=== PATIENT | female | born 1935 | race Caucasian/White ===

== ENCOUNTER → 2017-07-07 | Outpatient (CLI) | payer OTHER ==
[~2017-07-07] MED LIST: CLB200 PO; LPR25 PO; THY/30 PO
--- NOTE | 2017-07-08 07:35 | MAMMOGRAPHY REPORT ---
BILATERAL DIGITAL SCREENING MAMMOGRAM WITH CAD: 07/07/2017 CLINICAL HISTORY: Routine screening examination. TECHNIQUE: Bilateral CC and MLO views were obtained. Current study was also evaluated with a Comput er Aided Detection (CAD) system. COMPARISON: Comparison is made to exams dated: 07/02/2016 mammogram, 06/29/2015 mammogram, 06/27/2014 mammogram, 06/24/2013 mammogram, 06/23/2012 mammogram, and 06/21/2011 mammogram - [facility]. BREAST COMPOSITION: There are scattered areas of fibroglandular density in both breasts. FINDINGS: A pacemaker projects over the superior left pectoralis muscle on the MLO view. There are s cattered and loosely grouped benign rounded rim calcifications bilaterally. No suspicious mass, arch itectural distortion or cluster of suspicious microcalcifications is seen. IMPRESSION: ACR BI-RADS CATEGORY 1: NEGATIVE There is no mammographic evidence of malignancy. A 1 year screening mammogram is recommended. The pa tient will receive written notification of the results. Approximately 10% of breast cancers are not detected with mammography. A negative mammographic report should not delay biopsy if a clinically suggestive mass is present. Fariba Puga M.D. ay/:07/07/2017 14:51:35 Transportation Operations Manager: Tasia SANDERS(Sandhya)(M), [facility] letter sent: Normal 1/2 BI-RADS Code: ACR BI-RADS Category 1: Negative
== END | disposition home or self-care (01) ==
LOC: C.MAMM 12:04
PROVIDERS: ATTEND Internal Medicine Pulmonary Disease
DX: Z12.31 Encounter for screening mammogram for malignant neoplasm of breast (principal)

== ENCOUNTER → 2017-07-17 | Outpatient (CLI) | payer OTHER ==
[2017-07-17 10:56] LABS: BASO % 0.9 %; BASO ABS # 0.05 K/uL (0-0.2); COMPLETE YES; EOS % 5.7 %; HEMATOCRIT 43.7 % (37-47); LYMPH ABS # 1.57 K/uL (1.2-3.4); MEAN CELL VOLUME 92.2 fL (80-100); MEAN CORPUSCULAR HGB CONC 32.5 g/dl (32-36); MEAN PLATELET VOLUME 11.3 fL (7.4-10.4); MONO % 10.2 %; NEUT % 55.2 %; PLATELET COUNT 288 K/uL (130-400); RED BLOOD COUNT 4.74 M/uL (4.2-5.4); WHITE BLOOD COUNT 5.61 K/uL (4.8-10.8)
[2017-07-17 11:20] LABS: ALT/SGPT 25 U/L (12-78); BLOOD UREA NITROGEN 24 mg/dl (7-18); BUN/CREATININE RATIO 33.4 (10-20); CALCIUM 9.2 mg/dl (8.5-10.1); CARBON DIOXIDE 31 mmol/L (21-32); CHLORIDE 104 mmol/L (98-107); CHOLESTEROL 262 mg/dl (0-200); CREATININE 0.72 mg/dl (0.60-1.20); GLUCOSE 100 mg/dl (70-99); POTASSIUM 4.4 mmol/L (3.5-5.1); SODIUM 139 mmol/L (136-145); TRIGLYCERIDES 154 mg/dl (0-150); VERY LOW DENSITY LIPOPROT CALC 31 mg/dl
[2017-07-17 11:31] LABS: ALB/GLOB RATIO 1.1 (0.9-2); ALKALINE PHOSPHATASE 84 U/L (45-117); AST/SGOT 23 U/L (15-37); CHOLESTEROL/HDL RATIO 3.9; HDL CHOLESTEROL 67 mg/dl; LDL CHOLESTEROL CALCULATED 164 mg/dl
== END | disposition home or self-care (01) ==
LOC: C.LABBC 07:52
PROVIDERS: ATTEND Internal Medicine Pulmonary Disease
DX: Z00.00 Encounter for general adult medical examination without abnormal findings (principal); E03.9 Hypothyroidism, unspecified; M48.00 Spinal stenosis, site unspecified; M15.9 Polyosteoarthritis, unspecified; G62.9 Polyneuropathy, unspecified

== ENCOUNTER 2024-07-01 07:27 | Inpatient (IN) ==
--- NOTE | 2024-07-01 07:47 | Emergency Department Note ---
Impression & Plan Fall, Elevated troponin, Acute pain of right thigh, Fracture of right hip ED Provider Note NAME: JUAN JOHNSON AGE: 88 SEX: F : 1935 ARRIVES VIA: Ambulance INFORMANT: [Patient][ems, nursing] ED PROVIDER(S): [Cecilio Brandon MD] CHIEF COMPLAINT: Fall, right leg pain HISTORY OF PRESENT ILLNESS: The patient is an 88-year-old female who states that she fell because of her neuropathy around 2 days ago. She had friends help her up into a chair and she has been sitting in the chair since. She has received some food and drink through her friends. As per the nursing staff, when the patient arrived, she was covered in stool and urine. The patient denies any loss of consciousness. She has no headache or neck pain, no chest pain or back pain. No abdominal pain. She complains of pain only in the area of the right mid femur. The patient states that she has been unable to bear any weight on the right leg or walk since the fall. The patient is not on blood thinning agents. PMHx/PSHx/Social Hx: See Below PHYSICAL EXAM: GENERAL: Patient is in no acute distress. HEENT: No acute trauma, normocephalic atraumatic, mucous membranes dry, no nasal congestion. NECK: No stridor, no adenopathy, nontender cervical spine, trachea is midline. LUNGS: Clear to auscultation bilaterally, no wheeze, no rhonchi, breath sounds equal. HEART: Regular rhythm with an occasional extra beat, no murmurs. Normal rate. ABDOMEN: Soft, nontender, no peritonitis. No distention. EXTREMITIES: No cyanosis. The patient's right lower extremity does appear somewhat shortened compared to the left. She is painful with palpation of the right mid femur. There is a contusion present to the mid right femur medially. No gross deformity. Movement of her right hip does not cause any discomfort. Right knee is nontender and the quadriceps and patellar tendons appear intact. Right lower extremity is warm to the touch indicating adequate blood flow. NEUROLOGIC: Oriented x 3, no acute motor or sensory deficits, no focal weakness. SKIN: No jaundice, no diaphoresis. Pelvis: Stable with rock. DIFFERENTIAL DIAGNOSIS: Fracture, sprain, strain, hematoma, dehydration, rhabdomyolysis, UTI, among others. EMERGENCY DEPARTMENT PROCEDURES: MEDICAL DECISION MAKING: There is no leukocytosis. A mild anemia was seen with a hemoglobin of 10.9. There was a normal platelet count. No coagulopathy. No renal failure or significant electrolyte abnormality. No worrisome liver enzyme elevation. The patient appeared to be in a euthyroid state. ECG showed a sinus rhythm, no dysrhythmia or acute ischemia. Cardiac enzyme testing x 1 was slightly elevated. This troponin elevation could be secondary to cardiac injury or mismatch from her fall and stress. Urinalysis showed some ketones consistent with dehydration. No findings of infection. Chest film did not show pneumonia or CHF. Films of the pelvis and right femur were performed, she has a right intertrochanteric hip fracture. The patient did not want anything for pain. The patient received IV saline, 500 cc. This was given for hydration. I did speak with orthopedics. The patient is in need of an orthopedic procedure and will be seen later today for potential options. I spoke with the patient about her findings, I did speak with case management, hospitalization is indicated. The on-call hospitalist was consulted. In short, the patient appears to have suffered a hip fracture from her fall. No other significant injuries noted by history or exam. Prior/Outside records/notes reviewed: Today's EMS notes describing her presentation and transport to this hospital. ECG per my interpretation: Indication was fall. The ECG shows a sinus rhythm with PACs. The rate is 81. There is no acute ST elevation, no PVCs. The QTc is 422. Continuous Cardiac Monitoring per my interpretation: An order was placed for continuous cardiac monitoring. The monitor shows a rate of 85 with normal sinus rhythm. Imaging/x-ray results per my interpretation: Chest x-ray does not show pneumonia or CHF. Pelvis, right hip and right femur films were performed. There was a right intertrochanteric hip fracture seen. Chronic Medical/Social conditions affecting care: Advanced age. Care/Management discussed with: Case management, the on-call hospitalist. Orthopedics-Dr. Valdes Level of care consideration(s): After review of the information above and other included data: --I believe the patient requires escalation of care to admission DISPOSITION: Admission Past Med/Surg History Problem List (Updated 07/01/24 @ 11:18 by Cecilio Brandon MD) Fracture of right hip (Acute) Acute pain of right thigh (Acute) Elevated troponin (Acute) Fall (Acute) Encounter for pre-operative examination Elevated troponin Right femoral fracture Squamous cell skin cancer Cardiac pacemaker Decreased exercise tolerance PAT (paroxysmal atrial tachycardia) Glaucoma Dyslipidemia Spinal stenosis Peripheral neuropathy Degenerative joint disease, multiple joints on both sides of body Allergic rhinitis (Acute) Hypothyroidism (Acute) Osteoporosis (Acute) Medical History (Updated 07/01/24 @ 11:18 by Cecilio Brandon MD) Peptic ulcer SSS (sick sinus syndrome) (04/28/14) Surgical History S/P placement of cardiac pacemaker (~2013) Dual chamber Status post hip surgery (~2013) Left RUTH History of esophagogastroduodenoscopy (~1996) H/O colonoscopy (~1998) Family History Mother Breast cancer Social History Smoking Status: Never smoker marital status: / Current Living Situation: Alone current occupational status: retired Feels Safe at Home: Yes Allergies Allergies Allergy/AdvReac Type Severity Reaction Status Date / Time No Known Drug Allergies Allergy Verified 04/19/24 12:10 Home Meds Home Medications Medication Instructions Recorded Confirmed latanoprost 0.005 % eye drops 1 drops ophthalmic (eye) DAILY 06/15/19 07/01/24 multivitamin (Daily Multi-Vitamin 1 tab PO DAILY 01/31/20 07/01/24 tablet) timolol maleate 0.5 % once daily 1 drp ophthalmic (eye) BID 08/14/20 07/01/24 eye drops vitamins A,C,N-suzo-peljtq 1 tab PO BID 04/14/23 07/01/24 [PreserVision AREDS] doxycycline hyclate 50 mg capsule 50 mg PO BID 07/01/24 07/01/24 Previous Rx's Medication Instructions Recorded thyroid (pork) 60 mg tablet 60 mg PO DAILY #90 tabs 09/01/23 (Paoli Thyroid) metoprolol succinate 50 mg 50 mg PO DAILY #90 tabs 10/23/23 tablet,extended release 24 hr celecoxib 200 mg capsule (Celebrex) 200 mg PO BID #180 caps 04/27/24 Results & Data (ED) Vital Signs Vital Signs - 24 hr 10/10/24 07:35 07/01/24 07:35 07/01/24 08:00 Temperature 36.7 C Temperature Source Oral Pulse Rate 85 85 75 Pulse Rate from SpO2 Sensor 71 Pulse Rhythm Regular Regular Pulse Strength Normal Respiratory Rate 18 18 17 Respiratory Effort / Characteristics Non-Labored Respiratory Depth Normal Respiratory Pattern Regular Blood Pressure 134/77 97/77 L Blood Pressure Mean 96 87 Blood Pressure Position Lying Pulse Oximetry 97 97 96 Oxygen Delivery Method Room Air Room Air Sepsis Recent Fever Within 48 Hours No Sepsis New/Unexplained Change in Mental Status No Sepsis Action Taken by Nursing No Action Required 07/01/24 09:05 07/01/24 09:09 Temperature Temperature Source Pulse Rate 83 73 Pulse Rate from SpO2 Sensor 83 77 Pulse Rhythm Pulse Strength Respiratory Rate 20 16 Respiratory Effort / Characteristics Respiratory Depth Respiratory Pattern Blood Pressure 122/95 Blood Pressure Mean 101 Blood Pressure Position Pulse Oximetry 97 95 Oxygen Delivery Method Room Air Sepsis Recent Fever Within 48 Hours Sepsis New/Unexplained Change in Mental Status Sepsis Action Taken by Assisted Medications Current Medication List: was personally reviewed by me Laboratory Data Attestation: I reviewed the patient's lab results. 07/01/24 07:49 07/01/24 07:49 Lab Results 07/01/24 07/01/24 07/01/24 Range/Units 07:46 07:49 09:43 WBC 7.56 (4.8-10.8) K/ul RBC 3.59 L (4.20-5.40) M/uL Hgb 10.9 L (12.0-16.0) g/dl Hct 33.9 L (37.0-47.0) % MCV 94.4 (80.0-100.0) fL MCH 30.4 (25.0-34.0) pg MCHC 32.2 (32.0-36.0) g/dL RDW Std Deviation 44.8 (36.4-46.3) fL RDW Coeff of López 13.0 (11.5-14.5) % Plt Count 224 (130-400) K/uL MPV 10.8 (9.4-12.4) fL Immature Gran % (Auto) 0.4 % Neut % (Auto) 73.9 % Lymph % (Auto) 13.4 % [place] % (Auto) 11.1 % Eos % (Auto) 0.7 % Baso % (Auto) 0.5 % Neut # (Auto) 5.59 (1.40-6.50) K/uL Lymph # (Auto) 1.01 L (1.20-3.40) K/uL [place] # (Auto) 0.84 H (0.11-0.59) K/uL Eos # (Auto) 0.05 (0.00-0.50) K/uL Baso # (Auto) 0.04 (0.00-0.20) K/uL Immature Gran # (Auto) 0.03 (0.01-0.20) K/uL PT 10.4 (9.0-12.0) Seconds INR 1.0 (0.9-1.1) APTT 29 (21-31) Seconds PTT Ratio 1.1 Sodium 138 (136-145) mmol/L Potassium 4.7 (3.5-5.1) mmol/L Chloride 102 (98-107) mmol/L Carbon Dioxide 28 (21-32) mmol/L Anion Gap 8 (3-11) BUN 50 H (6-23) mg/dl Creatinine 0.99 (0.6-1.2) mg/dl Est Cr Clr Drug Dosing 35.3 ml/min eGFR 54.84 BUN/Creatinine Ratio 50.5 H (10-20) Glucose 124 H (70-99(Fasting)) mg/dl Calcium 9.6 (8.6-10.3) mg/dl Magnesium 2.2 (1.7-2.4) mg/dl Total Bilirubin 0.8 (0.2-1.0) mg/dl AST 24 (13-39) U/L ALT 17 (7-52) U/L Alkaline Phosphatase 48 (34-104) U/L Total Creatine Kinase 179 (26-192) U/L Troponin I High Sens 19.4 H (0-14) pg/ml Total Protein 7.2 (6.0-8.3) gm/dl Albumin 4.3 (3.4-5.0) gm/dl Globulin 2.9 (2.5-4.0) gm/dl Albumin/Globulin Ratio 1.5 (0.9-2) TSH 3.193 (0.300-4.500) uIu/ml Urine Color Yellow Urine Appearance Clear (Clear) Urine pH 5.5 (4.5-7.5) Ur Specific [place] 1.025 (1.000-1.030) Urine Protein Negative (Negative) Urine Glucose (UA) Negative (Negative) Urine Ketones Trace H (Negative) Urine Blood Negative (Negative) Urine Nitrite Negative (Negative) Urine Bilirubin Negative (Negative) Urine Urobilinogen Negative (Negative) Ur Leukocyte Esterase Negative (Negative) Administered Medications Discontinued Medications Sodium Chloride (Nss) 500 mls @ 999 mls/hr IV .Q31M FAUZIA Stop: 07/01/24 08:15 Last Infusion: 07/01/24 08:28 Dose: Infused Documented By: Admin: 07/01/24 08:02 Dose: 999 mls/hr Documented By: SRL Imaging Data Radiologist's Impression: Chest X-Ray 07/01/24 07:41 SINGLE VIEW CHEST CLINICAL HISTORY: General weakness. Fall. Hip fracture. FINDINGS: An AP supine chest radiograph is compared to study dated 01/21/2016. A 2-lead cardiac pacemaker is unchanged in position. The heart is mildly enlarged. The pulmonary vasculature is noncongested. The lungs and pleural spaces are clear. No pneumothorax is seen. The skeletal structures are osteopenic. There is chronic deformity of the left clavicle. IMPRESSION: 1. Cardiomegaly and cardiac pacemaker without radiographic evidence of congestive failure. 2. The lungs are clear. ACT 112: Negative or not required by law. Electronically signed by: Cecilio Thomson M.D. 07/01/2024 9:22 AM Femur X-Ray 07/01/24 07:41 XR femur RT 2V routine CLINICAL HISTORY: fall, pain COMPARISON: Pelvis radiograph April 27, 2024. FINDINGS: There is an acute comminuted moderately displaced intertrochanteric fracture of the right femur. Several bone fragments are present. There is no distal right femoral fracture. Alignment of the right knee is anatomic. There is no significant right knee joint effusion. IMPRESSION: Acute comminuted displaced intertrochanteric fracture of the right femur. ACT 112: Negative or not required by law. Electronically signed by: Fred Krishnamurthy M.D. 07/01/2024 9:16 AM Hip/Pelvis X-Ray 07/01/24 07:41 SINGLE VIEW PELVIS; 2 VIEWS RIGHT HIP CLINICAL HISTORY: Fall with right hip injury. FINDINGS: AP views of the pelvis with AP and crosstable lateral views of the right hip are compared to study dated 04/27/2014. The skeletal structures are osteopenic. There is a comminuted intertrochanteric fracture of the right proximal femur with angulation and large displaced fragments. Overlying soft tissue edema is observed. No additional acute fracture is seen involving the left hip or the bony pelvis. A bipolar left hip arthroplasty is in near anatomic alignment. Moderate osteoarthritic change is seen in the right hip. There is degenerative sclerosis of the sacroiliac joints. Lumbar sacral spondylosis and scoliosis is partially imaged. Phleboliths project over the pelvis. IMPRESSION: Intertrochanteric fracture of the right proximal femur as above. Electronically signed by: Cecilio Thomson M.D. 07/01/2024 9:19 AM Discharge Plan Visit Data Chief Complaint: Fall Stated Complaint: FALL, R THIGH PAIN ED Provider: Cecilio Brandon Discharge Problem: Fall, Elevated troponin, Acute pain of right thigh, Fracture of right hip Patient Disposition: Admitted As Inpatient Condition: Fair Forms Stand Alone Forms: [facility] Prescriptions Prescriptions: No Action thyroid (pork) [Paoli Thyroid] 60 mg tablet 60 mg PO DAILY Qty: 90 3RF metoprolol succinate 50 mg tablet extended release 24 hr 50 mg PO DAILY Qty: 90 3RF celecoxib [Celebrex] 200 mg capsule 200 mg PO BID Qty: 180 3RF Rx Instructions: Generic please vitamins A,C,L-owsq-iyfppo [PreserVision AREDS] 1 tab PO BID Rx Instructions: OTC unable to verify latanoprost 0.005 % drops 1 drops OP DAILY timolol maleate 0.5 % drops, once daily 1 drp OP BID multivitamin [Daily Multi-Vitamin] Tablet 1 tab PO DAILY doxycycline hyclate 50 mg capsule 50 mg PO BID Rx Instructions: filled 06/22 30 day supply Referrals Referrals: Paulino Suarez MD [Primary Care Provider] - Discharge Problem: Fall Qualifiers: Encounter type: initial encounter Qualified Code(s): W19.XXXA - Unspecified fall, initial encounter Fracture of right hip Qualifiers: Encounter type: initial encounter Fracture type: closed Qualified Code(s): S 72.001A - Fracture of unspecified part of neck of right femur, initial encounter for closed fracture
[2024-07-01] MEDS: SODIUM CHLORIDE 0.9% 500 ML IV SCH (08:02)
[2024-07-01 08:04] LABS: Appearance Urine Clear (Clear); Bilirubin Urine Negative (Negative); Blood Urine Negative (Negative); Color Urine Yellow; Glucose Urine UA Negative (Negative); Ketones Urine Trace (Negative); Leukocyte Esterase Urine Negative (Negative); Nitrite Urine Negative (Negative); Protein Urine Negative (Negative); Specific Gravity Urine 1.025 (1.000-1.030); Urobilinogen Urine Negative (Negative); pH Urine 5.5 (4.5-7.5)
[2024-07-01 08:06] LABS: Basophils # (auto) 0.04 K/uL (0.00-0.20); Basophils % (auto) 0.5 %; Eosinophils # (auto) 0.05 K/uL (0.00-0.50); Eosinophils % (auto) 0.7 %; Hematocrit (blood only) 33.9 % (37.0-47.0); Hemoglobin 10.9 g/dl (12.0-16.0); Immature Granulocytes # (auto) 0.03 K/uL (0.01-0.20); Immature Granulocytes % (auto) 0.4 %; Lymphocytes # (auto) 1.01 K/uL (1.20-3.40); Lymphocytes % (auto) 13.4 %; Mean Corpuscular Hemoglobin 30.4 pg (25.0-34.0); Mean Corpuscular Hgb Conc 32.2 g/dL (32.0-36.0); Mean Corpuscular Volume 94.4 fL (80.0-100.0); Mean Platelet Volume 10.8 fL (9.4-12.4); Monocytes # (auto) 0.84 K/uL (0.11-0.59); Monocytes % (auto) 11.1 %; Neutrophils # (auto) 5.59 K/uL (1.40-6.50); Neutrophils % (auto) 73.9 %; Platelet Count 224 K/uL (130-400); RDW Standard Deviation 44.8 fL (36.4-46.3); Red Blood Count 3.59 M/uL (4.20-5.40); White Blood Count 7.56 K/ul (4.8-10.8)
[2024-07-01 08:23] LABS: Albumin Globulin Ratio 1.5 (0.9-2); Albumin Level 4.3 gm/dl (3.4-5.0); BUN Creatinine Ratio 50.5 (10-20); Bilirubin,Total 0.8 mg/dl (0.2-1.0); Calcium 9.6 mg/dl (8.6-10.3); Creatinine Clr Calc Pharmacy 35.3 ml/min; Globulin 2.9 gm/dl (2.5-4.0); Magnesium 2.2 mg/dl (1.7-2.4); Potassium 4.7 mmol/L (3.5-5.1); Total Protein 7.2 gm/dl (6.0-8.3)
[2024-07-01 08:28] LABS: Troponin I High Sensitivity 19.4 pg/ml (0-14)
[2024-07-01 08:38] LABS: Thyroid Stimulating Hormone 3.193 uIu/ml (0.300-4.500)
--- NOTE | 2024-07-01 09:17 | XRay Report ---
XR femur RT 2V routine CLINICAL HISTORY: fall, pain COMPARISON: Pelvis radiograph April 27, 2024. FINDINGS: There is an acute comminuted moderately displaced intertrochanteric fracture of the right femur. Several bone fragments are present. There is no distal right femoral fracture. Alignment of th e right knee is anatomic. There is no significant right knee joint effusion. IMPRESSION: Acute comminuted displaced intertrochanteric fracture of the right femur. ACT 112: Negative or not required by law. Electronically signed by: Fred Krishnamurthy M.D. 07/01/2024 9:16 AM
--- NOTE | 2024-07-01 09:21 | XRay Report ---
SINGLE VIEW PELVIS; 2 VIEWS RIGHT HIP CLINICAL HISTORY: Fall with right hip injury. FINDINGS: AP views of the pelvis with AP and crosstable lateral views of the right hip are compared t o study dated 04/27/2014. The skeletal structures are osteopenic. There is a comminuted intertrochanter ic fracture of the right proximal femur with angulation and large displaced fragments. Overlying soft tissue edema is observed. No additional acute fracture is seen involving the left hip or the bony pe lvis. A bipolar left hip arthroplasty is in near anatomic alignment. Moderate osteoarthritic change i s seen in the right hip. There is degenerative sclerosis of the sacroiliac joints. Lumbar sacral spon dylosis and scoliosis is partially imaged. Phleboliths project over the pelvis. IMPRESSION: Intertrochanteric fracture of the right proximal femur as above. Electronically signed by: Cecilio Thomson M.D. 07/01/2024 9:19 AM
--- NOTE | 2024-07-01 09:24 | History & Physical Report ---
Date of Service July 01, 2024 Assessment & Plan (1) Right femoral fracture: Plan: Patient presented on 07/01 for a fall 2 days prior She is mainly been confined to her chair since, and was found covered in feces and urine Imaging revealed an acute comminuted displaced intertrochanteric fracture of the right proximal femur Orthopedic surgery consult appreciated Plan for the OR today on 07/01 Keep n.p.o. for now Hgb 10.9 on arrival No signs of active bleeding on clinical exam; fall occurred 2 days ago Continue to monitor with daily CBCs Type and screen Activity: Bedrest Pressure ulcer precautions Ross placed in the ED; Daily Ross catheter care Pain control with Tylenol and morphine as needed Cefazolin 2000 mg IV perioperatively Fall precautions A.m. CBC, BMP (2) Elevated troponin: Plan: Mild; elevated troponin at 19.4 on arrival, repeat pending; will trend q6h to peak Clinically, patient denies chest pain, chest palpitations, pleuritic CP, or SOB Will consider upgrade to telemetry floor based on trend (3) Cardiac pacemaker: Plan: placed for SSS in 2013 after 15 sec pauses and syncope functioning well last check 03/2024, follows with Dr. Conteh of Cardiology (4) Glaucoma: Plan: Continue home eyedrops (5) Hypothyroidism: Plan: Continue on home [place] Thyroid TSH are normal Plan Disposition: Admit to MedSurg Full code N.p.o. for now then advance diet following Ortho consult VTE PPx: Hold chemical DVT PPx prior to surgery; SCDs for now, and will reassess History of Present Illness Chief Complaint: Fall, unable to bear weight on right leg Primary Care Provider: Paulino Suarez MD Jessica is an 88-year-old female with PMH of osteoporosis, hypothyroidism, spinal stenosis, dyslipidemia, glaucoma, paroxysmal atrial tachycardia, and cardiac pacemaker. She presented on 07/01 after sustaining a fall 2 days prior. Patient lives alone. She reports that she is normally very active and walks approximately 3 miles every day using her walker. 2 days ago, she sustained a ground-level fall after her 3 mile walk which she attributed to her neuropathy. No prior falls. She reports her legs gave out from under her. No tripping. No dizziness prior to fall or syncope. No LOC. She is not on blood thinners. No head strike. After she fell, her neighbors helped her get back up. Since this time, she has had difficulty walking and reports that today she was unable to bear weight on her right leg. She does not have any right hip/leg pain when she is resting, but does have pain when bending the knee and bearing weight on it. Today, she was found by her neighbors covered in feces and urine, and her neighbor Paulino called an ambulance. At present, she has no new complaints. She reports that she did not take her regular morning medicine today as she was unsure if she would need surgery. No recent change in medications. She does manage her own medicine at home. She denies smoking, tobacco use, recent alcohol use. 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 She denies prior injuries to the right leg, and reports she does not have any hardware in her right hip/knee/ankle. She does have a history of a left hip replacement. Patient's vitals are stable at time admission. ED course: NSS 500 mL IV ROS: Patient endorses right upper medial leg pain with movements and palpation. Patient denies prior falls, fever, chills, night sweats, dizziness, lightheadedness, syncope, headaches, chest pain, chest palpitations, pleuritic CP, SOB, cough, abdominal pain, N/B/D, changes in urinary or bowel habits, burning with urination, blood in the urine or stool, saddle anesthesia, or numbness or tingling going down the right leg. Allergies Allergy/AdvReac Type Severity Reaction Status Date / Time No Known Drug Allergies Allergy Verified 04/19/24 12:10 Home Medications Medication Instructions Recorded Confirmed Type latanoprost 0.005 % eye drops 1 drops ophthalmic (eye) DAILY 06/15/19 07/01/24 History multivitamin (Daily Multi-Vitamin 1 tab PO DAILY 01/31/20 07/01/24 History tablet) timolol maleate 0.5 % once daily 1 drp ophthalmic (eye) BID 08/14/20 07/01/24 History eye drops vitamins A,C,R-tbmm-mwdmqz 1 tab PO BID 04/14/23 07/01/24 History [PreserVision AREDS] thyroid (pork) 60 mg tablet 60 mg PO DAILY #90 tabs 09/01/23 07/01/24 Rx ([place] Thyroid) metoprolol succinate 50 mg 50 mg PO DAILY #90 tabs 10/23/23 07/01/24 Rx tablet,extended release 24 hr celecoxib 200 mg capsule (Celebrex) 200 mg PO BID #180 caps 04/27/24 07/01/24 Rx doxycycline hyclate 50 mg capsule 50 mg PO BID 07/01/24 07/01/24 History Past Med/Surg History Problem List (Updated 07/01/24 @ 14:05 by Sen Koenig LPN) Fracture of right hip (Acute 07/01/24) Acute comminuted displaced intertrochanteric fracture of the right femur from a fall 2 days prior per the ED report Acute pain of right thigh (Acute) Elevated troponin (Acute) Fall (Acute) Encounter for pre-operative examination Elevated troponin Right femoral fracture (07/01/24) Acute comminuted displaced intertrochanteric fracture of the right femur from a fall 2 days prior per the ED report Squamous cell skin cancer Cardiac pacemaker Decreased exercise tolerance PAT (paroxysmal atrial tachycardia) Glaucoma Dyslipidemia Spinal stenosis Peripheral neuropathy Degenerative joint disease, multiple joints on both sides of body Allergic rhinitis (Acute) Hypothyroidism (Acute) Osteoporosis (Acute) Medical History (Updated 07/01/24 @ 14:05 by Sen Koenig LPN) Peptic ulcer SSS (sick sinus syndrome) (04/28/14) Surgical History S/P placement of cardiac pacemaker (~2013) Dual chamber Status post hip surgery (~2013) Left RUTH History of esophagogastroduodenoscopy (~1996) H/O colonoscopy (~1998) Family History Mother Breast cancer Social History Smoking Status: Never smoker Hx Alcohol Use: No Hx Substance Use: No Preferred Language: Pashto Communication Ability: Effective Acid Strength Inspector Required: No Beliefs That Will Affect Care: None marital status: / Current Living Situation: Alone current occupational status: retired Feels Safe at Home: Yes Assistive Devices: Glasses and Walker Review of Systems Review of Systems: See HPI above Physical Exam Physical Exam: General: no acute distress; pleasant affect; non-toxic appearing; frail appearing; cooperative; SpO2 95% on RA HEENT: normocephalic, atraumatic; no scleral icterus; PERRLA; vision and hearing grossly intact Neck: supple; no lymphadenopathy; trachea midline Skin: warm, dry without signs of tenting; no cyanosis; no rashes, bruising, lesions, or erythema noted CV: chest wall NTP; RRR; S1/S2 normal; no murmurs/rubs/gallops; pulses intact and symmetric at radial, DP, and PT Lungs: no acute respiratory distress; symmetrical chest wall expansion; clear breath sounds across all lung boyer w/o adventitious sounds; no wheezing ABD: Soft, NTP; BS present; no rebound/guarding; no distention RLE: No rashes, bruising, or signs of active bleeding around the hip or femur; TTP on the medial aspect of the right upper extremity MSK: no tics or fasciculations; no edema noted in the LEs b/l, nonerythematous; patient demonstrates ability to wiggle toes/plantarflex/dorsiflex against resistance with 5/5 strength; patient is able to bend her right knee albeit with some pain Neuro: A&Ox3; normal mood and affect; fluent speech; no focal deficits; patient reports that sensation is actually more diminished in the left foot when compared to the right assessed via light touch Results & Data Results & Data Vital Signs (Past 12 Hours) Vital Signs Temp Pulse Resp BP Pulse Ox O2 Del Method 07/01/24 09:09 73 16 95 07/01/24 09:05 83 20 122/95 97 Room Air 07/01/24 08:00 75 17 97/77 L 96 07/01/24 07:35 85 18 97 Room Air 07/01/24 07:35 36.7 C 85 18 134/77 97 Room Air Laboratory Results Abnormal lab results 07/01/24 07/01/24 Range/Units 07:46 07:49 RBC 3.59 L (4.20-5.40) M/uL Hgb 10.9 L (12.0-16.0) g/dl Hct 33.9 L (37.0-47.0) % Lymph # (Auto) 1.01 L (1.20-3.40) K/uL [place] # (Auto) 0.84 H (0.11-0.59) K/uL BUN 50 H (6-23) mg/dl BUN/Creatinine Ratio 50.5 H (10-20) Glucose 124 H (70-99(Fasting)) mg/dl Troponin I High Sens 19.4 H (0-14) pg/ml Urine Ketones Trace H (Negative) Diagnostic Findings Chest X-Ray 07/01/24 07:41 SINGLE VIEW CHEST CLINICAL HISTORY: General weakness. Fall. Hip fracture. FINDINGS: An AP supine chest radiograph is compared to study dated 01/21/2016. A 2-lead cardiac pacemaker is unchanged in position. The heart is mildly enlarged. The pulmonary vasculature is noncongested. The lungs and pleural spaces are clear. No pneumothorax is seen. The skeletal structures are osteopenic. There is chronic deformity of the left clavicle. IMPRESSION: 1. Cardiomegaly and cardiac pacemaker without radiographic evidence of congestive failure. 2. The lungs are clear. ACT 112: Negative or not required by law. Electronically signed by: Cecilio Thomson M.D. 07/01/2024 9:22 AM Femur X-Ray 07/01/24 07:41 XR femur RT 2V routine CLINICAL HISTORY: fall, pain COMPARISON: Pelvis radiograph April 27, 2024. FINDINGS: There is an acute comminuted moderately displaced intertrochanteric fracture of the right femur. Several bone fragments are present. There is no distal right femoral fracture. Alignment of the right knee is anatomic. There is no significant right knee joint effusion. IMPRESSION: Acute comminuted displaced intertrochanteric fracture of the right femur. ACT 112: Negative or not required by law. Electronically signed by: Fred Krishnamurthy M.D. 07/01/2024 9:16 AM Hip/Pelvis X-Ray 07/01/24 07:41 SINGLE VIEW PELVIS; 2 VIEWS RIGHT HIP CLINICAL HISTORY: Fall with right hip injury. FINDINGS: AP views of the pelvis with AP and crosstable lateral views of the right hip are compared to study dated 04/27/2014. The skeletal structures are osteopenic. There is a comminuted intertrochanteric fracture of the right proximal femur with angulation and large displaced fragments. Overlying soft tissue edema is observed. No additional acute fracture is seen involving the left hip or the bony pelvis. A bipolar left hip arthroplasty is in near anatomic alignment. Moderate osteoarthritic change is seen in the right hip. There is degenerative sclerosis of the sacroiliac joints. Lumbar sacral spondylosis and scoliosis is partially imaged. Phleboliths project over the pelvis. IMPRESSION: Intertrochanteric fracture of the right proximal femur as above. Electronically signed by: Cecilio Thomson M.D. 07/01/2024 9:19 AM ECG Additional Comments: ECG revealed sinus rhythm with PACs 81 bpm; QTc 422 Code Status & VTE Plan Code Status Full code (discussed with patient at bedside; went over risks/benefits of performing CPR on a patient of advanced age - which could include sequelae such as broken ribs. The patient reports that, despite these risks, she would still want CPR/defibrillation/intubation/mechanical ventilation if needed). VTE Prophylaxis Plan VTE Prophylaxis will be ordered: Yes Supervising Physician Co-Signing Physician Notes MARLA Supervision Note: I personally saw and examined the patient. I verified all cornejo points and agree with MARLA Mon with the following exceptions and/or additions: S-patient presents 2 days after she had a fall and has been unable to ambulate on the right lower extremity due to pain. She does not have any pain at rest. Denies passing out. She reports falling about once a month for the last few months and thinks it is because her pacemaker is failing. Review of cardiology notes shows that her pacemaker is functioning normally but that she has decreased activity level over the last year and pain in her back and neuropathy contributing to falls History and ROS reviewed otherwise as above O- Vitals reviewed Gen: AAOx3, NAD HEENT: Anicteric sclerae, EOMI CV: RRR no mgr nl S1S2 Pulm: CTAB no wcr Abd: +BS soft NT ND no masses or hernias Ext: No edema, 2+ DP pulses, right hip dressing in place Skin: No rashes, warm/dry CBC, BMP, troponin, ECG, hip x-rays reviewed A/L-65-tzgu-old female here with mechanical fall resulting in right hip fracture. Now s/p ORIF right hip with orthopedic surgery Appreciate orthopedic surgery management Pain control with Tylenol, aspirin twice daily for DVT prophylaxis along with SCDs No need for telemetry, troponin only up to 23-will continue to trend but she is not having chest pain and ECG without ischemic changes PT/OT evals placed but patient reports she will not go to rehab PG Care Time/CCT Total # of Minutes Spent Total Time Spent with Patient: Total time spent is greater than 50% in coordination of care (as documented) at patient's floor/unit and/or counseling patient: Coding [place] [address] INT INP/OBS CARE 2/MIN Patient Type Established Medical Decision Making Moderate Complexity Diagnoses Right femoral fracture S72.91XA Elevated troponin R79.89 Cardiac pacemaker Z95.0 Glaucoma H40.9 Hypothyroidism E03.9
--- NOTE | 2024-07-01 10:39 | Orthopedic Consultation ---
Date of Service July 01, 2024 Assessment & Plan (1) Right femoral fracture: -I had a detailed succussion with the patient regarding her diagnosis, prognosis and orthopedic recommendations. At this time, would recommend surgical fixation of the right hip.I discussed the risks including but not limited to infection, nerve or vessel injury, damage to surrounding structures, implant complications, DVT, pulmonary embolus, , need for repeat or revision surgery, persistent pain, pain syndrome, ambulatory dysfunction and complications related to anesthesia. She asked appropriate questions, demonstrated good understanding, and wants to proceed with surgery. Surgery would be a closed versus open reduc tion internal fixation with intramedullary nail. Informed consent was documented today. Patient has been n.p.o. since last evening. She has no other questions or concerns today. History of Present Illness Reason for Consultation: right hip fracture Requesting Physician: . Attending Physician: Aleksandra Porter MD Jessica is an 88-year-old female who is being consulted today for a right hip fracture that was found upon arrival to the emergency department today. She states that 2 days ago, she had a fall at home. She lives alone. She ambulates that assistive devices. [place]. She states that neighbors were called to help her into a chair. Since then, she has been in her chair and has not left the chair in 2 days. She then called 911 for assistance today as she has been unable to get out of her chair or ambulate on the right lower extremity. Orthopedics has been consulted for the right hip fracture. Patient states she is not on any blood thinners. States she is not a diabetic. She did have her left hip replaced by Dr. Freeman many years ago, however she states that she would like to have her hip fracture fixed by a [facility] provider due to availability today. No other question concerns today. Allergies Allergy/AdvReac Type Severity Reaction Status Date / Time No Known Drug Allergies Allergy Verified 04/19/24 12:10 Home Medications Medication Instructions Recorded Confirmed Type latanoprost 0.005 % eye drops 1 drops ophthalmic (eye) DAILY 06/15/19 07/01/24 History multivitamin (Daily Multi-Vitamin 1 tab PO DAILY 01/31/20 07/01/24 History tablet) timolol maleate 0.5 % once daily 1 drp ophthalmic (eye) BID 08/14/20 07/01/24 History eye drops vitamins A,C,X-mrro-kelkpg 1 tab PO BID 04/14/23 07/01/24 History [PreserVision AREDS] thyroid (pork) 60 mg tablet 60 mg PO DAILY #90 tabs 09/01/23 07/01/24 Rx ([place] Thyroid) metoprolol succinate 50 mg 50 mg PO DAILY #90 tabs 10/23/23 07/01/24 Rx tablet,extended release 24 hr celecoxib 200 mg capsule (Celebrex) 200 mg PO BID #180 caps 04/27/24 07/01/24 Rx doxycycline hyclate 50 mg capsule 50 mg PO BID 07/01/24 07/01/24 History Past Med/Surg History Problem List (Updated 07/01/24 @ 11:18 by Cecilio Brandon MD) Fracture of right hip (Acute) Acute pain of right thigh (Acute) Elevated troponin (Acute) Fall (Acute) Encounter for pre-operative examination Elevated troponin Right femoral fracture Squamous cell skin cancer Cardiac pacemaker Decreased exercise tolerance PAT (paroxysmal atrial tachycardia) Glaucoma Dyslipidemia Spinal stenosis Peripheral neuropathy Degenerative joint disease, multiple joints on both sides of body Allergic rhinitis (Acute) Hypothyroidism (Acute) Osteoporosis (Acute) Medical History (Updated 07/01/24 @ 11:18 by Cecilio Brandon MD) Peptic ulcer SSS (sick sinus syndrome) (04/28/14) Surgical History S/P placement of cardiac pacemaker (~2013) Dual chamber Status post hip surgery (~2013) Left RUTH History of esophagogastroduodenoscopy (~1996) H/O colonoscopy (~1998) Family History Mother Breast cancer Social History Smoking Status: Never smoker Hx Alcohol Use: No Hx Substance Use: No Preferred Language: Bahamian Communication Ability: Effective Hospitality Ambassador Required: No Beliefs That Will Affect Care: None marital status: / Current Living Situation: Alone current occupational status: retired Other Information That Helps Us Care for You: No Feels Safe at Home: Yes Safety Concerns: Feels Safe At This Time Assistive Devices: Glasses and Walker Review of Systems All systems reviewed & are unremarkable except as noted in HPI & below. Physical Exam General: Alert and oriented. In no acute distress at today's consultation. Right lower extremity: Inspection reveals a shortened right lower extremity that is externally rotated. Did not perform range of motion due to the fracture at the hip. She is nontender to the right knee. Skin check satisfactory without open wounds. No gross deformity noted in the right hip, knee or lower e xtremity. Sensation intact. Distal pulses palpated. Cap refill less than 3 seconds. Constitutional WD/WN, vitals as above Cardiovascular Vascularity grossly intact Musculoskeletal Please see above Psychiatric A+Ox3, euthymic affect Results & Data Results & Data Laboratory Results Abnormal lab results 07/01/24 07/01/24 07/01/24 Range/Units 07:46 07:49 11:41 RBC 3.59 L (4.20-5.40) M/uL Hgb 10.9 L (12.0-16.0) g/dl Hct 33.9 L (37.0-47.0) % Lymph # (Auto) 1.01 L (1.20-3.40) K/uL [place] # (Auto) 0.84 H (0.11-0.59) K/uL BUN 50 H (6-23) mg/dl BUN/Creatinine Ratio 50.5 H (10-20) Glucose 124 H (70-99(Fasting)) mg/dl Troponin I High Sens 19.4 H 23.3 H (0-14) pg/ml Urine Ketones Trace H (Negative) Diagnostic Findings Did review x-ray images of the right hip including AP pelvis today. There is a comminuted right intertrochanteric hip fracture. No other fracture seen within the pelvis. Did also review x-ray images of the right femur that include the right knee AP and lateral. No obvious acute bony abnormalities within the right knee. PG Care Time/CCT Total # of Minutes Spent Total Time Spent with Patient: Total time spent is greater than 50% in coordination of care (as documented) at patient's floor/unit and/or counseling patient: Coding Level of Care Code 04605 IN/OBS CONSULT LVL 4,60M (57 - DECISION FOR SURGERY) Diagnoses Right femoral fracture S72.91XA
[2024-07-01 10:41] LABS: Partial Thromboplastin Ratio 1.1; Partial Thromboplastin Time 29 Seconds (21-31); Prothrombin Time 10.4 Seconds (9.0-12.0)
--- NOTE | 2024-07-01 11:01 | Anesthesiology Consultation ---
Date of Service July 01, 2024 Assessment & Plan (1) Encounter for pre-operative examination: Chart Review Chart Review: Acceptable Risk for Surgery and Patient NOT seen in Pre Admission Testing Consults Requested none History Surgery Operation Date: 07/01/24 09:10 Proposed Procedures p Right Long Troch Nail - Fortunato Villar MD Height/Weight Height: 5 ft 5 in Weight: 67.1 kg Allergies Allergy/AdvReac Type Severity Reaction Status Date / Time No Known Drug Allergies Allergy Verified 04/19/24 12:10 Medications Home Medications Medication Instructions Recorded Confirmed Last Taken latanoprost 0.005 % eye drops 1 drops ophthalmic (eye) DAILY 06/15/19 07/01/24 Unknown multivitamin (Daily Multi-Vitamin 1 tab PO DAILY 01/31/20 07/01/24 Unknown tablet) timolol maleate 0.5 % once daily 1 drp ophthalmic (eye) BID 08/14/20 07/01/24 Unknown eye drops vitamins A,C,X-ieqm-shaaap 1 tab PO BID 04/14/23 07/01/24 Unknown [PreserVision AREDS] thyroid (pork) 60 mg tablet 60 mg PO DAILY #90 tabs 09/01/23 07/01/24 Unknown ([place] Thyroid) metoprolol succinate 50 mg 50 mg PO DAILY #90 tabs 10/23/23 07/01/24 Unknown tablet,extended release 24 hr celecoxib 200 mg capsule (Celebrex) 200 mg PO BID #180 caps 04/27/24 07/01/24 Unknown doxycycline hyclate 50 mg capsule 50 mg PO BID 07/01/24 07/01/24 Unknown Past Medical History Medical History (Updated 07/01/24 @ 11:01 by Amadou Saldana DO) Peptic ulcer SSS (sick sinus syndrome) (04/28/14) Past Family History Family History Mother Breast cancer Past Surgical History Surgical History S/P placement of cardiac pacemaker (~2013) Dual chamber Status post hip surgery (~2013) Left RUTH History of esophagogastroduodenoscopy (~1996) H/O colonoscopy (~1998) Social History Smoking Status: Never smoker Physical Exam Vital Signs Last Vital Signs Temp 98.1 F 07/01/24 07:35 Pulse 73 07/01/24 09:09 Resp 16 07/01/24 09:09 BP 122/95 07/01/24 09:05 Pulse Ox 95 07/01/24 09:09 O2 Del Method Room Air 07/01/24 09:05 Testing Laboratory Results 07/01/24 07:49 07/01/24 07:49 PT 10.4 Seconds (9.0-12.0) 07/01/24 09:43 INR 1.0 (0.9-1.1) 07/01/24 09:43 APTT 29 Seconds (21-31) 07/01/24 09:43 Urine Color Yellow 07/01/24 07:46 Urine Appearance Clear (Clear) 07/01/24 07:46 Urine pH 5.5 (4.5-7.5) 07/01/24 07:46 Ur Specific [place] 1.025 (1.000-1.030) 07/01/24 07:46 Urine Protein Negative (Negative) 07/01/24 07:46 Urine Glucose (UA) Negative (Negative) 07/01/24 07:46 Urine Ketones Trace (Negative) H 07/01/24 07:46 Urine Nitrite Negative (Negative) 07/01/24 07:46 Ur Leukocyte Esterase Negative (Negative) 07/01/24 07:46 Electrocardiogram Date: 07/01/24 Findings: + NSR @ with PACs
--- NOTE | 2024-07-01 11:33 | Electrocardiogram Report ---
Test Reason : Blood Pressure : */* mmHG Vent. Rate : 81 BPM Atrial Rate : 81 BPM P-R Int : 188 ms QRS Dur : 68 ms QT Int : 364 ms P-R-T Axes : 43 -8 2 degrees QTcB Int : 422 ms Sinus rhythm with Premature atrial complexes Otherwise normal ECG When compared with ECG of 21-Jan-2016 10:50, Premature atrial complexes are now Present T wave inversion now evident in Inferior leads Confirmed by Schuyler Reis ([id number]) on 07/01/2024 11:33:37 AM Referred By: Confirmed By: Schuyler Reis
[2024-07-01] MEDS ORDERED: ONDANSETRON INJ 2 MG/ML 2 ML VIAL ONE (12:39)
[2024-07-01] MEDS ORDERED: MIDAZOLAM HCL 1 MG/ML 2ML VIAL ONE (12:39)
[2024-07-01] MEDS ORDERED: LIDOCAINE 2% 2 ML VIAL/AMP(20MG/ML) INFIL ONE (12:39)
[2024-07-01] MEDS ORDERED: fentaNYL citrate PF 100 MCG/2 ML VIAL ONE ×3 (12:39→15:03)
[2024-07-01] MEDS ORDERED: PROPOFOL IV EMULSION 10 MG/ML 20 ML VIAL IV ONE ×2 (12:39→14:13)
[2024-07-01] MEDS ORDERED: fentaNYL citrate PF 100 MCG/2 ML VIAL IV PRN (13:07)
[2024-07-01] MEDS ORDERED: ePHEDrine sulfate 50 MG/ML AMP IV PRN (13:07)
[2024-07-01] MEDS ORDERED: ONDANSETRON INJ 2 MG/ML 2 ML VIAL IV PRN ×2 (13:07→16:28)
[2024-07-01] MEDS ORDERED: ATROPINE SULFATE 0.1 MG/ML 10ML SYR IV PRN (13:07)
[2024-07-01] MEDS ORDERED: BUPIVACAINE 0.5 % 5 MG/1 ML PF 10ML VIAL ONE (13:22)
--- NOTE | 2024-07-01 13:26 | History & Physical Bridge Note ---
Date of Service July 01, 2024 History & Physical Bridge Note I have examined the patient, reviewed the History & Physical and in the interval since the performance of the History & Physical I have noted the following changes of clinical significance: no changes noted
[2024-07-01] MEDS: ceFAZolin 2,000 MG/15 ML IV PUSH IV ONE (13:29)
[2024-07-01] MEDS: ceFAZolin 2000MG 2,000 MG/15 ML SYR IV ONE (14:05)
[2024-07-01] MEDS ORDERED: PHENYLEPHRINE HCL 10 MG/ML VIAL ONE (14:13)
[2024-07-01] MEDS ORDERED: ePHEDrine sulfate 50 MG/5 ML SYR ONE (14:24)
[2024-07-01] MEDS ORDERED: ACETAMINOPHEN 1000 MG/100 ML IV IV ONE (14:28)
[2024-07-01] MEDS: BUPIVACAINE/EPINEPHRINE 0.25% 1:200,000 30 ML VIAL ONE (15:00)
--- NOTE | 2024-07-01 15:05 | Operative Report ---
PG Post Operative Report Pre & Post Diagnosis Operation Date: 07/01/24 09:10 Pre-Op Diagnosis: Displaced right subtrochanteric hip fracture Post-Op Diagnosis: Displaced right subtrochanteric hip fracture I identified the patient and participated in the time-out.: Yes Procedure Operation Date: 07/01/24 09:10 Actual Procedures p Insertion of Trochanteric Nail Right Hip(Right) - Maycol Cruz DO Surgeon Maycol Cruz DO Header Set Up Operator Maycol Boyce PA-C Estimated Blood Loss 100 Findings Consistent with Post-Op Diagnosis Specimens None Description of Procedure On July 01, 2024 Jessica came from the emergency room to the preoperative holding area. The operative extremity identified and signed. She is given a preoperative antibiotic. She was taken back the operative room and put under general anesthesia on the hospital bed. She was then transferred to the fracture table. The right hip was brought out to traction. Fluoroscopic images confirmed reduction of the fracture. The right hip was then prepped and draped sterile fashion. A timeout was done. The patient and the operative extremity was properly identified. A longitudinal incision was made just superior to the greater trochanter. Dissection was taken down through the fascia. A guidepin was then placed at the tip of the greater trochanter and advanced down the femoral canal. Fluoroscopic images were used to ensure anatomic alignment. A 17 mm opening reamer was used to open the femoral canal. A ball-tipped guidewire was placed down to the knee. A 12.5 mm reamer was then sent down the canal with very little chatter. A Synthes 11 x 360 mm TFN nail was then impacted into place. Appropriate placement was checked on fluoroscopy. A small lateral incision was made and a cannula was advanced for the helical blade. A guidepin was then placed into the center center position of the femoral head and the lateral cortex was drilled. A 95 mm helical blade was then impacted into place. The blade was then statically locked. The outrigger was then removed and final fluoroscopic images showed near anatomic alignment of the fracture. Perfect tribal technique was used distally and I placed 1 single distal static screw. Final images showed good alignment. The wounds were then irrigated. The deep fascia was closed with #1 Vicryl. Skin was closed with 2-0 Vicryl and glynn. The surgical site was injected with Marcaine. She was then placed in soft dressings. She was then extubated and transferred back to a hospital bed. She was taken to the postanesthesia care unit in stable condition. She tolerated the procedure well. Maycol Boyce PA-C, was present for the entire procedure. He was critical for patient positioning, prepping, draping, retraction exposure, wound closure and application of sterile dressing. I attest to the content of the Intraoperative Record and any orders documented therein. Any exceptions are noted below.
--- NOTE | 2024-07-01 15:57 | Anesthesiology Progress Note ---
Date of Service July 01, 2024 Anesthesia Post Procedure Vital Signs Vital Signs: Temp Pulse Pulse Pulse Resp BP BP 07/01/24 15:40 65 18 105/52 L 07/01/24 15:30 70 14 103/57 L 07/01/24 15:20 36.4 C L 67 14 96/53 L 07/01/24 15:13 36.4 C L 81 12 105/52 L 07/01/24 12:35 36.6 C 82 20 120/64 07/01/24 09:09 73 16 07/01/24 09:05 83 20 122/95 07/01/24 08:00 75 17 97/77 L 07/01/24 07:35 85 18 07/01/24 07:35 36.7 C 85 18 134/77 Pulse Ox O2 Del Method O2 Flow Rate 07/01/24 15:40 100 Room Air 07/01/24 15:30 100 Oxymask 3 07/01/24 15:20 95 Oxymask 3 07/01/24 15:13 100 Oxymask 5 07/01/24 12:35 96 Room Air 07/01/24 09:09 95 07/01/24 09:05 97 Room Air 07/01/24 08:00 96 07/01/24 07:35 97 Room Air 07/01/24 07:35 97 Room Air Pain Intensity Right Thigh: Pain Intensity: 0 Transfer of Care Handoff Completed per policy Notes Mental Status: alert / awake / arousable Patient Amnestic to Procedure: Yes Nausea / Vomiting: adequately controlled Pain: adequately controlled Airway Patency, RR, SpO2: stable & adequate BP & HR: stable & adequate Hydration State: stable & adequate Anesthetic Complications: no major complications apparent and Pt Satisfied with anesthetic care
[2024-07-01] MEDS ORDERED: MoRPHine SULFATE 2 MG/ML CARP IV PRN (16:28)
[2024-07-01] MEDS ORDERED: MAGNESIUM HYDROXIDE SUSP 30 ML UDC PO PRN (16:28)
[2024-07-01] MEDS ORDERED: bisacodyL 10 MG SUPP PR PRN (16:28)
[2024-07-01] MEDS ORDERED: NALOXONE HCL 0.4 MG/1 ML VIAL/CARP IV PRN (16:28)
[2024-07-01] MEDS ORDERED: oxyCODONE HCL IR 5 MG TAB (IMMEDIATE RELEASE) PO PRN (16:28)
[2024-07-01] MEDS ORDERED: POLYETHYLENE (MIRALAX) 17 GM PACK PO PRN (16:28)
--- NOTE | 2024-07-01 16:42 | Fluoroscopy Report ---
FL hip RT 2-3V CLINICAL HISTORY: RIGHT TROCH COMPARISON STUDY: Right femur radiographs performed earlier today. FLUOROSCOPY TIME: 1 minute and 38 seconds. Ka, r: 19.41 mGy FLUOROSCOPIC IMAGES: 6 FINDINGS: Fluoroscopy was provided during open reduction and internal fixation of the intertrochanter ic fracture of the right femur with trochanteric nail. Fracture alignment has significantly improved. The hardware is intact. There are no unexpected radiopaque foreign bodies. IMPRESSION: Fluoroscopy provided during open reduction and internal fixation of the intertrochanteri c fracture of the right femur. ACT 112: Negative or not required by law. Electronically signed by: Fred Krishnamurthy M.D. 07/01/2024 4:41 PM
[2024-07-01] MEDS: METOPROLOL SUCC 50MG EXT REL TAB PO SCH (17:39)
[2024-07-01] MEDS: TIMOLOL MALEATE 0.5% OP SOLN 5 ML BTL OP SCH (17:41)
[2024-07-01] MEDS: ACETAMINOPHEN 500 MG TAB PO STA (17:41)
[2024-07-01] MEDS: LATANOPROST 0.005% OP SOLN 2.5 ML BTL OP SCH (17:41)
[2024-07-01] MEDS: ASPIRIN 81 MG ECTAB PO SCH (20:04)
[2024-07-01] MEDS: ceFAZolin 2000MG 2,000 MG/15 ML SYR IV SCH (20:14)
[2024-07-01] MEDS: CeleBREX 200 MG CAP PO SCH (20:14)
--- NOTE | 2024-07-01 22:20 | XRay Report ---
RIGHT FEMUR 2 VIEWS CLINICAL HISTORY: Postoperative examination. FINDINGS: AP and crosstable lateral views of the right femur are compared to study performed earlier the same day 07/01/2024. The skeletal structures are osteopenic. There has been intertrochanteric and intramedullary nail fixation of an intertrochanteric right femoral fracture with buddhist of near -anatomic alignment. A single cortical lag screw transfixes the distal end of the intramedullary nail . No new fractures seen. Skin clips, soft tissue edema, and subcutaneous gas overlying the surgical s ites represent expected postoperative change. There is persistent medial displacement of the lesser t rochanter. No new fracture is seen. The visualized right hemipelvis appears intact. The right hip and knee joints are grossly maintained. A left arthroplasty is partially visualized. IMPRESSION: Expected postoperative findings status post open reduction and internal fixation of the r ight proximal femur. See above. Electronically signed by: Cecilio Thomson M.D. 07/01/2024 10:19 PM
[2024-07-02] MEDS: ARMOUR THYROID 30 MG TAB PO SCH (05:36)
[2024-07-02] MEDS ORDERED: ceFAZolin 2000MG 2,000 MG/15 ML SYR IV SCH (06:00)
[2024-07-02 06:34] LABS: BUN Creatinine Ratio 43.6 (10-20); Calcium 8.3 mg/dl (8.6-10.3); Creatinine Clr Calc Pharmacy 34.6 ml/min; Potassium 4.2 mmol/L (3.5-5.1)
[2024-07-02 07:19] LABS: Basophils # (auto) 0.03 K/uL (0.00-0.20); Basophils % (auto) 0.4 %; Eosinophils # (auto) 0.23 K/uL (0.00-0.50); Eosinophils % (auto) 3.1 %; Hematocrit (blood only) 26.7 % (37.0-47.0); Hemoglobin 8.4 g/dl (12.0-16.0); Immature Granulocytes # (auto) 0.04 K/uL (0.01-0.20); Immature Granulocytes % (auto) 0.5 %; Lymphocytes # (auto) 1.04 K/uL (1.20-3.40); Lymphocytes % (auto) 14.2 %; Mean Corpuscular Hemoglobin 30.1 pg (25.0-34.0); Mean Corpuscular Hgb Conc 31.5 g/dL (32.0-36.0); Mean Corpuscular Volume 95.7 fL (80.0-100.0); Mean Platelet Volume 10.6 fL (9.4-12.4); Monocytes # (auto) 0.79 K/uL (0.11-0.59); Monocytes % (auto) 10.8 %; Neutrophils # (auto) 5.19 K/uL (1.40-6.50); Platelet Count 176 K/uL (130-400); RDW Coefficient of Variation 13.1 % (11.5-14.5); RDW Standard Deviation 46.2 fL (36.4-46.3); Red Blood Count 2.79 M/uL (4.20-5.40); White Blood Count 7.32 K/ul (4.8-10.8)
--- NOTE | 2024-07-02 07:37 | Hospitalist Progress Note ---
Date of Service July 02, 2024 Assessment & Plan (1) Right femoral fracture: Plan: Age-related osteoporosis with current pathologic fracture, right femur Patient presented on 07/01 for a fall 2 days prior after which she was confined to her chair and being brought meals by her neighbors/friends. She was labeled bear weight. Imaging revealed an acute comminuted displaced intertrochanteric fracture of the right proximal femur Orthopedic surgery consult appreciated-had ORIF on 07/01 Hemoglobin with acute blood loss anemia postoperatively and from bleeding from fracture-hemoglobin to 8.4, soft blood pressures-Home metoprolol held Otherwise doing very well postoperatively-pain is controlled, eating and drinking, Ross catheter remains in place but will be removed by nursing PT/OT recommending rehab but patient does not have her shoes with her and reports significant neuropathy prevents her from walking without her shoes. Typically, she walks 2 to 3 miles a day with a walker every day of the year and is adamant that she will return home and not go to rehab-will see how she does once she gets her shoes Continue Celebrex 200 Mg p.o. twice daily which is a home med for chronic lower back pain, arthritis, neuropathy Follow CBC, BMP in the morning (2) Elevated troponin: Plan: Demand ischemia Minimal elevation of troponin on admission likely due to demand ischemia from stress of fracture-serial troponin was /. Denies chest pain, no ischemic changes on ECG No further need for evaluation (3) Cardiac pacemaker: Plan: placed for SSS in 2013 after 15 sec pauses and syncope functioning well last check 03/2024, follows with Dr. Conteh of Cardiology Continue metoprolol succinate with hold parameters for history of PAT (4) Glaucoma: Plan: Continue home eyedrops (5) Hypothyroidism: Plan: Continue on home [place] Thyroid TSH normal Plan Disposition: Continued stay on MedSurg, awaiting reassessment on 07/03 with PT/OT once she has shoes to see if she is able to return home with home health either 07/03 or 07/04. She reports having a tremendous amount of support from neighbors/friends despite living alone Full code VTE PPx: WILEY dean, SCDs, aspirin 81 mg p.o. twice daily Admission and Anticipated Discharge Date Admission Date: July 01, 2024 Subjective Patient feeling well today, minimal pain. She did get up and walk 3 feet to the chair and sat down. She is eating and drinking, no nausea/vomiting. Denies chest pains or shortness of breath, no lightheadedness. She is still adamant about returning home with home health on discharge. Physical Exam Constitutional: WD/WN, vitals as above Respiratory: normal respiratory effort, lungs clear to auscultation Cardiovascular: RRR, no murmur, no edema Musculoskeletal: Extremities: + extremities abnormal to inspection (Right hip with dressing in place with small amount dried blood) Psychiatric: A+Ox3, euthymic affect Genitourinary: Ross catheter in place Results & Data Results & Data Vital Signs (Past 12 Hours) Vital Signs Temp Pulse Pulse Resp BP BP Pulse Ox 07/02/24 07:26 36.3 C L 85 16 97/64 L 98 07/02/24 04:39 36.8 C 82 16 96/59 L 94 07/02/24 04:00 36.8 C 88 18 95/63 L 95 07/02/24 00:20 36.8 C 82 18 95/63 L 96 O2 Del Method 07/02/24 07:26 Room Air 07/02/24 04:39 Room Air 07/02/24 04:00 Room Air 07/02/24 00:20 Room Air Laboratory Results CBC, BMP, troponin reviewed PG Care Time/CCT Total # of Minutes Spent Total Time Spent with Patient: Total time spent is greater than 50% in coordination of care (as documented) at patient's floor/unit and/or counseling patient: Coding Level of Care Code 35218 SUB INP/OBS CARE 2/35MIN Diagnoses Right femoral fracture S72.91XA Elevated troponin R79.89 Cardiac pacemaker Z95.0 Glaucoma H40.9 Hypothyroidism E03.9
[2024-07-02] MEDS: ACETAMINOPHEN 325 MG TAB PO PRN (18:02)
[2024-07-03 07:14] LABS: Basophils # (auto) 0.05 K/uL (0.00-0.20); Basophils % (auto) 0.7 %; Eosinophils # (auto) 0.21 K/uL (0.00-0.50); Hematocrit (blood only) 26.3 % (37.0-47.0); Hemoglobin 8.3 g/dl (12.0-16.0); Immature Granulocytes # (auto) 0.04 K/uL (0.01-0.20); Immature Granulocytes % (auto) 0.6 %; Lymphocytes # (auto) 1.02 K/uL (1.20-3.40); Lymphocytes % (auto) 14.7 %; Mean Corpuscular Hemoglobin 30.3 pg (25.0-34.0); Mean Corpuscular Hgb Conc 31.6 g/dL (32.0-36.0); Mean Platelet Volume 11.3 fL (9.4-12.4); Monocytes # (auto) 0.77 K/uL (0.11-0.59); Monocytes % (auto) 11.1 %; Neutrophils # (auto) 4.84 K/uL (1.40-6.50); Neutrophils % (auto) 69.9 %; Platelet Count 205 K/uL (130-400); RDW Coefficient of Variation 13.1 % (11.5-14.5); RDW Standard Deviation 45.9 fL (36.4-46.3); Red Blood Count 2.74 M/uL (4.20-5.40); White Blood Count 6.93 K/ul (4.8-10.8)
--- NOTE | 2024-07-03 07:18 | Orthopedic Progress Note ---
Date of Service July 03, 2024 Assessment & Plan (1) Fracture of right hip: Overall she is doing okay with the right hip. She can be weightbearing as tolerated. She understands it takes a little while before she feels comfortable putting full weight on it. She will be seen by physical therapy. She really wants to go home but I told her that that is up to physical therapy and case management. She understands that. She is on aspirin for DVT prophylaxis. She is orthopedically stable for discharge when medically ready. Full orthopedic discharge instructions were placed in the discharge summary. Sari Lopez was seen and examined at bedside this morning. Overall she is doing fairly well. She still has a lot of soreness in her hip. She does have neuropathy of both lower extremities. She was able to do some minimal standing yesterday with therapy. She has no other complaints.. Review of Systems All systems reviewed & are unremarkable except as noted in HPI & below. Physical Exam On physical exam of the right hip, the dressings are clean and dry. Her leg is out full extension. She has active dorsiflexion plantarflexion of her right ankle.. Results & Data Results & Data Laboratory Results . Diagnostic Findings . PG Care Time/CCT Total # of Minutes Spent Total Time Spent with Patient: Total time spent is greater than 50% in coordination of care (as documented) at patient's floor/unit and/or counseling patient: Coding Level of Care Code 42723 Post Operative Follow-Up Diagnoses Fracture of right hip S72.001A Encounter type: initial encounter Fracture type: closed (1) Fracture of right hip Encounter type: initial encounter Fracture type: closed Qualified Code(s): S72.001A - Fracture of unspecified part of neck of right femur, initial encounter for closed fracture
[2024-07-03 07:46] LABS: Calcium 8.7 mg/dl (8.6-10.3); Creatinine Clr Calc Pharmacy 44.3 ml/min; Potassium 4.1 mmol/L (3.5-5.1)
[2024-07-03] MEDS: INFLUENZA VACC TS2024-25(65y+)/PF (IIV3) 0.5mL Syr IM ONE (09:26)
--- NOTE | 2024-07-03 16:23 | Hospitalist Progress Note ---
Date of Service July 03, 2024 Assessment & Plan (1) Right femoral fracture: Plan: Age-related osteoporosis with current pathologic fracture, right femur Patient presented on 07/01 for a fall 2 days prior after which she was confined to her chair and being brought meals by her neighbors/friends. She was labeled bear weight. Imaging revealed an acute comminuted displaced intertrochanteric fracture of the right proximal femur Orthopedic surgery consult appreciated-had ORIF on 07/01 Hemoglobin with acute blood loss anemia postoperatively and from bleeding from fracture-hemoglobin to 8.4, soft blood pressures-Home metoprolol held Otherwise doing very well postoperatively-pain is controlled, eating and drinking, Ross catheter remains in place but will be removed by nursing PT/OT recommending rehab but patient wishes to go home. Typically, she walks 2 to 3 miles a day with a walker every day of the year and is adamant that she will return home and not go to rehab-will see how she does now that she has her shoes Continue Celebrex 200 Mg p.o. twice daily which is a home med for chronic lower back pain, arthritis, neuropathy Follow CBC, BMP in the morning (2) Elevated troponin: Plan: Demand ischemia Minimal elevation of troponin on admission likely due to demand ischemia from stress of fracture-serial troponin was /. Denies chest pain, no i schemic changes on ECG No further need for evaluation (3) Cardiac pacemaker: Plan: placed for SSS in 2013 after 15 sec pauses and syncope functioning well last check 03/2024, follows with Dr. Conteh of Cardiology Continue metoprolol succinate with hold parameters for history of PAT (4) Glaucoma: Plan: Continue home eyedrops (5) Hypothyroidism: Plan: Continue on home [place] Thyroid TSH normal Plan Disposition: Continued stay on MedSurg, awaiting reassessment on 07/03 with PT/OT. She reports having a tremendous amount of support from neighbors/friends despite living alone Full code VTE PPx: WILEY dean, SCDs, aspirin 81 mg p.o. twice daily Admission and Anticipated Discharge Date Admission Date: July 01, 2024 Subjective Patient feels well. Denies chest pain or shortness of breath. She says that no w that she has her shoes, she is ready to attempt to walk today. Review of Systems Review of Systems: All systems reviewed & are unremarkable except as noted in Subjective Physical Exam Physical Exam: General: Awake, conversant Heart: S1, S2/regular rate and rhythm, no murmur rubs or gallops Lungs: Clear to auscultation bilaterally. Normal effort Abdomen: Soft/nontender/nondistended. No hepatosplenomegaly Extremities: No clubbing/cyanosis. No edema Behavior: Appropriate, cooperative Results & Data Results & Data Vital Signs (Past 12 Hours) Vital Signs Temp Pulse Resp BP Pulse Ox O2 Del Method O2 Flow Rate 07/03/24 15:05 36.5 C 81 18 125/78 98 Room Air 07/03/24 07:30 36.5 C 87 18 106/72 93 Nasal Cannula 1 Laboratory Results Abnormal lab results 07/03/24 Range/Units 06:56 RBC 2.74 L (4.20-5.40) M/uL Hgb 8.3 L (12.0-16.0) g/dl Hct 26.3 L (37.0-47.0) % MCHC 31.6 L (32.0-36.0) g/dL Lymph # (Auto) 1.02 L (1.20-3.40) K/uL [place] # (Auto) 0.77 H (0.11-0.59) K/uL BUN 49 H (6-23) mg/dl BUN/Creatinine Ratio 62.0 H (10-20) Glucose 114 H (70-99(Fasting)) mg/dl PG Care Time/CCT Total # of Minutes Spent Total Time Spent with Patient: Total time spent is greater than 50% in coordination of care (as documented) at patient's floor/unit and/or counseling patient: Coding Level of Care Code 22646 SUB INP/OBS CARE 2/35MIN Diagnoses Right femoral fracture S72.91XA Elevated troponin R79.89 Cardiac pacemaker Z95.0 Glaucoma H40.9 Hypothyroidism E03.9
--- NOTE | 2024-07-04 16:25 | Hospitalist Progress Note ---
Date of Service July 04, 2024 Assessment & Plan (1) Right femoral fracture: Plan: Age-related osteoporosis with current pathologic fracture, right femur Patient presented on 07/01 for a fall 2 days prior after which she was confined to her chair and being brought meals by her neighbors/friends. She was labeled bear weight. Imaging revealed an acute comminuted displaced intertrochanteric fracture of the right proximal femur Orthopedic surgery consult appreciated-had ORIF on 07/01 Hemoglobin with acute blood loss anemia postoperatively and from bleeding from fracture-hemoglobin to 8.4, soft blood pressures-Home metoprolol held Otherwise doing very well postoperatively-pain is controlled, eating and drinking, Ross catheter remains in place but will be removed by nursing PT/OT recommending rehab but patient wishes to go home. Typically, she walks 2 to 3 miles a day with a walker every day of the year and is adamant that she will return home and not go to rehab She is doing much better physically. Plan to discharge her tomorrow to home Continue Celebrex 200 Mg p.o. twice daily which is a home med for chronic lower back pain, arthritis, neuropathy Follow CBC, BMP in the morning (2) Elevated troponin: Plan: Demand ischemia Minimal elevation of troponin on admission likely due to demand ischemia from stress of fracture-serial troponin was /. Denies chest pain, no ischemic changes on ECG No further need for evaluation (3) Cardiac pacemaker: Plan: placed for SSS in 2013 after 15 sec pauses and syncope functioning well last check 03/2024, follows with Dr. Conteh of Cardiology Continue metoprolol succinate with hold parameters for history of PAT (4) Glaucoma: Plan: Continue home eyedrops (5) Hypothyroidism: Plan: Continue on home [place] Thyroid TSH normal Plan Disposition: Likely discharge to home tomorrow Full code VTE PPx: WILEY dean, SCDs, aspirin 81 mg p.o. twice daily Admission and Anticipated Discharge Date Admission Date: July 01, 2024 Subjective Patient was seen and examined at 11:45 AM.. Spoke to physical therapy who stated the patient is doing remarkably better than yesterday. They would however like to give her another day prior to going home to ensure safety. Review of Systems Review of Systems: All systems reviewed & are unremarkable except as noted in Subjective Physical Exam Physical Exam: General: Awake, conversant Heart: S1, S2/regular rate and rhythm, no murmur rubs or gallops Lungs: Clear to auscultation bilaterally. Normal effort Abdomen: Soft/nontender/nondistended. No hepatosplenomegaly Extremities: No clubbing/cyanosis. No edema Behavior: Appropriate, cooperative Results & Data Results & Data Vital Signs (Past 12 Hours) Vital Signs Temp Pulse Resp BP Pulse Ox O2 Del Method 07/04/24 07:52 37 C 60 18 117/75 97 Room Air PG Care Time/CCT Total # of Minutes Spent Total Time Spent with Patient: Total time spent is greater than 50% in coordination of care (as documented) at patient's floor/unit and/or counseling patient: Coding Level of Care Code 16033 SUB INP/OBS CARE 2/35MIN Diagnoses Right femoral fracture S72.91XA Elevated troponin R79.89 Cardiac pacemaker Z95.0 Glaucoma H40.9 Hypothyroidism E03.9
[2024-07-05 07:50] VITALS: BP 126/67; PULSE 94; RESP 16; TEMP 97.7; O2SAT 96
--- NOTE | 2024-07-05 10:58 | Discharge Summary ---
Date of Service July 05, 2024 Admission HPI Per Admitting Provider Jessica is an 88-year-old female with PMH of osteoporosis, hypothyroidism, spinal stenosis, dyslipidemia, glaucoma, paroxysmal atrial tachycardia, and cardiac pacemaker. She presented on 07/01 after sustaining a fall 2 days prior. Patient lives alone. She reports that she is normally very active and walks approximately 3 miles every day using her walker. 2 days ago, she sustained a ground-level fall after her 3 mile walk which she attributed to her neuropathy. No prior falls. She reports her legs gave out from under her. No tripping. No dizziness prior to fall or syncope. No LOC. She is not on blood thinners. No head strike. After she fell, her neighbors helped her get back up. Since this time, she has had difficulty walking and reports that today she was unable to bear weight on her right leg. She does not have any right hip/leg pain when she is resting, but does have pain when bending the knee and bearing weight on it. Today, she was found by her neighbors covered in feces and urine, and her neighbor Paulino called an ambulance. At present, she has no new complaints. She reports that she did not take her regular morning medicine today as she was unsure if she would need surgery. No recent change in medications. She does manage her own medicine at home. She denies smoking, tobacco use, recent alcohol use. 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 She denies prior injuries to the right leg, and reports she does not have any hardware in her right hip/knee/ankle. She does have a history of a left hip replacement. Patient's vitals are stable at time admission. ED course: NSS 500 mL IV ROS: Patient endorses right upper medial leg pain with movements and palpation. Patient denies prior falls, fever, chills, night sweats, dizziness, lightheadedness, syncope, headaches, chest pain, chest palpitations, pleuritic CP, SOB, cough, abdominal pain, N/B/D, changes in urinary or bowel habits, burning with urination, blood in the urine or stool, saddle anesthesia, or numbness or tingling going down the right leg. Admission Exam Per Admitting Provider General: no acute distress; pleasant affect; non-toxic appearing; frail appearing; cooperative; SpO2 95% on RA HEENT: normocephalic, atraumatic; no scleral icterus; PERRLA; vision and hearing grossly intact Neck: supple; no lymphadenopathy; trachea midline Skin: warm, dry without signs of tenting; no cyanosis; no rashes, bruising, lesions, or erythema noted CV: chest wall NTP; RRR; S1/S2 normal; no murmurs/rubs/gallops; pulses intact and symmetric at radial, DP, and PT Lungs: no acute respiratory distress; symmetrical chest wall expansion; clear breath sounds across all lung boyer w/o adventitious sounds; no wheezing ABD: Soft, NTP; BS present; no rebound/guarding; no distention RLE: No rashes, bruising, or signs of active bleeding around the hip or femur; TTP on the medial aspect of the right upper extremity MSK: no tics or fasciculations; no edema noted in the LEs b/l, nonerythematous; patient demonstrates ability to wiggle toes/plantarflex/dorsiflex against resistance with 5/5 strength; patient is able to bend her right knee albeit with some pain Neuro: A&Ox3; normal mood and affect; fluent speech; no focal deficits; patient reports that sensation is actually more diminished in the left foot when compared to the right assessed via light touch Principal Diagnosis Right femoral fracture Demand ischemia Discharge Exam General: Awake, conversant Heart: S1, S2/regular rate and rhythm, no murmur rubs or gallops Lungs: Clear to auscultation bilaterally. Normal effort Abdomen: Soft/nontender/nondistended. No hepatosplenomegaly Extremities: No clubbing/cyanosis. No edema Behavior: Appropriate, cooperative Discharge Data Allergies Allergy/AdvReac Type Severity Reaction Status Date / Time No Known Drug Allergies Allergy Verified 04/19/24 12:10 Consultations 07/01/24 09:04 ED Decision to Admit Stat 07/01/24 09:33 Consult Anesthesiology Routine Consult Orthopedic Surgery Stat Procedures Performed Operation Date: 07/01/24 09:10 Actual Procedures p Insertion of Trochanteric Nail Right Hip(Right) - Maycol Cruz, Ordered Studies 07/01/24 [place] hip RT 2-3V Routine Hospital Course (1) Right femoral fracture: Age-related osteoporosis with current pathologic fracture, right femur Patient presented on 07/01 for a fall 2 days prior after which she was confined to her chair and being brought meals by her neighbors/friends. She was labeled bear weight. Imaging revealed an acute comminuted displaced intertrochanteric fracture of the right proximal femur Orthopedic surgery consult appreciated-had ORIF on 07/01 Hemoglobin with acute blood loss anemia postoperatively and from bleeding from fracture-hemoglobin to 8.4, soft blood pressures-Home metoprolol held Otherwise doing very well postoperatively-pain is controlled, eating and drinking, Ross catheter remains in place but will be removed by nursing PT/OT recommending rehab but patient wishes to go home. Typically, she walks 2 to 3 miles a day with a walker every day of the year and is adamant that she will return home and not go to rehab She is doing much better physically. Orthopedics wants her to be on aspirin 81 mg p.o. twice daily for DVT prophylaxi s Continue Celebrex 200 Mg p.o. twice daily which is a home med for chronic lower back pain, arthritis, neuropathy Follow CBC, BMP in the morning (2) Elevated troponin: Demand ischemia Minimal elevation of troponin on admission likely due to demand ischemia from stress of fracture-serial troponin was /. Denies chest pain, no ischemic changes on ECG No further need for evaluation (3) Cardiac pacemaker: placed for SSS in 2013 after 15 sec pauses and syncope functioning well last check 03/2024, follows with Dr. Conteh of Cardiology Continue metoprolol succinate with hold parameters for history of PAT (4) Glaucoma: Continue home eyedrops (5) Hypothyroidism: Continue on home [place] Thyroid TSH normal Plan Discharge to home today Total Time Total Time Spent Total Time Spent (In Minutes): 35 Discharge Plan Discharge Items Patient Disposition: Home - Self-Care Reason For Visit: RIGHT HIP FRACTURE Discharge Diagnosis: Right femoral fracture Demand ischemia Condition on Discharge: Fair Activity: Resume your previous activity Non-emergency contact: Primary Care Provider Call non-emergency contact if: you have any medication questions and your symptoms worsen Follow-up/Referrals: Paulino Suarez MD [Primary Care Provider] - 07/12/24 10:30 am Diet: Heart Healthy Addtl Attending Provider Instructions: Advised to follow-up with PCP in 1 week Addtl Information Coder Provider Instructions: ORTHOPEDIC INSTRUCTIONS Hip Fracture Activity and Therapy Recommendations: 1. You were shown a series of exercises in the hospital. Do these exercises three times each day if you are able. 2. Get up and walk several times each day if you are capable. Make sure you have assistance is needed. For the first four weeks, try not to stand or walk for more than one hour at a time. If you do stand or walk for more than one hour, you will not hurt anything, but your leg will likely swell. 3. As you feel comfortable, you may change from the walker or crutches to a cane and then to independent walking if you are able. Please be safe. Medications: 1. Narcotic You will likely be sent from the hospital with the narcotic pain medication that worked best throughout your stay. 2. Aspirin -you will be on aspirin 81 mg twice a day to help prevent blood clots. 3. Other medications may be given for specific circumstances. If you have any questions, please call the office at [phone]. 4. Resume previous home medications unless otherwise instructed TEDs/Elastic Stockings: The white elastic stockings help limit swelling and prevent blood clots from forming in your legs. The more you wear them, the more they work. Wear them for six weeks. Dressing Care: Zion can be open to air as long as the incisions are not draining. If the incisions are draining or if the zion are getting caught on your clothes then please cover the zion with dry gauze. Change the dressings as necessary to keep the incision as dry as possible Showering: You may shower 5 days from the day of surgery as long as the incisions are not draining. Do not soak the incision. Let soapy water run over the zion and pat them dry. Diet: You may resume your previous diet. Things To Watch For: 1. Drainage from the incision site that occurs more than one week after your surgery. 2. Increased redness at the incision site. 3. Fever above 102 degrees Fahrenheit. 4. Unusual chest pain or shortness of breath. 5. Call [facility] at with any of the above problems Follow-Up Visit: Follow-up with Dr. Cruz's PA (Maycol Boyce) 2-3 weeks after your day of surgery. He will remove your zion and answer any questions. If you have any additional questions or concerns, Dr Cruz is usually in the office at the same time and will be available Please call the office to set up an appointment for a time that works for you. Pending Studies at Discharge: No Stand-Alone Forms: My [facility], Smoking Cessation Medications and DC Order Prescriptions: New aspirin 81 mg Tablet,Delayed Release (Dr/Ec) 81 mg PO BID 30 Days Qty: 60 0RF Continued thyroid (pork) [[place] Thyroid] 60 mg tablet 60 mg PO DAILY Qty: 90 3RF metoprolol succinate 50 mg tablet extended release 24 hr 50 mg PO DAILY Qty: 90 3RF celecoxib [Celebrex] 200 mg capsule 200 mg PO BID Qty: 180 3RF Rx Instructions: Generic please vitamins A,C,[id number]-[id number] [PreserVision AREDS] 1 tab PO BID Rx Instructions: OTC unable to verify latanoprost 0.005 % drops 1 drops OP DAILY timolol maleate 0.5 % drops, once daily 1 drp OP BID multivitamin [Daily Multi-Vitamin] Tablet 1 tab PO DAILY doxycycline hyclate 50 mg capsule 50 mg PO BID Rx Instructions: filled 06/22 30 day supply Discharge Orders: Discharge Order (Routine); Ordered 07/05/24 Ordered By: Zoe Vergara Admission Data Admit Date/Time: 07/01/24 09:33 Attending Provider: Zoe Vergara Admit Provider: Aleksandra Porter Primary Care Provider: Paulino Suarez Other Providers: Jake Valdes; Miryam Gilbert; Aleksandra Porter Other Interventions: Discharge Summary Assessment (RN) Last Done: 07/05/24 11:15
== END 2024-07-05 13:21 | disposition home health service (06) | DRG 481 ==
LOC: SUATTDRO → ED 07:27 → SUATTDRO 09:33 → 3W 09:33

== ENCOUNTER 2024-09-06 09:11 | Inpatient (IN) ==
--- NOTE | 2024-09-06 10:03 | Emergency Department Note ---
Impression & Plan Chest pain, Wound of left foot, Wound of right foot, Sacral wound, Elevated troponin, NUZHAT (acute kidney injury), Acute UTI (urinary tract infection), Dehydration ED Provider Note ED Provider Note NAME: JUAN JOHNSON AGE:89 SEX: Female : 1935 ARRIVES VIA: EMS INFORMANT: Patient ED PROVIDER(s): Carline Sharp DO CHIEF COMPLAINT: Chest pain HPI: This is an 89-year-old female who presents emerged part via EMS due to concern for chest pain. Patient states chest pain began overnight, however was resolved by time of arrival here. She states pain is in the lower chest underneath bilateral breast, does not radiate into her arms or back. She states she does feel a sense of lightheadedness and fatigue with it, no syncope, no shortness of breath, no nausea or vomiting, no overt dizziness. Patient states the pain seem better this morning when she did some of her exercises that she learned from physical therapy. Patient recently sustained a ground-level fall and fracture of the right hip which was repaired here. She was discharged home and states she does have physical therapy and aides that come into her residence 3 times a week. Patient otherwise lives alone in a senior apartment complex and states she does receive help from her neighbors. EMS report that on scene it appears patient is unable to care for herself, is not moving from her chair, and they question if she is getting proper food and nutrition. They state the dog that is in the apartment with her was obviously not being taken outside as there were dog urine and feces scattered throughout the apartment additionally. Patient was noted to be hypotensive initially for EMS however blood pressure improved with 200 mL of IV fluids. Patient states she does have a history of a pacemaker that was placed by Dr. De León. She denies any other cardiac history. She denies any recent change in medications. She denies fevers, chills, or URI symptoms PAST MEDICAL HISTORY:See Below PAST SURGICAL HISTORY:See Below FAMILY HISTORY:See Below SOCIAL HISTORY:See Below HOME MEDICATIONS:See Below ALLERGIES:See Below VITALS:See Below PHYSICAL EXAMINATION: GENERAL: alert, unwell appearing, cachectic, no distress, poor hygiene EYE EXAM: normal conjunctiva, PERRL and EOM's grossly intact OROPHARYNX: no exudate, no erythema, lips, buccal mucosa, and tongue normal and mucous membranes are dry, residual food particles scattered throughout teeth NECK: supple, no nuchal rigidity, no adenopathy, non-tender LUNGS: Clear to auscultation. Normal chest wall mechanics, no w/r/r HEART: no murmurs, S1 normal and S2 normal, no reproducible pain with palpation ABDOMEN: abdomen soft, non-tender, normo-active bowel sounds, no masses, no rebound or guarding. BACK: Back is symmetrical on inspection and there is no deformity, no midline tenderness, no CVA tenderness. SKIN: no rashes, petechiae, orbruising UPPER EXTREMITIES: upper extremities are grossly normal. FROM, nml pulses b/l. LOWER EXTREMITIES: 3+ b/l pedal pitting edema. Wounds noted to the dorsal aspect of feet bilaterally, dressings applied and dressings extended as a wrap along the foot and into the ankle. Patient states wounds began from the compression stockings she was placed in following the hip fracture. She states she changes the dressings daily, and has not otherwise seen wound care. Decreased FROM, nml pulses b/l. NEURO EXAM: Normal sensorium, cranial nerves II-XII grossly intact, normal speech, no facial droop,nogross weakness of arms, no gross weakness of legs. Gross sensation intact. No ataxia. Vital Signs: reviewed and remarkable Differential Diagnosis: acute coronary syndrome, pericarditis, pulmonary embolus, aortic dissection, pneumonia, pneumothorax, musculoskeletal pain, shingles, GERD, GI bleed, as well as others were considered MEDICAL DECISION MAKING: This is an 89-year-old female brought in by EMS after she contacted them regarding concern for chest pain. Patient had no chest pain on arrival that she stated it went away with performing PT exercises she had previously learned. Labs drawn and sent, IV established, EKG and chest ray performed at bedside interpreted by me. No acute EKG changes noted. Patient appeared clinically dehydrated and as though she had not been able to care for herself or her personal hygiene. We did appear to be bilateral foot wounds which appeared infected the appearance of an old dressing covering these. Patient started on gentle IV fluid hydration. Blood cultures obtained additionally as was lactic acid. Patient noted to have a leukocytosis of 13 and a mildly elevated lactic acid. She was given IV cefepime as a precaution. Initial IV site blew and a second 1 was established. Shortly thereafter this IV site blew as well. IV team was then contacted to come down and place another IV under ultrasound. There was a delay obtaining the second set of cultures, repeat lactic acid, repeat troponin as a result. Patient did respond to IV fluids and was able to maintain her blood pressure. Urine ultimately collected and Ross catheter placed. UA suggestive of urinary tract infection additionally. Patient noted to have an elevated troponin despite no recurrent chest pain. It is unclear how much of this is cardiac versus secondary to infection and renal dysfunction which was also noted. Case discussed with the hospitalist team for additional evaluation and management. I suspect hypotension secondary to dehydration and poor self-care. Patient responded to IV fluids appropriately. I do not suspect acute vascular emergency. Unclear etiology of elevated lipase as patient denies abd pain and has no abd pain on exam. Consultation(s): 1148: Discussed with SONIA, [facility] hospitalist team, for additional evaluation and management. ER Treatment Provided: See below Diagnostics Interpreted By Me: -ECG: Sinus tachycardia at 104, normal axis, normal intervals, nonspecific ST/T wave changes -Cardiac Monitoring: An order was placed for continuous cardiac monitoring. The monitor shows a rate of 101 with normal sinus rhythm. -Laboratory studies: As stated above and show below. -Imaging studies: X-ray Chest: A single view study of the chest was reviewed and was negative for cardiomegaly, focal infiltrate, effusion, pulmonary edema, or wide mediastinum. Triage Nursing Note Reviewed Prior/Outside Records Reviewed -prior cardiology note from March 2024 reviewed Critical Care: Critical care of 48 min performed to assess and manage high likelihood of life-threatening hypotension and elevated troponin, involving labs and imaging performed with assessment to evaluate chest pain diagnosis with frequent reassessment. This time includes bedside time, treatment discussions with patient/family/consultants, documentation time and excludes procedure time. Past Med/Surg History Problem List (Updated 09/06/24 @ 15:37 by Carline Sharp DO) Dehydration (Acute) Acute UTI (urinary tract infection) (Acute) Asymptomatic bacteriuria Chronic venous stasis Failure to thrive in adult Hypernatremia Lower extremity ulceration Ambulatory dysfunction Dehydration Leg edema NUZHAT (acute kidney injury) (Acute) Elevated troponin (Acute) Sacral wound (Acute) Wound of right foot (Acute) Wound of left foot (Acute) Chest pain (Acute) Fracture of right hip (Acute 07/01/24) Acute comminuted displaced intertrochanteric fracture of the right femur from a fall 2 days prior per the ED report Acute pain of right thigh (Acute) Elevated troponin (Acute) Fall (Acute) Elevated troponin Right femoral fracture (07/01/24) Acute comminuted displaced intertrochanteric fracture of the right femur from a fall 2 days prior per the ED report Squamous cell skin cancer Cardiac pacemaker Decreased exercise tolerance PAT (paroxysmal atrial tachycardia) Glaucoma Dyslipidemia Spinal stenosis Peripheral neuropathy Degenerative joint disease, multiple joints on both sides of body Allergic rhinitis (Acute) Hypothyroidism (Acute) Osteoporosis (Acute) Medical History (Updated 09/06/24 @ 15:37 by Carline Sharp DO) Peptic ulcer SSS (sick sinus syndrome) (04/28/14) Surgical History S/P placement of cardiac pacemaker (~2013) Dual chamber Status post hip surgery (~2013) Left RUTH History of esophagogastroduodenoscopy (~1996) H/O colonoscopy (~1998) Family History Mother Breast cancer Social History Smoking Status: Never smoker Hx Alcohol Use: No Hx Substance Use: No Preferred Language: Yoruba Communication Ability: Effective Physical Medicine Specialist Required: No Beliefs That Will Affect Care: None marital status: / Current Living Situation: Alone current occupational status: retired Feels Safe at Home: Yes Assistive Devices: Cane, Walker and Wheelchair Allergies Allergies Allergy/AdvReac Type Severity Reaction Status Date / Time No Known Drug Allergies Allergy Verified 04/19/24 12:10 Home Meds Home Medications Medication Instructions Recorded Confirmed latanoprost 0.005 % eye drops 1 drops OPB HS 06/15/19 09/06/24 multivitamin (Daily Multi-Vitamin 1 tab PO DAILY 01/31/20 09/06/24 tablet) timolol maleate 0.5 % once daily 1 drp OPB BID 08/14/20 09/06/24 eye drops aspirin 81 mg chewable tablet 40.5 mg PO BID 09/06/24 09/06/24 vitamins A,C,O-yqnr-feovlo 4,296 1 cap PO AMPM 09/06/24 09/06/24 mcg-226 mg-90 mg capsule (PreserVision AREDS) Previous Rx's Medication Instructions Recorded metoprolol succinate 50 mg 50 mg PO DAILY #90 tabs 10/23/23 tablet,extended release 24 hr celecoxib 200 mg capsule (Celebrex) 200 mg PO BID #180 caps 04/27/24 thyroid (pork) 60 mg tablet 60 mg PO DAILY #90 tabs 08/10/24 ([place]net Thyroid) Results & Data (ED) Vital Signs Vital Signs - 24 hr 09/06/24 09:18 09/06/24 09:21 09/06/24 09:30 Temperature 36.4 C L Temperature Source Axillary Pulse Rate 106 H 105 H 100 H Pulse Rate [Apical] Pulse Rate from SpO2 Sensor Pulse Rhythm [Apical] Pulse Strength [Apical] Respiratory Rate 20 22 Respiratory Effort / Characteristics Non-Labored Spontaneous Respiratory Depth Normal Respiratory Pattern Blood Pressure 91/71 L 96/71 L Blood Pressure [Left Arm] Blood Pressure Mean 77 79 Blood Pressure Mean [Left Arm] Blood Pressure Position Sitting Blood Pressure Position [Left Arm] Pulse Oximetry 96 Oxygen Delivery Method Room Air Oxygen Flow Rate Sepsis Recent Fever Within 48 Hours No Sepsis New/Unexplained Change in Mental Status No Sepsis Action Taken by Nursing Physician Notified 09/06/24 09:34 09/06/24 10:00 09/06/24 10:25 Temperature 36.4 C L Temperature Source Oral Pulse Rate 100 H Pulse Rate [Apical] 85 Pulse Rate from SpO2 Sensor 102 H Pulse Rhythm [Apical] Regular Pulse Strength [Apical] Normal Respiratory Rate 20 16 Respiratory Effort / Characteristics Non-Labored Spontaneous Respiratory Depth Normal Respiratory Pattern Regular Blood Pressure Blood Pressure [Left Arm] 94/71 L Blood Pressure Mean Blood Pressure Mean [Left Arm] 78 Blood Pressure Position Blood Pressure Position [Left Arm] Semi-fowlers Pulse Oximetry 96 92 95 Oxygen Delivery Method Room Air Room Air Room Air Oxygen Flow Rate Sepsis Recent Fever Within 48 Hours Sepsis New/Unexplained Change in Mental Status Sepsis Action Taken by Nursing 09/06/24 10:39 09/06/24 11:00 09/06/24 11:30 Temperature Temperature Source Pulse Rate 104 H 98 H Pulse Rate [Apical] Pulse Rate from SpO2 Sensor 105 H 99 H Pulse Rhythm [Apical] Pulse Strength [Apical] Respiratory Rate 20 20 Respiratory Effort / Characteristics Respiratory Depth Respiratory Pattern Blood Pressure 97/82 L 94/69 L 107/77 Blood Pressure [Left Arm] Blood Pressure Mean 87 77 89 Blood Pressure Mean [Left Arm] Blood Pressure Position Blood Pressure Position [Left Arm] Pulse Oximetry 92 91 Oxygen Delivery Method Room Air Nasal Cannula Oxygen Flow Rate 1 Sepsis Recent Fever Within 48 Hours Sepsis New/Unexplained Change in Mental Status Sepsis Action Taken by Nursing 09/06/24 11:36 09/06/24 12:00 09/06/24 12:56 Temperature Temperature Source Pulse Rate 93 H 99 H 99 H Pulse Rate [Apical] Pulse Rate from SpO2 Sensor 93 H 97 H Pulse Rhythm [Apical] Pulse Strength [Apical] Respiratory Rate 22 22 18 Respiratory Effort / Characteristics Respiratory Depth Respiratory Pattern Blood Pressure 117/73 Blood Pressure [Left Arm] Blood Pressure Mean 99 Blood Pressure Mean [Left Arm] Blood Pressure Position Blood Pressure Position [Left Arm] Pulse Oximetry 92 94 97 Oxygen Delivery Method Nasal Cannula Nasal Cannula Nasal Cannula Oxygen Flow Rate 1 1 1 Sepsis Recent Fever Within 48 Hours Sepsis New/Unexplained Change in Mental Status Sepsis Action Taken by Nursing Laboratory Data 09/06/24 10:15 09/06/24 10:15 Lab Results 09/06/24 09/06/24 Range/Units 10:15 12:20 WBC 13.21 H (4.8-10.8) K/ul RBC 5.69 H (4.20-5.40) M/uL Hgb 16.1 H (12.0-16.0) g/dl Hct 53.6 H (37.0-47.0) % MCV 94.2 (80.0-100.0) fL MCH 28.3 (25.0-34.0) pg MCHC 30.0 L (32.0-36.0) g/dL RDW Std Deviation 49.5 H (36.4-46.3) fL RDW Coeff of López 14.3 (11.5-14.5) % Plt Count 312 (130-400) K/uL MPV 12.8 H (9.4-12.4) fL Immature Gran % (Auto) 0.7 % Neut % (Auto) 81.4 % Lymph % (Auto) 11.6 % [place] % (Auto) 5.6 % Eos % (Auto) 0.5 % Baso % (Auto) 0.2 % Neut # (Auto) 10.76 H (1.40-6.50) K/uL Lymph # (Auto) 1.53 (1.20-3.40) K/uL [place] # (Auto) 0.74 H (0.11-0.59) K/uL Eos # (Auto) 0.06 (0.00-0.50) K/uL Baso # (Auto) 0.03 (0.00-0.20) K/uL Immature Gran # (Auto) 0.09 (0.01-0.20) K/uL PT 11.3 (9.0-12.0) Seconds INR 1.0 (0.9-1.1) Sodium 153 H (136-145) mmol/L Potassium 4.5 (3.5-5.1) mmol/L Chloride 113 H (98-107) mmol/L Carbon Dioxide 28 (21-32) mmol/L Anion Gap 12 H (3-11) BUN 76 H (6-23) mg/dl Creatinine 1.35 H (0.6-1.2) mg/dl Est Cr Clr Drug Dosing 24.3 ml/min eGFR 37.57 BUN/Creatinine Ratio 56.3 H (10-20) Glucose 120 H (70-99(Fasting)) mg/dl Lactate 3.2 H* (0.4-2.0) mmol/L Calcium 10.3 (8.6-10.3) mg/dl Magnesium 2.5 H (1.7-2.4) mg/dl Total Bilirubin 0.6 (0.2-1.0) mg/dl AST 37 (13-39) U/L ALT 23 (7-52) U/L Alkaline Phosphatase 102 (34-104) U/L Troponin I High Sens 285.9 H* 268.6 H* (0-14) pg/ml B-Natriuretic Peptide 317 H (0-100) pg/ml Total Protein 7.7 (6.0-8.3) gm/dl Albumin 3.9 (3.4-5.0) gm/dl Globulin 3.8 (2.5-4.0) gm/dl Albumin/Globulin Ratio 1.0 (0.9-2) Lipase 267 H (11-82) U/L TSH 3.289 (0.300-4.500) uIu/ml Administered Medications Sodium Chloride (Nss) 1,000 mls @ 125 mls/hr IV .Q8H FAUZIA Stop: 09/06/24 17:44 Last Admin: 09/06/24 10:48 Dose: 125 mls/hr Documented By: MSG Discontinued Medications Cefepime HCl (Maxipime 2000mg) 2,000 mg in 20 mls @ 5 mls/min IV NOW STA; Protocol Stop: 09/06/24 10:52 Last Admin: 09/06/24 12:47 Dose: 5 mls/min Documented By: Imaging Data Radiologist's Impression: Chest X-Ray 09/06/24 09:37 XR chest 1V portable CLINICAL HISTORY: Chest pain. COMPARISON STUDY: Chest radiograph July 01, 2024. FINDINGS: Dual lead left subclavian pacer is in place. There is no pneumothorax or pleural effusion. Skin folds project over the right chest. There is no consolidation. Pulmonary vascularity is normal. IMPRESSION: No acute cardiopulmonary findings. ACT 112: Negative or not required by law. Electronically signed by: Fred Krishnamurthy M.D. 09/06/2024 10:39 AM Discharge Plan Visit Data Chief Complaint: Chest Pain Stated Complaint: CHEST DISCOMFORT ED Provider: Carline Sharp Discharge Problem: Chest pain, Wound of left foot, Wound of right foot, Sacral wound, Elevated troponin, NUZHAT (acute kidney injury), Acute UTI (urinary tract infection), Dehydration Patient Disposition: Admitted As Inpatient Discharge Instructions Interventions: ED Discharge Assessment Last Done: 09/06/24 14:18
--- NOTE | 2024-09-06 10:41 | XRay Report ---
XR chest 1V portable CLINICAL HISTORY: Chest pain. COMPARISON STUDY: Chest radiograph July 01, 2024. FINDINGS: Dual lead left subclavian pacer is in place. There is no pneumothorax or pleural effusion. Skin folds project over the right chest. There is no consolidation. Pulmonary vascularity is normal. IMPRESSION: No acute cardiopulmonary findings. ACT 112: Negative or not required by law. Electronically signed by: Fred Krishnamurthy M.D. 09/06/2024 10:39 AM
[2024-09-06 10:46] LABS: Basophils # (auto) 0.03 K/uL (0.00-0.20); Basophils % (auto) 0.2 %; Eosinophils # (auto) 0.06 K/uL (0.00-0.50); Eosinophils % (auto) 0.5 %; Hematocrit (blood only) 53.6 % (37.0-47.0); Hemoglobin 16.1 g/dl (12.0-16.0); Immature Granulocytes # (auto) 0.09 K/uL (0.01-0.20); Immature Granulocytes % (auto) 0.7 %; Lymphocytes # (auto) 1.53 K/uL (1.20-3.40); Lymphocytes % (auto) 11.6 %; Mean Corpuscular Hemoglobin 28.3 pg (25.0-34.0); Mean Corpuscular Volume 94.2 fL (80.0-100.0); Mean Platelet Volume 12.8 fL (9.4-12.4); Monocytes # (auto) 0.74 K/uL (0.11-0.59); Monocytes % (auto) 5.6 %; Neutrophils # (auto) 10.76 K/uL (1.40-6.50); Neutrophils % (auto) 81.4 %; Platelet Count 312 K/uL (130-400); RDW Coefficient of Variation 14.3 % (11.5-14.5); RDW Standard Deviation 49.5 fL (36.4-46.3); Red Blood Count 5.69 M/uL (4.20-5.40); White Blood Count 13.21 K/ul (4.8-10.8)
[2024-09-06] MEDS: SODIUM CHLORIDE 0.9% 1,000 ML IV SCH (10:48)
[2024-09-06 11:07] LABS: Prothrombin Time 11.3 Seconds (9.0-12.0)
[2024-09-06 11:19] LABS: Albumin Level 3.9 gm/dl (3.4-5.0); BUN Creatinine Ratio 56.3 (10-20); Bilirubin,Total 0.6 mg/dl (0.2-1.0); Calcium 10.3 mg/dl (8.6-10.3); Creatinine Clr Calc Pharmacy 24.3 ml/min; Globulin 3.8 gm/dl (2.5-4.0); Magnesium 2.5 mg/dl (1.7-2.4); Potassium 4.5 mmol/L (3.5-5.1); Total Protein 7.7 gm/dl (6.0-8.3)
[2024-09-06 11:34] LABS: Thyroid Stimulating Hormone 3.289 uIu/ml (0.300-4.500)
--- NOTE | 2024-09-06 11:50 | History & Physical Report ---
Date of Service September 06, 2024 Assessment & Plan (1) Chest pain: Plan: Patient presented on 09/06 for ongoing episodes of midsternal chest pain at rest Troponin 285-->268 on arrival; continue to trend q6h until chest pain fully resolves Lipase elevated at 267 EKG without significant changes on arrival Lower suspicion for ACS on admission; suspect demand ischemia, and improper clearance of troponin in the setting of NUZHAT Continuous telemetry monitoring (2) Lower extremity ulceration: Plan: Bilateral foot ulcerations with purulent drainage on arrival Leukocytosis at 13.21 with a neutrophil predominance; afebrile No prior h/o MRSA infections Blood cultures drawn in the ED Lactate 3.2 on arrival, repeat pending However, suspect hypoperfusion due to volume contraction in the setting of dehydration Cefepime 2000 mg IV x 1 given in the ED Continue with Ancef 2000 mg IV q8h Daily wound care Wound care nurse consult appreciated (3) Leg edema: Plan: 3+ pitting edema in the lower extremities bilaterally US Doppler of the LEs bilaterally ordered, pending Elevated BNP at 317 on arrival Despite pitting edema, patient clinically appears dry Continue gentle fluid resuscitation Strict I&O monitoring Daily weights (4) Failure to thrive in adult: Plan: Patient had a right femur fracture in June 2024 requiring ORIF She has largely been non-ambulatory since this time She lives by herself, and reports that she gets food/water when people bring it to her house On PD arrival, house was reportedly covered in dog urine/feces; office of aging involved Case management consult appreciated (5) Ambulatory dysfunction: Plan: Suspect ambulatory dysfunction is contributing to many of her symptoms (dehydration, poor p.o. intake, LE edema/wounds, chronic venous stasis, etc.) PT/OT evaluations appreciated Fall precautions (6) Hypernatremia: Plan: Na 153 on arrival Suspect secondary to dehydration and volume contraction D5w 500mL IV x 1 and will reassess with BMP (7) NUZHAT (acute kidney injury): Plan: BUN 76, creatinine 1.35 (baseline around 0.8) on arrival Avoid nephrotoxic agents where possible Continue IVF resuscitation Trend BMP (8) Elevated troponin: (9) Dehydration: (10) Cardiac pacemaker: (11) Chronic venous stasis: (12) Asymptomatic bacteriuria: Plan Disposition: Admit to PCU telemetry Full code Heart healthy, low-sodium diet VTE PPx: Heparin 5000u SQ q12h History of Present Illness Chief Complaint: Chest pain, lower extremity edema Primary Care Provider: Mihai Conteh MD Jessica is an 89-year-old female with PMH of paroxysmal atrial tachycardia, cardiac pacemaker, dyslipidemia, allergic rhinitis, hypothyroidism, and osteoporosis. She presented via EMS from home on 09/06 after she developed midsternal chest pain with radiation underneath both breasts last night. Patient reports that she has had chest pain several nights in a row. It is located under her breast bilaterally and radiates to her middle back. The pain can last for hours at a time. The only thing that seems to alleviate the pain is doing her PT exercises. She characterizes it as a "stabbing" pain. She initially rated the pain 8/10 on arrival, and 5/10 on reassessment. She has been taking Tylenol at home for the pain, but reports this does not help much. No history of pancreatitis or gallbladder issues. No history of NC, but she does report history of "cardiac arrest", and reports that she has a pacemaker in place. She follows with Dr. Conteh ([facility]) outpatient. Additionally, patient reports that she has been largely sedentary ever since her right hip fracture in June. She normally ambulates with a walker at baseline, but reports she has not been able to get up out of her chair. When asked how she gets food/water, she reports that people bring her food and water at home. She reports her legs have been increasingly edematous and weeping since the surgery, and that the dorsal aspect of her feet have developed purulent drainage. No prior history of osteomyelitis, diabetes, or MRSA infections to her knowledge. No prior history of LE edema, wounds, or cellulitis. She reports she has been changing the dressing on her legs daily, and applying Neosporin to the wounds. She denies any pain in her lower extremities at this time. Patient lives alone, but reports she does have support from PT and home health who come and see her regularly. Patient's friend at bedside (Giulia) reports that she checks on her 2-3 times per week. She also has a dog (poodle, "Barbara"). She denies CPAP at night or supplemental oxygen at home. Patient did not take her regular morning medicine today; she reports she has not been on any antibiotics recently. She denies smoking, tobacco use, or alcohol use. Patient is mildly hypotensive at 97/82, and tachycardic at 104 bpm at time of admission; SpO2 92% on RA. ED course: NSS 1000 mL IV at 125 mL/hour Cefepime 2000 mg IV ROS: Patient endorses midsternal chest pain, LE edema/drainage, Patient denies fever, chills, night-sweats, dizziness, lightheadedness, chest palpitations, pleuritic CP, SOB, cough, abdominal pain, changes in urinary/bowel habits, burning with urination, blood in the urine/stool, or numbness/tingling in the legs. Note: Police Department have reportedly contacted the office of aging as patient appears unable to care for herself at home. Allergies Allergy/AdvReac Type Severity Reaction Status Date / Time No Known Drug Allergies Allergy Verified 04/19/24 12:10 Home Medications Medication Instructions Recorded Confirmed Type latanoprost 0.005 % eye drops 1 drops OPB HS 06/15/19 09/06/24 History multivitamin (Daily Multi-Vitamin 1 tab PO DAILY 01/31/20 09/06/24 History tablet) timolol maleate 0.5 % once daily 1 drp OPB BID 08/14/20 09/06/24 History eye drops metoprolol succinate 50 mg 50 mg PO DAILY #90 tabs 10/23/23 09/06/24 Rx tablet,extended release 24 hr celecoxib 200 mg capsule (Celebrex) 200 mg PO BID #180 caps 04/27/24 09/06/24 Rx thyroid (pork) 60 mg tablet 60 mg PO DAILY #90 tabs 08/10/24 09/06/24 Rx ([facility] Thyroid) aspirin 81 mg chewable tablet 40.5 mg PO BID 09/06/24 09/06/24 History vitamins A,C,P-hoyf-ufthud 4,296 1 cap PO AMPM 09/06/24 09/06/24 History mcg-226 mg-90 mg capsule (PreserVision AREDS) Past Med/Surg History Problem List (Updated 09/06/24 @ 15:37 by Carline Sharp DO) Dehydration (Acute) Acute UTI (urinary tract infection) (Acute) Asymptomatic bacteriuria Chronic venous stasis Failure to thrive in adult Hypernatremia Lower extremity ulceration Ambulatory dysfunction Dehydration Leg edema NUZHAT (acute kidney injury) (Acute) Elevated troponin (Acute) Sacral wound (Acute) Wound of right foot (Acute) Wound of left foot (Acute) Chest pain (Acute) Fracture of right hip (Acute 07/01/24) Acute comminuted displaced intertrochanteric fracture of the right femur from a fall 2 days prior per the ED report Acute pain of right thigh (Acute) Elevated troponin (Acute) Fall (Acute) Elevated troponin Right femoral fracture (07/01/24) Acute comminuted displaced intertrochanteric fracture of the right femur from a fall 2 days prior per the ED report Squamous cell skin cancer Cardiac pacemaker Decreased exercise tolerance PAT (paroxysmal atrial tachycardia) Glaucoma Dyslipidemia Spinal stenosis Peripheral neuropathy Degenerative joint disease, multiple joints on both sides of body Allergic rhinitis (Acute) Hypothyroidism (Acute) Osteoporosis (Acute) Medical History (Updated 09/06/24 @ 15:37 by Carline Sharp DO) Peptic ulcer SSS (sick sinus syndrome) (04/28/14) Surgical History S/P placement of cardiac pacemaker (~2013) Dual chamber Status post hip surgery (~2013) Left RUTH History of esophagogastroduodenoscopy (~1996) H/O colonoscopy (~1998) Family History Mother Breast cancer Social History Smoking Status: Never smoker Hx Alcohol Use: No Hx Substance Use: No Preferred Language: Lebanese Communication Ability: Effective Abstract Maker Required: No Beliefs That Will Affect Care: None marital status: / Current Living Situation: Alone current occupational status: retired Feels Safe at Home: Yes Safety Concerns: Feels Safe At This Time Assistive Devices: Cane, Glasses, Walker and Wheelchair Review of Systems Review of Systems: See HPI above Physical Exam Physical Exam: General: no acute distress; pleasant affect; patient's friend at bedside; non- toxic appearing; frail appearing; cooperative; SpO2 97% on 1L NC HEENT: normocephalic, atraumatic; no scleral icterus; PERRLA; vision and hearing grossly intact Neck: supple; no lymphadenopathy; trachea midline Skin: warm, dry without signs of tenting; no cyanosis; no rashes, bruising, lesions, or erythema noted CV: chest wall, sternum are NTP; no rashes appreciated on the chest wall; RRR; S1/S2 normal; no murmurs/rubs/gallops; pulses intact and symmetric at radial, DP, and PT Lungs: no acute respiratory distress; symmetrical chest wall expansion; clear breath sounds across all lung boyer w/o adventitious sounds; no wheezing ABD: Soft, NTP; BS present; no rebound/guarding; no distention MSK: no tics or fasciculations; patient demonstrates ability wiggle toes bilaterally LEs: +3 pitting edema in the lower extremities bilaterally extending from the do rsal aspect of the feet up to the knees; purulent drainage from the dorsal aspect of the feet bilaterally; black eschar wound noted on the right heel Neuro: A&Ox3; normal mood and affect; fluent speech; no focal deficits; patient reports that sensation is intact and symmetric in the lower EXTR bilaterally assessed via light touch Results & Data Results & Data Vital Signs (Past 12 Hours) Vital Signs Temp Pulse Pulse Resp BP BP Pulse Ox 09/06/24 10:39 104 H 20 97/82 L 92 09/06/24 10:25 36.4 C L 85 16 94/71 L 95 09/06/24 10:00 100 H 20 92 09/06/24 09:34 96 09/06/24 09:30 100 H 22 96/71 L 09/06/24 09:21 105 H 09/06/24 09:18 36.4 C L 106 H 20 91/71 L 96 O2 Del Method 09/06/24 10:39 Room Air 09/06/24 10:25 Room Air 09/06/24 10:00 Room Air 09/06/24 09:34 Room Air 09/06/24 09:30 09/06/24 09:21 09/06/24 09:18 Room Air Laboratory Results Abnormal lab results 09/06/24 Range/Units 10:15 WBC 13.21 H (4.8-10.8) K/ul RBC 5.69 H (4.20-5.40) M/uL Hgb 16.1 H (12.0-16.0) g/dl Hct 53.6 H (37.0-47.0) % MCHC 30.0 L (32.0-36.0) g/dL RDW Std Deviation 49.5 H (36.4-46.3) fL MPV 12.8 H (9.4-12.4) fL Neut # (Auto) 10.76 H (1.40-6.50) K/uL Bertie # (Auto) 0.74 H (0.11-0.59) K/uL Sodium 153 H (136-145) mmol/L Chloride 113 H (98-107) mmol/L Anion Gap 12 H (3-11) BUN 76 H (6-23) mg/dl Creatinine 1.35 H (0.6-1.2) mg/dl BUN/Creatinine Ratio 56.3 H (10-20) Glucose 120 H (70-99(Fasting)) mg/dl Magnesium 2.5 H (1.7-2.4) mg/dl Troponin I High Sens 285.9 H* (0-14) pg/ml B-Natriuretic Peptide 317 H (0-100) pg/ml Lipase 267 H (11-82) U/L Diagnostic Findings Chest X-Ray 09/06/24 09:37 XR chest 1V portable CLINICAL HISTORY: Chest pain. COMPARISON STUDY: Chest radiograph July 01, 2024. FINDINGS: Dual lead left subclavian pacer is in place. There is no pneumothorax or pleural effusion. Skin folds project over the right chest. There is no consolidation. Pulmonary vascularity is normal. IMPRESSION: No acute cardiopulmonary findings. ACT 112: Negative or not required by law. Electronically signed by: Fred Krishnamurthy M.D. 09/06/2024 10:39 AM ECG Additional Comments: ECG revealed sinus tachycardia at 104 bpm; QTc 462 Code Status & VTE Plan Code Status Full code (discussed with both patient and patient's friend Giulia at bedside) Patient would like her other friend - Giulia Marques - to be her medical proxy in an emergency situation; she reports no medical POA paperwork in place VTE Prophylaxis Plan VTE Prophylaxis will be ordered: Yes Supervising Physician Co-Signing Physician Notes I personally examined the patient and verified all cornejo points of history and exam, discussed case, and agree with decision making with Isai JOSEPH Feeling weak and has not been able to get around very well. Legs are swollen. No foot pain. Vitals noted, in general she looks extremely dehydrated with caked and dry mucous membranes (on follow-up a few hours later still this appearance but slightly less pronounced), bilateral lower extremities with diffuse edema and superficial appearing ulcerations that are exudative with a little bit of erythema, although nontender and not very warm. Left foot toes are purpleish but do have cap refill, with a degree of edema I am not able to palpate pulses, again no tenderness to palpation, however. Labs and diagnostics noted. Hyponatremic dehydration with AKIdue to poor p.o. intake. Has been given saline, has a perfusing blood pressure is not tachycardic and does not appear weak/lightheadednow appears to need rehydration/water replacement far more than ongoing fluid resuscitationswitch to D5W and follow labs closely. Signed out to overnight coverage bilateral lower extremity DVTsnot surprising given hip fracture and immobility/barely able to move at homeheparin drip for now given NUZHAT and what will likely be a dynamic kidney function situation. Hopefully can switch to a DOAC once her kidney numbers leveled out lower extremity venous stasis with ulcerationsand possibly superficial cellulitiswound care, treat DVTs, once possible to improve the venous stasis fluid, cefazolin to treat what appears to be a degree of superficial secondary bacterial overgrowth changes and possibly mild cellulitis purple toesseems to be more of passive venous congestion, and I do see cap refill, albeit somewhat delayed. Cannot feel pulses, but also she has rather significant edemathat said, obviously an arterial occlusion would be catastroph ictherefore stat arterial venous Dopplers have been ordered failure to thrivedoing quite poorly at home. PT/OT eval and treat, likely to need at least short-term placement leukocytosis/polycythemiastrongly suspect due to volume contraction. Elevated troponinprobably watershed from being so volume down. Has upper abdominal pain but no real chest pain nothing consistent with ischemia, and troponin is trending down. EKG nonacute. PG Care Time/CCT Total # of Minutes Spent Total Time Spent with Patient: Total time spent is greater than 50% in coordination of care (as documented) at patient's floor/unit and/or counseling patient: C[place] [address] INT INP/OBS CARE 3/75MIN Patient Type Established Medical Decision Making High Complexity Diagnoses Chest pain R07.9 Lower extremity ulceration L97.909 Leg edema R60.0 Failure to thrive in adult R62.7 Ambulatory dysfunction R26.2 Hypernatremia E87.0 NUZHAT (acute kidney injury) N17.9 Elevated troponin R79.89 Dehydration E86.0 Cardiac pacemaker Z95.0 Chronic venous stasis I87.8 Asymptomatic bacteriuria R82.71
[2024-09-06] MEDS: CEFEPIME 2000MG 2,000 MG/20 ML SYR IV STA (12:47)
[2024-09-06 13:08] LABS: Troponin I High Sensitivity 285.9 pg/ml (0-14)
[2024-09-06 13:30] LABS: Appearance Urine Cloudy (Clear); Bacteria Urine Automated 4+ (None Seen); Bilirubin Urine Negative (Negative); Blood Urine Negative (Negative); Color Urine Yellow; Glucose Urine UA Negative (Negative); Ketones Urine Trace (Negative); Leukocyte Esterase Urine 1+ (Negative); Nitrite Urine Negative (Negative); Protein Urine 1+ (Negative); Specific Gravity Urine 1.022 (1.000-1.030); Urobilinogen Urine Negative (Negative); pH Urine 5.5 (4.5-7.5)
[2024-09-06] MEDS ORDERED: ONDANSETRON INJ 2 MG/ML 2 ML VIAL IV PRN (14:40)
--- NOTE | 2024-09-06 16:35 | Ultrasound Report ---
INDICATION: Leg swelling. COMPARISON: None available.. TECHNIQUE: Multiple longitudinal and transverse sonographic images of the bilateral lower extremities were obtained in conjunction with duplex Doppler sonography and serial compression through the common femoral, superficial femoral, popliteal, and where possible visualized proximal calf veins. FINDINGS: Right leg: Thrombus is seen in the common femoral vein, distal femoral vein and popliteal veins. Remaining visualized right lower extremity venous structures are patent and compressible. Left leg: Thrombus noted in the mid to distal femoral vein and the popliteal vein. Remaining visualized left lower extremity venous structures are patent and compressible. IMPRESSION: Positive for bilateral lower extremity DVT. Report called to Stephany MOROCHO at 131PM [facility] 09/06/2024. Electronically signed by Delta Kirk 09-06-2024 4:34 PM
[2024-09-06] MEDS: DEXTROSE 5% 500 ML IV SCH (16:38)
[2024-09-06] MEDS ORDERED: HEPARIN SOD (PORCINE) 1000 UNIT/ML IV ONE (16:59)
[2024-09-06] MEDS: Heparin IV Adult Wt-Based Standard w/ INITIAL Bolus Protocol IV STA (17:19)
[2024-09-06 17:39] LABS: Potassium 4.6 mmol/L (3.5-5.1)
[2024-09-06 17:40] LABS: Calcium 8.9 mg/dl (8.6-10.3)
[2024-09-06 17:43] LABS: Creatinine Clr Calc Pharmacy 27.4 ml/min
[2024-09-06 17:58] LABS: Troponin I High Sensitivity 236.8 pg/ml (0-14)
[2024-09-06 19:10] LABS: Partial Thromboplastin Ratio 1.1; Partial Thromboplastin Time 29 Seconds (21-31)
[2024-09-06] MEDS: ceFAZolin 1000MG 1,000 MG/7.5 ML SYR IV SCH (19:58)
[2024-09-06] MEDS: HEPARIN SODIUM/DEXTROSE 25,000 UNITS/500 ML BAG IV SCH (20:03)
[2024-09-06] MEDS: LATANOPROST 0.005% OP SOLN 2.5 ML BTL OPB SCH (20:08)
[2024-09-06] MEDS: ASPIRIN 81 MG CHEW PO SCH (20:12)
[2024-09-06] MEDS: HEPARIN IV BOLUS 4,000 UNITS in SYRINGE 0 ML IV ONE (20:12)
[2024-09-06] MEDS ORDERED: ceFAZolin 2000MG 2,000 MG/15 ML SYR IV SCH (20:45)
[2024-09-06] MEDS ORDERED: HEPARIN SOD 5,000 UNIT/0.5 ML VIAL SQ SCH (21:00)
[2024-09-06 21:35] LABS: BUN Creatinine Ratio 64.3 (10-20); Calcium 8.9 mg/dl (8.6-10.3); Creatinine Clr Calc Pharmacy 27.2 ml/min; Potassium 4.2 mmol/L (3.5-5.1)
[2024-09-06] MEDS: DEXTROSE 5% 1,000 ML IV SCH (23:59)
--- NOTE | 2024-09-07 01:18 | Ultrasound Report ---
Exam(s): US ARTERIAL BILATERAL LOWER EXTREMITIES EXAM: US Duplex Bilateral Lower Extremities Arteries CLINICAL HISTORY: cold pale toes b/l R worse than L. TECHNIQUE: Real-time duplex ultrasound scan of the bilateral lower extremity arteries integrating B-mode two-dimensional vascular structure, Doppler spectral analysis and color flow Doppler imaging. COMPARISON: No relevant prior studies available. FINDINGS: Limited by patient positioning and edema. Right common femoral artery: Monophasic flow. No occlusion or significant stenosis on color flow and spectral Doppler imaging. Normal waveform. Right superficial femoral artery: Monophasic flow. No occlusion or significant stenosis on color flow and spectral Doppler imaging. Normal waveform. Right popliteal artery: Monophasic flow. No occlusion or significant stenosis on color flow and spectral Doppler imaging. Normal waveform. Right calf/foot arteries: Monophasic flow. Poor visualization of distal flow in the peroneal artery. No occlusion or significant stenosis on color flow and spectral Doppler imaging. Normal waveform. Left common femoral artery: Monophasic flow. No occlusion or significant stenosis on color flow and spectral Doppler imaging. Normal waveform. Left superficial femoral artery: Monophasic flow. No occlusion or significant stenosis on color flow and spectral Doppler imaging. Normal waveform. Left popliteal artery: Monophasic flow. No occlusion or significant stenosis on color flow and spectral Doppler imaging. Normal waveform. Left calf/foot arteries: Monophasic flow. Poor visualization of distal flow in the peroneal artery. No occlusion or significant stenosis on color flow and spectral Doppler imaging. Normal waveform. IMPRESSION: Poor visualization the bilateral distal peroneal arteries. Monophasic flow throughout both lower extremities consistent with inflow disease. Otherwise no evidence for occlusion or high-grade stenosis. Electronically signed by: Qasim Booker M.D. 09/07/24 01:18 AM
[2024-09-07 01:57] LABS: Basophils # (auto) 0.02 K/uL (0.00-0.20); Basophils % (auto) 0.2 %; Eosinophils % (auto) 0.8 %; Hematocrit (blood only) 39.5 % (37.0-47.0); Immature Granulocytes % (auto) 0.8 %; Lymphocytes # (auto) 0.88 K/uL (1.20-3.40); Mean Corpuscular Hemoglobin 28.5 pg (25.0-34.0); Mean Corpuscular Hgb Conc 30.4 g/dL (32.0-36.0); Mean Corpuscular Volume 93.8 fL (80.0-100.0); Mean Platelet Volume 12.5 fL (9.4-12.4); Monocytes # (auto) 0.68 K/uL (0.11-0.59); Monocytes % (auto) 5.4 %; Neutrophils # (auto) 10.73 K/uL (1.40-6.50); Neutrophils % (auto) 85.8 %; Platelet Count 230 K/uL (130-400); RDW Coefficient of Variation 14.4 % (11.5-14.5); RDW Standard Deviation 49.1 fL (36.4-46.3); Red Blood Count 4.21 M/uL (4.20-5.40); White Blood Count 12.51 K/ul (4.8-10.8)
[2024-09-07 02:08] LABS: BUN Creatinine Ratio 66.3 (10-20); Calcium 8.4 mg/dl (8.6-10.3); Creatinine Clr Calc Pharmacy 30.9 ml/min; Potassium 3.9 mmol/L (3.5-5.1)
[2024-09-07 02:40] LABS: ANTI-Xa, UFH(UnfractionatedHep 1.42 IU/ml (0.3-0.7)
[2024-09-07] MEDS: ACETAMINOPHEN 325 MG TAB PO PRN (02:45)
[2024-09-07 05:22] LABS: Calcium 8.1 mg/dl (8.6-10.3); Potassium 4.2 mmol/L (3.5-5.1)
[2024-09-07 05:28] LABS: BUN Creatinine Ratio 61.6 (10-20); Creatinine Clr Calc Pharmacy 27.9 ml/min
[2024-09-07 05:31] LABS: ANTI-Xa, UFH(UnfractionatedHep 0.63 IU/ml (0.3-0.7)
[2024-09-07] MEDS: SODIUM CHLORIDE 0.9% 500 ML IV ONE (05:58)
--- NOTE | 2024-09-07 06:03 | Electrocardiogram Report ---
Test Reason : Blood Pressure : */* mmHG Vent. Rate : 104 BPM Atrial Rate : 104 BPM P-R Int : 166 ms QRS Dur : 68 ms QT Int : 352 ms P-R-T Axes : 80 -20 44 degrees QTcB Int : 462 ms Sinus tachycardia Nonspecific ST and T wave abnormality When compared with ECG of 01-Jul-2024 07:35, Premature atrial complexes are no longer Present Nonspecific T wave abnormality has replaced inverted T waves in Inferior leads Confirmed by Raghu Smiley ([id number]) on 09/07/2024 6:02:28 AM Referred By: Confirmed By: Raghu Smiley
[2024-09-07] MEDS ORDERED: VANCOMYCIN CONSULT ACTIVE PRN (07:16)
[2024-09-07] MEDS ORDERED: CEFEPIME 2000MG 2,000 MG/20 ML SYR IV SCH (07:30)
[2024-09-07] MEDS: SODIUM CHLORIDE 0.9% 1,000 ML IV ONE ×3 (07:35→11:26)
[2024-09-07] MEDS: METOPROLOL SUCC 50MG EXT REL TAB PO SCH (07:38)
[2024-09-07 07:52] LABS: Hematocrit (blood only) 33.2 % (37.0-47.0); Hemoglobin 10.1 g/dl (12.0-16.0); Mean Corpuscular Hemoglobin 28.6 pg (25.0-34.0); Mean Corpuscular Hgb Conc 30.4 g/dL (32.0-36.0); Mean Corpuscular Volume 94.1 fL (80.0-100.0); Mean Platelet Volume 12.7 fL (9.4-12.4); Platelet Count 187 K/uL (130-400); RDW Coefficient of Variation 14.4 % (11.5-14.5); RDW Standard Deviation 49.3 fL (36.4-46.3); Red Blood Count 3.53 M/uL (4.20-5.40); White Blood Count 10.48 K/ul (4.8-10.8)
[2024-09-07] MEDS: CEFEPIME 2000MG 2,000 MG/20 ML SYR IV ONE (08:02)
[2024-09-07 08:03] LABS: C Reactive Protein 2.75 mg/dl (0-0.5); Calcium 7.7 mg/dl (8.6-10.3); Creatinine Clr Calc Pharmacy 33.8 ml/min; Potassium 3.8 mmol/L (3.5-5.1)
[2024-09-07] MEDS: VANCOMYCIN HCL 1,000 MG/270 ML BAG IV STA (09:12)
--- NOTE | 2024-09-07 09:28 | Pharmacy Report ---
Pharmacy PK ABX Note - Date of Service September 07, 2024 - Assessment and Plan Assessment 89 yo F received Vancomycin and Cefepime for possible UTI vs skin and soft tissue infection. * Day #1 of antimicrobial therapy. * Patient is afebrile, actually with some low temps. Has been tachycardic and hypotensive so concern for sepsis. Lactate elevated at 3.2 and improved to 2.4 upon fluid resuscitation. SCr has improved to 0.97 mg/dL this AM which appears near baseline. Leukocytosis has resolved this morning as well with WBC being 10.5k. MRSA swab and procalcitonin are pending. * Blood cultures are pending. Urine culture preliminarily growing Klebsiella pneumoniae, sensitivities pending. Plan Vancomycin * Loading dose: 1000 mg IV x 1 * Maintenance dose: 1000 mg IV every 24 hours * Regimen is predicted to achieve target AUC/JACOB of 400-600 mg/L.hr * Random level ordered for: 09/08/24 Cefepime * 2000 mg IV every 12 hours Pharmacy will continue to follow and will adjust dose/frequency as necessary. Thank you. Pharmacy has transitioned to AUC monitoring for vancomycin. AUC/JACOB is the preferred PK/PD target and is associated with decreased risk of nephrotoxicity compared to traditional trough targets.
--- NOTE | 2024-09-07 09:50 | Medical Student Progress Note ---
Date of Service September 07, 2024 Assessment & Plan (1) Acute UTI (urinary tract infection): (2) Chronic venous stasis: (3) Hypernatremia: (4) Lower extremity ulceration: (5) Ambulatory dysfunction: (6) NUZHAT (acute kidney injury): (7) Chest pain: (8) Cardiac pacemaker: (9) Hypotension: (10) DVT, bilateral lower limbs: Plan Hypotension - BP stabilizing in 90s/60s after 3.5 L fluid given - PO intake encouraged - Continue fluid resuscitation with NSS, considering epinephrine and ICU transfer if pressures worsen Chest Pain - Patient reported stabbing, midsternal chest pain underneath both breasts on presentation on 09/06. - Troponin 285-->268; continue telemetry. Suspect lowered clearance due to NUZHAT - EKG and CXR showed no acute process - Echocardiogram with doppler pending DVT - 3+ pitting edema in the lower extremities bilaterally - Ultrasound of lower extremities positive for b/l lower extremity DVT - Continue IV heparin Hypernatremia - Na trending downward, 155 --> 150 --> 148 --> 149 in afternoon - Most likely caused by dehydration, continue fluid resuscitation Leg Ulcerations - Bilateral dorsal foot ulcers with purulent drainage - Blood cultures pending - Continue Cefepime 2000mg IV q12h - Vancomycin d/c d/t negative MRSA Nares Normocytic Anemia - HgB trending downward, 16.1 --> 12.0 --> 10.1 --> 9.3 in afternoon - Likely due to dehydration/rehydration, continue to monitor Ambulatory Dysfunction - Patient had right femur fracture in June 2024 and has been unable to walk since this time. She lives alone with help from home health aides and friends who bring food/water. EMS reported that her apartment was covered in dog urine/feces - Case management appreciated. Likely rehab placement after discharge. - Office of Aging consulted by police NUZHAT - BUN 76 --> 66, creatinine 1.35 --> 0.97 (baseline around 0.8) - Continue serial BMP and fluid rehydration Admission and Anticipated Discharge Date Admission Date: September 06, 2024 Supervising Attestation I personally examined the patient and verified all cornejo points of history and exam, discussed case, and agree with decision making with Dr Rico and Avis Villanueva MS2 feeling better - still has leg swelling but legs only bother her some - mostly that they were hot last night. CP gone. eating reasonably well. vitals noted nad. mm far less dry than yesterday - still somewhat dry but almost normal. cardio distant but reg lungs quiet but cta no r/r/w. skin dry. b/l LE ongoing edema, small amount of tracking erythema essentially gone, wounds dressed - still appear c/w shallow ulcers thin exudate. toes no longer purple, good color good cap refill hypotension - hx far and away most c/w hypovolemia from poor PO intake/hypernatremic dehydration - at the same time, BP got worse despite fluids in ER and rehydration overnight (albeit since BP had normalized fluids overnight were D5W) - given worsening of BP after initially looking to be improving - concern on: (a) refractory hypovolemia (would fit her hx and appearance yesterday - and possibly since we switched to correct water deficits possibly as fluid left vasculature she became hypotensive again --> more isotonic fluids before resuming water loss replacement) (b) septic physiology - doubt sepsis, but since legs did have mild cellulitis//venous stasis with some degree of bacterial overgrowth - could possibly be showing septic physiology as well (more fluids, broadened abx coverage for now, follow cultures)(no urinary sx either so doubt this as source, but until situation declares itself more clearly broadened abx to cover for this as well) (c) multifactorial with confounders (checked random cortisol - <20 so stress dosing for now) (echo to look for underlying cardiomyopathy that would exacerbate hypotension in the face of any/all of the above (but to be clear - situation does not appear c/w cardiogenic shock) (d) anemia - but no s/s blood loss or reasons for hemolysis and Hgb during last stay was ~8.5 range at discharge - suspect Hgb 16 was quite concentrated, Hgb now reflects dilutional drop not hemorrhage - obviously continue to follow and w/u further if bleeding appears evident, but none at this time --->BP improving w additional fluids --->Na obviously worsening but right now w IV fluid shortage NSS is isotonic fluid available - 154 meq Na/L = anticipated rise in Na - will change to 1/2NSS to balance need for intravascular volume repletion and water deficit replacement once BP more consistently acceptable --> interestingly she looks and feels better overall; suspect refractory hypovolemia ddx with a mild degree of relative adrenal insufficiency is the actual cause - but situation currently too delicate to not cover all realistic possibilities - but given that she herself looks so much better than last night, and main interventions have been directed at hypovolemia, this fits best CP resolved, appeared MSK, and troponin almost certainly demand/watershed ischemia from hypotension/dehydration otherwise as above Subjective Jessica reports that she is not in any pain, and feeling okay this morning. BPs remain in 70s-80s/50s, patient denies dizziness, lightheadedness. Patient is eating well. Denies chest pain, palpitations, SOB, cough, N/V. Review of Systems Review of Systems: ROS unremarkable except for discussed above and in assessment & plan. Physical Exam Constitutional: well developed, thin, cooperative woman in no acute distress ENMT: oral mucosa appears moist Respiratory: clear to auscultation bilaterally Cardiovascular: RRR, S1 and S2 present, no murmurs, rubs or gallops. Pacemaker. Musculoskeletal: 3+ pitting edema in b/l lower extremitie s. Purulent drainage from wounds on dorsal feet b/l. Results & Data Vital Signs (Past 12 Hours) Vital Signs Temp Pulse Pulse Resp BP BP Pulse Ox 09/07/24 07:51 92 H 09/07/24 07:44 36.1 C L 83 18 82/50 L 96 09/07/24 06:30 87 78/50 L 09/07/24 05:39 36.3 C L 97 H 16 78/50 L 98 09/07/24 03:50 36.3 C L 96 H 16 80/53 L 96 09/06/24 23:18 36.4 C L 94 H 16 89/59 L 99 09/06/24 23:00 94 H 09/06/24 22:00 96 09/06/24 20:16 36.3 C L 90 16 89/61 L 87/59 L 99 O2 Del Method O2 Flow Rate 09/07/24 07:51 09/07/24 07:44 Room Air 09/07/24 06:30 09/07/24 05:39 Room Air 09/07/24 03:50 Room Air 09/06/24 23:18 Nasal Cannula 2 09/06/24 23:00 09/06/24 22:00 Room Air 2 09/06/24 20:16 Nasal Cannula 2 Laboratory Results Na trending down, 155 --> 149 in A.M K trending down, 4.2 --> 3.5 BUN trending down 74 --> 59 Creatinine trending down 1.15 --> 0.93 Resident Activity Tracking Resident Involvement: Resident Care Provided Care Provided: Adult [facility] Medicine Resident Supervision Co-Signing Physician Notes Resident Attestation I was personally present during medical student and patient encounter and independently interviewed and examined the patient and verified the cornejo history and physical, reviewed labs and image studies, discussed the case with Christian CABALLERO), and agree with the above mentioned findings and care plan.
[2024-09-07 11:58] LABS: Hematocrit (blood only) 31.2 % (37.0-47.0); Hemoglobin 9.3 g/dl (12.0-16.0); Mean Corpuscular Hemoglobin 28.4 pg (25.0-34.0); Mean Corpuscular Hgb Conc 29.8 g/dL (32.0-36.0); Mean Corpuscular Volume 95.1 fL (80.0-100.0); Mean Platelet Volume 12.8 fL (9.4-12.4); Platelet Count 180 K/uL (130-400); RDW Coefficient of Variation 14.4 % (11.5-14.5); RDW Standard Deviation 49.8 fL (36.4-46.3); Red Blood Count 3.28 M/uL (4.20-5.40); White Blood Count 10.79 K/ul (4.8-10.8)
[2024-09-07 12:17] LABS: BUN Creatinine Ratio 63.4 (10-20); Calcium 7.3 mg/dl (8.6-10.3); Creatinine Clr Calc Pharmacy 35.2 ml/min; Potassium 3.5 mmol/L (3.5-5.1)
[2024-09-07 12:24] LABS: ANTI-Xa, UFH(UnfractionatedHep 0.47 IU/ml (0.3-0.7)
[2024-09-07] MEDS: SODIUM CHLORIDE 0.9% 1,000 ML IV SCH (12:55)
--- NOTE | 2024-09-07 15:01 | Billing Data ---
Date of Service September 07, 2024 Coding Level of Care Code 99884 SUB INP/OBS CARE MIN
[2024-09-07] MEDS: HYDROCORTISONE SOD 50 MG in SYRINGE 0 ML IV ONE (15:29)
[2024-09-07 16:01] LABS: Hematocrit (blood only) 32.1 % (37.0-47.0); Hemoglobin 9.5 g/dl (12.0-16.0); Mean Corpuscular Hemoglobin 28.5 pg (25.0-34.0); Mean Corpuscular Hgb Conc 29.6 g/dL (32.0-36.0); Mean Corpuscular Volume 96.4 fL (80.0-100.0); Mean Platelet Volume 12.2 fL (9.4-12.4); Platelet Count 177 K/uL (130-400); RDW Coefficient of Variation 14.5 % (11.5-14.5); Red Blood Count 3.33 M/uL (4.20-5.40); White Blood Count 10.18 K/ul (4.8-10.8)
[2024-09-07 16:20] LABS: BUN Creatinine Ratio 58.6 (10-20); Calcium 7.3 mg/dl (8.6-10.3); Creatinine Clr Calc Pharmacy 37.6 ml/min; Potassium 3.9 mmol/L (3.5-5.1)
--- NOTE | 2024-09-07 16:33 | Communication Note ---
Date of Service: September 07, 2024 Patient remaining hypotensive (80s/40s) - S/p 4+ L IVF w/ brief improvements and now ongoing NSS @ 150 ml/hr. - CXR negative. Procal negative. Mild CRP elevation. - She remains on broad spectrum Abx Cefepime (Vanco d/c due to negative MRSA nares), blood cultures pending, urine growing Klebsiella. - SIRS + w/ undifferentiated source on admission, though leukocytosis now resolved, tachycardia remains. - Random Cortisol < 20, Hydrocortisone 50 mg provided w/ mild improvement of BP followed by return to hypotension Exam: - Patient remains pleasant and conversational on exam. Tachycardic with regular rhythm. CTAB. Ongoing LE wounds with mild increase in edema. Cap refill < 2s. Plan: - MAPs persistently < 65 despite multiple interventions - Given instability of blood pressures will discuss w/ ICU attending (Dr. Hernandez) - Transfer to ICU for pressor support I personally examined the patient and verified all cornejo points of history and exam, discussed case, and agree with decision making with Dr Mcclelland Patient continues to look surprisingly better in person than her numbers would suggest, but at the same time it has been difficult to maintain reasonable blood pressures, and she has had multiple liters of fluid resuscitation. My biggest clinical suspicion is still severe volume depletion, but it is difficult to rule out other concomitant causes for her hypotension. That said, she has been managed with fluids, supplemental steroids, broadened antibiotics, and overall aggressive supportive caremoved to ICU given that pressors may be needed, and also in the ICU either by bedside ultrasound or central venous pressure monitoring we could more accurately determine if further fluid resuscitation may be of benefit. Hypernatremia has been getting mildly worse due to the need to utilize isotonic fluidsand currently with the IV fluid shortage, we are using saline because that is what is available. See my prior note, once blood pressures are more stable and manageable would like to change to a more hypotonic fluid for her free water deficit, but perfusion is more important at this point.
[2024-09-07 18:36] LABS: Hematocrit (blood only) 31.8 % (37.0-47.0); Hemoglobin 9.4 g/dl (12.0-16.0)
--- NOTE | 2024-09-07 19:01 | XCELERA ---
[id number] [id number]
[2024-09-07] MEDS ORDERED: CEFEPIME 1000MG 1,000 MG/10 ML SYR IV SCH (19:30)
--- NOTE | 2024-09-07 19:47 | Critical Care Consultation ---
Date of Consultation September 07, 2024 Assessment & Plan (1) Septic shock: Reason Critically Ill: 89-year-old female presents to the ICU with hypotension with suspected underlying sepsis with multiple wounds on lower extremities, bilateral lower extremity DVTs, and UTI. Currently requiring vasopressor s upport with phenylephrine drip. Neuro - [facility] ICU: Negative Cardiac - Shocksuspect underlying sepsis giving multiple open wounds with purulent drainage, positive UTI. See ID for management - Random cortisol 13, proceed with IV hydrocortisone - TTE with EF greater than 70%, mild systolic anterior motion of mitral leaflet without significant LVOT obstruction, small pericardial effusion unchanged - Continue with IV fluid resuscitation - Phenylephrine drip to maintain maps greater than 65. Wean as tolerated -Hold metoprolol Initial complaint of chest pain. No previous history of CAD. Troponin maleate elevated trending down. No ST changes on EKGs. Continue to monitor for now but appears to be improved. Continuous monitor on telemetry PAFon heparin drip. Holding metoprolol due to hypotension. Currently sinus rhythm with heart rate in the 90s. Continuous monitor on telemetry Respiratory - Currently maintaining oxygen saturations on room air. No previous history of pulmonary disease. Continuous monitoring pulse ox GI - NPO. Advance diet as tolerated PPI RENAL/LYTES - Creatinine within normal limits. Monitor routine BMPs and replete electrolytes as indicated Hyponatremiaimproving. Most recent sodium 148. Continue with fluid resuscitation as this is likely due to dehydration. Monitor - Strict I's and O's ENDO - No history of diabetes. ICU hyperglycemic protocol HEME - H&H stable, monitor routine CBC ID - Sepsispatient with elevated lactate but currently has normal WBC, afebrile, and nonelevated procalcitonin. However, given underlying hypotension and multiple sources for infection, suspicion for sepsis likely - Urinalysis concerning for UTI. Urine culture growing Klebsiella pneumonia - Will obtain CT imaging of of bilateral feet as she has purulent drainage to rule out osteomyelitis -Blood cultures pending - Continue cefepime , Adding daptomycin for now LINES/IV ACCESS - Peripheral IVs, consider central line if vasopressor support were to Increase if patient were to decompensate DVT PROPHYLAXIS - Bilateral lower extremity DVTs. Continue heparin drip I have personally spent [] minutes of critical care time in the direct management of this patient. This is a life/limb threatening event. This includes time spent evaluating patient, direct bedside care, chart review, placing orders, interpretation of diagnostic studies, discussion with consultants, patient, and family members, as well as other required patient management activities. This time is exclusive of all separately billable procedures, and teaching time and separate from and in addition to any other critical care service time. Thank you for allowing us to participate in the care of this patient. Please refer to my attending physician's documentation for any further recommendations. (2) DVT, bilateral lower limbs: (3) Leg edema: (4) Wound of right foot: (5) Wound of left foot: (6) PAT (paroxysmal atrial tachycardia): (7) Dyslipidemia: (8) Hypothyroidism: Supervising Physician Co-Signing Physician Notes Patient seen and examined. JODY reviewed. Discussed with primary hospitalist service as well as with critical care TIMOTHY. Agree with assessment plan as noted. Please refer to the critical care progress note from 09/08/2024 for additional details History of Present Illness Attending Physician: Johan Gonzalez DO History of Present Illness 89-year-old female with past medical history of PAF, pacemaker, HLD, hypothyroidism, who presents to the emergency department on 09/06 with complaints of chest pain at night. Patient also reports that she has had difficulty with ambulation since right telephone sterilizer fracture in June. She reported being unable to move from her chair over the past few days and increased edema and weeping in her legs since surgery with newly developed wounds and purulent drainage.Patient reported applying Neosporin to the wounds on her legs and changing the dressings daily. She was found to have bilateral DVT's on lower extremity Doppler and was placed on heparin drip. She was mildly hypotensive initially but responded to fluid resuscitation and was started on hydrocortisone. She is now transferred to the ICU for progressive hypotension, with suspected need for vasopressor support. On arrival to the ICU the patient is alert and oriented without acute distress. She was sitting upright in bed, on room air, with no current complaints. She denies headache, dizziness, syncopal episodes, shortness of breath, cough or congestion, fevers, chest pain or palpitations, abdominal pain, nausea vomiting or diarrhea. She does again report swelling in her lower extremities with wounds to both feet. She reports difficulty ambulating because of this. Allergies Allergy/AdvReac Type Severity Reaction Status Date / Time No Known Drug Allergies Allergy Verified 04/19/24 12:10 Home Medications Medication Instructions Recorded Confirmed Type latanoprost 0.005 % eye drops 1 drops OPB HS 06/15/19 09/06/24 History multivitamin (Daily Multi-Vitamin 1 tab PO DAILY 01/31/20 09/06/24 History tablet) timolol maleate 0.5 % once daily 1 drp OPB BID 08/14/20 09/06/24 History eye drops metoprolol succinate 50 mg 50 mg PO DAILY #90 tabs 10/23/23 09/06/24 Rx tablet,extended release 24 hr celecoxib 200 mg capsule (Celebrex) 200 mg PO BID #180 caps 04/27/24 09/06/24 Rx thyroid (pork) 60 mg tablet 60 mg PO DAILY #90 tabs 08/10/24 09/06/24 Rx (Wilcox Thyroid) aspirin 81 mg chewable tablet 40.5 mg PO BID 09/06/24 09/06/24 History vitamins A,C,H-xrtz-ypgrxk 4,296 1 cap PO AMPM 09/06/24 09/06/24 History mcg-226 mg-90 mg capsule (PreserVision AREDS) Patient History Medical History (Updated 09/08/24 @ 09:41 by Shell Rico MD) Peptic ulcer SSS (sick sinus syndrome) (04/28/14) Surgical History S/P placement of cardiac pacemaker (~2013) Dual chamber Status post hip surgery (~2013) Left RUTH History of esophagogastroduodenoscopy (~1996) H/O colonoscopy (~1998) Family History Mother Breast cancer Social History Smoking Status: Never smoker Hx Alcohol Use: No Hx Substance Use: No Preferred Language: Andorran Communication Ability: Effective Environmental Officer Required: No Beliefs That Will Affect Care: None marital status: / Current Living Situation: Alone current occupational status: retired Feels Safe at Home: Yes Safety Concerns: Feels Safe At This Time Assistive Devices: Walker Review of Systems Review of Systems: All systems reviewed & are unremarkable except as noted in HPI & below Physical Exam Constitutional: cooperative and comfortable Eyes: PERRL, conjunctivae normal, anicteric sclerae ENMT: external ear and nose normal, oropharynx normal Neck: trachea midline, no thyromegaly Respiratory: normal respiratory effort, lungs clear to auscultation Cardiovascular: RRR, no murmur, no edema Heart Sounds: normal S1 and normal S2; no murmur Bilateral lower extremity edema Gastrointestinal (Abdomen): normal bowel sounds, soft, nontender, no hepatosplenomegaly Musculoskeletal: no cyanosis or clubbing, extremities motor strength 5/5 Skin: Foot ulcerations dorsal area with purulent drainage on both right and left feet. No crepitus areas noted on exam. No rashes Neurologic: PERRL, EOMI, accommodation nl, no face palsy, no dysarthria Psychiatric: A+Ox3, euthymic affect Results & Data Results & Data Vital Signs (Past 12 Hours) Vital Signs Temp Pulse Pulse Resp BP BP Pulse Ox 09/07/24 18:31 93 H 18 72/45 L 97 09/07/24 18:00 93 H 22 78/46 L 98 09/07/24 17:26 94 H 18 91/57 L 97 09/07/24 16:52 74/47 L 09/07/24 16:51 36.3 C L 95 H 18 85/52 L 98 09/07/24 14:57 36.3 C L 93 H 18 85/48 L 96 09/07/24 14:41 89 09/07/24 12:36 36.2 C L 113 H 18 94/60 L 96 09/07/24 12:00 95 H 94/59 L 09/07/24 10:30 36.3 C L 90 18 83/52 L 98 09/07/24 09:42 72/47 L 09/07/24 08:48 82/53 L 09/07/24 07:51 92 H O2 Del Method 09/07/24 18:31 Room Air 09/07/24 18:00 Room Air 09/07/24 17:26 Room Air 09/07/24 16:52 09/07/24 16:51 Room Air 09/07/24 14:57 Room Air 09/07/24 14:41 09/07/24 12:36 Room Air 09/07/24 12:00 09/07/24 10:30 Room Air 09/07/24 09:42 09/07/24 08:48 09/07/24 07:51 Coding Level of Care Code 56574 CRITICAL CARE 1ST 30-74M Diagnoses Septic shock A41.9; R65.21 DVT, bilateral lower limbs I82.403 Leg edema R60.0 Wound of right foot S91.301A Wound of left foot S91.302A PAT (paroxysmal atrial tachycardia) I47.1 Dyslipidemia E78.5 Hypothyroidism E03.9 Time Spent (min) 45
[2024-09-07 20:13] LABS: BUN Creatinine Ratio 61.7 (10-20); Calcium 7.3 mg/dl (8.6-10.3); Creatinine Clr Calc Pharmacy 40.4 ml/min; Potassium 3.7 mmol/L (3.5-5.1)
[2024-09-07] MEDS: PLASMA-LYTE A 1,000 ML IV SCH (20:20)
[2024-09-07] MEDS: HYDROCORTISONE SOD 50 MG in SYRINGE 0 ML IV SCH (20:21)
[2024-09-07 20:39] LABS: Basophils # (auto) 0.01 K/uL (0.00-0.20); Basophils % (auto) 0.1 %; Eosinophils # (auto) 0.04 K/uL (0.00-0.50); Eosinophils % (auto) 0.4 %; Hematocrit (blood only) 32.2 % (37.0-47.0); Hemoglobin 9.5 g/dl (12.0-16.0); Immature Granulocytes # (auto) 0.08 K/uL (0.01-0.20); Immature Granulocytes % (auto) 0.8 %; Lymphocytes # (auto) 0.61 K/uL (1.20-3.40); Lymphocytes % (auto) 5.8 %; Mean Corpuscular Hemoglobin 28.4 pg (25.0-34.0); Mean Corpuscular Hgb Conc 29.5 g/dL (32.0-36.0); Mean Corpuscular Volume 96.1 fL (80.0-100.0); Mean Platelet Volume 13.2 fL (9.4-12.4); Monocytes # (auto) 0.41 K/uL (0.11-0.59); Monocytes % (auto) 3.9 %; Neutrophils # (auto) 9.28 K/uL (1.40-6.50); Platelet Count 175 K/uL (130-400); RDW Coefficient of Variation 14.5 % (11.5-14.5); RDW Standard Deviation 50.8 fL (36.4-46.3); Red Blood Count 3.35 M/uL (4.20-5.40); White Blood Count 10.43 K/ul (4.8-10.8)
[2024-09-07] MEDS: CEFEPIME 2000MG 2,000 MG/20 ML SYR IV SCH (20:47)
[2024-09-07] MEDS: ALBUMIN 5% 250 ML IV ONE (20:48)
[2024-09-07] MEDS: ICU Protocol for HYPERglycemia SCH (20:50)
[2024-09-07] MEDS: DAPTOmycin 325 MG in SYRINGE 0 ML IV SCH (21:34)
[2024-09-07] MEDS ORDERED: STAT IV Infusion **Titration per Protocol STA (22:50)
[2024-09-07] MEDS: PHENYLEPHRINE/NSS 25 MG/250 ML BAG IV SCH (23:09)
[2024-09-08 00:36] LABS: A calco-baum cmplx NotReported Not Detected (NotDetected); Bact fragilis Not Reported Not Detected (NotDetected); Blood Culture Id Panel See PCR Comment (NotDetected); C auris Not Reported Not Detected (NotDetected); Calbicans Not Reported Not Detected (NotDetected); Candida glabrata Not Reported Not Detected (NotDetected); Candida krusei Not Reported Not Detected (NotDetected); Cneoformans/gatti Not Reported Not Detected (NotDetected); Cparapsilosis Not Reported Not Detected (NotDetected); E cloacae compx Not Reported Not Detected (NotDetected); Efaecalis Not Reported Not Detected (NotDetected); Efaecium Not Reported Not Detected (NotDetected); Enterobacterales Not Reported Not Detected (NotDetected); Escherichia coli Not Reported Not Detected (NotDetected); H influenzae Not Reported Not Detected (NotDetected); K aerogenes Not Reported Not Detected (NotDetected); Koxytoca Not Reported Not Detected (NotDetected); Kpneumoniae grp Not Reported Not Detected (NotDetected); Lmonocyt Not Reported Not Detected (NotDetected); N meningitidis Not Reported Not Detected (NotDetected); P aeruginosa Not Reported Not Detected (NotDetected); Proteus spp Not Reported Not Detected (NotDetected); Salmonella spp Not Reported Not Detected (NotDetected); Staph lugdunensis Not Reported Not Detected (NotDetected); Staph spp. Not Reported Not Detected (NotDetected); Staphaureus Not Reported Not Detected (NotDetected); Staphepi Not Reported Not Detected (NotDetected); Stenmaltophilia Not Reported Not Detected (NotDetected); Strep agal(GrpB) Not Reported Not Detected (NotDetected); Strep pneum Not Reported Not Detected (NotDetected); Strep pyog (GrpA) Not Reported Not Detected (NotDetected); Strep spp Not Reported DETECTED (NotDetected)
[2024-09-08 00:46] LABS: Streptococcus spp DETECTED (NotDetected)
--- NOTE | 2024-09-08 01:30 | CT Scan Report ---
EXAM: CT foot LT wo con CLINICAL HISTORY: R/o osteomyelitis/gangrene. TECHNIQUE: Contiguous axial CT images of the left foot were obtained without intravenous contrast. Sagittal and coronal multiplanar reformats were acquired. One of the following dose reduction techniques were utilized for this exam: Automated exposure control, adjustment of the mA and/or kV according to patient size, use of iterative reconstruction. COMPARISON: None. FINDINGS: Bones: Normal alignment of the tarsal, metatarsal, and phalangeal bones. No fractures or dislocations. A plantar calcaneal spur is noted. No suspicious lytic or sclerotic lesions. No evidence of bone marrow edema. Joints: Osteoarthritic changes are evident with mild subchondral sclerosis and reduced joints spaces. Mild joint effusions. Soft Tissues: Swollen edematous soft tissues with intermuscular and subcutaneous collections. Muscles: Edematous appearance of the surrounding musculature. Ligaments and Tendons: Intact and normal appearance of the major foot ligaments and tendons, including the Achilles tendon, plantar fascia, and other tendons around the foot. IMPRESSION: 1. No evidence of gross erosive or destructive bony changes. 2. Osteoarthritic changes are evident with mild subchondral sclerosis and reduced joint spaces. 3. Mild joint effusions. 4. Swollen edematous soft tissues with intermuscular and subcutaneous collections. 5. A plantar calcaneal spur is noted. 6. CEMRI is advised to better evaluate bone marrow changes if clinically warranted. Electronically signed by Ronen Capone 09-08-2024 01:30 AM
--- NOTE | 2024-09-08 01:33 | CT Scan Report ---
EXAM: CT foot RT wo con CLINICAL HISTORY: R/o osteomyelitis, gangrene. TECHNIQUE: Contiguous axial CT images of the right foot were obtained without intravenous contrast. Sagittal and coronal multiplanar reformats were acquired. One of the following dose reduction techniques was utilized for this exam: Automated exposure control, adjustment of the mA and/or kV according to patient size, and use of iterative reconstruction. COMPARISON: None. FINDINGS: Bones: Normal alignment of the tarsal, metatarsal, and phalangeal bones. No fractures or dislocations. A hypodense lesion is noted in the base of the 4th metatarsal bone and lateral cuneiform bone, likely benign etiology. No suspicious lytic or sclerotic lesions. No evidence of bone marrow edema. Joints: Mild osteoarthritic changes are evident with mild subchondral sclerosis. Mild joint effusions. Soft Tissues: Swollen edematous soft tissues with intermuscular and subcutaneous collections. Muscles: The edematous appearance of the surrounding musculature. No muscle atrophy or abnormal density changes. Ligaments and Tendons: Intact and normal appearance of the major foot ligaments and tendons, including the Achilles tendon, plantar fascia, and other tendons around the foot. IMPRESSION: 1. No evidence of gross erosive or destructive bony changes. 2. A hypodense lesion is noted in the base of the 4th metatarsal bone and lateral cuneiform bone, likely benign etiology. (could represent areas of focal osteopenia) 3. Mild osteoarthritic changes are evident with mild subchondral sclerosis. 4. Mild joint effusions. 5. Swollen edematous soft tissues with intermuscular and subcutaneous collections. 6. CEMRI is advised to better evaluate bone marrow changes if clinically warranted. Electronically signed by Ronen Capone 09-08-2024 01:32 AM
[2024-09-08 04:03] LABS: Basophils # (auto) 0.01 K/uL (0.00-0.20); Basophils % (auto) 0.1 %; Hematocrit (blood only) 30.5 % (37.0-47.0); Hemoglobin 9.2 g/dl (12.0-16.0); Immature Granulocytes # (auto) 0.19 K/uL (0.01-0.20); Immature Granulocytes % (auto) 1.6 %; Lymphocytes # (auto) 0.66 K/uL (1.20-3.40); Lymphocytes % (auto) 5.5 %; Mean Corpuscular Hemoglobin 28.4 pg (25.0-34.0); Mean Corpuscular Hgb Conc 30.2 g/dL (32.0-36.0); Mean Corpuscular Volume 94.1 fL (80.0-100.0); Mean Platelet Volume 12.3 fL (9.4-12.4); Monocytes # (auto) 0.38 K/uL (0.11-0.59); Monocytes % (auto) 3.2 %; Neutrophils % (auto) 89.6 %; Platelet Count 218 K/uL (130-400); RDW Coefficient of Variation 14.6 % (11.5-14.5); Red Blood Count 3.24 M/uL (4.20-5.40); White Blood Count 11.94 K/ul (4.8-10.8)
[2024-09-08 04:17] LABS: Albumin Globulin Ratio 1.4 (0.9-2); Albumin Level 2.8 gm/dl (3.4-5.0); BUN Creatinine Ratio 56.2 (10-20); Bilirubin,Total 0.3 mg/dl (0.2-1.0); Calcium 7.6 mg/dl (8.6-10.3); Creatinine Clr Calc Pharmacy 44.9 ml/min; Potassium 3.5 mmol/L (3.5-5.1); Total Protein 4.8 gm/dl (6.0-8.3)
[2024-09-08 04:23] LABS: ANTI-Xa, UFH(UnfractionatedHep 0.58 IU/ml (0.3-0.7)
[2024-09-08] MEDS: OPTIRAY 320 125ml IV ONE (07:52)
--- NOTE | 2024-09-08 07:53 | Hospitalist Progress Note ---
Date of Service September 08, 2024 Assessment & Plan (1) Acute UTI (urinary tract infection): (2) Chronic venous stasis: (3) Hypernatremia: (4) Lower extremity ulceration: (5) Ambulatory dysfunction: (6) NUZHAT (acute kidney injury): (7) Chest pain: (8) Cardiac pacemaker: (9) Hypotension: (10) DVT, bilateral lower limbs: (11) Pulmonary embolism: (12) Anemia: Plan Hypotension Septic versus Hypovolemic Shock? - Etiology of hypotension not completely certain, but could be related to hypovolemia (low PO intake and significant dehydration at time of admission) versus septic shock given UTI and wounds of b/l feet, or a mix of both; Blood culture showing possible Strep spp. in 1 bottle, which could be a contaminant versus actual bacteremia Blood cultures repeated and ID consult placed by ICU team No obvious valvular vegetations noted on TTE - Lactate 3.2 --> 2.4 --> 3.2 --> 1.9 this am - Not much improvement in blood pressure yesterday despite ~4L IVF, Hydrocortisone IV (random cortisol ~15), or broad coverage abx - Transferred to ICU yesterday evening and currently on phenylephrine drip w/ good improvement in BP and MAP currently in 80s. - Cefepime dc and switched to Ceftriaxone and Daptomycin started - Currently on Plasma-lyte IVF at maintenance rate Chest Pain - Reported chest pain at time of admission that went across chest and radiated to under bilateral breasts - EKG and CXR unremarkable at time of admission - Troponin peaked at 285.9 which could have been related to demand ischemia given significant dehydration or NUZHAT - PE noted on chest CTA today could have also been a cause - EKG and CXR showed no acute process - TTE (09/07/24) showing normal LV size with hyperdynamic systolic function and EF of >70%; no regional wall motion abnormalities or significant valvular dysfunction; normal estimated RV systolic pressure; small pericardial effusion that is unchanged compared to previous TTE from 2014. - Continue to monitor Telemetry Pulmonary Embolism - Chest CTA done today and showed pulmonary emboli involve the right upper lobar artery as well as multiple segmental and subsegmental arteries, but no right heart strain is seen. TTE findings as above. - Could give an explanation for initial chest pain as well as intermittent tachycardia, although lack of right heart strain or changes in RV systolic pressure decrease the suspicion that it caused her hypotension - In terms of management, this is also covered w/ current Heparin drip and DOAC if eventually switched to this B/l LE DVT - 1+ pitting edema in the lower extremities bilaterally - Currently on Heparin drip, which was started at time of admission due to NUZHAT at the time, however, now that renal function is back to her baseline (Cr this am was 0.73), could consider switching to DOAC w/ plan to start at 10 mg bid for 7 days followed by 5 mg bid for a total of 3 months Hypernatremia - Likely in the setting of volume contraction - Improved with IVF; am lab with mild elevation of Na at 148, possibly due to fluids - Continue to monitor am labs Leg Ulcerations - Bilateral dorsal foot ulcers; possible source of infection - Leukocytosis 11.94 w/ neutrophilic predominance - Blood cultures w/ mariposa positive cocci in chains in 1 bottle; repeats ordered and ID consulted - Bilateral feet CT w/o sign of OM, but did note intramuscular and subcutaneous fluid collection; ortho consulted - Continue Ceftriaxone and Daptomycin - Wound care following Anemia, chronic - Hgb 16 at time of admission, which could have also been related to volume contraction given decrease to ~9 w/ aggressive fluid resuscitation - Hgb now stabilized at ~9, which is close to her baseline as noted in previous hospital admission that Hgb was ~8 - Monitor am labs Ambulatory Dysfunction - Patient had right femur fracture in June 2024 with subsequent ORIF, and has been largely sedentary since then. - She lives alone with help from home health aides and friends who bring food/water. EMS reported that her apartment was covered in dog urine/feces - Case management following; patient may need discharge to rehab/SNF NUZHAT - Likely pre-renal in the setting of poor PO intake and dehydration - Resolved after IVF administration; am Cr at 0.73 Asymptomatic UTI - Urine cultures positive for Klebsiella; sensitivities pending - Continue Ceftriaxone DTV ppx: Heparin drip Diet: Regular Admission and Anticipated Discharge Date Admission Date: September 06, 2024 Supervising Physician Co-Signing Physician Notes I personally examined the patient and verified all cornejo points of history and exam, discussed case, and agree with decision making with Dr Rico feeling better - Eating better. Overall feeling better. No new complaints. Leg swelling still persists. vitals noted nad. Ate probably 80% of her tray by the time I came in the room and was still looking like she was going to eat more. Mucous membranes much more moist. Breathing unlabored no accessory muscle use good effort. Exam otherwise as above hypotension - hx far and away most c/w hypovolemia from poor PO intake/hypernatremic dehydration - at the same time, BP got worse despite fluids in ER and rehydration overnight (albeit since BP had normalized fluids overnight were D5W) - given worsening of BP after initially looking to be improving - concern on: (a) refractory hypovolemia (would fit her hx and appearance yesterday - and possibly since we switched to correct water deficits possibly as fluid left vasculature she became hypotensive again --> more isotonic fluids before resuming water loss replacement) (b) septic physiology - hard to rule out sepsis/septic shock, and depending on whether the strep in her blood turns out to be true infection versus contaminant, this makes it more possible, at the same time I do suspect a lot of her hypotension was from hypovolemiabut must manage infection as though it is legitimate until either better or proven otherwise (c) multifactorial with confounders (checked random cortisol - <20 so stress dosing for now) (d) anemia - but no s/s blood loss or reasons for hemolysis and Hgb during last stay was ~8.5 range at discharge - suspect Hgb 16 was quite concentrated, Hgb now reflects dilutional drop not hemorrhage - obviously continue to follow and w/u further if bleeding appears evident, but none at this time --->BP improving w additional fluids ---> hyponatremic dehydrationoverall improving. Continue IV fluids, encourage p.o. intake CP resolved, appeared MSK, and troponin almost certainly demand/watershed ischemia from hypotension/dehydration DVT/PEfrom immobility. On anticoagulationif no foot procedures are required, will switch to DOAC given that her creatinine is now better and this would be tolerable otherwise as above Subjective Patient evaluated in the ICU today and found to be awake and oriented, afebrile, and in NAD. States that she is still feeling weak. Denies having fevers, chills, recurrence of her chest pain, SOB, or any other symptoms. Not feeling pain in LE either. Still on Phenylephrine drip and recently came back from chest CTA. No other concerns. Review of Systems Review of Systems: As per HPI. Physical Exam Physical Exam: GENERAL: awake and alert, afebrile, NAD CARDIO: RRR, no r/m/g RESPIRATORY: CTA, normal respiratory effort, no respiratory distress GI: soft, non distended, non tender EXTREMITIES: swelling with +1 pitting edema in bilateral LE, no tenderness with palpation, no erythema in LE Results & Data Results & Data Vital Signs (Past 12 Hours) Vital Signs Temp Pulse Resp BP Pulse Ox 09/08/24 06:42 79 17 95 09/08/24 06:36 67 15 94 09/08/24 06:30 110/56 L 09/08/24 06:30 110/56 L 09/08/24 06:06 65 16 94 09/08/24 06:03 65 17 95 09/08/24 06:00 121/65 09/08/24 05:54 67 17 95 09/08/24 05:51 67 15 95 09/08/24 05:48 74 16 95 09/08/24 05:33 67 16 96 09/08/24 05:30 109/59 L 09/08/24 05:18 78 18 96 09/08/24 05:15 65 15 95 09/08/24 05:00 102/55 L 09/08/24 04:30 97/52 L 09/08/24 04:21 69 22 98 09/08/24 04:00 98/51 L 09/08/24 04:00 98/51 L 09/08/24 04:00 98 H 16 100 09/08/24 03:42 65 18 96 09/08/24 03:39 76 16 96 09/08/24 03:21 74 15 94 09/08/24 03:06 67 15 94 09/08/24 03:00 91/51 L 09/08/24 03:00 91/51 L 09/08/24 02:51 88 16 95 09/08/24 02:48 68 15 95 09/08/24 02:30 98/54 L 09/08/24 02:30 98/54 L 09/08/24 02:27 69 16 95 09/08/24 02:24 74 16 95 09/08/24 02:13 36.4 C L 09/08/24 01:51 76 16 94 09/08/24 01:45 80 15 95 09/08/24 01:30 102/55 L 09/08/24 01:15 100/57 L 09/08/24 01:15 69 15 95 09/08/24 01:06 71 15 94 09/08/24 01:00 104/51 L 09/08/24 01:00 104/51 L 09/08/24 01:00 104/51 L 09/08/24 00:57 77 15 94 09/08/24 00:45 104/50 L 09/08/24 00:45 104/50 L 09/08/24 00:45 104/50 L 09/08/24 00:45 104/50 L 09/08/24 00:39 78 15 96 09/08/24 00:30 89 17 96 09/08/24 00:30 109/61 09/08/24 00:27 82 18 97 09/08/24 00:15 107/71 09/08/24 00:15 107/71 09/08/24 00:15 107/71 09/08/24 00:15 107/71 09/08/24 00:09 112/71 09/08/24 00:05 36.3 C L 09/07/24 23:47 92/46 L 09/07/24 23:30 113/48 L 09/07/24 23:30 113/48 L 09/07/24 23:30 95 H 21 96 09/07/24 23:21 77 14 95 09/07/24 23:09 99 H 24 96 09/07/24 23:00 88/44 L 09/07/24 22:33 88 16 95 09/07/24 22:31 79/42 L 09/07/24 22:31 79/42 L 09/07/24 22:31 79/42 L 09/07/24 22:31 79/42 L 09/07/24 22:31 79/42 L 09/07/24 22:30 86 15 95 09/07/24 22:21 88 16 95 09/07/24 22:12 94 H 17 95 09/07/24 22:03 89 17 95 09/07/24 22:00 88/46 L 09/07/24 22:00 88/46 L 09/07/24 22:00 88/46 L 09/07/24 22:00 88/46 L 09/07/24 21:54 90 17 95 09/07/24 21:51 92 H 17 95 09/07/24 21:48 93 H 19 96 09/07/24 21:30 85 17 96 09/07/24 21:24 92 H 21 96 09/07/24 21:12 89 18 96 09/07/24 21:09 88 18 96 09/07/24 21:00 92/46 L 09/07/24 20:51 92 H 20 95 09/07/24 20:42 93 H 18 96 09/07/24 20:31 92/45 L 09/07/24 20:12 92 H 16 96 09/07/24 20:03 91 H 18 96 09/07/24 20:00 36.3 C L 09/07/24 20:00 83/44 L 09/07/24 20:00 83/44 L 09/07/24 20:00 83/44 L Resident Activity Tracking Resident Involvement: Resident Care Provided Care Provided: Adult Hospital Medicine
--- NOTE | 2024-09-08 07:59 | Critical Care Progress Note ---
Date of Service September 08, 2024 Assessment & Plan (1) Septic shock: Plan: Reason Critically Ill: 89-year-old female presents to the ICU with hypotension with suspected underlying sepsis with multiple wounds on lower extremities, bilateral lower extremity DVTs, and UTI. Currently requiring vasopressor support with phenylephrine drip. Neuro - * CAM ICU: Negative Cardiac - * Shock * Initially felt to be related to sepsis given multiple wounds in the lower extremities as well as urinalysis positive for Klebsiella pneumoniae. Additionally, blood cultures positive x 1 for gram-positive cocci in chains. * Responded appropriately to initiation of phenylephrine drip. * Random cortisol significantly reduced. Had received initial dose of IV Solu-Cortef. Will increase frequency to every 6 hours and add p.o. Florinef. * Of concern, the patient presented with symptoms of chest discomfort, had an elevated troponin on admission, had moderately elevated lactate poorly responsive to IV fluid resuscitation, and has persistent hypotension refractory to aggressive fluid resuscitation and initiation of stress dose steroids. Given her associated findings of bilateral lower extremity DVTs, it would be prudent to assess for possible circulatory shock in the form of pulmonary emboli. While the patient is not requiring supplemental oxygen at this time, her remaining symptoms continue to be concerning and are worth evaluating at this juncture. * TTE with EF greater than 70%, mild systolic anterior motion of mitral leaflet without significant LVOT obstruction, small pericardial effusion unchanged. * DVTs - * Bilateral DVTs noted on duplex. * Currently anticoagulated on Heparin gtt. Respiratory - * Currently maintaining oxygen saturations on room air. * No previous history of pulmonary disease. * Continuous monitoring pulse ox. GI - * Advance diet as tolerated * Prophylaxis: Famotidine RENAL/LYTES - * Hypernatremia: * has trended down appropriately. * IVF: Plasma-Lyte @ 125 mL/hr - * Strict I's and O's ENDO - * No history of diabetes. * ICU hyperglycemic protocol HEME - * H&H stable, monitor routine CBC in the setting of Heparing gtt ID - * Sepsis * Multiple possible sources including bilateral lower extremity wounds, urinary source, and potential for bacteremia giving gram-positive cocci in chains noted on blood culture x 1 dated 09/06/2024. * This has the potential to create a complex situation in a patient with recent surgical hardware of the hip as well as pacemaker device in place. * Currently receiving cefepime and daptomycin. * Lactate is cleared. * Procalcitonin not elevated. * Standard TTE without vegetative findings. * Will repeat blood cultures today. * Consult infectious disease for their input. * Appreciate wound nurse management. * CT of the bilateral lower extremities was obtained last evening without erosive findings consistent with osteomyelitis, however findings concerning for edematous soft tissue changes with "intramuscular and subcutaneous collections" noted. Gas component not commented on and not seen on my read. Will consult orthopedic surgery in conjunction with wound management. LINES/IV ACCESS - * Peripheral IVs DVT PROPHYLAXIS - * Continue heparin drip I have personally spent 45 minutes of critical care time in the direct management of this patient. This is a life/limb threatening event. This includes time spent evaluating patient, direct bedside care, chart review, placing order s, interpretation of diagnostic studies, discussion with consultants, patient, and family members, as well as other required patient management activities. This time is exclusive of all separately billable procedures, and teaching time and separate from and in addition to any other critical care service time. Thank you for allowing us to participate in the care of this patient. Please refer to my attending physician's documentation for any further recommendations. (2) DVT, bilateral lower limbs: (3) Leg edema: (4) Wound of right foot: (5) Wound of left foot: (6) PAT (paroxysmal atrial tachycardia): (7) Dyslipidemia: (8) Hypothyroidism: Admission and Anticipated Discharge Date Admission Date: September 06, 2024 Supervising Physician Co-Signing Physician Notes Patient seen and examined. EMR reviewed. Discussed with critical care TIMOTHY as well as with bedside critical care nurse and on multidisciplinary rounds. Agree with assessment plan as noted. This 89-year-old patient has multiple etiologies for her hypotension including infection/septic shock due to UTI as well as potential bacteremia, obstructive shock due to pulmonary emboli, relative adrenal insufficiency, and hypovolemic. Her echocardiogram showed normal collapsibility of the IVC indicating right atrial pressure of around 3. Will supplement with additional albumin as well as potential additional IV fluids. Continue stress dose steroids. Continue current antibiotics with changes per infectious disease. Wound care. Continue diet. Duration of antimicrobial therapy given intravascular devices and recent hardware will be dictated by infectious disease. ID consult reviewed. Recommending bilateral MRIs of the feet and podiatry consult which will be pursued. Patient is significantly deconditioned and likely unable to care for herself at home. Will initiate physical therapy and Occupational Therapy evaluations for potential placement. Subjective Patient was seen and evaluated bedside this morning. She denies complaints of discomfort at this time. She reports that her precipitating symptoms that prompted ER visit was pain across to her chest. She reports this is independent of activity. No palpitations or syncope at that time. She remains on Tavo- Synephrine drip at this point. Patient also remains on heparin drip. Review of Systems Review of Systems: As per HPI Physical Exam Physical Exam: VITAL SIGNS - Vital signs and nursing notes were reviewed. GENERAL - 89-year-old female appearing her stated age who is in no acute distress. Communicates well with provider and answers questions appropriately. SKIN - Bilateral lower extremity wound dressings in place. HEAD - NC/AT. EYES - PERRL with EOMI bilaterally. Sclera anicteric. NOSE - Midline and without cyanosis. MOUTH/OROPHARYNX - Without perioral cyanosis. NECK - Neck with FROM. LUNGS - Chest wall symmetric without accessory muscle use, intercostals retractions, or central cyanosis. Normal vesicular breath sounds CTA B/L. No wheezes, rales, or rhonchi appreciated. CARDIAC - RRR with S1/S2. No murmur, rubs, or gallops appreciated. ABDOMEN - Abdominal contour flat without pulsations or visible masses. BS normoactive all four quadrants. No tenderness, palpable masses, hepatosplenomegaly, or ascites noted. EXTREMITIES - Multiple wound to the bilateral lower extremities. No clubbing or peripheral cyanosis. Moderate pretibial edema present. +3/5 radial and dorsalis pedis pulses palpated throughout. NEUROLOGIC - Cranial nerves II through XII grossly intact. PSYCH - A&Ox3 and cooperates fully with examiner. Pt is very pleasant and interacts well with examiner. Results & Data Results & Data Vital Signs (Past 12 Hours) Vital Signs Temp Pulse Resp BP Pulse Ox 09/08/24 06:42 79 17 95 09/08/24 06:36 67 15 94 09/08/24 06:30 110/56 L 09/08/24 06:30 110/56 L 09/08/24 06:06 65 16 94 09/08/24 06:03 65 17 95 09/08/24 06:00 121/65 09/08/24 05:54 67 17 95 09/08/24 05:51 67 15 95 09/08/24 05:48 74 16 95 09/08/24 05:33 67 16 96 09/08/24 05:30 109/59 L 09/08/24 05:18 78 18 96 09/08/24 05:15 65 15 95 09/08/24 05:00 102/55 L 09/08/24 04:30 97/52 L 09/08/24 04:21 69 22 98 09/08/24 04:00 98/51 L 09/08/24 04:00 98/51 L 09/08/24 04:00 98 H 16 100 09/08/24 03:42 65 18 96 09/08/24 03:39 76 16 96 09/08/24 03:21 74 15 94 09/08/24 03:06 67 15 94 09/08/24 03:00 91/51 L 09/08/24 03:00 91/51 L 09/08/24 02:51 88 16 95 09/08/24 02:48 68 15 95 09/08/24 02:30 98/54 L 09/08/24 02:30 98/54 L 09/08/24 02:27 69 16 95 09/08/24 02:24 74 16 95 09/08/24 02:13 36.4 C L 09/08/24 01:51 76 16 94 09/08/24 01:45 80 15 95 09/08/24 01:30 102/55 L 09/08/24 01:15 100/57 L 09/08/24 01:15 69 15 95 09/08/24 01:06 71 15 94 09/08/24 01:00 104/51 L 09/08/24 01:00 104/51 L 09/08/24 01:00 104/51 L 09/08/24 00:57 77 15 94 09/08/24 00:45 104/50 L 09/08/24 00:45 104/50 L 09/08/24 00:45 104/50 L 09/08/24 00:45 104/50 L 09/08/24 00:39 78 15 96 09/08/24 00:30 89 17 96 09/08/24 00:30 109/61 09/08/24 00:27 82 18 97 12/18/24 00:15 107/71 09/08/24 00:15 107/71 09/08/24 00:15 107/71 09/08/24 00:15 107/71 09/08/24 00:09 112/71 09/08/24 00:05 36.3 C L 09/07/24 23:47 92/46 L 09/07/24 23:30 113/48 L 09/07/24 23:30 113/48 L 09/07/24 23:30 95 H 21 96 09/07/24 23:21 77 14 95 09/07/24 23:09 99 H 24 96 09/07/24 23:00 88/44 L 09/07/24 22:33 88 16 95 09/07/24 22:31 79/42 L 09/07/24 22:31 79/42 L 09/07/24 22:31 79/42 L 09/07/24 22:31 79/42 L 09/07/24 22:31 79/42 L 09/07/24 22:30 86 15 95 09/07/24 22:21 88 16 95 09/07/24 22:12 94 H 17 95 09/07/24 22:03 89 17 95 09/07/24 22:00 88/46 L 09/07/24 22:00 88/46 L 09/07/24 22:00 88/46 L 09/07/24 22:00 88/46 L 09/07/24 21:54 90 17 95 09/07/24 21:51 92 H 17 95 09/07/24 21:48 93 H 19 96 09/07/24 21:30 85 17 96 09/07/24 21:24 92 H 21 96 09/07/24 21:12 89 18 96 09/07/24 21:09 88 18 96 09/07/24 21:00 92/46 L 09/07/24 20:51 92 H 20 95 09/07/24 20:42 93 H 18 96 09/07/24 20:31 92/45 L 09/07/24 20:12 92 H 16 96 09/07/24 20:03 91 H 18 96 09/07/24 20:00 36.3 C L 09/07/24 20:00 83/44 L 09/07/24 20:00 83/44 L 09/07/24 20:00 83/44 L Coding Level of Care Code 22959 CRITICAL CARE 1ST 30-74M Diagnoses Septic shock A41.9; R65.21 DVT, bilateral lower limbs I82.403 Leg edema R60.0 Wound of right foot S91.301A Wound of left foot S91.302A PAT (paroxysmal atrial tachycardia) I47.1 Dyslipidemia E78.5 Hypothyroidism E03.9
--- NOTE | 2024-09-08 08:08 | CT Scan Report ---
CT angio chest PE protocol CLINICAL HISTORY: PE TECHNIQUE: Multidetector row helical CT of the chest was performed with angiographic protocol. Gómez l and sagittal reformations were obtained. Coronal and sagittal MIPS were obtained from the axial valentin a set and were submitted for review. Automated dose lowering techniques and/or adjustment according to patient size were utilized for this exam. CT DOSE: 308.35 mGy.cm Comparison: Comparison is made to chest radiograph 09/06/2024 FINDINGS: Lungs and pleura: Small bilateral pleural effusions are seen with atelectasis. Heart and pericardium: Heart size is normal. No pericardial effusion. Vessels: Numerous pulmonary emboli are seen involving the right upper lobar artery as well as multipl e segmental and subsegmental branches. Subsegmental left lower lobe emboli are also seen. Moderate at herosclerotic disease is seen in the coronary arteries. Mediastinum and dennise: Subcentimeter lymph nodes are seen. Chest wall and lower neck: Unremarkable. Abdomen: Trace ascites is seen. Bones: Degenerative changes in the thoracic spine. IMPRESSION: 1. Pulmonary emboli involve the right upper lobar artery as well as multiple segmental and subsegmen nitesh arteries. No right heart strain is seen. 2. Small bilateral pleural effusions with associated atelectasis. ACT 112: Negative or not required by law. Electronically signed by: Serge Swain M.D. 09/08/2024 8:06 AM
[2024-09-08] MEDS: HYDROCORTISONE SOD 50 MG in SYRINGE 0 ML IV SCH (08:48)
[2024-09-08] MEDS: FLUDROCORTISONE ACETATE 0.1 MG TAB PO SCH (08:48)
[2024-09-08] MEDS: FAMOTIDINE 20MG IV PUSH 20 MG/5 ML SYR IV SCH (09:00)
[2024-09-08] MEDS ORDERED: VANCOMYCIN HCL 1,000 MG/270 ML BAG IV SCH (09:00)
[2024-09-08] MEDS: cefTRIAXone SODIUM 2,000 MG/50 ML BAG IV SCH (10:16)
--- NOTE | 2024-09-08 12:06 | Infectious Disease Consult ---
Date of Consultation September 08, 2024 Assessment & Plan (1) Septic shock: (2) Wound of right foot: (3) Wound of left foot: (4) Pulmonary embolism: (5) Right femoral fracture: Plan 89yo F with h/o SSS s/p PPM, left hip RUTH in 2013, hypothyroidism, dyslipidemia, recent right hip fracture s/p insertion of trochanteric nail on 07/03 who presented on 09/06 with midsternal chest pain with radiation to both breasts that has been present for a few nights in a row. Also with bl lower extremity wounds with drainage and leg swelling since her hip fracture. On admission, she was afebrile, initially BPs in 90s, on room air. Initial labs with WBC 13.21, Cr 1.35, AST/ALT wnl, elevated lactate and troponin. UA with 11-20 WBC. CXR negative. LE arterial duplex negative for high grade stenosis. CT left foot negative for destructive bony changes, noted mild joint effusions, swollen edema tous soft tissues with intramuscular and subcutaneous collections. CT right foot also with no destructive bony changes, mild joint effusions, swollen edematous soft tissues with intermuscular and subcutaneous collections. Chest CTA with PE in RUL. Course c/b hypotension despite IVFs and transferred to ICU, requiring pressors. She has been on broad empiric abx, now narrowed to daptomycin and CTX. BCx returned with GPC in chains. TTE with sclerotic AV without significant stenosis. ID consulted 09/08. Bacteremia, which is positive for Strep PCR, likely related to her lower extremity wounds. Although CT is negative, I do think an MRI of her necrotic right heel and left toe would be helpful to rule out bone involvement. Favor consultation of podiatry and wound care. She doesnt c/o urinary symptoms and I suspect the urine findings may not be true UTI. However, would continue on current regimen until we have more results from blood cx. If growth of Strep, then we can stop daptomycin and continue on the CTX. # Septic shock # Bacteremia 2/2 GPC (Strep on BCID) # Bl lower extremity wounds with c/f infection, intramuscular and subcu collections on CT # Pyuria with K pneumoniae bacteriuria no urinary sx # PE # NUZHAT improved # H/o left RUTH, right hip fracture s/p surgery # h/o SSS s/p PPM - favor obtaining an MRI of bl feet given necrotic heel and toe - would consult podiatry for input - wound care consult - f/u blood cx - continue daptomycin can be stopped if BCx growth is just Strep - continue CTX 2g IV daily ID will continue to follow. If questions or concerns, contact via [employer] or Infectious Disease Call Center . Abby Freeman MD [facility], Division of Infectious Diseases Consultation Information Consultation was provided via telemedicine using two-way real-time interactive telecommunication between the patient and the telemedicine provider. For the duration of the visit, the provider was performing the assessment from a different facility than the patient. This includesuse of bluetooth stethoscope forauscultationperformed by the telepresenter that the telemedicine provider can hear if described in the physical exam. Take Off Man contact information: Please call ID Connect Call Center . (Phone Number For Physician Use Only) After establishing a telemedicine visit, patient was: Patient was verified with two unique identifiers, Patient/authorized rep acknowledged consent and understanding and Gave permission to continue telehealth session Time Spent with Patient: Initial => 75 min History of Present Illness Reason for Consultation: sepsis, bacteremia, pacer, recent ORIF Attending Physician: Johan Gonzalez DO History of Present Illness 89yo F with h/o SSS s/p PPM, left hip RUTH in 2013, hypothyroidism, dyslipidemia, recent right hip fracture s/p insertion of trochanteric nail on 07/03 who presented on 09/06 with midsternal chest pain with radiation to both breasts that has been present for a few nights in a row. Noted radiation to the mid- back. Since her hip surgery, she has had increase lower extremity swelling with drainage. On admission, she was afebrile, initially BPs in 90s, on room air. Initial labs with WBC 13.21, Cr 1.35, AST/ALT wnl, elevated lactate and troponin. UA with 11-20 WBC. CXR negative. LE arterial duplex negative for high grade stenosis. CT left foot negative for destructive bony changes, noted mild joint effusions, swollen edematous soft tissues with intramuscular and subcutaneous collections. CT right foot also with no destructive bony changes, mild joint effusions, swollen edematous soft tissues with intermuscular and subcutaneous collections. Chest CTA with PE in RUL. Course c/b hypotension despite IVFs and transferred to ICU, requiring pressors. She has been on broad empiric abx, now narrowed to daptomycin and CTX. BCx returned with GPC in chains. ID consulted 09/08. On evaluation, patient reports that she has had wounds on her legs related to injuries during PT after her hip surgery. She has had drainage from there as well. Denies pain in her pacer site but does note some pain across her chest. She denies back pain. No pain in her bilateral hips. No other joint swelling, pain, rashes. No abdominal discomfort, n/v/d. No recent dysuria or urinary frequency. Allergies Allergy/AdvReac Type Severity Reaction Status Date / Time No Known Drug Allergies Allergy Verified 04/19/24 12:10 Home Medications Medication Instructions Recorded Confirmed Type latanoprost 0.005 % eye drops 1 drops OPB HS 06/15/19 09/06/24 History multivitamin (Daily Multi-Vitamin 1 tab PO DAILY 01/31/20 09/06/24 History tablet) timolol maleate 0.5 % once daily 1 drp OPB BID 08/14/20 09/06/24 History eye drops metoprolol succinate 50 mg 50 mg PO DAILY #90 tabs 10/23/23 09/06/24 Rx tablet,extended release 24 hr celecoxib 200 mg capsule (Celebrex) 200 mg PO BID #180 caps 04/27/24 09/06/24 Rx thyroid (pork) 60 mg tablet 60 mg PO DAILY #90 tabs 08/10/24 09/06/24 Rx (Eyota Thyroid) aspirin 81 mg chewable tablet 40.5 mg PO BID 09/06/24 09/06/24 History vitamins A,C,P-fbzi-ljvfsw 4,296 1 cap PO AMPM 09/06/24 09/06/24 History mcg-226 mg-90 mg capsule (PreserVision AREDS) Patient History Medical History (Updated 09/08/24 @ 09:41 by Shell Rico MD) Peptic ulcer SSS (sick sinus syndrome) (04/28/14) Surgical History S/P placement of cardiac pacemaker (~2013) Dual chamber Status post hip surgery (~2013) Left RUTH History of esophagogastroduodenoscopy (~1996) H/O colonoscopy (~1998) Family History Mother Breast cancer Social History Smoking Status: Never smoker Hx Alcohol Use: No Hx Substance Use: No Preferred Language: Liberian Communication Ability: Effective 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 Physical Exam Physical Exam: General: Awake, alert, no acute distress HEENT: NC/AT, EOMI, mmm Neck: supple, no LAD Lungs: CTA bl, no w/c/r Heart: nl S1/S2, no appreciable murmurs Chest: ppm site without tenderness or erythema Abdomen: soft, NT/ND, no suprapubic ttp Back: no spinal tenderness Ext: + bl LE edema Skin: multiple open draining wound on bl legs with surrounding erythema on some, black discoloration of the right heel Results & Data Vital Signs (Past 12 Hours) Vital Signs Temp Pulse Resp BP Pulse Ox O2 Del Method 09/08/24 11:32 36.6 C 09/08/24 11:09 86 22 95 Room Air 09/08/24 10:39 105/63 09/08/24 10:39 104 H 27 H 97 09/08/24 10:36 113/61 09/08/24 10:36 91 H 19 99 09/08/24 10:33 109/50 L 09/08/24 10:30 121/75 09/08/24 10:30 74 18 98 09/08/24 10:27 118/66 09/08/24 10:27 87 19 97 09/08/24 10:06 79 23 97 09/08/24 10:00 111/58 L 09/08/24 09:57 85 23 98 09/08/24 09:12 72 21 97 Room Air 09/08/24 09:00 106/61 09/08/24 08:51 71 22 97 09/08/24 08:45 88 18 96 09/08/24 08:36 90 19 98 09/08/24 08:30 102/49 L 09/08/24 08:27 71 21 97 09/08/24 08:06 99 H 21 98 09/08/24 08:03 108/56 L 09/08/24 08:00 36.4 C L 09/08/24 07:36 103 H 19 95 09/08/24 07:33 98 H 19 96 09/08/24 07:30 120/79 09/08/24 07:27 94 H 20 97 09/08/24 07:15 63 15 94 09/08/24 07:00 70 15 94 09/08/24 07:00 113/58 L 09/08/24 06:49 76 09/08/24 06:45 68 15 95 09/08/24 06:42 79 17 95 09/08/24 06:36 67 15 94 09/08/24 06:30 110/56 L 09/08/24 06:30 110/56 L 09/08/24 06:06 65 16 94 09/08/24 06:03 65 17 95 09/08/24 06:00 121/65 09/08/24 05:54 67 17 95 09/08/24 05:51 67 15 95 09/08/24 05:48 74 16 95 09/08/24 05:33 67 16 96 09/08/24 05:30 109/59 L 09/08/24 05:18 78 18 96 09/08/24 05:15 65 15 95 09/08/24 05:00 102/55 L 09/08/24 04:30 97/52 L 09/08/24 04:21 69 22 98 09/08/24 04:00 98/51 L 09/08/24 04:00 98/51 L 09/08/24 04:00 98 H 16 100 09/08/24 03:42 65 18 96 09/08/24 03:39 76 16 96 09/08/24 03:21 74 15 94 09/08/24 03:06 67 15 94 09/08/24 03:00 91/51 L 24 03:00 91/51 L 24 02:51 88 16 95 09/08/24 02:48 68 15 95 09/08/24 02:30 98/54 L 09/08/24 02:30 98/54 L 09/08/24 02:27 69 16 95 09/08/24 02:24 74 16 95 09/08/24 02:13 36.4 C L 09/08/24 01:51 76 16 94 09/08/24 01:45 80 15 95 09/08/24 01:30 102/55 L 09/08/24 01:15 100/57 L 09/08/24 01:15 69 15 95 09/08/24 01:06 71 15 94 09/08/24 01:00 104/51 L 09/08/24 01:00 104/51 L 09/08/24 01:00 104/51 L 09/08/24 00:57 77 15 94 09/08/24 00:45 104/50 L 09/08/24 00:45 104/50 L 09/08/24 00:45 104/50 L 09/08/24 00:45 104/50 L 09/08/24 00:39 78 15 96 09/08/24 00:30 89 17 96 09/08/24 00:30 109/61 09/08/24 00:27 82 18 97 09/08/24 00:15 107/71 09/08/24 00:15 107/71 09/08/24 00:15 107/71 09/08/24 00:15 107/71 09/08/24 00:09 112/71 09/08/24 00:05 36.3 C L Laboratory Results Labs reviewed. Diagnostic Findings Imaging reviewed.
[2024-09-08] MEDS: ALBUMIN 25% 25 GM/100 ML VIAL IV SCH (13:35)
[2024-09-08] MEDS: CALCIUM GLUCONATE 1,000 MG/60 ML BAG IV SCH (13:35)
--- NOTE | 2024-09-08 13:45 | Billing Data ---
Date of Service September 08, 2024 Coding Level of Care Code 72663 SUB INP/OBS CARE
[2024-09-09 03:59] LABS: Hematocrit (blood only) 24.4 % (37.0-47.0); Hemoglobin 7.6 g/dl (12.0-16.0); Immature Granulocytes % (auto) 3.1 %; Lymphocytes # (auto) 0.51 K/uL (1.20-3.40); Lymphocytes % (auto) 7.9 %; Mean Corpuscular Hemoglobin 28.8 pg (25.0-34.0); Mean Corpuscular Hgb Conc 31.1 g/dL (32.0-36.0); Mean Corpuscular Volume 92.4 fL (80.0-100.0); Mean Platelet Volume 12.7 fL (9.4-12.4); Monocytes # (auto) 0.26 K/uL (0.11-0.59); Neutrophils # (auto) 5.48 K/uL (1.40-6.50); Platelet Count 150 K/uL (130-400); RDW Coefficient of Variation 14.6 % (11.5-14.5); RDW Standard Deviation 49.1 fL (36.4-46.3); Red Blood Count 2.64 M/uL (4.20-5.40); White Blood Count 6.45 K/ul (4.8-10.8)
[2024-09-09 04:16] LABS: BUN Creatinine Ratio 31.1 (10-20); Calcium 7.9 mg/dl (8.6-10.3); Creatinine Clr Calc Pharmacy 38.1 ml/min; Potassium 3.2 mmol/L (3.5-5.1)
[2024-09-09 04:19] LABS: Polychromasia 1+
[2024-09-09 04:22] LABS: ANTI-Xa, UFH(UnfractionatedHep 0.44 IU/ml (0.3-0.7); Albumin Level 3.2 gm/dl (3.4-5.0); Bilirubin,Total 0.3 mg/dl (0.2-1.0); Globulin 1.6 gm/dl (2.5-4.0); Magnesium 1.8 mg/dl (1.7-2.4); Phosphorus 1.4 mg/dl (2.5-4.9); Total Protein 4.8 gm/dl (6.0-8.3)
[2024-09-09] MEDS ORDERED: POTASSIUM PHOS 3 MMOL/1 ML INFUSION IV STA (05:45)
[2024-09-09] MEDS: POTASSIUM PHOSPHATE 30 MMOL in SODIUM CHLORIDE 0.9% 500 ML IV ONE (06:35)
[2024-09-09 08:47] LABS: Ferritin 142.9 ng/ml (8-388)
--- NOTE | 2024-09-09 09:08 | Critical Care Progress Note ---
Date of Service September 09, 2024 Assessment & Plan (1) Septic shock: Plan: Reason Critically Ill: 89-year-old female presents to the ICU with hypotension with suspected underlying sepsis with multiple wounds on lower extremities, bilateral lower extremity DVTs, and UTI. Currently requiring vasopressor support with phenylephrine drip. 24-hour events: Uneventful night. Titrated down to off vasopressor support. Findings yesterday consistent with multiple pulmonary emboli. Tolerating diet well. Neuro - * CAM ICU: Negative Cardiac - * Shock * Initially felt to be related to sepsis given multiple wounds in the lower extremities as well as urinalysis positive for Klebsiella pneumoniae. Additionally, blood cultures positive x 1 for gram-positive cocci in chains. * Responded appropriately to initiation of phenylephrine drip --> titrated down to off. * Random cortisol significantly reduced. Had received initial dose of IV Solu-Cortef. Will increase frequency to every 6 hours and add p.o. Florinef. * Of concern, the patient presented with symptoms of chest discomfort, had an elevated troponin on admission, had moderately elevated lactate poorly responsive to IV fluid resuscitation, and has persistent hypotension refractory to aggressive fluid resuscitation and initiation of stress dose steroids. Given her associated findings of bilateral lower extremity DVTs, it would be prudent to assess for possible circulatory shock in the form of pulmonary emboli. While the patient is not requiring supplemental oxygen at this time, her remaining symptoms continue to be concerning and are worth evaluating at this juncture. * TTE with EF greater than 70%, mild systolic anterior motion of mitral leaflet without significant LVOT obstruction, small pericardial effusion unchanged. * DVTs/PEs - * Bilateral DVTs noted on duplex * PEs noted on CTA. * Currently anticoagulated on Heparin gtt. * Transition to DOAC therapy when appropriate. Respiratory - * Currently maintaining oxygen saturations on room air. * No previous history of pulmonary disease. * Continuous monitoring pulse ox. GI - * Advance diet as tolerated * Prophylaxis: Famotidine RENAL/LYTES - * Hypernatremia: * has trended down appropriately. - * Strict I's and O's ENDO - * No history of diabetes. * ICU hyperglycemic protocol HEME - * H&H stable, monitor routine CBC in the setting of Heparing gtt ID - * Sepsis * Multiple possible sources including bilateral lower extremity wounds, urinary source, and potential for bacteremia giving gram-positive cocci in chains noted on blood culture x 1 dated 09/06/2024. * This has the potential to create a complex situation in a patient with recent surgical hardware of the hip as well as pacemaker device in place. * Currently receiving cefepime and daptomycin. * Lactate is cleared. * Procalcitonin not elevated. * Standard TTE without vegetative findings. * Repeat blood cultures pending. * Appreciate ID input. * Appreciate wound nurse management. LINES/IV ACCESS - * Peripheral IVs DVT PROPHYLAXIS - * Continue heparin drip Thank you for allowing us to participate in the care of this patient. Please refer to my attending physician's documentation for any further recommendations. Patient is stable for downgrade from the ICU at this time. (2) DVT, bilateral lower limbs: (3) Leg edema: (4) Wound of right foot: (5) Wound of left foot: (6) PAT (paroxysmal atrial tachycardia): (7) Dyslipidemia: (8) Hypothyroidism: Admission and Anticipated Discharge Date Admission Date: September 06, 2024 Supervising Physician Co-Signing Physician Notes Patient seen and examined. EMR reviewed. Discussed with TIMOTHY and agree with assessment plan as noted. Discussed on multidisciplinary rounds. The patient's been hemodynamically stable and off vasopressor agents for more than 24 hours. Her hypotension is likely multifactorial due to combinations of PE, infection, hypovolemia, and relative adrenal insufficiency. Will taper steroids to off over the next 4 to 5 days. Continue anticoagulation but can likely transition to oral medications per service. Given the patient's age and immobility, would recommend lifelong anticoagulation unless there is a significant contraindication. Do not see a role for workup of hypercoagulable state at this point in time. Antibiotics per infectious disease. Critical care services will sign off. The patient is stable to transfer to the floor. Additional care per hospitalist. Feel free to contact us with questions or concerns Subjective Patient seen and evaluated at bedside. She was titrated down to off of the vasopressor support yesterday and overnight. Remains on room air. Offers no complaints at this time. Review of Systems Review of Systems: As per HPI Physical Exam Physical Exam: VITAL SIGNS - Vital signs and nursing notes were reviewed. GENERAL - 89-year-old female appearing her stated age who is in no acute distress. Communicates well with provider and answers questions appropriately. SKIN - Bilateral lower extremity wound dressings in place. HEAD - NC/AT. EYES - PERRL with EOMI bilaterally. Sclera anicteric. NOSE - Midline and without cyanosis. MOUTH/OROPHARYNX - Without perioral cyanosis. NECK - Neck with FROM. LUNGS - Chest wall symmetric without accessory muscle use, intercostals retractions, or central cyanosis. Normal vesicular breath sounds CTA B/L. No wheezes, rales, or rhonchi appreciated. CARDIAC - RRR with S1/S2. No murmur, rubs, or gallops appreciated. ABDOMEN - Abdominal contour flat without pulsations or visible masses. BS normoactive all four quadrants. No tenderness, palpable masses, hepatosplenomegaly, or ascites noted. EXTREMITIES - Multiple wound to the bilateral lower extremities. No clubbing or peripheral cyanosis. Moderate pretibial edema present. +3/5 radial and dorsalis pedis pulses palpated throughout. NEUROLOGIC - Cranial nerves II through XII grossly intact. PSYCH - A&Ox3 and cooperates fully with examiner. Pt is very pleasant and interacts well with examiner. Results & Data Results & Data Vital Signs (Past 12 Hours) Vital Signs Temp Pulse Resp BP Pulse Ox O2 Del Method 09/09/24 08:00 128/66 09/09/24 08:00 100 H 23 97 Room Air 09/09/24 07:30 127/77 09/09/24 07:30 127/77 09/09/24 07:27 95 H 23 95 09/09/24 07:00 70 17 93 09/09/24 07:00 103/54 L 09/09/24 07:00 103/54 L 09/09/24 07:00 36.6 C 09/09/24 06:24 84 16 94 09/09/24 06:12 76 21 95 09/09/24 06:03 81 21 95 09/09/24 06:00 116/57 L 09/09/24 06:00 116/57 L 09/09/24 05:54 79 22 95 09/09/24 05:24 76 21 95 09/09/24 05:00 116/56 L 09/09/24 05:00 116/56 L 09/09/24 04:54 80 21 94 09/09/24 04:30 81 24 94 09/09/24 04:30 114/58 L 09/09/24 04:30 114/58 L 09/09/24 04:30 114/58 L 09/09/24 04:30 114/58 L 09/09/24 04:00 103/58 L 09/09/24 04:00 103/58 L 09/09/24 03:57 84 23 95 09/09/24 03:51 81 23 95 09/09/24 03:45 78 21 94 09/09/24 03:31 116/79 09/09/24 03:31 116/79 09/09/24 03:24 80 17 93 09/09/24 03:20 36.5 C 09/09/24 03:03 83 16 95 09/09/24 03:00 109/54 L 09/09/24 03:00 109/54 L 09/09/24 03:00 109/54 L 09/09/24 02:51 80 20 95 09/09/24 02:45 80 21 95 09/09/24 02:30 89 23 94 09/09/24 02:30 123/64 09/09/24 02:30 123/64 09/09/24 02:30 123/64 09/09/24 02:30 123/64 09/09/24 02:21 88 23 95 09/09/24 02:18 101 H 22 95 09/09/24 02:06 87 20 96 09/09/24 02:00 118/61 09/09/24 01:45 72 21 95 09/09/24 01:30 114/61 09/09/24 01:30 114/61 09/09/24 01:30 81 22 95 09/09/24 01:21 91 H 21 94 09/09/24 01:18 76 20 94 09/09/24 01:00 92 H 21 94 09/09/24 01:00 124/64 09/09/24 01:00 124/64 09/09/24 01:00 124/64 09/09/24 01:00 124/64 09/09/24 00:42 90 22 95 09/09/24 00:30 97/76 L 09/09/24 00:21 88 18 94 09/09/24 00:18 78 23 94 09/09/24 00:03 104 H 27 H 94 09/09/24 00:00 124/63 09/09/24 00:00 124/63 09/08/24 23:39 85 21 94 09/08/24 23:33 88 22 94 09/08/24 23:30 123/61 09/08/24 23:30 123/61 09/08/24 23:27 89 20 94 09/08/24 23:12 98 H 19 94 09/08/24 23:06 77 22 95 09/08/24 22:57 92 H 18 95 09/08/24 22:48 75 20 94 09/08/24 22:33 85 20 94 09/08/24 22:30 106/65 09/08/24 22:30 106/65 09/08/24 22:24 102 H 25 H 95 09/08/24 22:21 92 H 18 95 09/08/24 22:18 107 H 22 95 09/08/24 22:00 84 22 95 09/08/24 22:00 128/64 09/08/24 22:00 128/64 09/08/24 21:51 93 H 20 96 09/08/24 21:30 128/68 09/08/24 21:30 128/68 09/08/24 21:27 88 22 95 09/08/24 21:24 90 22 94 09/08/24 21:03 82 20 95 Coding Level of Care Code 53286 SUB INP/OBS CARE 2/35MIN Diagnoses Septic shock A41.9; R65.21 DVT, bilateral lower limbs I82.403 Leg edema R60.0 Wound of right foot S91.301A Wound of left foot S91.302A PAT (paroxysmal atrial tachycardia) I47.1 Dyslipidemia E78.5 Hypothyroidism E03.9
[2024-09-09 09:17] LABS: Folate (Folic Acid),Ser orPlas 9.93 ng/ml (>5.38)
--- NOTE | 2024-09-09 09:20 | Infectious Disease Progress Nt ---
Date of Service September 09, 2024 Assessment & Plan (1) Septic shock: (2) Wound of right foot: (3) Wound of left foot: (4) Pulmonary embolism: (5) Right femoral fracture: Plan 89yo F with h/o SSS s/p PPM, left hip RUTH in 2013, hypothyroidism, dyslipidemia, recent right hip fracture s/p insertion of trochanteric nail on 07/03 who presented on 09/06 with midsternal chest pain with radiation to both breasts that has been present for a few nights in a row. Also with bl lower extremity wounds with drainage and leg swelling since her hip fracture. On admission, she was afebrile, initially BPs in 90s, on room air. Initial labs with WBC 13.21, Cr 1.35, AST/ALT wnl, elevated lactate and troponin. UA with 11-20 WBC. CXR negative. LE arterial duplex negative for high grade stenosis. CT left foot negative for destructive bony changes, noted mild joint effusions, swollen catracho atous soft tissues with intramuscular and subcutaneous collections. CT right foot also with no destructive bony changes, mild joint effusions, swollen edematous soft tissues with intermuscular and subcutaneous collections. Chest CTA with PE in RUL. Course c/b hypotension despite IVFs and transferred to ICU, requiring pressors. She has been on broad empiric abx, narrowed to daptomycin and CTX. BCx returned with Strep thermophilus. TTE with sclerotic AV without significant stenosis. ID consulted 09/08. Ulcerations/wounds noted on bl LE legs, R>L with drainage and areas of necrotic changes. Strep thermophilus is more often seen in the GI tract, though she has not c/o any GI symptoms. I do have concerns regarding her ulcers/wounds on her feet, particularly the right foot. Although CT is negative, I do think an MRI of her necrotic right heel and left toe would be helpful to rule out bone involvement. Favor consultation of podiatry. # Septic shock off pressors # Bacteremia 2/2 Strep thermophilus # Bl lower extremity wounds with c/f infection, intramuscular and subcu collections on CT # Pyuria with K pneumoniae bacteriuria no urinary sx # PE # NUZHAT improved # H/o left RUTH, right hip fracture s/p surgery # h/o SSS s/p PPM - favor obtaining an MRI of bl feet given necrotic heel and toe - consult podiatry - wound care - f/u blood cx - Ruth stopped daptomycin - continue CTX 2g IV daily ID will continue to follow. If questions or concerns, contact via [employer] or Infectious Disease Call Center . Abby Freeman MD [facility], Division of Infectious Diseases Admission and Anticipated Discharge Date Admission Date: September 06, 2024 Subjective Subsequent visit was provided via telemedicine using two-way real-time interactive telecommunication between the patient and the telemedicine provider. For the duration of the visit, the provider was performing the assessment from a different facility than the patient. This includesuse of bluetooth stethoscope forauscultationperformed by the telepresenter that the telemedicine provider can hear if described in the physical exam. Radiology Therapist contact information: Please call [facility] [phone]. (Phone Number For Physician Use Only) After establishing a telemedicine visit, patient was: Patient was verified with two unique identifiers, Patient/authorized rep acknowledged consent and understanding and Gave permission to continue telehealth session Time Spent with Patient: Subsequent => 55 min Patient seen and examined. No complaints. No pain, n/v/d. Physical Exam Physical Exam: General: Awake, alert, no acute distress HEENT: NC/AT, EOMI, mmm Neck: supple, no LAD Lungs: CTA bl, no w/c/r Abdomen: soft, NT/ND, no suprapubic ttp Ext: + bl LE edema Skin: right foot wounds with drainage, necrotic heel, left foot wounds with less drainage, no redness Results & Data Vital Signs (Past 12 Hours) Vital Signs Temp Pulse Resp BP Pulse Ox O2 Del Method 09/09/24 08:00 128/66 09/09/24 08:00 100 H 23 97 Room Air 09/09/24 07:30 127/77 09/09/24 07:30 127/77 09/09/24 07:27 95 H 23 95 09/09/24 07:00 70 17 93 09/09/24 07:00 103/54 L 09/09/24 07:00 103/54 L 09/09/24 07:00 36.6 C 09/09/24 06:24 84 16 94 09/09/24 06:12 76 21 95 09/09/24 06:03 81 21 95 09/09/24 06:00 116/57 L 09/09/24 06:00 116/57 L 09/09/24 05:54 79 22 95 09/09/24 05:24 76 21 95 09/09/24 05:00 116/56 L 09/09/24 05:00 116/56 L 09/09/24 04:54 80 21 94 09/09/24 04:30 81 24 94 09/09/24 04:30 114/58 L 09/09/24 04:30 114/58 L 09/09/24 04:30 114/58 L 09/09/24 04:30 114/58 L 09/09/24 04:00 103/58 L 09/09/24 04:00 103/58 L 09/09/24 03:57 84 23 95 09/09/24 03:51 81 23 95 09/09/24 03:45 78 21 94 09/09/24 03:31 116/79 09/09/24 03:31 116/79 09/09/24 03:24 80 17 93 09/09/24 03:20 36.5 C 09/09/24 03:03 83 16 95 09/09/24 03:00 109/54 L 09/09/24 03:00 109/54 L 09/09/24 03:00 109/54 L 09/09/24 02:51 80 20 95 09/09/24 02:45 80 21 95 09/09/24 02:30 89 23 94 09/09/24 02:30 123/64 09/09/24 02:30 123/64 09/09/24 02:30 123/64 09/09/24 02:30 123/64 09/09/24 02:21 88 23 95 09/09/24 02:18 101 H 22 95 09/09/24 02:06 87 20 96 09/09/24 02:00 118/61 09/09/24 01:45 72 21 95 09/09/24 01:30 114/61 09/09/24 01:30 114/61 09/09/24 01:30 81 22 95 09/09/24 01:21 91 H 21 94 09/09/24 01:18 76 20 94 09/09/24 01:00 92 H 21 94 09/09/24 01:00 124/64 09/09/24 01:00 124/64 09/09/24 01:00 124/64 09/09/24 01:00 124/64 09/09/24 00:42 90 22 95 09/09/24 00:30 97/76 L 09/09/24 00:21 88 18 94 09/09/24 00:18 78 23 94 09/09/24 00:03 104 H 27 H 94 09/09/24 00:00 124/63 09/09/24 00:00 124/63 09/08/24 23:39 85 21 94 09/08/24 23:33 88 22 94 09/08/24 23:30 123/61 09/08/24 23:30 123/61 09/08/24 23:27 89 20 94 09/08/24 23:12 98 H 19 94 09/08/24 23:06 77 22 95 09/08/24 22:57 92 H 18 95 09/08/24 22:48 75 20 94 09/08/24 22:33 85 20 94 09/08/24 22:30 106/65 09/08/24 22:30 106/65 09/08/24 22:24 102 H 25 H 95 09/08/24 22:21 92 H 18 95 09/08/24 22:18 107 H 22 95 09/08/24 22:00 84 22 95 09/08/24 22:00 128/64 09/08/24 22:00 128/64 09/08/24 21:51 93 H 20 96 09/08/24 21:30 128/68 09/08/24 21:30 128/68 09/08/24 21:27 88 22 95 09/08/24 21:24 90 22 94 Laboratory Results Labs reviewed. Diagnostic Findings Imaging reviewed.
--- NOTE | 2024-09-09 10:02 | Hospitalist Progress Note ---
Date of Service September 09, 2024 Assessment & Plan (1) Acute UTI (urinary tract infection): (2) Chronic venous stasis: (3) Hypernatremia: (4) Lower extremity ulceration: (5) Ambulatory dysfunction: (6) NUZHAT (acute kidney injury): (7) Chest pain: (8) Cardiac pacemaker: (9) Hypotension: (10) DVT, bilateral lower limbs: (11) Pulmonary embolism: (12) Anemia: Plan Hypotension Hypovolemic versus Septic Shock? - Suspect possible etiologies to be hypovolemic versus septic from UTI or wounds on LE (latter more likely) versus mix of both Initial blood cultures with Strep thermophilus in 1 bottle; Repeat Blood cultures negative for 24 hrs No obvious valvular vegetations noted on TTE - Lactate normalized to 1.9 - BP now in appropriate range w/o need for vasopressors; downgraded from ICU today - Continue Ceftriaxone; hold off IVF and encourage PO intake Labs suggestive of mild refeeding syndrome; monitor labs and replete electrolytes as necessary - Foot CT w/o obvious changes to suggest OM, but will order MRI to fully r/o since this will ultimately determine length of treatment Chest Pain - Reported chest pain at time of admission that went across chest and radiated to under bilateral breasts - EKG and CXR unremarkable at time of admission - Troponin peaked at 285.9 which could have been related to demand ischemia given significant dehydration or NUZHAT - PE noted on chest CTA could have also been a cause - EKG and CXR showed no acute process - TTE (09/07/24) showing normal LV size with hyperdynamic systolic function and EF of >70%; no regional wall motion abnormalities or significant valvular dysfunction; normal estimated RV systolic pressure; small pericardial effusion that is unchanged compared to previous TTE from 2013. - Continue to monitor Telemetry Pulmonary Embolism - Chest CTA done today and showed pulmonary emboli involve the right upper lobar artery as well as multiple segmental and subsegmental arteries, but no right heart strain is seen. TTE findings as above. - Could give an explanation for initial chest pain as well as intermittent tachycardia, although already had hx of the latter - Will switch heparin to Eliquis 10 mg bid for 7 days then 5 mg bid for 3 months of therapy B/l LE DVT - 1+ pitting edema in the lower extremities bilaterally - Management as above. Hypernatremia - Likely in the setting of volume contraction - Improved with IVF; am lab with mild elevation of Na at 148, possibly due to fluids - Continue to monitor am labs Leg Ulcerations - Bilateral dorsal foot ulcers; possible source of infection - Leukocytosis resolved, possibly dilutional given that all cell lines decreased; has remained afebrile - Blood cultures as above - Bilateral feet CT w/o sign of OM, but did note intramuscular and subcutaneous fluid collection; MRI as above - Continue Ceftriaxone - Wound care following Anemia, chronic - Hgb 16 at time of admission, which could have also been related to volume contraction given decrease w/ aggressive fluid resuscitation - Hgb now decreased at 7.6, likely dilutional given aggressive fluid resuscitation and decrease in all cell lines - Consider IV Iron - Monitor am labs Ambulatory Dysfunction - Patient had right femur fracture in June 2024 with subsequent ORIF, and has been largely sedentary since then. - She lives alone with help from home health aides and friends who bring food/water. EMS reported that her apartment was covered in dog urine/feces - Case management following; patient may need discharge to rehab/SNF NUZHAT - Likely pre-renal in the setting of poor PO intake and dehydration - Resolved after IVF administration; am Cr at 0.73 Asymptomatic UTI - Urine cultures positive for pansensitive Klebsiella - Continue Ceftriaxone DTV ppx: Eliquis Diet: Regular Admission and Anticipated Discharge Date Admission Date: September 06, 2024 Supervising Physician Co-Signing Physician Notes I personally examined the patient and verified all cornejo points of history and exam, discussed case, and agree with decision making with Dr Rico Discussed extensively with resident physician, chart reviewed. Whenever I entered the room patient was sleeping comfortablyallowed to rest given her overall progress, and no new issues. Vitals noted, in general she is sleeping appears to be comfortable and in no distress. Breathing unlabored no accessory muscle use good effort. Skin without pallor or icterus. Labs and diagnostics noted. hypotension - hx far and away most c/w hypovolemia from poor PO intake/hypernatremic dehydration - at the same time, BP got worse despite fluids in ER and rehydration overnight (albeit since BP had normalized fluids overnight were D5W) - given worsening of BP after initially looking to be improving - concern on: (a) refractory hypovolemia (would fit her hx and appearance yesterday - and possibly since we switched to correct water deficits possibly as fluid left vasculature she became hypotensive again --> more isotonic fluids before resuming water loss replacement) (b) septic physiology - hard to rule out sepsis/septic shock/possible sepsis POA, and depending on whether the strep in her blood turns out to be true infection versus contaminant, this makes it more possible, at the same time I do suspect a lot of her hypotension was from hypovolemiabut must manage infection as though it is legitimate until either better or proven otherwise (c) multifactorial with confounders (checked random cortisol - <20 so stress dosing for now) (d) anemia - but no s/s blood loss or reasons for hemolysis and Hgb during last stay was ~8.5 range at discharge - suspect Hgb 16 was quite concentrated, Hgb now reflects dilutional drop not hemorrhage - obviously continue to follow and w/u further if bleeding appears evident, but none at this timeas it relates to the anemia, still no signs of blood loss, do suspect dilution, but probably also a degree hypoproliferativegiven that her iron/B12/folate are reasonable probably more generically from her overall malnourished state --->BP Now stable off of pressorscontinue to follow ---> hyponatremic dehydrationoverall improving. given that her p.o. intake is improving and she seems to be fairly asymptomatic with her labs rather atwill hold off on further IV fluids and allow p.o. intake CP resolved, appeared MSK, and troponin almost certainly demand/watershed ischemia from hypotension/dehydration multiple skin wounds, including pressure ulcer of right heel and sacrum/buttocks both unstageable, both present on admissionongoing wound care, antibiotics as above. Nutritional support. PT/OT. DVT/PEfrom immobility. continue anticoagulation stable to leave the ICUcontinue to follow, PT/OT eval and treat, anticipate need for SNF/rehab at time of discharge otherwise as above Subjective Patient evaluated at bedside in ICU and found to be AAOx4, afebrile, and in NAD. Denies chest pain, SOB, fevers, chills, or any other sxs. No new concerns. Review of Systems Review of Systems: As per HPI. Physical Exam Physical Exam: GENERAL: awake and alert, afebrile, NAD CARDIO: RRR, no r/m/g RESPIRATORY: CTA, normal respiratory effort, no respiratory distress GI: soft, non distended, non tender EXTREMITIES: swelling with +1 pitting edema in bilateral LE, no tenderness with palpation, no erythema in LE Results & Data Results & Data Vital Signs (Past 12 Hours) Vital Signs Temp Pulse Resp BP Pulse Ox O2 Del Method 09/09/24 08:00 128/66 09/09/24 08:00 100 H 23 97 Room Air 09/09/24 07:30 127/77 09/09/24 07:30 127/77 09/09/24 07:27 95 H 23 95 09/09/24 07:00 70 17 93 09/09/24 07:00 103/54 L 09/09/24 07:00 103/54 L 09/09/24 07:00 36.6 C 09/09/24 06:24 84 16 94 09/09/24 06:12 76 21 95 09/09/24 06:03 81 21 95 09/09/24 06:00 116/57 L 09/09/24 06:00 116/57 L 09/09/24 05:54 79 22 95 09/09/24 05:24 76 21 95 09/09/24 05:00 116/56 L 09/09/24 05:00 116/56 L 09/09/24 04:54 80 21 94 09/09/24 04:30 81 24 94 09/09/24 04:30 114/58 L 09/09/24 04:30 114/58 L 09/09/24 04:30 114/58 L 09/09/24 04:30 114/58 L 09/09/24 04:00 103/58 L 09/09/24 04:00 103/58 L 09/09/24 03:57 84 23 95 09/09/24 03:51 81 23 95 09/09/24 03:45 78 21 94 09/09/24 03:31 116/79 09/09/24 03:31 116/79 09/09/24 03:24 80 17 93 09/09/24 03:20 36.5 C 09/09/24 03:03 83 16 95 09/09/24 03:00 109/54 L 09/09/24 03:00 109/54 L 09/09/24 03:00 109/54 L 09/09/24 02:51 80 20 95 09/09/24 02:45 80 21 95 09/09/24 02:30 89 23 94 09/09/24 02:30 123/64 09/09/24 02:30 123/64 09/09/24 02:30 123/64 09/09/24 02:30 123/64 09/09/24 02:21 88 23 95 09/09/24 02:18 101 H 22 95 09/09/24 02:06 87 20 96 09/09/24 02:00 118/61 09/09/24 01:45 72 21 95 09/09/24 01:30 114/61 09/09/24 01:30 114/61 09/09/24 01:30 81 22 95 09/09/24 01:21 91 H 21 94 09/09/24 01:18 76 20 94 09/09/24 01:00 92 H 21 94 09/09/24 01:00 124/64 09/09/24 01:00 124/64 09/09/24 01:00 124/64 09/09/24 01:00 124/64 09/09/24 00:42 90 22 95 09/09/24 00:30 97/76 L 09/09/24 00:21 88 18 94 09/09/24 00:18 78 23 94 09/09/24 00:03 104 H 27 H 94 09/09/24 00:00 124/63 09/09/24 00:00 124/63 09/08/24 23:39 85 21 94 09/08/24 23:33 88 22 94 09/08/24 23:30 123/61 09/08/24 23:30 123/61 09/08/24 23:27 89 20 94 09/08/24 23:12 98 H 19 94 09/08/24 23:06 77 22 95 09/08/24 22:57 92 H 18 95 09/08/24 22:48 75 20 94 09/08/24 22:33 85 20 94 09/08/24 22:30 106/65 09/08/24 22:30 106/65 09/08/24 22:24 102 H 25 H 95 09/08/24 22:21 92 H 18 95 09/08/24 22:18 107 H 22 95 Resident Activity Tracking Resident Involvement: Resident Care Provided Care Provided: Adult Hospital Medicine
[2024-09-09] MEDS: APIXABAN 5 MG TABLET PO SCH (11:21)
--- NOTE | 2024-09-09 11:58 | Billing Data ---
Date of Service September 09, 2024 Coding Level of Care Code 90331 SUB INP/OBS CARE
[2024-09-09] MEDS: HYDROCORTISONE SOD 50 MG in SYRINGE 0 ML IV SCH (19:34)
[2024-09-10 05:04] LABS: Hematocrit (blood only) 25.9 % (37.0-47.0); Immature Granulocytes % (auto) 3.1 %; Lymphocytes # (auto) 0.67 K/uL (1.20-3.40); Lymphocytes % (auto) 10.3 %; Mean Corpuscular Hemoglobin 28.7 pg (25.0-34.0); Mean Corpuscular Hgb Conc 30.9 g/dL (32.0-36.0); Mean Corpuscular Volume 92.8 fL (80.0-100.0); Mean Platelet Volume 12.7 fL (9.4-12.4); Monocytes % (auto) 6.2 %; Neutrophils # (auto) 5.23 K/uL (1.40-6.50); Neutrophils % (auto) 80.4 %; Platelet Count 162 K/uL (130-400); RDW Coefficient of Variation 14.8 % (11.5-14.5); RDW Standard Deviation 50.2 fL (36.4-46.3); Red Blood Count 2.79 M/uL (4.20-5.40)
[2024-09-10 05:20] LABS: BUN Creatinine Ratio 31.4 (10-20); Calcium 7.6 mg/dl (8.6-10.3); Creatinine Clr Calc Pharmacy 39.9 ml/min; Magnesium 1.8 mg/dl (1.7-2.4); Potassium 3.5 mmol/L (3.5-5.1)
[2024-09-10 05:39] LABS: ANTI-Xa, UFH(UnfractionatedHep > 1.50 IU/ml (0.3-0.7)
[2024-09-10] MEDS ORDERED: POTASSIUM PHOS 3 MMOL/1 ML INFUSION IV ONE (07:43)
[2024-09-10] MEDS: FERROUS SULFATE 325 MG TAB PO SCH (07:58)
--- NOTE | 2024-09-10 10:03 | Hospitalist Progress Note ---
Date of Service September 10, 2024 Assessment & Plan (1) Acute UTI (urinary tract infection): (2) Chronic venous stasis: (3) Hypernatremia: (4) Lower extremity ulceration: (5) Ambulatory dysfunction: (6) NUZHAT (acute kidney injury): (7) Chest pain: (8) Cardiac pacemaker: (9) Hypotension: (10) DVT, bilateral lower limbs: (11) Pulmonary embolism: (12) Anemia: Plan Chest Pain - Reported chest pain at time of admission that went across chest and radiated to under bilateral breasts - EKG and CXR unremarkable at time of admission; trop peaked at 285.9 - PE noted on chest CTA could have also been a cause - TTE (09/07/24) unchanged from prior TTE with EF > 70% - States she had chest discomfort/tightness overnight but not at the time of evaluation, and is getting more SOB with conversation compared to yesterday. Will order CXR and troponin to evaluate. - Continue to monitor Telemetry Hypotension Hypovolemic versus Septic Shock? - Suspect possible etiologies to be hypovolemic versus septic from UTI or wounds on LE (latter more likely) versus mix of both Initial blood cultures with Strep thermophilus in 1 bottle; Repeat Blood cultures negative for 48 hrs No obvious valvular vegetations noted on TTE - BP now in appropriate range w/o need for vasopressors - Continue Ceftriaxone - Hold off IVF and encourage PO intake Labs suggestive of mild refeeding syndrome; monitor labs and replete electrolytes as necessary - Foot CT w/o obvious changes to suggest OM; MRI today also without evidence of OM but showing changes suggestive of cellulitis vs. venous stasis vs. lymphedema - ID following Pulmonary Embolism - Chest CTA showed pulmonary emboli involve the right upper lobar artery as well as multiple segmental and subsegmental arteries, but no right heart strain is seen. - Could give an explanation for initial chest pain as well as intermittent tachycardia, although already had hx of the latter - Continue Eliquis B/l LE DVT - Management w/ Eliquis as above. Hypernatremia - Likely in the setting of volume contraction - am lab w/ Na was 147 - Continue to monitor am labs Leg Ulcerations - Bilateral dorsal foot ulcers; possible source of infection - Blood cultures as above - Bilateral feet CT w/o sign of OM, but did note intramuscular and subcutaneous fluid collection; MRI as above - Continue Ceftriaxone - Wound care following Anemia, chronic - Hgb 16 at time of admission, which could have also been related to volume contraction given decrease w/ aggressive fluid resuscitation - Hgb stable with am labs showing Hgb of 8 - Continue iron tabs - Monitor am labs Ambulatory Dysfunction - Patient had right femur fracture in June 2024 with subsequent ORIF, and has been largely sedentary since then. - She lives alone with help from home health aides and friends who bring food/water. EMS reported that her apartment was covered in dog urine/feces - Case management following; patient may need discharge to rehab/SNF Asymptomatic UTI - Urine cultures positive for pansensitive Klebsiella - Continue Ceftriaxone NUZHAT -- resolved DTV ppx: Eliquis Diet: Regular Admission and Anticipated Discharge Date Admission Date: September 06, 2024 Supervising Physician Co-Signing Physician Notes I personally examined the patient and verified all cornejo points of history and exam, discussed case, and agree with decision making with Dr Rico Discussed extensively with resident physician, chart reviewed. Discussed with nursing - no new issues. Whenever I entered the room patient was again sleeping comfortablyallowed to rest given her overall progress, and no new issues. Vitals noted, in general she is sleeping appears to be comfortable and in no distress. Breathing unlabored no accessory muscle use good effort. Skin without pallor or icterus. Labs and diagnostics noted. MRIs reassuring hypernatremic dehydrationoverall improving. given that her p.o. intake is improving and she seems to be fairly asymptomatic with her labs rather atwill hold off on further IV fluids and allow p.o. intake CP resolved, appeared MSK, and troponin almost certainly demand/watershed ischemia from hypotension/dehydration multiple skin wounds, including pressure ulcer of right heel and sacrum/buttocks both unstageable, both present on admissionongoing wound care, antibiotics as above. doubt strep thermophilus represents true bacteremia but agree with ID hard to definitively rule out and fortuntaely not onerouss or risky for pt for us to treat. MRIs reassurring as far as no compelling evidence of osteomyelitis or abscess. Nutritional support. PT/OT. DVT/PEfrom immobility. continue anticoagulation now resolved: hypotension - hx far and away most c/w hypovolemia from poor PO intake/hypernatremic dehydration - at the same time, BP got worse despite fluids in ER and rehydration overnight (albeit since BP had normalized fluids overnight were D5W) - given worsening of BP after initially looking to be improving - concern on: (a) refractory hypovolemia (would fit her hx and appearance yesterday - and possibly since we switched to correct water deficits possibly as fluid left vasculature she became hypotensive again --> more isotonic fluids before resuming water loss replacement) (b) septic physiology - hard to rule out sepsis/septic shock/possible sepsis POA, and depending on whether the strep in her blood turns out to be true infection versus contaminant, this makes it more possible, at the same time I do suspect a lot of her hypotension was from hypovolemiabut must manage infection as though it is legitimate until either better or proven otherwise (c) multifactorial with confounders (checked random cortisol - <20 so stress dosing for now) (d) anemia - but no s/s blood loss or reasons for hemolysis and Hgb during last stay was ~8.5 range at discharge - suspect Hgb 16 was quite concentrated, Hgb now reflects dilutional drop not hemorrhage - obviously continue to follow and w/u further if bleeding appears evident, but none at this timeas it relates to the anemia, still no signs of blood loss, do suspect dilution, but probably also a degree hypoproliferativegiven that her iron/B12/folate are reasonable probably more generically from her overall malnourished state otherwise as above Subjective Feels well overall. No overnight events. Review of Systems Review of Systems: As per HPI. Physical Exam Physical Exam: GENERAL: awake and alert, afebrile, NAD CARDIO: RRR, no r/m/g RESPIRATORY: CTA, normal respiratory effort, no respiratory distress GI: soft, non distended, non tender EXTREMITIES: swelling in bilateral LE, no tenderness with palpation, no erythema in LE Results & Data Results & Data Vital Signs (Past 12 Hours) Vital Signs Temp Pulse Resp BP Pulse Ox 09/10/24 05:36 85 20 93 09/10/24 05:21 80 18 93 09/10/24 05:15 78 19 94 09/10/24 05:00 71 15 93 09/10/24 04:51 86 16 92 09/10/24 04:42 75 17 93 09/10/24 04:39 80 17 94 09/10/24 04:35 119/68 09/10/24 04:35 119/68 09/10/24 04:27 73 16 90 09/10/24 04:03 75 16 92 09/10/24 03:57 82 18 91 09/10/24 03:48 67 17 92 09/10/24 03:30 85 17 92 09/10/24 03:21 70 18 91 09/10/24 03:12 70 16 92 09/10/24 03:00 80 15 91 09/10/24 02:48 69 17 92 09/10/24 02:33 78 17 92 09/10/24 02:24 76 17 92 09/10/24 02:06 72 16 92 09/10/24 01:33 88 16 91 09/10/24 01:21 36.6 C 09/10/24 01:12 71 15 92 09/10/24 00:45 69 15 95 09/10/24 00:21 107 H 23 83 L 09/10/24 00:03 94 09/09/24 23:51 87 16 93 09/09/24 23:30 73 18 93 09/09/24 23:21 96 H 16 94 09/09/24 23:18 84 17 94 09/09/24 23:09 83 19 94 09/09/24 22:51 107 H 23 96 09/09/24 22:45 85 17 93 09/09/24 22:36 72 18 95 09/09/24 22:24 79 16 93 09/09/24 22:15 77 16 93 Resident Activity Tracking Resident Involvement: Resident Care Provided Care Provided: Adult Hospital Medicine
--- NOTE | 2024-09-10 11:03 | XRay Report ---
XR chest 1V portable CLINICAL HISTORY: shortness of breath COMPARISON STUDY: Chest radiograph September 06, 2024. Chest CT September 08, 2024. FINDINGS: Left subclavian pacer is in place. There is no pneumothorax. Small bilateral pleural effusi ons persist with associated bibasilar opacities. Left basilar opacity has slightly increased. There i s pulmonary vascular congestion. Cardiomediastinal silhouette is stable. Old left clavicular fracture . IMPRESSION: 1. Small bilateral pleural effusions with associated bibasilar opacities, greater on the left. Left b asilar opacity has slightly increased since prior CT. 2. Pulmonary vascular congestion. ACT 112: Negative or not required by law. Electronically signed by: Fred Krishnamurthy M.D. 09/10/2024 11:02 AM
[2024-09-10] MEDS: GADOBUTROL 65ML VIAL IV ONE (12:38)
[2024-09-10] MEDS: POT PHOSPHATE MONOBASIC W/ SOD TAB PO SCH (13:07)
--- NOTE | 2024-09-10 13:46 | Magnetic Resonance Report ---
MR foot RT wo/w con HISTORY: 89 years-old Female chronic wounds; r/o osteomyelitis chronic soft tissue wound with cellul itis of the right foot. COMPARISON: CT right foot 09/07/2014 TECHNIQUE: Multiplanar multisequence MRI of the right foot was obtained with and without IV contrast. FINDINGS: There is moderately extensive diffuse subcutaneous and deep tissue edema. There is atrophy of the mus culature with edema compatible with chronic denervation change. No drainable fluid collections are se en. The imaged flexor and extensor tendons appear intact. Intact Lisfranc ligament. Mild multifocal osteoarthritis. No acute fracture, dislocation, osseous erosion or significant bone m arrow edema. IMPRESSION: 1. No MR evidence of acute osteomyelitis. 2. Diffuse subcutaneous edema may represent cellulitis, venous stasis or lymphedema. 3. No fluid collection to suggest abscess. 4. Chronic denervation changes. ACT 112: Negative or not required by law. The above report was generated using voice recognition software. It may contain grammatical, syntax o r spelling errors. Electronically signed by: Tommy Mari M.D. 09/10/2024 1:45 PM
--- NOTE | 2024-09-10 13:55 | Magnetic Resonance Report ---
MRI OF THE LEFT FOOT WITH AND WITHOUT CONTRAST CLINICAL HISTORY: chronic wounds; r/o osteomyelitis COMPARISON STUDY: Left foot CT September 07, 2024. TECHNIQUE: Utilizing a 1.5 Emily magnet, multiplanar, multi echo imaging of the left midfoot and fore foot was performed pre and postcontrast administration. Intravenous injection of 6.5 cc of Gadavist w as uneventful. FINDINGS: There is extensive subcutaneous edema of the left lower leg, ankle and foot. No rim-enhanci ng fluid collections are identified to suggest an abscess. Tarsometatarsal joints are intact. Lisfran c ligament is intact. There is multifocal marrow signal centered on the left first metatarsophalangea l joint which is likely degenerative. There is moderate joint space narrowing and osteophytosis of th e left first metatarsophalangeal joint. No areas of bony erosion within the left midfoot or forefoot are present. There is moderate marrow edema and enhancement with linear hypointense signal within the distal phalanx of the left fifth toe. The middle and distal phalanges of the left fifth toe are fuse d. This is consistent with a healing fracture. No additional fractures are present. IMPRESSION: 1. No evidence for acute osteomyelitis within the left foot. 2. Extensive subcutaneous fluid of the left lower leg, ankle and foot. This may reflect edema or cell ulitis. No rim-enhancing fluid collection to suggest abscess. 3. Healing fracture of the left fifth distal phalanx. This fracture is likely subacute. 4. 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 ACT 112: Negative or not required by law. Electronically signed by: Fred Krishnamurthy M.D. 09/10/2024 1:53 PM
--- NOTE | 2024-09-10 15:44 | Infectious Disease Progress Nt ---
Date of Service September 10, 2024 Assessment & Plan (1) Wound of right foot: (2) Wound of left foot: (3) Septic shock: (4) Pulmonary embolism: (5) Right femoral fracture: Plan 89yo F with h/o SSS s/p PPM, left hip RUTH in 2013, hypothyroidism, dyslipidemia, recent right hip fracture s/p insertion of trochanteric nail on 07/03 who presented on 09/06 with midsternal chest pain with radiation to both breasts that has been present for a few nights in a row. Also with bl lower extremity wounds with drainage and leg swelling since her hip fracture. On admission, she was afebrile, initially BPs in 90s, on room air. Initial labs with WBC 13.21, Cr 1.35, AST/ALT wnl, elevated lactate and troponin. UA with 11-20 WBC. CXR negative. LE arterial duplex negative for high grade stenosis. CT left foot negative for destructive bony changes, noted mild joint effusions, swollen catracho atous soft tissues with intramuscular and subcutaneous collections. CT right foot also with no destructive bony changes, mild joint effusions, swollen edematous soft tissues with intermuscular and subcutaneous collections. Chest CTA with PE in RUL. Course c/b hypotension despite IVFs and transferred to ICU, requiring pressors. She has been on broad empiric abx, narrowed to daptomycin and CTX. BCx returned with Strep thermophilus. TTE with sclerotic AV without significant stenosis. ID consulted 09/08. Ulcerations/wounds noted on bl LE legs, R>L with drainage and areas of necrotic changes. MRI of bl feet negative for OM and acute collections. Strep thermophilus is more often seen in the GI tract, though she has not c/o any GI symptoms. Given initial presentation with shock, I do think this should be covered for treatment. She also has wounds on both feet that should be treated for SSTI. Can complete 2 week course of abx, which can be PO. # Bacteremia 2/2 Strep thermophilus ngtd 09/08 # Bl lower extremity wounds with c/f infection, intramuscular and subcu collections on CT # Septic shock off pressors # Pyuria with K pneumoniae bacteriuria no urinary sx # PE # NUZHAT improved # H/o left RUTH, right hip fracture s/p surgery # h/o SSS s/p PPM - continue CTX 2g IV daily - when shes ready for discharge, abx can be changed to amoxicillin 1g PO three times daily x 14 days starting 09/08 (end 09/21) ID will discontinue active follow up at this time. Please do not hesitate to reconsult the Infectious Diseases service as needed. Abby Freeman MD [facility], Division of Infectious Diseases IDConnect: [phone] Admission and Anticipated Discharge Date Admission Date: September 06, 2024 Subjective This patient recommendation is based on a telemedicine consult request which was completed asynchronously through chart review and information provided by the primary physician. The patient was not seen or examined today. The evaluation is consultative in nature and all patient care and treatment decisions can either be accepted or rejected by the patient's primary hospital-based treating physician using their own independent medical judgment for their patient. Time Spent Reviewing Chart: 31+ minutes Results & Data Vital Signs (Past 12 Hours) Vital Signs Temp Pulse Pulse Resp BP BP Pulse Ox 09/10/24 11:00 36.6 C 90 20 152/80 H 95 09/10/24 08:00 85 09/10/24 07:00 36.8 C 85 20 146/91 H 94 09/10/24 05:36 85 20 93 09/10/24 05:21 80 18 93 09/10/24 05:15 78 19 94 09/10/24 05:00 71 15 93 09/10/24 04:51 86 16 92 09/10/24 04:42 75 17 93 09/10/24 04:39 80 17 94 09/10/24 04:35 119/68 09/10/24 04:35 119/68 09/10/24 04:27 73 16 90 09/10/24 04:03 75 16 92 09/10/24 03:57 82 18 91 09/10/24 03:48 67 17 92 O2 Del Method 09/10/24 11:00 Room Air 09/10/24 08:00 09/10/24 07:00 Room Air 09/10/24 05:36 09/10/24 05:21 09/10/24 05:15 09/10/24 05:00 09/10/24 04:51 09/10/24 04:42 09/10/24 04:39 09/10/24 04:35 09/10/24 04:35 09/10/24 04:27 09/10/24 04:03 09/10/24 03:57 09/10/24 03:48 Laboratory Results Labs reviewed. Diagnostic Findings Imaging reviewed.
--- NOTE | 2024-09-10 17:50 | Billing Data ---
Date of Service September 10, 2024 Coding Level of Care Code 78337 SUB INP/OBS CARE
[2024-09-11 04:41] LABS: Basophils # (auto) 0.02 K/uL (0.00-0.20); Basophils % (auto) 0.2 %; Eosinophils # (auto) 0.01 K/uL (0.00-0.50); Eosinophils % (auto) 0.1 %; Hematocrit (blood only) 28.4 % (37.0-47.0); Hemoglobin 8.7 g/dl (12.0-16.0); Immature Granulocytes # (auto) 0.39 K/uL (0.01-0.20); Immature Granulocytes % (auto) 4.7 %; Lymphocytes # (auto) 0.77 K/uL (1.20-3.40); Lymphocytes % (auto) 9.3 %; Mean Corpuscular Hemoglobin 28.2 pg (25.0-34.0); Mean Corpuscular Hgb Conc 30.6 g/dL (32.0-36.0); Mean Corpuscular Volume 92.2 fL (80.0-100.0); Mean Platelet Volume 12.2 fL (9.4-12.4); Monocytes # (auto) 0.37 K/uL (0.11-0.59); Monocytes % (auto) 4.4 %; Neutrophils # (auto) 6.76 K/uL (1.40-6.50); Neutrophils % (auto) 81.3 %; Platelet Count 202 K/uL (130-400); RDW Coefficient of Variation 14.9 % (11.5-14.5); RDW Standard Deviation 50.1 fL (36.4-46.3); Red Blood Count 3.08 M/uL (4.20-5.40); White Blood Count 8.32 K/ul (4.8-10.8)
[2024-09-11 04:58] LABS: BUN Creatinine Ratio 30.8 (10-20); Calcium 7.6 mg/dl (8.6-10.3); Magnesium 1.7 mg/dl (1.7-2.4); Phosphorus 2.1 mg/dl (2.5-4.9); Potassium 3.7 mmol/L (3.5-5.1)
[2024-09-11] MEDS: HYDROCORTISONE SOD 50 MG in SYRINGE 0 ML IV SCH (08:12)
--- NOTE | 2024-09-11 08:31 | Hospitalist Progress Note ---
Date of Service September 11, 2024 Assessment & Plan (1) Acute UTI (urinary tract infection): (2) Chronic venous stasis: (3) Hypernatremia: (4) Lower extremity ulceration: (5) Ambulatory dysfunction: (6) NUZHAT (acute kidney injury): (7) Chest pain: (8) Cardiac pacemaker: (9) Hypotension: (10) DVT, bilateral lower limbs: (11) Pulmonary embolism: (12) Anemia: Plan Ambulatory Dysfunction - Patient had right femur fracture in June 2024 with subsequent ORIF, and has been largely sedentary since then. - She lives alone with help from home health aides and friends who bring food/water. EMS reported that her apartment was covered in dog urine/feces - OOA involved - Case management following; patient may need discharge to rehab/SNF Leg Ulcerations // Skin infection - Bilateral dorsal foot ulcers; possible source of infection Initial blood cultures with Strep thermophilus in 1 bottle; Repeat Blood cultures negative for 48 hrs No obvious valvular vegetations noted on TTE - Bilateral feet CT w/o sign of OM, but did note intramuscular and subcutaneous fluid collection; MRI w/o OM in b/l feet - Wound care following - ID following Continue Ceftriaxone At time of dh, can switch to Amoxicillin 500mg PO TID with end date of 09/21/24 for a total of 14 days of therapy. Chest Pain - Reported chest pain at time of admission that went across chest and radiated to under bilateral breasts - EKG and CXR unremarkable at time of admission; trop peaked at 285.9 - PE noted on chest CTA could have also been a cause - TTE (09/07/24) unchanged from prior TTE with EF > 70% - CXR and troponins ordered due to reported chest tightness and SOB CXR w/ previously noted pleural effusions with associated bibasilar opacities (L>R). Left basilar opacity has slightly increased since prior CT. Also saw pulm vascular congestion. No pulm edema. Suspect atelectasis versus changes from known PE as a cause for increased opacity. Troponins not significantly changed from previous levels. - Added IS and currently on anticoagulation - Continue to monitor Telemetry Pulmonary Embolism - Chest CTA showed pulmonary emboli involve the right upper lobar artery as well as multiple segmental and subsegmental arteries, but no right heart strain is seen. Subsegmental LLL emboli also seen. - Continue Eliquis LE (b/l) DVT - Management w/ Eliquis as above. Anemia, chronic - Hgb 16 at time of admission, which could have also been related to volume contraction given decrease w/ aggressive fluid resuscitation - Hgb stable with am labs showing Hgb of 8.7 - Continue iron tabs - Monitor am labs Asymptomatic UTI - Urine cultures positive for pansensitive Klebsiella - Continue Ceftriaxone Hypotension -- Resolved - Suspect possible etiologies to be hypovolemic from poor hydration plus malnutrition versus septic from UTI or wounds on LE (latter more likely source) versus mix of both - BP now in appropriate range; continue weaning of steroids - Encourage PO intake Hypernatremia -- Resolved - Likely in the setting of volume contraction - am lab w/ Na was 145 - Continue to monitor am labs DTV ppx: Eliquis Diet: Regular Admission and Anticipated Discharge Date Admission Date: September 06, 2024 Supervising Physician Co-Signing Physician Notes I personally examined the patient and verified all cornejo points of history and exam, discussed case, and agree with decision making with Dr Rico yet again sleeping comfortablyallowed to rest given her overall progress, and no new issues. discussed with resident physician and chart reviewed. Vitals noted, in general she is sleeping appears to be comfortable and in no distress. Breathing unlabored no accessory muscle use good effort. Skin without pallor or icterus. Labs and diagnostics noted. MRIs reassuring hypernatremic dehydrationoverall improving. allowing to correct with PO intake - continue to follow CP resolved, appeared MSK, and troponin almost certainly demand/watershed ischemia from hypotension/dehydration multiple skin wounds, including pressure ulcer of right heel and sacrum/buttocks both unstageable, both present on admissionongoing wound care, antibiotics as above. doubt strep thermophilus represents true bacteremia but agree with ID hard to definitively rule out and fortunately not onerous or risky for pt for us to treat. MRIs reassuring as far as no compelling evidence of osteomyelitis or abscess. Nutritional support. PT/OT. DVT/PEfrom immobility. continue anticoagulation now resolved: hypotension - hx far and away most c/w hypovolemia from poor PO intake/hypernatremic dehydration - at the same time, BP got worse despite fluids in ER and rehydration overnight (albeit since BP had normalized fluids overnight were D5W) - given worsening of BP after initially looking to be improving - concern on: (a) refractory hypovolemia (would fit her hx and appearance yesterday - and possibly since we switched to correct water deficits possibly as fluid left vasculature she became hypotensive again --> more isotonic fluids before resuming water loss replacement) (b) septic physiology - hard to rule out sepsis/septic shock/possible sepsis POA, and depending on whether the strep in her blood turns out to be true infection versus contaminant, this makes it more possible, at the same time I do suspect a lot of her hypotension was from hypovolemiabut must manage infection as though it is legitimate until either better or proven otherwise (c) multifactorial with confounders (checked random cortisol - <20 so stress dosing for now) (d) anemia - but no s/s blood loss or reasons for hemolysis and Hgb during last stay was ~8.5 range at discharge - suspect Hgb 16 was quite concentrated, Hgb now reflects dilutional drop not hemorrhage - obviously continue to follow and w/u further if bleeding appears evident, but none at this timeas it relates to the anemia, still no signs of blood loss, do suspect dilution, but probably also a degree hypoproliferativegiven that her iron/B12/folate are reasonable probably more generically from her overall malnourished state otherwise as above Subjective Feels well overall. Persistent chest tightness and occasional SOB but not changed/worse than yesterday. No overnight events. Review of Systems Review of Systems: As per HPI. Physical Exam Physical Exam: GENERAL: awake and alert, afebrile, NAD CARDIO: RRR, no r/m/g RESPIRATORY: CTA, normal respiratory effort, no respiratory distress, no conversational dyspnea GI: soft, non distended, non tender EXTREMITIES: swelling in bilateral LE that is improved compared to previous evaluations, no tenderness with palpation, no erythema in LE Results & Data Results & Data Vital Signs (Past 12 Hours) Vital Signs Temp Pulse Pulse Resp BP BP Pulse Ox 09/11/24 07:48 37.1 C 91 H 16 131/86 95 09/11/24 04:15 36.5 C 89 18 158/99 H 95 09/11/24 00:30 108 H 09/10/24 23:58 36.6 C 96 H 23 133/80 95 O2 Del Method 09/11/24 07:48 Room Air 09/11/24 04:15 Room Air 09/11/24 00:30 09/10/24 23:58 Room Air Resident Activity Tracking Resident Involvement: Resident Care Provided Care Provided: Adult Hospital Medicine
--- NOTE | 2024-09-11 14:20 | Billing Data ---
Date of Service September 11, 2024 Coding Level of Care Code 03568 SUB INP/OBS CARE
[2024-09-12 05:01] LABS: Basophils # (auto) 0.02 K/uL (0.00-0.20); Basophils % (auto) 0.2 %; Eosinophils # (auto) 0.21 K/uL (0.00-0.50); Eosinophils % (auto) 2.4 %; Hematocrit (blood only) 30.2 % (37.0-47.0); Hemoglobin 9.2 g/dl (12.0-16.0); Immature Granulocytes # (auto) 0.42 K/uL (0.01-0.20); Immature Granulocytes % (auto) 4.7 %; Lymphocytes % (auto) 13.5 %; Mean Corpuscular Hemoglobin 28.2 pg (25.0-34.0); Mean Corpuscular Hgb Conc 30.5 g/dL (32.0-36.0); Mean Corpuscular Volume 92.6 fL (80.0-100.0); Monocytes # (auto) 0.66 K/uL (0.11-0.59); Monocytes % (auto) 7.4 %; Neutrophils # (auto) 6.37 K/uL (1.40-6.50); Neutrophils % (auto) 71.8 %; Nucleated RBC # (auto) 0.03 K/uL (0.00-0.12); Nucleated RBC % (auto) 0.3 %; Platelet Count 231 K/uL (130-400); RDW Coefficient of Variation 14.9 % (11.5-14.5); RDW Standard Deviation 49.9 fL (36.4-46.3); Red Blood Count 3.26 M/uL (4.20-5.40); White Blood Count 8.88 K/ul (4.8-10.8)
[2024-09-12 05:12] LABS: BUN Creatinine Ratio 30.3 (10-20); Calcium 7.6 mg/dl (8.6-10.3); Potassium 3.3 mmol/L (3.5-5.1)
[2024-09-12 08:06] LABS: Phosphorus 1.4 mg/dl (2.5-4.9)
[2024-09-12] MEDS ORDERED: POTASSIUM PHOS 3 MMOL/1 ML INFUSION IV STA (08:45)
[2024-09-12] MEDS: POTASSIUM CHLORIDE CRTAB 20 MEQ TABCR PO SCH (09:05)
--- NOTE | 2024-09-12 09:22 | Hospitalist Progress Note ---
Date of Service September 12, 2024 Assessment & Plan (1) Acute UTI (urinary tract infection): (2) Chronic venous stasis: (3) Hypernatremia: (4) Lower extremity ulceration: (5) Ambulatory dysfunction: (6) NUZHAT (acute kidney injury): (7) Chest pain: (8) Cardiac pacemaker: (9) Hypotension: (10) DVT, bilateral lower limbs: (11) Pulmonary embolism: (12) Anemia: Plan Ambulatory Dysfunction - Patient had right femur fracture in June 2024 with subsequent ORIF, and has been largely sedentary since then. - She lives alone with help from home health aides and friends who bring food/water. EMS reported that her apartment was covered in dog urine/feces - OOA involved - Case management following; patient may need discharge to rehab/SNF Leg Ulcerations // Skin infection - Bilateral dorsal foot ulcers; possible source of infection Initial blood cultures with Strep thermophilus in 1 bottle; Repeat Blood cultures negative for 48 hrs No obvious valvular vegetations noted on TTE - Bilateral feet CT w/o sign of OM, but did note intramuscular and subcutaneous fluid collection; MRI w/o OM in b/l feet - Wound care following - ID following Continue Ceftriaxone At time of dh, can switch to Amoxicillin 500mg PO TID with end date of 09/21/24 for a total of 14 days of therapy. Chest Pain - Reported chest pain at time of admission that went across chest and radiated to under bilateral breasts - EKG and CXR unremarkable at time of admission; trop peaked at 285.9 - Possibly MSK related as it palpation of central chest leads to similar sxs, however, PE noted on chest CTA could have also been a cause - TTE (09/07/24) unchanged from prior TTE with EF > 70% - CXR w/ previously noted pleural effusions with associated bibasilar opacities (L>R). Left basilar opacity has slightly increased since prior CT. Also saw pulm vascular congestion. No pulm edema. Suspect atelectasis versus changes from known PE as a cause for increased opacity. - Suspect today's chest tightness and intermittent SOB is related to PE and/or noted atelectasis/lack of mobility Had not been using IS, but willing to start today; continue anticoagulation w/ Eliquis - Continue to monitor Telemetry Pulmonary Embolism // Bilateral LE DVT - Chest CTA showed pulmonary emboli involve the right upper lobar artery as well as multiple segmental and subsegmental arteries, but no right heart strain is seen. Subsegmental LLL emboli also seen. - Likely related to immobilization when she was at home - Continue Eliquis Malnutrition // Hypophosphatemia // Hypokalemia - am labs showing hypokelamia (3.3; decreased from 3.7) and hypophosphatemia (1.4; decreased from 2.1) - Suspect could be related to reintroduction of food; mild refeeding syndr? - Will replete electrolytes as necessary - Continue encouraging PO intake and monitoring labs Anemia, chronic - Hgb 16 at time of admission, which could have also been related to volume contraction given decrease w/ aggressive fluid resuscitation - Hgb stable with am labs showing Hgb of 9.2 - Continue iron tabs - Monitor am labs Asymptomatic UTI - Urine cultures positive for pansensitive Klebsiella - Continue Ceftriaxone Hypotension -- Resolved - Suspect possible etiologies to be hypovolemic from poor hydration plus malnutrition versus septic from UTI or wounds on LE (latter more likely source) versus mix of both - BP now in appropriate range; continue weaning of steroids - Encourage PO intake Hypernatremia -- Resolved - Likely in the setting of volume contraction - Continue to monitor am labs DTV ppx: Eliquis Diet: Regular Admission and Anticipated Discharge Date Admission Date: September 06, 2024 Supervising Physician Co-Signing Physician Notes I personally examined the patient and verified all cornejo points of history and exam, discussed case, and agree with decision making with Dr Rico feeling good sitting up in chair no complaints. amenable to rehab/SNF, asks good questions. vitals noted nad heent nc at mmm breathing unlabored no accessory muscles good effort skin without rashes pallor or icterus wounds dressed no tracking erythema hypernatremic dehydrationoverall improving. allowing to correct with PO intake - continue to follow intake and labs multiple skin wounds, including pressure ulcer of right heel and sacrum/buttocks both unstageable, both present on admissionongoing wound care, antibiotics as above. doubt strep thermophilus represents true bacteremia but agree with ID hard to definitively rule out and fortunately not onerous or risky for pt for us to treat. MRIs reassuring as far as no compelling evidence of osteomyelitis or abscess. Nutritional support. PT/OT. severe deconditioning - hip fx ~2 months ago went home - did not do well - by hx and condition on presentation appears to have been serious (almost life threatening) failure to thrive. has lived independently and prior to fx would walk 2 miles a day - with walker, no matter the weather (which probably led to a degree of denial on her part on how poorly she was doing post hip fx) - but now amenable to SNF or rehab when insurance approval and bed available. DVT/PEfrom immobility. continue anticoagulation CP resolved, appeared MSK, and troponin almost certainly demand/watershed ischemia from hypotension/dehydration now resolved: hypotension - hx far and away most c/w hypovolemia from poor PO intake/hypernatremic dehydration - at the same time, BP got worse despite fluids in ER and rehydration overnight (albeit since BP had normalized fluids overnight were D5W) - given worsening of BP after initially looking to be improving - concern on: (a) refractory hypovolemia (would fit her hx and appearance yesterday - and possibly since we switched to correct water deficits possibly as fluid left vasculature she became hypotensive again --> more isotonic fluids before resuming water loss replacement) (b) septic physiology - hard to rule out sepsis/septic shock/possible sepsis POA, and depending on whether the strep in her blood turns out to be true infection versus contaminant, this makes it more possible, at the same time I do suspect a lot of her hypotension was from hypovolemiabut must manage infection as though it is legitimate until either better or proven otherwise (c) multifactorial with confounders (checked random cortisol - <20 so stress dosing for now) (d) anemia - but no s/s blood loss or reasons for hemolysis and Hgb during last stay was ~8.5 range at discharge - suspect Hgb 16 was quite concentrated, Hgb now reflects dilutional drop not hemorrhage - obviously continue to follow and w/u further if bleeding appears evident, but none at this timeas it relates to the anemia, still no signs of blood loss, do suspect dilution, but probably also a degree hypoproliferativegiven that her iron/B12/folate are reasonable probably more generically from her overall malnourished state otherwise as above Subjective Evaluated at bedside and found AAOx3, afebrile, NAD. States she is still having the intermittent substernal chest tightness/pressure w/o radiation as well as occasional SOB. No other new or worsening sxs. No overnight events reported, however, nursing notes patient sometimes refuses to be repositioned or does not wish to stand/move. No changes in oxygen levels overnight or in the morning. Review of Systems Review of Systems: As per HPI. Physical Exam Physical Exam: GENERAL: awake and alert, afebrile, NAD CARDIO: RRR, no r/m/g RESPIRATORY: CTA, normal respiratory effort, no respiratory distress, minimal conversational dyspnea GI: soft, non distended, non tender Results & Data Results & Data Vital Signs (Past 12 Hours) Vital Signs Temp Pulse Pulse Resp BP BP Pulse Ox 09/12/24 07:24 36.6 C 112 H 20 127/76 92 09/12/24 04:30 36.9 C 95 H 23 117/82 95 09/12/24 02:20 96 H 09/11/24 23:10 36.9 C 103 H 19 144/82 H 94 O2 Del Method 09/12/24 07:24 Room Air 09/12/24 04:30 Room Air 09/12/24 02:20 09/11/24 23:10 Room Air Resident Activity Tracking Resident Involvement: Resident Care Provided Care Provided: Adult Hospital Medicine
[2024-09-12] MEDS: POTASSIUM PHOSPHATE 21 MMOL in SODIUM CHLORIDE 0.9% 500 ML IV ONE (09:30)
--- NOTE | 2024-09-12 12:35 | Billing Data ---
Date of Service September 12, 2024 Coding Level of Care Code 60015 SUB INP/OBS CARE
[2024-09-13 05:03] LABS: Phosphorus 2.1 mg/dl (2.5-4.9)
[2024-09-13 07:13] LABS: BUN Creatinine Ratio 30.1 (10-20); Calcium 7.7 mg/dl (8.6-10.3); Creatinine Clr Calc Pharmacy 51.1 ml/min; Potassium 4.3 mmol/L (3.5-5.1)
[2024-09-13 09:52] LABS: Hematocrit (blood only) 34.2 % (37.0-47.0); Hemoglobin 10.5 g/dl (12.0-16.0); Mean Corpuscular Hemoglobin 28.5 pg (25.0-34.0); Mean Corpuscular Hgb Conc 30.7 g/dL (32.0-36.0); Mean Corpuscular Volume 92.7 fL (80.0-100.0); Mean Platelet Volume 11.9 fL (9.4-12.4); Platelet Count 280 K/uL (130-400); RDW Coefficient of Variation 15.4 % (11.5-14.5); Red Blood Count 3.69 M/uL (4.20-5.40); White Blood Count 11.81 K/ul (4.8-10.8)
[2024-09-13] MEDS: POT PHOSPHATE MONOBASIC W/ SOD TAB PO SCH (10:08)
--- NOTE | 2024-09-13 11:07 | Hospitalist Progress Note ---
Date of Service September 13, 2024 Assessment & Plan (1) Acute UTI (urinary tract infection): (2) Chronic venous stasis: (3) Hypernatremia: (4) Lower extremity ulceration: (5) Ambulatory dysfunction: (6) NUZHAT (acute kidney injury): (7) Chest pain: (8) Cardiac pacemaker: (9) Hypotension: (10) DVT, bilateral lower limbs: (11) Pulmonary embolism: (12) Anemia: Plan Ambulatory Dysfunction - Patient had right femur fracture in June 2024 with subsequent ORIF, and has been largely sedentary since then. - She lives alone with help from home health aides and friends who bring food/water. EMS reported that her apartment was covered in dog urine/feces - OOA involved - Case management following; patient may need discharge to rehab/SNF Not able to stand without help due to significant weakness Patient willing to go to [facility] for physical therapy and seems motivated to work towards building strength Leg Ulcerations // Skin infection - Bilateral dorsal foot ulcers; possible source of infection Initial blood cultures with Strep thermophilus in 1 bottle; Final result for repeat blood cultures negative No obvious valvular vegetations noted on TTE - Bilateral feet CT w/o sign of OM, but did note intramuscular and subcutaneous fluid collection; MRI w/o OM in b/l feet - Wound care following - ID following Given clinical presentation at time of admission (hypotension requiring pressors), will continue Ceftriaxone At time of dh, can switch to Amoxicillin 500mg PO TID with end date of 09/21/24 for a total of 14 days of therapy. PE/Bilateral LE DVT Chest Pain - Reported chest pain at time of admission that went across chest and radiated to under bilateral breasts - EKG and CXR unremarkable at time of admission; trop peaked at 285.9 - Possibly MSK related as it palpation of central chest leads to similar sxs, however, PE noted on chest CTA could have also been a cause Chest CTA showing pulmonary emboli involve the right upper lobar artery as well as multiple segmental and subsegmental arteries, but no right heart strain is seen. Subsegmental LLL emboli also seen; likely due to immobility at home - TTE (09/07/24) unchanged from prior TTE with EF > 70% - Suspect today's chest tightness and intermittent SOB is related to PE and/or noted atelectasis/lack of mobility On IS and anticoagulation w/ Eliquis Given worsening SOB and increase in WBC in am labs (~8 --> ~11) >> CXR today showing mild pulmonary edema but no PNA; given Lasix IV and SOB improved - Continue to monitor Telemetry Malnutrition // Hypophosphatemia // Hypokalemia - Hypokalemia resolved after replacement yesterday - Hypophosphatemia improved but not resolved (am labs with 2.1); will order replacement - Suspect could be related to reintroduction of food; mild refeeding syndr? - Continue encouraging PO intake and monitoring labs Anemia, chronic - Hgb 16 at time of admission, which could have also been related to volume contraction given decrease w/ aggressive fluid resuscitation - Hgb stable with am labs showing Hgb of 10.5 - Continue iron tabs - Monitor am labs Asymptomatic UTI - Urine cultures positive for pansensitive Klebsiella - Continue Ceftriaxone Hypotension -- Resolved - Suspect possible etiologies to be hypovolemic from poor hydration plus malnutrition versus septic from UTI or wounds on LE (latter more likely source) versus mix of both - BP now in appropriate range w/o need for medications - Encourage PO intake Hypernatremia -- Resolved - Likely in the setting of volume contraction - Continue to monitor am labs DTV ppx: Eliquis Diet: Regular Admission and Anticipated Discharge Date Admission Date: September 06, 2024 Supervising Physician Co-Signing Physician Notes Attending attestation Pt seen and examined in concert with Dr. Jacky Ernst. In agreement with the documented findings as noted in the resident documentation with any exceptions or additions as noted here. Resting in bed without complaint of pain at present. Working with PT with concerns re: being unsteady on her feet. On examination, S1/S2 nl RRR no MCG. CTAB. Abd NT/ND BS+ve. Foot wound bandaged C/D/I Ambulatory dysfunction - PT/OT consult - pending placement with [facility] - revi ewed goals of therapy and patient is engaged to pursue rehab services and work with recommended PT exercises Leg ulcerations w/ cellulitis - ID consult - continue IV ceftriaxone and transition to PO amoxicillin on discharge PE with bilateral DVT - continue anticoagulation with apixaban. Repeat CXR w/ mild pulmonary edema improved w/ furosemide Else see resident documentation as noted. Subjective Patient evaluated at bedside and found to be alone, aaox3, and in NAD. States she has been feeling more SOB this am. Still has chest pain she's had since admission but no worsening. Not able to ambulate by herself and when she tries to stand, her feet "can't hold her up" which she believes is due to her wounds. Trying to keep up with PO intake. No fevers, chills, or any other new sxs. Review of Systems Review of Systems: As per HPI. Physical Exam Physical Exam: GENERAL: awake and alert, afebrile, NAD CARDIO: RRR, no r/m/g RESPIRATORY: no wheezing or crackles, mild dyspnea with prolonged conversation, no respiratory distress, minimal conversational dyspnea GI: soft, non distended, non tender Results & Data Results & Data Vital Signs (Past 12 Hours) Vital Signs Temp Pulse Pulse Resp BP Pulse Ox O2 Del Method 09/13/24 08:51 Room Air 09/13/24 08:24 36.4 C L 106 H 16 104/69 96 Room Air 09/13/24 03:41 37 C 112 H 17 100/62 93 Room Air 09/13/24 00:00 109 H Resident Activity Tracking Resident Involvement: Resident Care Provided Care Provided: Adult Hospital Medicine
--- NOTE | 2024-09-13 11:34 | XRay Report ---
XR chest 1V portable CLINICAL HISTORY: shortness of breath COMPARISON STUDY: Chest CT September 08, 2024. Chest radiograph September 10, 2024. FINDINGS: Lung volumes are mildly diminished. No pneumothorax. Left subclavian pacer is unchanged in position. Cardiomediastinal silhouette is stable. Mild pulmonary edema has developed. There are small bilateral pleural effusions with bibasilar opacities. Right basilar opacity is increased. Left basil ar opacity is unchanged. IMPRESSION: 1. Interval development of mild pulmonary edema. 2. Persistent small bilateral pleural effusions with associated bibasilar opacities. ACT 112: Negative or not required by law. Electronically signed by: Fred Krishnamurthy M.D. 09/13/2024 11:32 AM
[2024-09-13] MEDS: FUROSEMIDE INJ 20 MG/2 ML VIAL IV ONE (12:39)
[2024-09-13 19:38] VITALS: RESP 18
[2024-09-13] MEDS: FAMOTIDINE 20 MG TAB PO SCH (20:48)
[2024-09-14 06:55] LABS: Basophils # (auto) 0.02 K/uL (0.00-0.20); Basophils % (auto) 0.2 %; Eosinophils # (auto) 0.31 K/uL (0.00-0.50); Eosinophils % (auto) 3.6 %; Hematocrit (blood only) 30.9 % (37.0-47.0); Hemoglobin 9.7 g/dl (12.0-16.0); Immature Granulocytes % (auto) 2.3 %; Lymphocytes # (auto) 1.08 K/uL (1.20-3.40); Lymphocytes % (auto) 12.5 %; Mean Corpuscular Hemoglobin 28.6 pg (25.0-34.0); Mean Corpuscular Hgb Conc 31.4 g/dL (32.0-36.0); Mean Corpuscular Volume 91.2 fL (80.0-100.0); Mean Platelet Volume 11.5 fL (9.4-12.4); Monocytes # (auto) 0.55 K/uL (0.11-0.59); Monocytes % (auto) 6.4 %; Neutrophils # (auto) 6.47 K/uL (1.40-6.50); Platelet Count 234 K/uL (130-400); RDW Coefficient of Variation 15.8 % (11.5-14.5); RDW Standard Deviation 50.4 fL (36.4-46.3); Red Blood Count 3.39 M/uL (4.20-5.40); White Blood Count 8.63 K/ul (4.8-10.8)
[2024-09-14 07:04] LABS: Calcium 7.7 mg/dl (8.6-10.3); Potassium 3.9 mmol/L (3.5-5.1)
[2024-09-14 07:10] LABS: BUN Creatinine Ratio 30.3 (10-20); Creatinine Clr Calc Pharmacy 56.3 ml/min; Phosphorus 2.8 mg/dl (2.5-4.9)
[2024-09-14 07:39] VITALS: PULSE 99; TEMP 98.1; O2SAT 95
--- NOTE | 2024-09-14 09:52 | Discharge Summary ---
Date of Service September 14, 2024 Admission HPI Per Admitting Provider Jessica is an 89-year-old female with PMH of paroxysmal atrial tachycardia, cardiac pacemaker, dyslipidemia, allergic rhinitis, hypothyroidism, and osteoporosis. She presented via EMS from home on 09/06 after she developed midsternal chest pain with radiation underneath both breasts last night. Patient reports that she has had chest pain several nights in a row. It is located under her breast bilaterally and radiates to her middle back. The pain can last for hours at a time. The only thing that seems to alleviate the pain is doing her PT exercises. She characterizes it as a "stabbing" pain. She initially rated the pain 8/10 on arrival, and 5/10 on reassessment. She has been taking Tylenol at home for the pain, but reports this does not help much. No history of pancreatitis or gallbladder issues. No history of ND, but she does report history of "cardiac arrest", and reports that she has a pacemaker in place. She follows with Dr. Conteh ([facility]) outpatient. Additionally, patient reports that she has been largely sedentary ever since her right hip fracture in June. She normally ambulates with a walker at baseline, but reports she has not been able to get up out of her chair. When asked how she gets food/water, she reports that people bring her food and water at home. She reports her legs have been increasingly edematous and weeping since the surgery, and that the dorsal aspect of her feet have developed purulent drainage. No prior history of osteomyelitis, diabetes, or MRSA infections to her knowledge. No prior history of LE edema, wounds, or cellulitis. She reports she has been changing the dressing on her legs daily, and applying Neosporin to the wounds. She denies any pain in her lower extremities at this time. Patient lives alone, but reports she does have support from PT and home health who come and see her regularly. Patient's friend at bedside (Giulia) reports that she checks on her 2-3 times per week. She also has a dog (poloule, "Barbara"). She denies CPAP at night or supplemental oxygen at home. Patient did not take her regular morning medicine today; she reports she has not been on any antibiotics recently. She denies smoking, tobacco use, or alcohol use. Patient is mildly hypotensive at 97/82, and tachycardic at 104 bpm at time of admission; SpO2 92% on RA. ED course: NSS 1000 mL IV at 125 mL/hour Cefepime 2000 mg IV ROS: Patient endorses midsternal chest pain, LE edema/drainage, Patient denies fever, chills, night-sweats, dizziness, lightheadedness, chest palpitations, pleuritic CP, SOB, cough, abdominal pain, changes in urinary/bowel habits, burning with urination, blood in the urine/stool, or numbness/tingling in the legs. Note: Police Department have reportedly contacted the office of aging as patient appears unable to care for herself at home. Admission Exam Per Admitting Provider General: no acute distress; pleasant affect; patient's friend at bedside; non- toxic appearing; frail appearing; cooperative; SpO2 97% on 1L NC HEENT: normocephalic, atraumatic; no scleral icterus; PERRLA; vision and hearing grossly intact Neck: supple; no lymphadenopathy; trachea midline Skin: warm, dry without signs of tenting; no cyanosis; no rashes, bruising, lesions, or erythema noted CV: chest wall, sternum are NTP; no rashes appreciated on the chest wall; RRR; S1/S2 normal; no murmurs/rubs/gallops; pulses intact and symmetric at radial, DP, and PT Lungs: no acute respiratory distress; symmetrical chest wall expansion; clear breath sounds across all lung boyer w/o adventitious sounds; no wheezing ABD: Soft, NTP; BS present; no rebound/guarding; no distention MSK: no tics or fasciculations; patient demonstrates ability wiggle toes bilaterally LEs: +3 pitting edema in the lower extremities bilaterally extending from the dorsal aspect of the feet up to the knees; purulent drainage from the dorsal aspect of the feet bilaterally; black eschar wound noted on the right heel Neuro: A&Ox3; normal mood and affect; fluent speech; no focal deficits; patient reports that sensation is intact and symmetric in the lower EXTR bilaterally assessed via light touch Principal Diagnosis Bilateral LE DVT and PE consequent of sedenterism Discharge Exam GENERAL: awake and alert, afebrile, NAD CARDIO: RRR, no r/m/g RESPIRATORY: no wheezing or crackles, mild dyspnea with prolonged conversation, no respiratory distress, minimal conversational dyspnea GI: soft, non distended, non tender Discharge Data Allergies Allergy/AdvReac Type Severity Reaction Status Date / Time No Known Drug Allergies Allergy Verified 04/19/24 12:10 Consultations 09/06/24 12:39 ED Decision to Admit Stat 09/07/24 18:52 Consult Tire Manager Routine 09/08/24 08:14 Consult Infectious Diseases Routine Ordered Studies 09/06/24 09:36 US venous doppler LE BI Stat 09/06/24 17:27 US arterial duplex LE BI Stat 09/07/24 22:52 CT foot LT wo con Routine CT foot RT wo con Routine 09/08/24 07:18 CT angio chest PE protocol Stat 09/10/24 00:00 MR foot LT wo/w con Routine MR foot RT wo/w con Routine Hospital Course (1) Acute UTI (urinary tract infection): (2) Chronic venous stasis: (3) Hypernatremia: (4) Lower extremity ulceration: (5) Ambulatory dysfunction: (6) NUZHAT (acute kidney injury): (7) Chest pain: (8) Cardiac pacemaker: (9) Hypotension: (10) DVT, bilateral lower limbs: (11) Pulmonary embolism: (12) Anemia: Plan Ambulatory Dysfunction - Patient had right femur fracture in June 2024 with subsequent ORIF, and has been largely sedentary since then. - She lives alone with help from home health aides and friends who bring food/water. EMS reported that her apartment was covered in dog urine/feces; OOA was involved - To be discharged to [facility] today due to significant weakness Leg Ulcerations // Skin infection - Bilateral dorsal foot ulcers; possible source of infection Initial blood cultures with Strep thermophilus in 1 bottle; Final result for repeat blood cultures negative No obvious valvular vegetations noted on TTE - Bilateral feet CT w/o sign of OM, but did note intramuscular and subcutaneous fluid collection; MRI w/o OM in b/l feet - Given clinical presentation at time of admission (hypotension requiring pressors), managed with Ceftriaxone (7 days), and will be discharging today with Amoxicillin 500 mg PO TID for 7 more days to complete 14 days of therapy. PE/Bilateral LE DVT Chest Pain - Reported chest pain at time of admission that went across chest and radiated to under bilateral breasts - EKG and CXR unremarkable at time of admission; trop peaked at 285.9 - Chest CTA showing pulmonary emboli involve the right upper lobar artery as well as multiple segmental and subsegmental arteries, but no right heart strain is seen. Subsegmental LLL emboli also seen; likely due to immobility at home - TTE (09/07/24) unchanged from prior TTE with EF > 70% - Suspect chest tightness and intermittent SOB is related to PE and/or noted atelectasis/lack of mobility Continue IS and anticoagulation w/ Eliquis (10 mg bid starting this even ing and tomorrow, then 5 mg bid starting on 09/16/24) Malnutrition // Hypophosphatemia // Hypokalemia - Electrolyte imbalances corrected - Continue PO intake after discharge Anemia, chronic - Hgb 16 at time of admission, which could have also been related to volume contraction given decrease w/ aggressive fluid resuscitation - Hgb stable with am labs showing Hgb of 9.7 - Continue iron tabs after discharge; advised to take on Friday, Wednesdays, and Fridays; can also take with vitamin C Asymptomatic UTI - Urine cultures positive for pansensitive Klebsiella Hypotension -- Resolved - Suspect possible etiologies to be hypovolemic from poor hydration plus m alnutrition versus septic from UTI or wounds on LE (latter more likely source) versus mix of both - BP now in appropriate range w/o need for medications Hypernatremia -- Resolved - Likely in the setting of volume contraction Discharge to [facility] today. Total Time Total Time Spent Total Time Spent (In Minutes): . Discharge Plan Discharge Items Patient Disposition: Transfer Inpatient Rehab Fac Reason For Visit: CHEST PAIN, LE WOUNDS/EDEMA Discharge Diagnosis: Bilateral lower extremity DVT and Pulmonary Embolism consequent of sedenterism Activity: Per Instructions section Non-emergency contact: Primary Care Provider Call non-emergency contact if: your symptoms worsen and your temperature is above 101 Follow-up/Referrals: Mihai Conteh MD [Primary Care Provider] - Diet: Regular Addtl Attending Provider Instructions: You were admitted due to chest pain which was found to likely be related to some blood clots in your lungs, as well as leg swelling which was likely due to the wounds you have there as well as blood clots that are in the veins of both of your legs. To manage this, we started you on a new medication called Eliquis which is a blood thinner. Please take Eliquis 10 mg this evening and twice daily for tomorrow only, then change dosing to Eliquis 5 mg two times a day starting on 09/16/24. We also treated you with an antibiotic due to the infection in your feet. Please take Amoxicillin 500 mg by mouth three times a day (every 8 hours) for 7 more days starting tomorrow (last day should be September [id number]). Given your significant weakness, we will be discharging you to a center to help you with physical therapy called [facility]. We also sent a prescription for Iron tabs to your pharmacy due to noted low blood count (anemia) while you were in the hospital. Please take Iron tabs on Mondays, Wednesdays, and Fridays, and you could also take this with Vitamin C. Pending Studies at Discharge: No Stand-Alone Forms: My [facility] Skilled Items Patient informed of condition?: Yes DNR: No Discharge Level of Care: Acute rehab Communicable Disease: No Discharge Prognosis: Stable Lines: None Urinary Catheter: No Medications and DC Order Prescriptions: New Eliquis 5 mg Tablet 10 mg PO BID Qty: 3 0RF Rx Instructions: Take 10 mg this evening (09/14/24), and then 10 mg in the morning and at night tomorrow (09/15/24). Starting on 09/16/24, please take 5 mg two times a day. Eliquis 5 mg Tablet 5 mg PO BID Qty: 60 0RF amoxicillin 500 mg capsule 500 mg PO TID 7 Days Qty: 21 0RF ferrous gluconate 324 mg (38 mg iron) tablet 324 mg PO DAILY Qty: 30 0RF Rx Instructions: Please take on Friday, Friday, and Friday Continued metoprolol succinate 50 mg tablet extended release 24 hr 50 mg PO DAILY Qty: 90 3RF celecoxib [Celebrex] 200 mg capsule 200 mg PO BID Qty: 180 3RF Rx Instructions: Generic please thyroid (pork) [[place] Thyroid] 60 mg tablet 60 mg PO DAILY Qty: 90 0RF latanoprost 0.005 % drops 1 drops OPB HS timolol maleate 0.5 % drops, once daily 1 drp OPB BID multivitamin [Daily Multi-Vitamin] Tablet 1 tab PO DAILY aspirin 81 mg Tablet,Chewable 40.5 mg PO BID PreserVision AREDS 4,296 mcg-226 mg-90 mg Capsule 1 cap PO AMPM Rx Instructions: OTC unable to verify Discharge Orders: Discharge Order (Routine); Ordered 09/14/24 Ordered By: Shell Rico Admission Data Admit Date/Time: 09/06/24 13:01 Attending Provider: Rafael Monsivais Admit Provider: Johan Gonzalez Primary Care Provider: Mihai Conteh Other Providers: Johan Gonzalez; Rod[facility]guez Hernandez; [facility] Other Interventions: Discharge Summary Assessment (RN) Last Done: 09/14/24 10:50 Supervising Physician Co-Signing Physician Notes Attending attestation Pt seen and examined in concert with Dr. Jacky Ernst. In agreement with the documented findings as noted in the resident documentation with any exceptions or additions as noted here. Reprots improved engagement with PT/OT though still hesitant re: WB on the LE and balance. On examination, S1/S2 nl RRR no MCG. CTAB. Abd NT/ND BS+ve. Foot wound bandaged C/D/I Ambulatory dysfunction - PT/OT consult - engaged with rehab services Leg ulcerations w/ cellulitis - ID consult - continue PO amoxicillin on discharge PE with bilateral DVT - continue anticoagulation with apixaban. Repeat CXR w/ mild pulmonary edema improved w/ furosemide. Caution with fluids/hydration. Else see resident documentation as noted. Total attending physician time spent with this patient's care on the day of discharge: 35 minutes Resident Activity Tracking Resident Involvement: Resident Care Provided Care Provided: Adult Hospital Medicine
[2024-09-14 10:51] VITALS: BP 104/69
[2024-09-16] MEDS ORDERED: APIXABAN 5 MG TABLET PO SCH (09:00)
== END 2024-09-14 11:34 | DRG 871 ==
LOC: ED 09:11 → 4W 13:01 → SUATTDRO 13:01 → 4W 14:18 → 1E 09-07 19:26 → 2S 09-13 07:04
DX: R07.89 Other chest pain; N17.9 Acute kidney failure, unspecified; I87.2 Venous insufficiency (chronic) (peripheral); Z79.82 Long term (current) use of aspirin; Z58.89 Other problems related to physical environment; L89.610 Pressure ulcer of right heel, unstageable; L97.529 Non-pressure chronic ulcer of other part of left foot with unspecified severity; I87.8 Other specified disorders of veins; Z79.899 Other long term (current) drug therapy; R62.7 Adult failure to thrive; R57.1 Hypovolemic shock; L97.519 Non-pressure chronic ulcer of other part of right foot with unspecified severity; I49.5 Sick sinus syndrome; E86.0 Dehydration; Z60.2 Problems related to living alone; E27.40 Unspecified adrenocortical insufficiency; E46 Unspecified protein-calorie malnutrition; Z95.0 Presence of cardiac pacemaker; E87.0 Hyperosmolality and hypernatremia; D64.89 Other specified anemias; R57.8 Other shock; I26.94 Multiple subsegmental thrombotic pulmonary emboli without acute cor pulmonale; L03.115 Cellulitis of right lower limb; E03.9 Hypothyroidism, unspecified; R26.2 Difficulty in walking, not elsewhere classified; I82.403 Acute embolism and thrombosis of unspecified deep veins of lower extremity, bilateral; I96 Gangrene, not elsewhere classified; L89.150 Pressure ulcer of sacral region, unstageable; I48.0 Paroxysmal atrial fibrillation; R65.21 Severe sepsis with septic shock; I24.89 Other forms of acute ischemic heart disease; A40.8 Other streptococcal sepsis; L03.116 Cellulitis of left lower limb; N39.0 Urinary tract infection, site not specified; A41.89 Other specified sepsis

== ENCOUNTER 2024-10-03 02:46 | Inpatient (IN) ==
--- NOTE | 2024-10-03 02:59 | Emergency Department Note ---
Impression & Plan Chest pain, Shortness of breath, Elevated troponin ED Provider Note NAME: JUAN JOHNSON AGE: 89 SEX: F : 1935 ARRIVES VIA: Ambulance INFORMANT: Patient ED PROVIDER(S): Johan Chahal DO CHIEF COMPLAINT: Swelling over the leg HPI: Patient is a 89-year-old female who presents ER with a past medical history of cardiac arrest, paroxysmal atrial tachycardia, DVT, PE for midsternal chest tightness which started earlier today. She admits to shortness of breath with this and increased swelling in her legs. She notes she cannot lift her legs as they are too heavy. She denies any headache or change in vision. No belly pain, nausea, vomiting or diarrhea. No dysuria, urgency or frequency. No other exacerbating or remitting factors. ADDITIONAL HISTORY OBTAINED: Per HPI Chronic Medical/Social Conditions Affecting Care: Per HPI PAST MEDICAL HISTORY:See Below PAST SURGICAL HISTORY:See Below FAMILY HISTORY:See Below SOCIAL HISTORY:See Below HOME MEDICATIONS:See Below ALLERGIES:See Below VITALS:See Below PHYSICAL EXAMINATION: GENERAL: Sitting up in bed, alert, covered in urine, foul-smelling EYE EXAM: normal conjunctiva. OROPHARYNX: mucous membranes are moist NECK: supple, no nuchal rigidity, no adenopathy, non-tender LUNGS: Clear to auscultation. Normal chest wall mechanics HEART: no murmurs, S1 normal and S2 normal ABDOMEN: abdomen soft, non-tender, normo-active bowel sounds, no masses, no rebound or guarding. BACK: Back is symmetrical on inspection and there is no deformity, no midline tenderness, no CVA tenderness. SKIN: Multiple open sores and wounds on bilateral lower extremities UPPER EXTREMITIES: upper extremities are grossly normal. LOWER EXTREMITIES: Pitting edema in the bilateral lower extremities NEURO EXAM: Normal sensorium, cranial nerves II-XII grossly intact, normal speech, no gross weakness of arms, no gross weakness of legs. MEDICAL DECISION MAKING: Patient is an 89-year-old female with a past medical history of sick sinus syndrome, cardiac arrest, paroxysmal atrial tachycardia, dyslipidemia, paroxysmal A-fib, PE who presents ER for the below stated complaint. External records were reviewed from 09/06 where she was admitted to [facility] with bilateral PEs. IV was established and blood work was obtained. Labs show no significant leukocytosis. Mild anemia 10.4. BMP with a creatinine of 0.91. LFTs and bilirubin were unremarkable. Troponin was elevated at 49 which is twice what appears to be her baseline in the 20s. Lipase is slightly elevated at 177. She was given aspirin and nitro. Her pain resolved with the nitro as well as her shortness of breath. Chest x-ray was clean. She was updated bedside discussed case with the hospitalist for further evaluation management and treatment. Consults/Care Managements Discussions: Per [facility] Triage Nursing notes reviewed. Limited review of prior medical records performed Vital Signs: reviewed and remarkable for no significant abnormalities Differential diagnosis: Differential diagnoses includes but is not limited to pneumonia, bronchitis, COPD/Asthma exacerbation, pneumothorax, pulmonary embolism, congestive heart failure, acute coronary syndrome ER treatment provided: See below Diagnostics interpreted by me include EKG and cardiac monitoring as listed below: -Cardiac Monitoring: An order was placed for continuous cardiac monitoring. The monitor shows a rate of 88 with sinus rhythm. -ECG: Sinus rhythm rate 87 Normal axis No PVCs QTc 452 T wave inversions in inferior leads -Laboratory studies:Interpreted by me as stated above in MDM and shown below. Imaging studies: Xrays: As interpreted by me: Portable AP upright 1 view of the chest shows no focal infiltrate CTs show: none Procedures:none Critical Care: None Past Med/Surg History Problem List (Updated 10/03/24 @ 05:19 by Johan Chahal DO) Elevated troponin (Acute) Pleural effusion, left Shortness of breath (Acute) Chest pain (Acute) Paroxysmal A-fib History of venous thromboembolism Elevated troponin Anemia Pulmonary embolism DVT, bilateral lower limbs Hypotension Chronic venous stasis Failure to thrive in adult Hypernatremia Lower extremity ulceration Ambulatory dysfunction Leg edema Sacral wound (Acute) Wound of right foot (Acute) Wound of left foot (Acute) Chest pain (Acute) Fracture of right hip (Acute 07/01/24) Acute comminuted displaced intertrochanteric fracture of the right femur from a fall 2 days prior per the ED report Acute pain of right thigh (Acute) Fall (Acute) Right femoral fracture (07/01/24) Acute comminuted displaced intertrochanteric fracture of the right femur from a fall 2 days prior per the ED report Squamous cell skin cancer Cardiac pacemaker Decreased exercise tolerance PAT (paroxysmal atrial tachycardia) Glaucoma Dyslipidemia Spinal stenosis Peripheral neuropathy Degenerative joint disease, multiple joints on both sides of body Allergic rhinitis (Acute) Hypothyroidism (Acute) Osteoporosis (Acute) Medical History (Updated 10/03/24 @ 05:19 by Johan Chahal DO) Peptic ulcer SSS (sick sinus syndrome) (04/28/14) Surgical History S/P placement of cardiac pacemaker (~2013) Dual chamber Status post hip surgery (~2013) Left RUTH History of esophagogastroduodenoscopy (~1996) H/O colonoscopy (~1998) Family History Mother Breast cancer Social History Smoking Status: Never smoker Hx Alcohol Use: No Hx Substance Use: No Preferred Language: Japanese Communication Ability: Effective Chancellor Required: No Beliefs That Will Affect Care: None marital status: / Current Living Situation: Alone current occupational status: retired Feels Safe at Home: Yes Assistive Devices: Walker Allergies Allergies Allergy/AdvReac Type Severity Reaction Status Date / Time No Known Drug Allergies Allergy Verified 04/19/24 12:10 Home Meds Home Medications Medication Instructions Recorded Confirmed latanoprost 0.005 % eye drops 1 drops OPB HS 06/15/19 09/06/24 multivitamin (Daily Multi-Vitamin 1 tab PO DAILY 01/31/20 09/06/24 tablet) timolol maleate 0.5 % once daily 1 drp OPB BID 08/14/20 09/06/24 eye drops aspirin 81 mg chewable tablet 40.5 mg PO BID 09/06/24 09/06/24 vitamins A,C,K-myub-znicrv 4,296 1 cap PO AMPM 09/06/24 09/06/24 mcg-226 mg-90 mg capsule (PreserVision AREDS) Previous Rx's Medication Instructions Recorded metoprolol succinate 50 mg 50 mg PO DAILY #90 tabs 10/23/23 tablet,extended release 24 hr celecoxib 200 mg capsule (Celebrex) 200 mg PO BID #180 caps 04/27/24 thyroid (pork) 60 mg tablet 60 mg PO DAILY #90 tabs 08/10/24 (Bruce Thyroid) apixaban 5 mg tablet (Eliquis) 5 mg PO BID #60 tabs 09/14/24 apixaban 5 mg tablet (Eliquis) 10 mg (2 x 5 mg) PO BID #3 tabs 09/14/24 ferrous gluconate 324 mg (38 mg 324 mg PO DAILY #30 tabs 09/14/24 iron) tablet Results & Data (ED) Vital Signs Vital Signs - 24 hr 10/03/24 02:54 10/03/24 02:57 10/03/24 03:18 Temperature 36.8 C Temperature Source Oral Pulse Rate 91 H 91 H 88 Respiratory Rate 20 20 17 Respiratory Effort / Characteristics Non-Labored Respiratory Depth Normal Respiratory Pattern Regular Blood Pressure 125/71 117/72 Blood Pressure Mean 89 77 Pulse Oximetry 94 94 95 Oxygen Delivery Method Room Air Room Air Room Air Sepsis Recent Fever Within 48 Hours No Sepsis New/Unexplained Change in Mental Status N/A Sepsis Action Taken by Nursing No Action Required 10/03/24 03:24 10/03/24 04:00 10/03/24 04:30 Temperature Temperature Source Pulse Rate 95 H 88 82 Respiratory Rate 20 22 16 Respiratory Effort / Characteristics Respiratory Depth Respiratory Pattern Blood Pressure 107/63 105/65 110/71 Blood Pressure Mean 77 78 81 Pulse Oximetry 94 Oxygen Delivery Method Room Air Sepsis Recent Fever Within 48 Hours Sepsis New/Unexplained Change in Mental Status Sepsis Action Taken by Nursing Laboratory Data 10/03/24 03:03 10/03/24 03:03 Lab Results 10/03/24 Range/Units 03:03 WBC 9.65 (4.8-10.8) K/ul RBC 3.75 L (4.20-5.40) M/uL Hgb 10.4 L (12.0-16.0) g/dl Hct 35.1 L (37.0-47.0) % MCV 93.6 (80.0-100.0) fL MCH 27.7 (25.0-34.0) pg MCHC 29.6 L (32.0-36.0) g/dL RDW Std Deviation 56.4 H (36.4-46.3) fL RDW Coeff of López 16.5 H (11.5-14.5) % Plt Count 550 H (130-400) K/uL MPV 9.7 (9.4-12.4) fL Immature Gran % (Auto) 2.3 % Neut % (Auto) 74.1 % Lymph % (Auto) 13.4 % [place] % (Auto) 8.4 % Eos % (Auto) 0.9 % Baso % (Auto) 0.9 % Neut # (Auto) 7.15 H (1.40-6.50) K/uL Lymph # (Auto) 1.29 (1.20-3.40) K/uL [place] # (Auto) 0.81 H (0.11-0.59) K/uL Eos # (Auto) 0.09 (0.00-0.50) K/uL Baso # (Auto) 0.09 (0.00-0.20) K/uL Immature Gran # (Auto) 0.22 H (0.01-0.20) K/uL Sodium 141 (136-145) mmol/L Potassium 4.1 (3.5-5.1) mmol/L Chloride 100 (98-107) mmol/L Carbon Dioxide 33 H (21-32) mmol/L Anion Gap 8 (3-11) BUN 49 H (6-23) mg/dl Creatinine 0.91 (0.6-1.2) mg/dl Est Cr Clr Drug Dosing 39.2 ml/min eGFR 60.30 BUN/Creatinine Ratio 53.8 H (10-20) Glucose 143 H (70-99(Fasting)) mg/dl Calcium 9.8 (8.6-10.3) mg/dl Total Bilirubin 0.3 (0.2-1.0) mg/dl AST 20 (13-39) U/L ALT 19 (7-52) U/L Alkaline Phosphatase 87 (34-104) U/L Troponin I High Sens 49.4 H (0-14) pg/ml B-Natriuretic Peptide 177 H (0-100) pg/ml Total Protein 7.5 (6.0-8.3) gm/dl Albumin 4.0 (3.4-5.0) gm/dl Globulin 3.5 (2.5-4.0) gm/dl Albumin/Globulin Ratio 1.1 (0.9-2) Lipase 177 H (11-82) U/L Administered Medications Discontinued Medications Aspirin (Aspirin Chew 324 Mg) 324 mg PO NOW STA Stop: 10/03/24 02:58 Last Admin: 10/03/24 03:16 Dose: 324 mg Documented By: ERA Nitroglycerin (Nitroglycerin Sl 0.4 Mg/Tab Tab) 0.4 mg SL NOW STA Stop: 10/03/24 02:58 Last Admin: 10/03/24 03:16 Dose: 0.4 mg Documented By: ERA Imaging Data Radiologist's Impression: Chest X-Ray 10/03/24 02:57 EXAM: XR chest 1V portable CLINICAL HISTORY: CP. TECHNIQUE: An X-ray image of the chest is obtained in AP projection. COMPARISON: CT dated 09/08/2024 was reviewed. FINDINGS: Pulmonary Parenchyma: Lungs are clear bilaterally. No evidence of consolidation, collapse, or focal opacities. No pulmonary nodules are identified. Subtle haziness is seen in the left lower zone. The blunting of the left costophrenic angle seen could be due to pleural effusion/thickening. Elevated dome of left hemidiaphragm. Heart and Mediastinum: Heart size and shape are normal. No mediastinal widening or masses. No hilar or mediastinal lymphadenopathy. A cardiac pacemaker device is seen in place. Bony Thorax: The bony thorax appears intact without fractures or deformities. Soft Tissues: Soft tissues overlying the chest wall are unremarkable. IMPRESSION: 1. Subtle haziness is seen in the left lower zone. Clinical and lab correlation is advised to rule out the possibility of mild pulmonary infection. 2. The blunting of the left costophrenic angle seen could be due to pleural effusion/thickening. 3. Elevated dome of left hemidiaphragm. Electronically signed by Ronen Capone 10-03-2024 04:21 AM Discharge Plan Visit Data Chief Complaint: Edema To Extremity Stated Complaint: Edema in Legs, SOB, Chest Pressure ED Provider: Johan Chahal Discharge Problem: Chest pain, Shortness of breath, Elevated troponin Forms Stand Alone Forms: [facility] Prescriptions Prescriptions: No Action metoprolol succinate 50 mg tablet extended release 24 hr 50 mg PO DAILY Qty: 90 3RF celecoxib [Celebrex] 200 mg capsule 200 mg PO BID Qty: 180 3RF Rx Instructions: Generic please thyroid (pork) [Bruce Thyroid] 60 mg tablet 60 mg PO DAILY Qty: 90 0RF latanoprost 0.005 % drops 1 drops OPB HS timolol maleate 0.5 % drops, once daily 1 drp OPB BID multivitamin [Daily Multi-Vitamin] Tablet 1 tab PO DAILY aspirin 81 mg Tablet,Chewable 40.5 mg PO BID PreserVision AREDS 4,296 mcg-226 mg-90 mg Capsule 1 cap PO AMPM Rx Instructions: OTC unable to verify Eliquis 5 mg Tablet 10 mg PO BID Qty: 3 0RF Rx Instructions: Take 10 mg this evening (09/14/24), and then 10 mg in the morning and at night tomorrow (09/15/24). Starting on 09/16/24, please take 5 mg two times a day. Eliquis 5 mg Tablet 5 mg PO BID Qty: 60 0RF ferrous gluconate 324 mg (38 mg iron) tablet 324 mg PO DAILY Qty: 30 0RF Rx Instructions: Please take on Friday, Friday, and Friday Referrals Referrals: Schuyler Gonzalez MD [Primary Care Provider] - Discharge Problem: Chest pain Qualifiers: Chest pain type: unspecified Qualified Code(s): R07.9 - Chest pain, unspecified
[2024-10-03] MEDS: NITROGLYCERIN SL 0.4 MG/TAB TAB SL STA (03:16)
[2024-10-03] MEDS: ASPIRIN CHEW 324 MG PO STA (03:16)
[2024-10-03 03:20] LABS: Basophils # (auto) 0.09 K/uL (0.00-0.20); Basophils % (auto) 0.9 %; Eosinophils # (auto) 0.09 K/uL (0.00-0.50); Eosinophils % (auto) 0.9 %; Hematocrit (blood only) 35.1 % (37.0-47.0); Hemoglobin 10.4 g/dl (12.0-16.0); Immature Granulocytes # (auto) 0.22 K/uL (0.01-0.20); Immature Granulocytes % (auto) 2.3 %; Lymphocytes # (auto) 1.29 K/uL (1.20-3.40); Lymphocytes % (auto) 13.4 %; Mean Corpuscular Hemoglobin 27.7 pg (25.0-34.0); Mean Corpuscular Hgb Conc 29.6 g/dL (32.0-36.0); Mean Corpuscular Volume 93.6 fL (80.0-100.0); Mean Platelet Volume 9.7 fL (9.4-12.4); Monocytes # (auto) 0.81 K/uL (0.11-0.59); Monocytes % (auto) 8.4 %; Neutrophils # (auto) 7.15 K/uL (1.40-6.50); Neutrophils % (auto) 74.1 %; Platelet Count 550 K/uL (130-400); RDW Coefficient of Variation 16.5 % (11.5-14.5); RDW Standard Deviation 56.4 fL (36.4-46.3); Red Blood Count 3.75 M/uL (4.20-5.40); White Blood Count 9.65 K/ul (4.8-10.8)
[2024-10-03 03:41] LABS: Albumin Globulin Ratio 1.1 (0.9-2); BUN Creatinine Ratio 53.8 (10-20); Bilirubin,Total 0.3 mg/dl (0.2-1.0); Calcium 9.8 mg/dl (8.6-10.3); Creatinine Clr Calc Pharmacy 39.2 ml/min; Globulin 3.5 gm/dl (2.5-4.0); Potassium 4.1 mmol/L (3.5-5.1); Total Protein 7.5 gm/dl (6.0-8.3)
[2024-10-03 03:46] LABS: Troponin I High Sensitivity 49.4 pg/ml (0-14)
--- NOTE | 2024-10-03 04:10 | History & Physical Report ---
Date of Service October 03, 2024 Assessment & Plan (1) Elevated troponin: Plan: 49.4 also had elevated troponin with recent admission in which patient was diagnosed with PE (200s) EKG showing NSR, no ischemic changes Chest pain and dyspnea improved with aspirin and nitroglycerin; currently chest pain-free trend trop monitor on tele ordered lipid panel and A1c Follows with Dr. Conteh, cardiology, outpatient - will need close follow up and possible stress test (2) History of venous thromboembolism: Plan: History of BL DVT and PE during recent admission 08/2024 Suspected to be due to immobility at home echo showed EF >70% Continue Eliquis 5 mg twice daily edema - patient on Lasix 20 mg daily although appears dry, BUN 53.8, H&H elevated - for edema secondary to DVT will be unrelieved by lasix - TEDs ordered - hold lasix - promote oral hydration (3) Paroxysmal A-fib: Plan: continue Eliquis and metoprolol Rate controlled on admission (4) Anemia: Plan: Chronic Was started on iron supplement during recent admission in August Hgb 10.4, HCT 35.1 Continue home iron supplement (5) Wound of left foot: Plan: recent hospitalized 08/2024 for sepsis due to wounds CBC shows elevated neutrophils and left shift Completed course of amoxicillin wound care/dressing changes weekly on Tuesdays (6) Pleural effusion, left: Plan: improving from recent admission Seen on admitting CXR, blunting of left costophrenic angle due to pleural effusion/thickening hold Lasix with clinical dryness as above Plan Patient is an 89-year-old female with a past medical history of bilateral DVT and PE during recent present hospitalization August 2024, paroxysmal A-fib s/p pacemaker, anemia, hyperlipidemia, hypothyroidism. She is anticoagulated with Eliquis. She presents today due to midsternal chest tightness, dyspnea, bilateral lower extremity swelling and "heaviness". She is being admitted for cardiac workup with an elevated troponin of 49.4, given ASA and nitro in ED. Chronic stable diagnoses: hypothyroidism - continue thyroid supplement elevated BNP and lipase - chronic, stable VTE ppx: continue Eliquis Diet: Heart healthy Dispo: med/tele Admission and Anticipated Discharge Date Admission Date: 10/03/24 History of Present Illness Chief Complaint: Edema to extremity Primary Care Provider: Schuyler Gonzalez MD Patient is an 89-year-old female with a past medical history of bilateral DVT and PE during recent present hospitalization August 2024, paroxysmal A-fib s/p pacemaker, anemia, hyperlipidemia, hypothyroidism. She is anticoagulated with Eliquis. She presents today due to midsternal chest tightness, dyspnea, bilateral lower extremity swelling and "heaviness". She is being admitted for cardiac workup with an elevated troponin of 49.4, given ASA and nitro in ED. patient seen at bedside, she stated she eats heart healthy meals. She was eating dinner last night and felt like she could not get a full breath and then had midsternal chest pressure. The symptoms were not relieved until arrival to the ED when she was given aspirin and nitroglycerin. She stated this chest pressure feels different than when it did before with her PE. Patient stated she was recently discharged from [facility] on Friday, they were treating her for leg swelling with Lasix and her weight is back to baseline. She stated her lower extremity wounds are healing well and she has home health PT, OT, and wound care. She has dressing changes every Friday. She has been compliant with her Eliquis and Lasix. She wishes to be full code at this time. She does not use oxygen at baseline. Patient denies fever, chills, headache, dizziness, lightheadedness, current dyspnea, current chest pain. She has chronic neuropathy of bilateral lower extremities. Allergies Allergy/AdvReac Type Severity Reaction Status Date / Time No Known Drug Allergies Allergy Verified 04/19/24 12:10 Home Medications Medication Instructions Recorded Confirmed Type latanoprost 0.005 % eye drops 1 drops OPB HS 06/15/19 10/03/24 History multivitamin (Daily Multi-Vitamin 1 tab PO DAILY 01/31/20 09/06/24 History tablet) timolol maleate 0.5 % once daily 1 drp OPB BID 08/14/20 10/03/24 History eye drops celecoxib 200 mg capsule (Celebrex) 200 mg PO BID #180 caps 04/27/24 10/03/24 Rx thyroid (pork) 60 mg tablet 60 mg PO DAILY #90 tabs 08/10/24 10/03/24 Rx (Nicasio Thyroid) aspirin 81 mg chewable tablet 40.5 mg PO BID 09/06/24 10/03/24 History vitamins A,C,J-vvmt-aiozzw 4,296 1 cap PO AMPM 09/06/24 10/03/24 History mcg-226 mg-90 mg capsule (PreserVision AREDS) apixaban 5 mg tablet (Eliquis) 5 mg PO BID #60 tabs 09/14/24 10/03/24 Rx apixaban 5 mg tablet (Eliquis) 10 mg (2 x 5 mg) PO BID #3 tabs 09/14/24 Rx ferrous gluconate 324 mg (38 mg 324 mg PO DAILY #30 tabs 09/14/24 10/03/24 Rx iron) tablet metoprolol succinate 50 mg 25 mg PO DAILY 10/03/24 10/03/24 History tablet,extended release 24 hr Past Med/Surg History Problem List (Updated 10/03/24 @ 05:19 by Johan Chahal DO) Elevated troponin (Acute) Pleural effusion, left Shortness of breath (Acute) Chest pain (Acute) Paroxysmal A-fib History of venous thromboembolism Elevated troponin Anemia Pulmonary embolism DVT, bilateral lower limbs Hypotension Chronic venous stasis Failure to thrive in adult Hypernatremia Lower extremity ulceration Ambulatory dysfunction Leg edema Sacral wound (Acute) Wound of right foot (Acute) Wound of left foot (Acute) Chest pain (Acute) Fracture of right hip (Acute 07/01/24) Acute comminuted displaced intertrochanteric fracture of the right femur from a fall 2 days prior per the ED report Acute pain of right thigh (Acute) Fall (Acute) Right femoral fracture (07/01/24) Acute comminuted displaced intertrochanteric fracture of the right femur from a fall 2 days prior per the ED report Squamous cell skin cancer Cardiac pacemaker Decreased exercise tolerance PAT (paroxysmal atrial tachycardia) Glaucoma Dyslipidemia Spinal stenosis Peripheral neuropathy Degenerative joint disease, multiple joints on both sides of body Allergic rhinitis (Acute) Hypothyroidism (Acute) Osteoporosis (Acute) Medical History (Updated 10/03/24 @ 05:19 by Johan Chahal DO) Peptic ulcer SSS (sick sinus syndrome) (04/28/14) Surgical History S/P placement of cardiac pacemaker (~2013) Dual chamber Status post hip surgery (~2013) Left RUTH History of esophagogastroduodenoscopy (~1996) H/O colonoscopy (~1998) Family History Mother Breast cancer Social History Smoking Status: Never smoker Hx Alcohol Use: No Hx Substance Use: No Preferred Language: Chinese Communication Ability: Effective 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 Non-toxic appearing. HEENT- EOMI, mucous membranes dry. Hearing grossly intact. Heart-normal S1 and S2. No murmurs, rubs or gallops. Lungs-clear bilaterally, no respiratory distress, no accessory muscle use. Abdomen-normal bowel sounds and soft. No ascites noted. Non-tender. Extremities- no clubbing, cyanosis. BL nonpitting edema LE. Wounds with bandages. Rheumatologic-normal range of motion. Psychiatric-normal affect. Results & Data Results & Data Vital Signs (Past 12 Hours) Vital Signs Temp Pulse Resp BP Pulse Ox O2 Del Method 10/03/24 03:18 88 17 117/72 95 Room Air 10/03/24 02:57 36.8 C 91 H 20 125/71 94 Room Air 10/03/24 02:54 91 H 20 94 Room Air Laboratory Results Reviewed CBC, CMP, trop, lipase, BNP Diagnostic Findings Reviewed CXR Medications Administered ED: ASA 324, SL nitro ECG Additional Comments: NSR, no ST changes Code Status & VTE Plan Code Status full VTE Prophylaxis Plan VTE Prophylaxis will be ordered: Yes Supervising Physician Co-Signing Physician Notes Patient seen and examined, chart reviewed, case discussed with GRIS Nesbitt and I agree with the assessment and plan as above Patient presenting with mid-sternal chest tightness and SOB. Has been on Lasix for diuresis of her bilateral LE edema. Pain improved with Nitro and ASA On exam patient is dry in appearance +S1/S2, regular Lungs CTA Abd soft, NT/ND Ext with bilateral non-pitting edema, bandages in place Labs and images reviewed Assessment/Plan Trend troponin, telemetry monitoring Check UA - patient does smell of urine, has leukocytosis Hold Lasix for now - patient appears clinically dry on exam and labs - elevate legs where able, continue compression stockings if tolerated with current leg wounds Remainder as above PG Care Time/CCT Total # of Minutes Spent Total Time Spent with Patient: Total time spent is greater than 50% in coordination of care (as documented) at patient's floor/unit and/or counseling patient: Coding Level of Care Code 31155 INT INP/OBS CARE 375MIN Diagnoses Elevated troponin R79.89 History of venous thromboembolism Z86.718 Paroxysmal A-fib I48.0 Anemia D64.9 Wound of left foot S91.302A Pleural effusion, left J90
--- NOTE | 2024-10-03 04:22 | XRay Report ---
EXAM: XR chest 1V portable CLINICAL HISTORY: CP. TECHNIQUE: An X-ray image of the chest is obtained in AP projection. COMPARISON: CT dated 09/08/2024 was reviewed. FINDINGS: Pulmonary Parenchyma: Lungs are clear bilaterally. No evidence of consolidation, collapse, or focal opacities. No pulmonary nodules are identified. Subtle haziness is seen in the left lower zone. The blunting of the left costophrenic angle seen could be due to pleural effusion/thickening. Elevated dome of left hemidiaphragm. Heart and Mediastinum: Heart size and shape are normal. No mediastinal widening or masses. No hilar or mediastinal lymphadenopathy. A cardiac pacemaker device is seen in place. Bony Thorax: The bony thorax appears intact without fractures or deformities. Soft Tissues: Soft tissues overlying the chest wall are unremarkable. IMPRESSION: 1. Subtle haziness is seen in the left lower zone. Clinical and lab correlation is advised to rule out the possibility of mild pulmonary infection. 2. The blunting of the left costophrenic angle seen could be due to pleural effusion/thickening. 3. Elevated dome of left hemidiaphragm. Electronically signed by Ronen Capone 10-03-2024 04:21 AM
[2024-10-03] MEDS ORDERED: DOCUSATE SODIUM 100 MG CAP PO PRN (05:44)
[2024-10-03] MEDS ORDERED: ACETAMINOPHEN 325 MG TAB PO PRN (05:44)
[2024-10-03 06:13] LABS: Troponin I High Sensitivity 41.3 pg/ml (0-14)
[2024-10-03 07:06] LABS: Estimated Average Glucose 117 mg/dl; Hemoglobin A1C 5.7 % (4.5-5.6)
[2024-10-03] MEDS: TIMOLOL MALEATE 0.5% OP SOLN 5 ML BTL OPB SCH (09:45)
[2024-10-03] MEDS: CeleBREX 200 MG CAP PO SCH (09:46)
[2024-10-03] MEDS: ARMOUR THYROID 30 MG TAB PO SCH (09:47)
[2024-10-03] MEDS: METOPROLOL SUCC 25MG EXT REL TAB PO SCH (09:47)
[2024-10-03] MEDS: ASPIRIN 81 MG CHEW PO SCH (09:47)
[2024-10-03] MEDS: FERROUS GLUCONATE 324 MG TAB PO SCH (09:47)
[2024-10-03] MEDS: APIXABAN 5 MG TABLET PO SCH (09:48)
[2024-10-03] MEDS: LATANOPROST 0.005% OP SOLN 2.5 ML BTL OPB SCH (20:37)
--- NOTE | 2024-10-03 21:52 | Electrocardiogram Report ---
Test Reason : Blood Pressure : */* mmHG Vent. Rate : 87 BPM Atrial Rate : 87 BPM P-R Int : 188 ms QRS Dur : 70 ms QT Int : 376 ms P-R-T Axes : 68 -14 -4 degrees QTcB Int : 452 ms Normal sinus rhythm Low voltage QRS Cannot rule out Anterior infarct , age undetermined Nonspecific T wave abnormality Abnormal ECG When compared with ECG of 06-Sep-2024 09:22, Inverted T waves have replaced nonspecific T wave abnormality in Inferior leads Confirmed by Raghu Smiley ([id number]) on 10/03/2024 9:51:54 PM Referred By: REFERRED SELF Confirmed By: Raghu Smiley
[2024-10-03 22:13] LABS: Appearance Urine Turbid (Clear); Bacteria Urine Automated 4+ (None Seen); Bilirubin Urine Negative (Negative); Blood Urine 3+ (Negative); Calcium Oxalate Crystals Urine Present (None Prsent); Color Urine Yellow; Glucose Urine UA Negative (Negative); Ketones Urine Trace (Negative); Leukocyte Esterase Urine 3+ (Negative); Nitrite Urine Negative (Negative); Protein Urine 3+ (Negative); RBC Urine Automated >20 /hpf (0-2); Specific Gravity Urine 1.023 (1.000-1.030); Urobilinogen Urine Negative (Negative); WBC Urine Automated >50 /hpf (0-5); pH Urine 6.5 (4.5-7.5)
[2024-10-03 22:15] LABS: Cast Urine Automated 0-2 /lpf (0-2)
--- NOTE | 2024-10-04 00:04 | Communication Note ---
Date of Service: October 04, 2024 RN contacted me with UA results. Urinalysis remarkable for 3+ blood, 4+ bacteria, and 3+ leukocyte esterase. Patient overall incontinent of urine but o therwise asymptomatic. Possible that blood noted on UA is from cystitis instead of secondary to Eliquis (started for PE and DVT) given lack of gross hematuria. Due to blood noted on UA, as well as hypotension requiring vasopressors in previous admission that was suspected to be due to septic shock, will start ceftriaxone as management which can be changed to the appropriate oral antibiotic regimen (if able) once urine culture results available. Would advise repeat UA once infection resolves to ensure hematuria also resolves. DOAC should be discontinued if gross hematuria is noted. Resident Activity Tracking Resident Involvement: Resident Care Provided Care Provided: Adult Hospital Medicine
[2024-10-04] MEDS: cefTRIAXone SODIUM 1,000 MG/50 ML BAG IV SCH (00:15)
[2024-10-04 07:35] LABS: Hematocrit (blood only) 27.9 % (37.0-47.0); Hemoglobin 8.4 g/dl (12.0-16.0); Mean Corpuscular Hemoglobin 27.9 pg (25.0-34.0); Mean Corpuscular Hgb Conc 30.1 g/dL (32.0-36.0); Mean Corpuscular Volume 92.7 fL (80.0-100.0); Mean Platelet Volume 9.9 fL (9.4-12.4); Platelet Count 471 K/uL (130-400); RDW Coefficient of Variation 16.7 % (11.5-14.5); RDW Standard Deviation 55.8 fL (36.4-46.3); Red Blood Count 3.01 M/uL (4.20-5.40); White Blood Count 9.02 K/ul (4.8-10.8)
[2024-10-04 07:57] LABS: Albumin Globulin Ratio 1.1 (0.9-2); Albumin Level 3.1 gm/dl (3.4-5.0); BUN Creatinine Ratio 43.3 (10-20); Bilirubin,Total 0.3 mg/dl (0.2-1.0); C Reactive Protein 5.93 mg/dl (0-0.5); Calcium 8.5 mg/dl (8.6-10.3); Creatinine Clr Calc Pharmacy 36.8 ml/min; Globulin 2.7 gm/dl (2.5-4.0); Potassium 4.5 mmol/L (3.5-5.1); Total Protein 5.8 gm/dl (6.0-8.3)
--- NOTE | 2024-10-04 10:26 | Hospitalist Progress Note ---
Date of Service October 04, 2024 Assessment & Plan (1) Elevated troponin: Plan: monitor on tele awaiting stress test today cardiology consulted (2) History of venous thromboembolism: Plan: History of BL DVT and PE during recent admission 08/2024 Suspected to be due to immobility at home echo showed EF >70% Continue Eliquis 5 mg twice daily (3) Paroxysmal A-fib: Plan: Eliquis and metoprolol (4) Anemia: Plan: Chronic Iron supplement (5) Wound of left foot: Plan: recent hospitalized 08/2024 for sepsis due to wounds wound care/dressing changes weekly on Tuesdays (6) Pleural effusion, left: Plan: improving from recent admission hold Lasix Plan Patient is an 89-year-old female with a past medical history of bilateral DVT and PE during recent present hospitalization August 2024, paroxysmal A-fib s/p pacemaker, anemia, hyperlipidemia, hypothyroidism. She is anticoagulated with Eliquis. She presents with midsternal chest tightness, dyspnea, bilateral lower extremity swelling and "heaviness". She is being admitted for cardiac workup with an elevated troponin of 49.4, given ASA and nitro in ED. Chronic stable diagnoses: hypothyroidism - continue thyroid supplement elevated BNP and lipase - chronic, stable VTE ppx: continue Eliquis Diet: Heart healthy Dispo: med/tele If stress test negative, ok to discharge home. Admission and Anticipated Discharge Date Admission Date: October 03, 2024 Subjective No events overnight. Pt resting comfortably in bed. Review of Systems Review of Systems: CONST: Negative for fever, body aches and chills. HENT: Negative for neck pain/stiffness, headache, congestion, sore throat, swelling. EYES: Negative for discharge/pain or vision changes. RESP: Negative for cough/hemoptysis and shortness of breath. CV: Negative chest pain, difficulty breathing, palpitations. ABD: Negative pain, nausea, vomiting. : Negative increase frequency, dysuria, blood in urine or stool. MUSC: Negative for muscle aches, edema. SKIN: Negative rash, lesions/sores. NEURO: Negative headache, dizziness, weakness. Physical Exam Physical Exam: GENERAL APPEARANCE NAD, activity normal for age, well developed/ well nourished, no cyanosis, pallor, or diaphoresis. EYES lids/conjunctiva normal. EARS/NOSE/THROAT Mucous membranes moist, nares normal, lips/teeth normal uvula midline without oral pharyngeal erythema, exudate or swelling TMs normal bilaterally. No lymphangitis/lymphedema. HEAD/NECK normocephalic atraumatic, no facial trauma, neck is supple. RESPIRATORY respiratory effort normal, speaks in full sentences, no tripod position, no accessory muscle use. Lungs clear to auscultation without rhonchi, wheezes, rales CARDIAC Regular rate and rhythm, no edema. ABDOMINAL Soft, ND/NT. No evidence of fluid wave. No pulsatile masses on exam, rebound tenderness, Whitmore sign or pain over Mcburney's point. MUSCLES/EXTREMITIES No abnormal range of motion, no swelling. SKIN Warm, pink and dry. No rashes, dermatoses, petechiae or lesions. NEUROLOGICAL Speech is clear and appropriate. Normal level of consciousness. Gait and coordination are normal. 5/5 strength in all extremities. PSYCH Normal mood and affect. Judgement/competence is appropriate Results & Data Results & Data Vital Signs (Past 12 Hours) Vital Signs Temp Pulse Pulse Resp BP Pulse Ox O2 Del Method 10/04/24 09:00 Room Air 10/04/24 07:05 37.1 C 87 18 103/64 94 Room Air 10/04/24 07:00 80 10/04/24 03:57 36.5 C 98 H 16 96/60 L 98 Room Air 10/03/24 23:19 36.9 C 96 H 18 103/65 94 Room Air PG Care Time/CCT Total # of Minutes Spent Total Time Spent with Patient: Total time spent is greater than 50% in coordination of care (as documented) at patient's floor/unit and/or counseling patient: Coding Level of Care Code 09402 SUB INP/OBS CARE 2/35MIN Diagnoses Elevated troponin R79.89 History of venous thromboembolism Z86.718 Paroxysmal A-fib I48.0 Anemia D64.9 Wound of left foot S91.302A Pleural effusion, left J90
--- NOTE | 2024-10-04 11:47 | Discharge Summary ---
Discharge Summary Date of Service October 04, 2024 Principal Dx & Hospital Course #1 = Principal Diagnosis (1) Elevated troponin: monitor on tele Pt unable to have stress test due to elevated troponin cardiology consulted (2) History of venous thromboembolism: History of BL DVT and PE during recent admission 08/2024 Suspected to be due to immobility at home echo showed EF >70% Continue Eliquis 5 mg twice daily (3) Paroxysmal A-fib: Eliquis and metoprolol (4) Anemia: Chronic Iron supplement (5) Wound of left foot: recent hospitalized 08/2024 for sepsis due to wounds wound care/dressing changes weekly on Tuesdays (6) Pleural effusion, left: improving from recent admission hold Lasix Plan Patient is an 89-year-old female with a past medical history of bilateral DVT and PE during recent present hospitalization August 2024, paroxysmal A-fib s/p pacemaker, anemia, hyperlipidemia, hypothyroidism. She is anticoagulated with Eliquis. She presents with midsternal chest tightness, dyspnea, bilateral lower extremity swelling and "heaviness". She is being admitted for cardiac workup with an elevated troponin of 49.4, given ASA and nitro in ED. Chronic stable diagnoses: hypothyroidism - continue thyroid supplement elevated BNP and lipase - chronic, stable VTE ppx: continue Eliquis Diet: Heart healthy Dispo: med/tele If stress test negative, ok to discharge home. Admission HPI Per Admitting Provider Patient is an 89-year-old female with a past medical history of bilateral DVT and PE during recent present hospitalization August 2024, paroxysmal A-fib s/p pacemaker, anemia, hyperlipidemia, hypothyroidism. She is anticoagulated with Eliquis. She presents today due to midsternal chest tightness, dyspnea, bilateral lower extremity swelling and "heaviness". She is being admitted for cardiac workup with an elevated troponin of 49.4, given ASA and nitro in ED. patient seen at bedside, she stated she eats heart healthy meals. She was eating dinner last night and felt like she could not get a full breath and then had midsternal chest pressure. The symptoms were not relieved until arrival to the ED when she was given aspirin and nitroglycerin. She stated this chest pressure feels different than when it did before with her PE. [facility] were treating her for leg swelling with Lasix and her weight is back to baseline. She stated her lower extremity wounds are healing well and she has home health PT, OT, and wound care. She has dressing changes every Friday. She has been compliant with her Eliquis and Lasix. She wishes to be full code at this time. She does not use oxygen at baseline. Patient denies fever, chills, headache, dizziness, lightheadedness, current dyspnea, current chest pain. She has chronic neuropathy of bilateral lower extremities. Discharge Exam GENERAL APPEARANCE NAD, activity normal for age, well developed/ well nourished, no cyanosis, pallor, or diaphoresis. EYES lids/conjunctiva normal. EARS/NOSE/THROAT Mucous membranes moist, nares normal, lips/teeth normal uvula midline without oral pharyngeal erythema, exudate or swelling TMs normal bilaterally. No lymphangitis/lymphedema. HEAD/NECK normocephalic atraumatic, no facial trauma, neck is supple. RESPIRATORY respiratory effort normal, speaks in full sentences, no tripod position, no accessory muscle use. Lungs clear to auscultation without rhonchi, wheezes, rales CARDIAC Regular rate and rhythm, no edema. ABDOMINAL Soft, ND/NT. No evidence of fluid wave. No pulsatile masses on exam, rebound tenderness, Whitmore sign or pain over Mcburney's point. MUSCLES/EXTREMITIES No abnormal range of motion, no swelling. SKIN Warm, pink and dry. No rashes, dermatoses, petechiae or lesions. NEUROLOGICAL Speech is clear and appropriate. Normal level of consciousness. Gait and coordination are normal. 5/5 strength in all extremities. PSYCH Normal mood and affect. Judgement/competence is appropriate Discharge Plan Discharge Items Reason For Visit: CARDIAC WORKUP Discharge Diagnosis: chest pain Activity: Resume your previous activity Non-emergency contact: Primary Care Provider Call non-emergency contact if: you have any medication questions Follow-up/Referrals: Schuyler Gonzalez MD [Primary Care Provider] - Diet: Heart Healthy Addtl Attending Provider Instructions: Follow up with cardiology as out patient in 1 week Pending Studies at Discharge: No Stand-Alone Forms: My [employer], Smoking Cessation Medications and DC Order Prescriptions: Continued celecoxib [Celebrex] 200 mg capsule 200 mg PO BID Qty: 180 3RF Rx Instructions: Generic please thyroid (pork) [[place] Thyroid] 60 mg tablet 60 mg PO DAILY Qty: 90 0RF metoprolol succinate 25 mg tablet extended release 24 hr 25 mg PO DAILY Qty: 90 3RF latanoprost 0.005 % drops 1 drops OPB HS timolol maleate 0.5 % drops, once daily 1 drp OPB BID multivitamin [Daily Multi-Vitamin] Tablet 1 tab PO DAILY aspirin 81 mg Tablet,Chewable 40.5 mg PO BID PreserVision AREDS 4,296 mcg-226 mg-90 mg Capsule 1 cap PO AMPM Rx Instructions: OTC unable to verify Eliquis 5 mg Tablet 10 mg PO BID Qty: 3 0RF Rx Instructions: Take 10 mg this evening (09/14/24), and then 10 mg in the morning and at night tomorrow (09/15/24). Starting on 09/16/24, please take 5 mg two times a day. Eliquis 5 mg Tablet 5 mg PO BID Qty: 60 0RF ferrous gluconate 324 mg (38 mg iron) tablet 324 mg PO DAILY Qty: 30 0RF Rx Instructions: Please take on Friday, Friday, and Friday Admission Data Admit Date/Time: 10/03/24 05:04 Attending Provider: Pipo Cotto Admit Provider: Joanna Valdes Primary Care Provider: Schuyler Gonzalez Other Providers: Joanna Valdes; Raghu Smiley Hospital Stay Data Consultations 10/03/24 03:55 ED Decision to Admit Stat 10/04/24 07:23 Consult Cardiology Routine Pending Results Patient Have Any Pending Studies at Discharge: No Discharge Instructions Given to Patient (Per Discharging Provider) Follow up with cardiology as out patient in 1 week Total Time Total Time Spent Total Time Spent (In Minutes): 50 Coding Level of Care Code 44100 INP/OBS DISCH >30 MIN Diagnoses Elevated troponin R79.89 History of venous thromboembolism Z86.718 Paroxysmal A-fib I48.0 Anemia D64.9 Wound of left foot S91.302A Pleural effusion, left J90
--- NOTE | 2024-10-04 11:57 | XCELERA ---
[id number]\[id number]
--- NOTE | 2024-10-04 12:06 | Cardiology Consultation ---
Date of Consultation October 04, 2024 History of Present Illness Attending Physician: Pipo Cotto MD History of Present Illness Allergies Allergy/AdvReac Type Severity Reaction Status Date / Time No Known Drug Allergies Allergy Verified 04/19/24 12:10 Home Medications Medication Instructions Recorded Confirmed Type latanoprost 0.005 % eye drops 1 drops OPB HS 06/15/19 10/03/24 History multivitamin (Daily Multi-Vitamin 1 tab PO DAILY 01/31/20 09/06/24 History tablet) timolol maleate 0.5 % once daily 1 drp OPB BID 08/14/20 10/03/24 History eye drops celecoxib 200 mg capsule (Celebrex) 200 mg PO BID #180 caps 04/27/24 10/03/24 Rx thyroid (pork) 60 mg tablet 60 mg PO DAILY #90 tabs 08/10/24 10/03/24 Rx ([place] Thyroid) aspirin 81 mg chewable tablet 40.5 mg PO BID 09/06/24 10/03/24 History vitamins A,C,V-ekad-zprzfq 4,296 1 cap PO AMPM 09/06/24 10/03/24 History mcg-226 mg-90 mg capsule (PreserVision AREDS) apixaban 5 mg tablet (Eliquis) 5 mg PO BID #60 tabs 09/14/24 10/03/24 Rx apixaban 5 mg tablet (Eliquis) 10 mg (2 x 5 mg) PO BID #3 tabs 09/14/24 Rx ferrous gluconate 324 mg (38 mg 324 mg PO DAILY #30 tabs 09/14/24 10/03/24 Rx iron) tablet metoprolol succinate 25 mg 25 mg PO DAILY #90 tabs 10/04/24 Rx tablet,extended release 24 hr Patient History Medical History (Updated 10/03/24 @ 05:19 by Johan Chahal DO) Peptic ulcer SSS (sick sinus syndrome) (04/28/14) Surgical History S/P placement of cardiac pacemaker (~2013) Dual chamber Status post hip surgery (~2013) Left RUTH History of esophagogastroduodenoscopy (~1996) H/O colonoscopy (~1998) Family History Mother Breast cancer Social History Smoking Status: Never smoker Hx Alcohol Use: No Hx Substance Use: No Preferred Language: Croatian Communication Ability: Effective Compliance Attorney Required: No Beliefs That Will Affect Care: None marital status: / Current Living Situation: Alone current occupational status: retired Feels Safe at Home: Yes Assistive Devices: Cane, Walker and Wheelchair Results & Data Vital Signs (Past 12 Hours) Vital Signs Temp Pulse Pulse Pulse Pulse Resp BP 10/04/24 11:51 36.9 C 92 H 81 87 18 92/59 L 10/04/24 11:33 36.9 C 81 18 92/59 L 10/04/24 09:00 10/04/24 07:05 37.1 C 87 18 103/64 10/04/24 07:00 80 10/04/24 03:57 36.5 C 98 H 16 96/60 L Pulse Ox O2 Del Method 10/04/24 11:51 94 10/04/24 11:33 94 Room Air 10/04/24 09:00 Room Air 10/04/24 07:05 94 Room Air 10/04/24 07:00 10/04/24 03:57 98 Room Air Diagnostic Findings LIMITED ECHO 10/04/2024: 1. Normal left ventricular size with hyperdynamic systolic function. EF > 70%. No regional wall motion abnormalities. Mild concentric left ventricular hypertrophy. 2. Small pericardial effusion. 3. Limited 2D study as per request. 4. Compared to prior study on 09/07/2024, wall motion and pericardial effusion remains stable. Echo 09/07/2024: Normal LV size. EF > 70%. Normal wall motion. Mild LVH. Sclerotic aortic valve without significant stenosis. Mild ALMAZ without significant LVOT obstruction. Small pericardial effusion without tamponade physiology. Normal RVSP. ECG personally reviewed 10/03/2024: Sinus rhythm 87 bpm. Nonspecific T wave abnormality. Poor R wave progression. PG Care Time/CCT Total # of Minutes Spent Total Time Spent with Patient: Total time spent is greater than 50% in coordination of care (as documented) at patient's floor/unit and/or counseling patient: Coding
--- NOTE | 2024-10-04 15:53 | Myocardial Perfusion Study ---
Date of Service October 04, 2024 Myocardial Perfusion Study [facility] Myocardial Perfusion Study Report Procedure: 1. Myocardial perfusion study performed in multiple views/images 2. Lexiscan pharmacologic stress ECG Indications: 1. Chest pain Ordering provider: Dr. Azevedo Procedural details: For the stress portion of the study, Lexiscan 0.4 mg was intravenously administered followed by a saline flush. This was followed by 27.7 mCi of technetium 99m Cardiolite, injected at 2:05 PM on 10/04/2024. 30 minutes following the injection, imaging of the heart was performed in multiple projections. For the rest portion of the study, 10.6 mCi technetium 99m Cardiolite was injected intravenously at 12:03 PM on 10/04/2024. 1 hour following the injection, imaging of the heart was performed in the same projections. Lexiscan stress ECG: Resting ECG demonstrated: Sinus rhythm first-degree AV block 99 bpm. Maximum heart rate: 130 bpm Maximal, age-predicted heart rate: 99% Resting blood pressure: 107/52 mmHg Maximum blood pressure: 107/[address] changes: None Arrhythmia: Paroxysmal atrial tachycardia Symptoms: None Findings: Rotating raw imaging demonstrated no significant lung uptake. There is no significant motion artifact. Heart size appeared small. Myocardial perfusion demonstrated a small area of mildly reduced uptake involving the inferior and inferolateral wall segments, from base to apex. This defect was reversible on rest images. There was significant intestinal uptake on the stress images near the inferior/inferolateral wall, which may interfere with interpretation. Ejection fraction: 62% Wall motion: Normal No significant transient ischemic dilation. Impression: 1. Abnormal myocardial perfusion study suggesting possible inferior/inferolateral ischemia, but significant intestinal uptake in the area may affect interpretation. 2. Normal wall motion and LV systolic function. EF 62% 3. No symptoms reported. 4. Paroxysmal atrial tachycardia. 5. Nondiagnostic Lexiscan ECG. [facility] [place] Myocardial perfusion code Procedure Code Procedure 1: Myocardial Perfusion Codes: 79001 Cardiovascular Stress Test, multiple Procedure 2: Myocardial Perfusion Codes: 05761 Cardiovascular Stress Test, interpretation and report Procedure 3: Myocardial Perfusion Codes: 96766 Cardiovascular Stress Test, supervision only
[2024-10-04] MEDS: REGADENOSON 0.4 MG/5 ML SYR IV ONE (17:01)
--- NOTE | 2024-10-04 18:53 | Cardiology Consultation ---
Date of Consultation October 04, 2024 Assessment & Plan (1) Abnormal nuclear stress test: (2) Elevated troponin: (3) Chest pain: (4) PAT (paroxysmal atrial tachycardia): (5) Cardiac pacemaker: (6) Dyslipidemia: (7) SSS (sick sinus syndrome): (8) Pericardial effusion: Plan ASSESSMENT/PLAN: 1. Chest pain: Atypical. Based on her description, occurs with swallowing/choking and coughing. Concerning for aspiration. Presentation is not consistent with ischemic heart disease. Further evaluation as per primary hospitalist service. 2. Abnormal stress: Myocardial perfusion study is abnormal. There is significant intestinal uptake on the stress images, which could be attributing to the abnormality. Cannot exclude underlying CAD however. No compelling symptoms for active angina. Her high-sensitivity troponin seems to be chronically elevated and smoldering, not a pattern suggesting ACS. When discussing her abnormalities, she was quick to say that she would not want a cardiac catheterization. Without definite angina, would not recommend such. Risk factor modification. Consider statin therapy. On anticoagulation therapy for recent DVT/PE. 3. Atrial tachycardia: Documented issue on previous electrophysiology outpatient note. Can resume home dose of metoprolol if no contraindication. 4. Sick sinus syndrome s/p dual-chamber pacemaker: Continue to follow with her press feeder, Dr. Conteh. 5. Pericardial effusion: Chronic of at least 10+ years. Seems stable. No further evaluation necessary at this time. 6. Difficulty swallowing: Based on her description, would consider swallow evaluation. Will defer to primary hospitalist service. 7. Anemia: Defer to primary hospitalist service. Monitor for bleeding, especially now that she is on anticoagulation therapy. 8. Elevated troponin: Presentation is not consistent with acute coronary syndrome as noted. Seems to have chronically elevated high-sensitivity troponin. 9. Bilateral DVT/pulmonary emboli: As per primary hospitalist service. 10. Dyslipidemia: Can initiate statin therapy if no contraindication. 11. Disposition: Cardiology will sign off at this time. Please call with any further questions or concerns. Patient care communicated with Dr. oCtto of the primary hospitalist service. Follow-up with her primary press feeder in the outpatient setting (Dr. Conteh). Thank you for allowing me to participate in the care of your patient. Please call for any other questions or concerns. Sincerely, Delta Smiley M.D. History of Present Illness Reason for Consultation: Abnormal stress test Requesting Physician: Dr. Cotto Attending Physician: Joanna Valdes DO History of Present Illness Ms. Sanchez is a pleasant 89-year-old female with a history significant for bilateral lower extremity DVT, bilateral pulmonary emboli, paroxysmal atrial tachycardia, sick sinus syndrome s/p dual-chamber pacemaker, hypertension, and dyslipidemia. Her primary press feeder/sheet cutting operator is Dr. Conteh. She was recently hospitalized and discharged on 09/14/2024 with bilateral lower extremity DVT and pulmonary emboli. She was readmitted on 10/03/2024 with chest discomfort. Her high-sensitivity troponin was 49 on presentation and would last evaluated on 09/10/2024 256. Her high-sensitivity troponins have been elevated in June and August 2024 as well as presentation here. She has not had normal high-sensitivity troponins. On presentation, she had described mid sternal chest tightness, dyspnea, lower extremity swelling and leg heaviness. Admitting provider ordered a myocardial perfusion study. This morning, Dr. Cotto ordered a cardiology consultation. Before stress or consultation were performed, discharge order was placed before noon. She had already received radioisotope for the myocardial perfusion study rest images. Dr. Cotto was notified and he canceled the consultation and kept her in-house to undergo stress testing. She is a bit of a poor historian. She initially informed me that she had been walking up until the day she was hospitalized but after further conversation, has not been walking for months. She described a substernal chest discomfort that occurs only at rest. She confirms that she is nonambulatory. She then stated that her chest discomfort occurs when swallowing or coughing. When she swallows her food, she chokes and notes chest discomfort. When she coughs, she notes thick mucus at times and sometimes brings up the food that she had just swallowed. She denies chest pain other than during these circumstances. She denies shortness of breath at rest, orthopnea, syncope, near syncope, palpitations. She states that ever since her hip surgery, she has had lower extremity edema. She reports receiving diuretics with other providers and that the edema has resolved. She reports that she is nonambulatory due to significant neuropathy. Review of systems: As above. Family history: Noncontributory. Social history: She denies tobacco, alcohol abuse. . She had a child who a few days old. Lives at a senior complex. 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 Unaccompanied. Allergies Allergy/AdvReac Type Severity Reaction Status Date / Time No Known Drug Allergies Allergy Verified 04/19/24 12:10 Home Medications Medication Instructions Recorded Confirmed Type latanoprost 0.005 % eye drops 1 drops OPB HS 06/15/19 10/03/24 History multivitamin (Daily Multi-Vitamin 1 tab PO DAILY 01/31/20 09/06/24 History tablet) timolol maleate 0.5 % once daily 1 drp OPB BID 08/14/20 10/03/24 History eye drops celecoxib 200 mg capsule (Celebrex) 200 mg PO BID #180 caps 04/27/24 10/03/24 Rx thyroid (pork) 60 mg tablet 60 mg PO DAILY #90 tabs 08/10/24 10/03/24 Rx ([place] Thyroid) aspirin 81 mg chewable tablet 40.5 mg PO BID 09/06/24 10/03/24 History vitamins A,C,I-xxny-ydcyre 4,296 1 cap PO AMPM 09/06/24 10/03/24 History mcg-226 mg-90 mg capsule (PreserVision AREDS) apixaban 5 mg tablet (Eliquis) 5 mg PO BID #60 tabs 09/14/24 10/03/24 Rx apixaban 5 mg tablet (Eliquis) 10 mg (2 x 5 mg) PO BID #3 tabs 09/14/24 Rx ferrous gluconate 324 mg (38 mg 324 mg PO DAILY #30 tabs 09/14/24 10/03/24 Rx iron) tablet metoprolol succinate 25 mg 25 mg PO DAILY #90 tabs 10/04/24 Rx tablet,extended release 24 hr Problem List (Updated 10/04/24 @ 18:53 by Raghu Smiley MD) Pericardial effusion Abnormal nuclear stress test Elevated troponin (Acute) Pleural effusion, left Shortness of breath (Acute) Chest pain (Acute) History of venous thromboembolism Elevated troponin Anemia Pulmonary embolism DVT, bilateral lower limbs Hypotension Chronic venous stasis Failure to thrive in adult Hypernatremia Lower extremity ulceration Ambulatory dysfunction Leg edema Sacral wound (Acute) Wound of right foot (Acute) Wound of left foot (Acute) Chest pain (Acute) Fracture of right hip (Acute 07/01/24) Acute comminuted displaced intertrochanteric fracture of the right femur from a fall 2 days prior per the ED report Acute pain of right thigh (Acute) Fall (Acute) Right femoral fracture (07/01/24) Acute comminuted displaced intertrochanteric fracture of the right femur from a fall 2 days prior per the ED report Squamous cell skin cancer Cardiac pacemaker Decreased exercise tolerance PAT (paroxysmal atrial tachycardia) Glaucoma Dyslipidemia Spinal stenosis Peripheral neuropathy Degenerative joint disease, multiple joints on both sides of body Allergic rhinitis (Acute) Hypothyroidism (Acute) Osteoporosis (Acute) Patient History Medical History Peptic ulcer SSS (sick sinus syndrome) (04/28/14) Surgical History S/P placement of cardiac pacemaker (~2013) Dual chamber Status post hip surgery (~2013) Left RUTH History of esophagogastroduodenoscopy (~1996) H/O colonoscopy (~1998) Family History Mother Breast cancer Social History Smoking Status: Never smoker Hx Alcohol Use: No Hx Substance Use: No Preferred Language: Thai Communication Ability: Effective Multimedia Production Assistant Required: No Beliefs That Will Affect Care: None marital status: / Current Living Situation: Alone current occupational status: retired Other Information That Helps Us Care for You: No Feels Safe at Home: Yes Safety Concerns: Feels Safe At This Time Assistive Devices: Glasses, Walker and Wheelchair Assistive Devices Comment: pt states she has all listed assistive devices, but she does not need them Physical Exam Physical Exam: Gen.: No acute distress. Alert. HEENT: Anicteric sclera. Neck: No JVD. No bruits. Normal carotid upstrokes bilaterally. Cardiac: Regular. Normal S1-S2. No murmurs, rubs, or gallops. Pulmonary: Clear to auscultation bilaterally without wheezes, rales, or rhonchi. Abdomen: Soft, nontender, nondistended, with normoactive bowel sounds. No bruits noted. Extremities: 2+ radial pulses bilaterally. No edema or cyanosis. Results & Data Vital Signs (Past 12 Hours) Vital Signs Temp Pulse Pulse Pulse Pulse Resp BP 10/04/24 15:21 36.6 C 87 18 107/73 10/04/24 13:00 102 H 10/04/24 11:51 36.9 C 92 H 81 87 18 92/59 L 10/04/24 11:33 36.9 C 81 18 92/59 L 10/04/24 09:00 10/04/24 07:05 37.1 C 87 18 103/64 10/04/24 07:00 80 Pulse Ox O2 Del Method 10/04/24 15:21 94 Room Air 10/04/24 13:00 10/04/24 11:51 94 10/04/24 11:33 94 Room Air 10/04/24 09:00 Room Air 10/04/24 07:05 94 Room Air 10/04/24 07:00 Laboratory Results Laboratory Results - last 24 hr 10/03/24 10/04/24 Unknown 06:47 WBC 9.02 RBC 3.01 L Hgb 8.4 L Hct 27.9 L MCV 92.7 MCH 27.9 MCHC 30.1 L RDW Std Deviation 55.8 H RDW Coeff of López 16.7 H Plt Count 471 H MPV 9.9 Sodium 140 Potassium 4.5 Chloride 102 Carbon Dioxide 31 Anion Gap 7 BUN 42 H Creatinine 0.97 Est Cr Clr Drug Dosing 36.8 eGFR 55.86 BUN/Creatinine Ratio 43.3 H Glucose 107 H Calcium 8.5 L Total Bilirubin 0.3 AST 18 ALT 14 Alkaline Phosphatase 65 C-Reactive Protein 5.93 H B-Natriuretic Peptide 194 H Total Protein 5.8 L D Albumin 3.1 L Globulin 2.7 Albumin/Globulin Ratio 1.1 Urine Color Yellow Urine Appearance Turbid A Urine pH 6.5 Ur Specific [place] 1.023 Urine Protein 3+ H Urine Glucose (UA) Negative Urine Ketones Trace H Urine Blood 3+ H Urine Nitrite Negative Urine Bilirubin Negative Urine Urobilinogen Negative Ur Leukocyte Esterase 3+ H Urine WBC (Auto) >50 H Urine RBC (Auto) >20 H U Hyaline Cast (Auto) 0-2 U Epithel Cells (Auto) 11-20 H Urine Bacteria (Auto) 4+ H Calcium Oxalate Crystal Present A Diagnostic Findings Labs reviewed and notable for smoldering high-sensitivity troponin mostly in the 40s. High-sensitivity troponins have been elevated on every evaluation on file, most significantly elevated in August 2024 with bilateral pulmonary emboli. Stable renal function, chronic anemia, normal transaminase levels. Telemetry personally reviewed: Predominantly sinus rhythm. ECG personally reviewed from 10/03/2024: Sinus rhythm 87 bpm. Nonspecific T wave abnormality. Cannot rule out anterior infarct. Echo 10/04/2024: Limited study. Normal LV size. EF > 70%. No regional wall motion abnormalities. Mild LVH. Small pericardial effusion, stable from 09/07/2024 study. Myocardial perfusion study 10/04/2024: 1. Abnormal myocardial perfusion study suggesting possible inferior/inferolateral ischemia, but significant intestinal uptake in the area may affect interpretation. 2. Normal wall motion and LV systolic function. EF 62% 3. No symptoms reported. 4. Paroxysmal atrial tachycardia. 5. Nondiagnostic Lexiscan ECG. Chest x-ray 10/03/2024: Subtle haziness in the left lower zone per radiology. Elevated dome of left hemidiaphragm per radiology. CTA chest 09/08/2024: Pulmonary emboli involve the right upper lobar artery as well as multiple segmental and subsegmental arteries. Small bilateral pleural effusions. Venous Doppler 09/06/2024: Bilateral lower extremity DVT. Medications Administered Current Inpatient Medications Acetaminophen (Acetaminophen 325 Mg Tab) 650 mg PO Q4H PRN PRN Reason: Pain or Fever Stop: 11/02/24 05:43 Apixaban (Apixaban 5 Mg Tablet) 5 mg PO BID FAUZIA Stop: 11/02/24 08:59 Last Admin: 10/04/24 09:29 Dose: 5 mg Aspirin (Aspirin 81 Mg Chew) 40.5 mg PO BID FAUZIA Stop: 11/02/24 08:59 Last Admin: 10/04/24 09:29 Dose: 40.5 mg Celecoxib (Celebrex 200 Mg Cap) 200 mg PO BID FAUZIA Stop: 11/02/24 08:59 Last Admin: 10/04/24 09:29 Dose: 200 mg Docusate Sodium (Docusate Sodium 100 Mg Cap) 100 mg PO BID PRN PRN Reason: Constipation Stop: 11/02/24 05:43 Ferrous Gluconate (Ferrous Gluconate 324 Mg Tab) 324 mg PO DAILY FAUZIA Stop: 11/02/24 08:59 Last Admin: 10/04/24 09:29 Dose: 324 mg Ceftriaxone Sodium (Rocephin) 1,000 mg in 50 mls @ 100 mls/hr IV Q24H FAUZIA Stop: 10/09/24 00:14 Last Infusion: 10/04/24 00:46 Dose: Infused Latanoprost (Latanoprost 0.005% Op Soln 2.5 Ml Btl) 1 drops OPB HS FAUZIA Stop: 11/02/24 20:59 Last Admin: 10/03/24 20:37 Dose: 1 drops Metoprolol Succinate (Metoprolol Succ 25mg Ext Rel Tab) 25 mg PO DAILY FAUZIA Stop: 11/02/24 08:59 Last Admin: 10/03/24 09:47 Dose: 25 mg Thyroid ([place] Thyroid 30 Mg Tab) 60 mg PO DAILY FAUZIA Stop: 11/02/24 08:59 Last Admin: 10/04/24 09:30 Dose: 60 mg Timolol Maleate (Timolol Maleate 0.5% Op Soln 5 Ml Btl) 1 drops OPB BID FAUZIA Stop: 11/02/24 08:59 Last Admin: 10/04/24 09:30 Dose: 1 drops PG Care Time/CCT Total # of Minutes Spent Total Time Spent with Patient: Total time spent is greater than 50% in coordination of care (as documented) at patient's floor/unit and/or counseling patient: Coding Level of Care Code 80832 INT INP/OBS CARE 3/75MIN Diagnoses Abnormal nuclear stress test R94.39 Elevated troponin R79.89 Chest pain R07.9 Chest pain type: unspecified PAT (paroxysmal atrial tachycardia) I47.1 Cardiac pacemaker Z95.0 Dyslipidemia E78.5 SSS (sick sinus syndrome) I49.5 Pericardial effusion I31.39 (3) Chest pain Chest pain type: unspecified Qualified Code(s): R07.9 - Chest pain, unspecified
[2024-10-04] MEDS: ATORVASTATIN 20 MG TAB PO SCH (21:10)
[2024-10-05 07:12] LABS: Hematocrit (blood only) 26.1 % (37.0-47.0); Mean Corpuscular Hemoglobin 27.9 pg (25.0-34.0); Mean Corpuscular Hgb Conc 30.7 g/dL (32.0-36.0); Mean Corpuscular Volume 90.9 fL (80.0-100.0); Mean Platelet Volume 9.7 fL (9.4-12.4); Platelet Count 482 K/uL (130-400); RDW Coefficient of Variation 16.6 % (11.5-14.5); RDW Standard Deviation 55.6 fL (36.4-46.3); Red Blood Count 2.87 M/uL (4.20-5.40); White Blood Count 8.23 K/ul (4.8-10.8)
[2024-10-05 07:24] LABS: BUN Creatinine Ratio 34.5 (10-20); Calcium 8.5 mg/dl (8.6-10.3); Creatinine Clr Calc Pharmacy 31.6 ml/min; Potassium 4.4 mmol/L (3.5-5.1)
--- NOTE | 2024-10-05 11:56 | Hospitalist Progress Note ---
Date of Service October 04, 2024 Assessment & Plan Admission and Anticipated Discharge Date Admission Date: October 03, 2024 Results & Data Results & Data Vital Signs (Past 12 Hours) Vital Signs Temp Pulse Pulse Resp BP Pulse Ox O2 Del Method 10/04/24 09:00 Room Air 10/04/24 07:05 37.1 C 87 18 103/64 94 Room Air 10/04/24 07:00 80 10/04/24 03:57 36.5 C 98 H 16 96/60 L 98 Room Air 10/03/24 23:19 36.9 C 96 H 18 103/65 94 Room Air PG Care Time/CCT Total # of Minutes Spent Total Time Spent with Patient: Total time spent is greater than 50% in coordination of care (as documented) at patient's floor/unit and/or counseling patient: Coding Level of Care Code 61305 SUB INP/OBS CARE 2/35MIN
--- NOTE | 2024-10-05 12:55 | Hospitalist Progress Note ---
Date of Service October 05, 2024 Assessment & Plan (1) Elevated troponin: Plan: monitor on tele Pt unable to have stress test due to elevated troponin cardiology consulted (2) History of venous thromboembolism: Plan: History of BL DVT and PE during recent admission 08/2024 Suspected to be due to immobility at home echo showed EF >70% Continue Eliquis 5 mg twice daily (3) Paroxysmal A-fib: Plan: Eliquis and metoprolol (4) Anemia: Plan: Chronic Iron supplement (5) Wound of left foot: Plan: recent hospitalized 08/2024 for sepsis due to wounds wound care/dressing changes weekly on Tuesdays (6) Pleural effusion, left: Plan: improving from recent admission hold Lasix (7) Occult blood positive stool: Plan: heme 8.0 GI consulted Plan Patient is an 89-year-old female with a past medical history of bilateral DVT and PE during recent present hospitalization August 2024, paroxysmal A-fib s/p pacemaker, anemia, hyperlipidemia, hypothyroidism. She is anticoagulated with Eliquis. She presents with midsternal chest tightness, dyspnea, bilateral lower extremity swelling and "heaviness". She is being admitted for cardiac workup with an elevated troponin of 49.4, given ASA and nitro in ED. Chronic stable diagnoses: hypothyroidism - continue thyroid supplement elevated BNP and lipase - chronic, stable VTE ppx: continue Eliquis Diet: Heart healthy Dispo: med/tele If stress test negative, ok to discharge home. Admission and Anticipated Discharge Date Admission Date: October 04, 2024 Subjective No events overnight. Pt noted to have blood BM this am. Review of Systems Review of Systems: CONST: Negative for fever, body aches and chills. HENT: Negative for neck pain/stiffness, headache, congestion, sore throat, swelling. EYES: Negative for discharge/pain or vision changes. RESP: Negative for cough/hemoptysis and shortness of breath. CV: Negative chest pain, difficulty breathing, palpitations. ABD: Negative pain, nausea, vomiting. : Negative increase frequency, dysuria, blood in urine or stool. MUSC: Negative for muscle aches, edema. SKIN: Negative rash, lesions/sores. NEURO: Negative headache, dizziness, weakness. Physical Exam Physical Exam: GENERAL APPEARANCE NAD, activity normal for age, well developed/ well nourished, no cyanosis, pallor, or diaphoresis. EYES lids/conjunctiva normal. EARS/NOSE/THROAT Mucous membranes moist, nares normal, lips/teeth normal uvula midline without oral pharyngeal erythema, exudate or swelling TMs normal bilaterally. No lymphangitis/lymphedema. HEAD/NECK normocephalic atraumatic, no facial trauma, neck is supple. RESPIRATORY respiratory effort normal, speaks in full sentences, no tripod position, no accessory muscle use. Lungs clear to auscultation without rhonchi, wheezes, rales CARDIAC Regular rate and rhythm, no edema. ABDOMINAL Soft, ND/NT. No evidence of fluid wave. No pulsatile masses on exam, rebound tenderness, Whitmore sign or pain over Mcburney's point. MUSCLES/EXTREMITIES No abnormal range of motion, no swelling. SKIN Warm, pink and dry. No rashes, dermatoses, petechiae or lesions. NEUROLOGICAL Speech is clear and appropriate. Normal level of consciousness. Gait and coordination are normal. 5/5 strength in all extremities. PSYCH Normal mood and affect. Judgement/competence is appropriate Results & Data Results & Data Vital Signs (Past 12 Hours) Vital Signs Temp Pulse Pulse Pulse Pulse Resp BP 10/05/24 09:54 36.8 C 92 H 102 H 87 16 99/64 L 10/05/24 08:00 10/05/24 07:42 36.8 C 102 H 16 99/64 L 10/05/24 07:01 93 H 10/05/24 03:34 36.6 C 94 H 18 87/51 L 10/05/24 03:19 94/55 L BP Pulse Ox O2 Del Method 10/05/24 09:54 107/73 94 10/05/24 08:00 Room Air 10/05/24 07:42 94 Room Air 10/05/24 07:01 10/05/24 03:34 95 Room Air 10/05/24 03:19 PG Care Time/CCT Total # of Minutes Spent Total Time Spent with Patient: Total time spent is greater than 50% in coordination of care (as documented) at patient's floor/unit and/or counseling patient: Coding Level of Care Code 05382 SUB INP/OBS CARE 2/35MIN Diagnoses Elevated troponin R79.89 History of venous thromboembolism Z86.718 Paroxysmal A-fib I48.0 Anemia D64.9 Wound of left foot S91.302A Pleural effusion, left J90 Occult blood positive stool R19.5
--- NOTE | 2024-10-05 14:27 | Gastrointestinal Consultation ---
Date of Consultation October 05, 2024 Assessment & Plan (1) Occult blood positive stool: Plan - monitor hgb/hct and transfuse as needed. - she is hesitant to have any invasive testing for work up of this and prefers to monitor symptoms for now. If recurrent symptoms and agreeable to testing, would consider EGD/flex sig. - start protonix 40mg bid. - we discussed avoiding nsaids if possible. Supervising Physician Co-Signing Physician Notes Patient was for discharge today. And then had a movement. Scribes as spontaneous without pain. Blood in stool. Denies orthostasis. This is a new problem. Patient does take long-term Celebrex and is on Eliquis. She had elevated BUN and creatinine on admission. This could be compatible with prerenal azotemia or could be a sign of blood in the GI tract. The BUN has been decreasing. Patient had a very remote colonoscopy maybe 15 to 20 years ago. She understands that to be normal. We did discuss the possibility of hemorrhoidal versus diverticular bleeding. Also with a high BUN to creatinine ratio with a history of Celebrex peptic ulcer disease also would be on the differential. Patient is agreeable to stopping her Celebrex. Patient on twice daily PPI therapy. She would prefer no endoscopic intervention which is certainly reasonable at 89. She states she would think about those interventions if there is persistent or recurrent bleeding. They were not prepared to make any decisions at this time. Observe for evidence of rebleeding. Start PPI in speculation. Hold Celebrex. She can take acetaminophen up to 4 tablets/day. History of Present Illness Reason for Consultation: Pipo Cotto MD Requesting Physician: + occult Attending Physician: Pipo Cotto MD History of Present Illness Patient is an 89 year old female with past medical history of a fib s/p pacer, DVT and PE on eliquis, who was going to be discharged today but had one episode of rectal bleeding. she tells me that it came on suddenly. She only had the one episode and none further. no nausea, vomiting, abdominal pain. She does use celebrex and has for 20 years. hgb today was 8 (previously was 8.4). She is hesitant to have any further work up for this. rest of GI ROS are unremarkable. Allergies Allergy/AdvReac Type Severity Reaction Status Date / Time No Known Drug Allergies Allergy Verified 04/19/24 12:10 Home Medications Medication Instructions Recorded Confirmed Type latanoprost 0.005 % eye drops 1 drops OPB HS 06/15/19 10/03/24 History multivitamin (Daily Multi-Vitamin 1 tab PO DAILY 01/31/20 09/06/24 History tablet) timolol maleate 0.5 % once daily 1 drp OPB BID 08/14/20 10/03/24 History eye drops celecoxib 200 mg capsule (Celebrex) 200 mg PO BID #180 caps 04/27/24 10/03/24 Rx thyroid (pork) 60 mg tablet 60 mg PO DAILY #90 tabs 08/10/24 10/03/24 Rx ([place] Thyroid) aspirin 81 mg chewable tablet 40.5 mg PO BID 09/06/24 10/03/24 History vitamins A,C,M-zymb-vhssjd 4,296 1 cap PO AMPM 09/06/24 10/03/24 History mcg-226 mg-90 mg capsule (PreserVision AREDS) apixaban 5 mg tablet (Eliquis) 5 mg PO BID #60 tabs 09/14/24 10/03/24 Rx apixaban 5 mg tablet (Eliquis) 10 mg (2 x 5 mg) PO BID #3 tabs 09/14/24 Rx ferrous gluconate 324 mg (38 mg 324 mg PO DAILY #30 tabs 09/14/24 10/03/24 Rx iron) tablet metoprolol succinate 25 mg 25 mg PO DAILY #90 tabs 10/04/24 Rx tablet,extended release 24 hr Patient History Medical History Peptic ulcer SSS (sick sinus syndrome) (04/28/14) Surgical History S/P placement of cardiac pacemaker (~2013) Dual chamber Status post hip surgery (~2013) Left RUTH History of esophagogastroduodenoscopy (~1996) H/O colonoscopy (~1998) Family History Mother Breast cancer Social History Smoking Status: Never smoker Hx Alcohol Use: No Hx Substance Use: No Preferred Language: Kiswahili Communication Ability: Effective Knowledge Management Consultant Required: No Beliefs That Will Affect Care: None marital status: / Current Living Situation: Alone current occupational status: retired Other Information That Helps Us Care for You: No Feels Safe at Home: Yes Safety Concerns: Feels Safe At This Time Assistive Devices: Glasses, Walker and Wheelchair Assistive Devices Comment: pt states she has all listed assistive devices, but she does not need them Review of Systems Review of Systems: All systems reviewed & are unremarkable except as noted in HPI & below Physical Exam Constitutional: WD/WN, vitals as above Respiratory: normal respiratory effort, lungs clear to auscultation Cardiovascular: Rate/Rhythm: regular rate and regular rhythm Gastrointestinal (Abdomen): normal bowel sounds, soft, nontender, no hepatosplenomegaly Psychiatric: Orientation: alert and oriented x 3 Affect: euthymic affect Results & Data Vital Signs (Past 12 Hours) Vital Signs Temp Pulse Pulse Pulse Pulse Resp BP 10/05/24 09:54 98.2 F 92 H 102 H 87 16 99/64 L 10/05/24 08:00 10/05/24 07:42 98.2 F 102 H 16 99/64 L 10/05/24 07:01 93 H 10/05/24 03:34 97.9 F 94 H 18 87/51 L 10/05/24 03:19 94/55 L BP Pulse Ox O2 Del Method 10/05/24 09:54 107/73 94 10/05/24 08:00 Room Air 10/05/24 07:42 94 Room Air 10/05/24 07:01 10/05/24 03:34 95 Room Air 10/05/24 03:19 Coding Level of Care Code 09848 INT INP/OBS CARE 2/55MIN Diagnoses Occult blood positive stool R19.5
[2024-10-05] MEDS: PANTOprazole 40 MG TAB PO SCH (20:08)
[2024-10-06 07:10] LABS: Hematocrit (blood only) 25.5 % (37.0-47.0); Hemoglobin 7.8 g/dl (12.0-16.0); Mean Corpuscular Hemoglobin 28.1 pg (25.0-34.0); Mean Corpuscular Hgb Conc 30.6 g/dL (32.0-36.0); Mean Corpuscular Volume 91.7 fL (80.0-100.0); Mean Platelet Volume 9.6 fL (9.4-12.4); Platelet Count 467 K/uL (130-400); RDW Coefficient of Variation 16.6 % (11.5-14.5); RDW Standard Deviation 55.8 fL (36.4-46.3); Red Blood Count 2.78 M/uL (4.20-5.40); White Blood Count 7.73 K/ul (4.8-10.8)
[2024-10-06 07:33] LABS: BUN Creatinine Ratio 40.3 (10-20); Calcium 8.4 mg/dl (8.6-10.3); Creatinine Clr Calc Pharmacy 57.6 ml/min; Potassium 4.4 mmol/L (3.5-5.1)
--- NOTE | 2024-10-06 09:47 | Gastroenterology Progress Note ---
Date of Service October 06, 2024 Assessment & Plan (1) Occult blood positive stool: Plan - would continue to follow hgb/hct and transfuse as needed. - she wishes to hold off on any invasive procedures if possible. - okay to advance diet as tolerated. - avoid nsaids. Admission and Anticipated Discharge Date Admission Date: October 04, 2024 Supervising Physician Co-Signing Physician Notes Hemoglobin 7.8 was 8 yesterday. Some pink discharge with bowel movements though no heather blood or clots. We are treating her on suspicion of upper GI bleeding and ulcer. PPI therapy which I will continue as long as she is on anticoagulation. She should avoid Celebrex. A lower GI bleed is not excluded. Patient is not interested in endoscopic evaluation and I support her on that decision. Can transfuse if hemoglobin less than 7.5. Observe for further bleeding. Subjective she has not had further rectal bleeding like she had yesterday. she moved her bowels this morning and only slight pink on toilet tissue. hgb today was 7.8 (previously 8). no nausea, vomiting, abdominal pain. no other GI concerns currently. Review of Systems Review of Systems: All systems reviewed & are unremarkable except as noted in HPI & below Physical Exam Constitutional: WD/WN, vitals as above Respiratory: normal respiratory effort, lungs clear to auscultation Cardiovascular: Rate/Rhythm: regular rate and regular rhythm Gastrointestinal (Abdomen): normal bowel sounds, soft, nontender, no hepatosplenomegaly Psychiatric: Orientation: alert and oriented x 3 Affect: euthymic affect Results & Data Results & Data Vital Signs (Past 12 Hours) Vital Signs Temp Pulse Pulse Resp BP Pulse Ox O2 Del Method 10/06/24 09:05 Room Air 10/06/24 07:45 109 H 10/06/24 07:35 98.4 F 97 H 18 91/58 L 94 Room Air 10/06/24 04:37 97.9 F 101 H 20 121/71 93 Room Air 10/06/24 00:08 98.2 F 102 H 20 102/61 94 Room Air Coding Level of Care Code 67794 SUB INP/OBS CARE 10/16MIN Diagnoses Occult blood positive stool R19.5
--- NOTE | 2024-10-06 10:17 | Hospitalist Progress Note ---
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 Suspected to be due to immobility at home echo showed EF >70% Continue Eliquis 5 mg twice daily (3) Paroxysmal A-fib: Plan: Eliquis and metoprolol (4) Anemia: Plan: Chronic Iron supplement (5) Wound of left foot: Plan: recent hospitalized 08/2024 for sepsis due to wounds wound care/dressing changes weekly on Tuesdays (6) Pleural effusion, left: Plan: improving from recent admission hold Lasix (7) Occult blood positive stool: Plan: heme 7.8 GI consult appreciated protonix 40mg BID con't to monitor H/H advance diet avoid NSAIDS Plan Monitor for another day to assure h/h stable for discharge home. Admission and Anticipated Discharge Date Admission Date: October 04, 2024 Subjective No events overnight. No further rectal bleeding. Review of Systems Review of Systems: CONST: Negative for fever, body aches and chills. HENT: Negative for neck pain/stiffness, headache, congestion, sore throat, swelling. EYES: Negative for discharge/pain or vision changes. RESP: Negative for cough/hemoptysis and shortness of breath. CV: Negative chest pain, difficulty breathing, palpitations. ABD: Negative pain, nausea, vomiting. : Negative increase frequency, dysuria, blood in urine or stool. MUSC: Negative for muscle aches, edema. SKIN: Negative rash, lesions/sores. NEURO: Negative headache, dizziness, weakness. Physical Exam Physical Exam: GENERAL APPEARANCE NAD, activity normal for age, well developed/ well nourished, no cyanosis, pallor, or diaphoresis. EYES lids/conjunctiva normal. EARS/NOSE/THROAT Mucous membranes moist, nares normal, lips/teeth normal uvula midline without oral pharyngeal erythema, exudate or swelling TMs normal bilaterally. No lymphangitis/lymphedema. HEAD/NECK normocephalic atraumatic, no facial trauma, neck is supple. RESPIRATORY respiratory effort normal, speaks in full sentences, no tripod position, no accessory muscle use. Lungs clear to auscultation without rhonchi, wheezes, rales CARDIAC Regular rate and rhythm, no edema. ABDOMINAL Soft, ND/NT. No evidence of fluid wave. No pulsatile masses on exam, rebound tenderness, Whitmore sign or pain over Mcburney's point. MUSCLES/EXTREMITIES No abnormal range of motion, no swelling. SKIN Warm, pink and dry. No rashes, dermatoses, petechiae or lesions. NEUROLOGICAL Speech is clear and appropriate. Normal level of consciousness. Gait and coordination are normal. 5/5 strength in all extremities. PSYCH Normal mood and affect. Judgement/competence is appropriate Results & Data Results & Data Vital Signs (Past 12 Hours) Vital Signs Temp Pulse Pulse Resp BP Pulse Ox O2 Del Method 10/06/24 09:05 Room Air 10/06/24 07:45 109 H 10/06/24 07:35 36.9 C 97 H 18 91/58 L 94 Room Air 10/06/24 04:37 36.6 C 101 H 20 121/71 93 Room Air 10/06/24 00:08 36.8 C 102 H 20 102/61 94 Room Air PG Care Time/CCT Total # of Minutes Spent Total Time Spent with Patient: Total time spent is greater than 50% in coordination of care (as documented) at patient's floor/unit and/or counseling patient: Coding Level of Care Code 13310 SUB INP/OBS CARE 2/35MIN Diagnoses Elevated troponin R79.89 History of venous thromboembolism Z86.718 Paroxysmal A-fib I48.0 Anemia D64.9 Wound of left foot S91.302A Pleural effusion, left J90 Occult blood positive stool R19.5
[2024-10-07 07:14] VITALS: RESP 16
[2024-10-07 07:47] LABS: Hematocrit (blood only) 25.9 % (37.0-47.0); Hemoglobin 7.9 g/dl (12.0-16.0); Mean Corpuscular Hgb Conc 30.5 g/dL (32.0-36.0); Mean Corpuscular Volume 91.8 fL (80.0-100.0); Mean Platelet Volume 9.9 fL (9.4-12.4); Platelet Count 510 K/uL (130-400); RDW Coefficient of Variation 16.4 % (11.5-14.5); RDW Standard Deviation 55.4 fL (36.4-46.3); Red Blood Count 2.82 M/uL (4.20-5.40); White Blood Count 8.18 K/ul (4.8-10.8)
[2024-10-07 07:58] LABS: BUN Creatinine Ratio 29.7 (10-20); Calcium 8.4 mg/dl (8.6-10.3); Creatinine Clr Calc Pharmacy 48.2 ml/min; Potassium 4.1 mmol/L (3.5-5.1)
--- NOTE | 2024-10-07 09:43 | Gastroenterology Progress Note ---
Date of Service October 07, 2024 Assessment & Plan (1) Occult blood positive stool: Plan: - would continue to follow hgb/hct and transfuse as needed. - she wishes to hold off on any invasive procedures if possible. no further bleeding noted and we agree with her on holding off. - continue with protonix 40mg bid. she should continue with this as an outpatient. - avoid nsaids. Admission and Anticipated Discharge Date Admission Date: October 04, 2024 Supervising Physician Co-Signing Physician Notes No signs of significant or active bleeding hemoglobin reasonably stable. Patient wishes to avoid any invasive procedures. Respect her wishes in that regard. Continue twice daily PPI therapy for a month. Then once a day. Avoid NSAIDs including Celebrex. Subjective hgb has remained stable. today she is 7.8 (previously 7.9). no further rectal bleeding noted. rest of GI ros are unremarkable. Review of Systems Review of Systems: All systems reviewed & are unremarkable except as noted in HPI & below Physical Exam Constitutional: WD/WN, vitals as above Respiratory: normal respiratory effort, lungs clear to auscultation Cardiovascular: Rate/Rhythm: regular rate and regular rhythm Gastrointestinal (Abdomen): normal bowel sounds, soft, nontender, no hepatosplenomegaly Psychiatric: Orientation: alert and oriented x 3 Affect: euthymic affect Results & Data Results & Data Vital Signs (Past 12 Hours) Vital Signs Temp Pulse Pulse Resp BP Pulse Ox O2 Del Method 10/07/24 07:13 98.1 F 99 H 16 105/61 95 Room Air 10/07/24 06:38 108 H 10/07/24 03:33 98.6 F 102 H 20 102/62 93 Room Air 10/06/24 23:45 99.0 F 93 H 20 104/58 L 96 Room Air 10/06/24 22:45 111 H Coding Level of Care Code 99778 SUB INP/OBS CARE 10/16MIN Diagnoses Occult blood positive stool R19.5
[2024-10-07 11:42] VITALS: BP 103/58; PULSE 97; TEMP 98.4; O2SAT 94
--- NOTE | 2024-10-07 14:23 | Discharge Summary ---
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 Admission HPI Per Admitting Provider Patient is an 89-year-old female with a past medical history of bilateral DVT and PE during recent present hospitalization August 2024, paroxysmal A-fib s/p pacemaker, anemia, hyperlipidemia, hypothyroidism. She is anticoagulated with Eliquis. She presents today due to midsternal chest tightness, dyspnea, bilateral lower extremity swelling and "heaviness". She is being admitted for cardiac workup with an elevated troponin of 49.4, given ASA and nitro in ED. patient seen at bedside, she stated she eats heart healthy meals. She was eating dinner last night and felt like she could not get a full breath and then had midsternal chest pressure. The symptoms were not relieved until arrival to the ED when she was given aspirin and nitroglycerin. She stated this chest pressure feels different than when it did before with her PE. Patient stated [facility], they were treating her for leg swelling with Lasix and her weight is back to baseline. She stated her lower extremity wounds are healing well and she has home health PT, OT, and wound care. She has dressing changes every Friday. She has been compliant with her Eliquis and Lasix. She wishes to be full code at this time. She does not use oxygen at baseline. Patient denies fever, chills, headache, dizziness, lightheadedness, current dyspnea, current chest pain. She has chronic neuropathy of bilateral lower extremities. Discharge Exam GENERAL APPEARANCE NAD, activity normal for age, well developed/ well nourished, no cyanosis, pallor, or diaphoresis. EYES lids/conjunctiva normal. EARS/NOSE/THROAT Mucous membranes moist, nares normal, lips/teeth normal uvula midline without oral pharyngeal erythema, exudate or swelling TMs normal bilaterally. No lymphangitis/lymphedema. HEAD/NECK normocephalic atraumatic, no facial trauma, neck is supple. RESPIRATORY respiratory effort normal, speaks in full sentences, no tripod posit ion, no accessory muscle use. Lungs clear to auscultation without rhonchi, wheezes, rales CARDIAC Regular rate and rhythm, no edema. ABDOMINAL Soft, ND/NT. No evidence of fluid wave. No pulsatile masses on exam, rebound tenderness, Whitmore sign or pain over Mcburney's point. MUSCLES/EXTREMITIES No abnormal range of motion, no swelling. SKIN Warm, pink and dry. No rashes, dermatoses, petechiae or lesions. NEUROLOGICAL Speech is clear and appropriate. Normal level of consciousness. Gait and coordination are normal. 5/5 strength in all extremities. PSYCH Normal mood and affect. Judgement/competence is appropriate Discharge Plan Discharge Items Patient Disposition: Home - Home Health Services Reason For Visit: CARDIAC WORKUP Discharge Diagnosis: chest pain Activity: Resume your previous activity Non-emergency contact: Primary Care Provider Call non-emergency contact if: you have any medication questions Follow-up/Referrals: Schuyler Gonzalez MD [Primary Care Provider] - 10/11/24 3:00 pm Diet: Heart Healthy Addtl Attending Provider Instructions: Follow up with cardiology as out patient in 1 week Pending Studies at Discharge: No Stand-Alone Forms: My [facility] [employer], Smoking Cessation Medications and DC Order Prescriptions: New pantoprazole 40 mg Tablet,Delayed Release (Dr/Ec) 40 mg PO BID Qty: 60 0RF Continued celecoxib [Celebrex] 200 mg capsule 200 mg PO BID Qty: 180 3RF Rx Instructions: Generic please thyroid (pork) [[place] Thyroid] 60 mg tablet 60 mg PO DAILY Qty: 90 0RF metoprolol succinate 25 mg tablet extended release 24 hr 25 mg PO DAILY Qty: 90 3RF latanoprost 0.005 % drops 1 drops OPB HS timolol maleate 0.5 % drops, once daily 1 drp OPB BID multivitamin [Daily Multi-Vitamin] Tablet 1 tab PO DAILY aspirin 81 mg Tablet,Chewable 40.5 mg PO BID PreserVision AREDS 4,296 mcg-226 mg-90 mg Capsule 1 cap PO AMPM Rx Instructions: OTC unable to verify Eliquis 5 mg Tablet 10 mg PO BID Qty: 3 0RF Rx Instructions: Take 10 mg this evening (09/14/24), and then 10 mg in the morning and at night tomorrow (09/15/24). Starting on 09/16/24, please take 5 mg two times a day. Eliquis 5 mg Tablet 5 mg PO BID Qty: 60 0RF ferrous gluconate 324 mg (38 mg iron) tablet 324 mg PO DAILY Qty: 30 0RF Rx Instructions: Please take on Friday, Friday, and Friday Discharge Orders: Discharge Order (Routine); Ordered 10/07/24 Ordered By: Pipo Roman/Other Patient Handouts: Wound Care, Fall Prevention Assessing Risk, Preventing Falls: Staying Active, ED Chest Pain, Noncardiac Admission Data Admit Date/Time: 10/04/24 16:14 Attending Provider: Pipo Cotto Admit Provider: Joanna Valdes Primary Care Provider: Schuyler Gonzalez Other Providers: Joanna Valdes; [place]; Raghu Smiley; Ant Hernandez Other Interventions: Discharge Summary Assessment (RN) Last Done: 10/05/24 09:54 Hospital Stay Data Consultations 10/03/24 03:55 ED Decision to Admit Stat 10/04/24 16:14 Consult Cardiology Routine 10/05/24 12:53 Consult Gastroenterology Routine Pending Results Patient Have Any Pending Studies at Discharge: No Discharge Instructions Given to Patient (Per Discharging Provider) Follow up with cardiology as out patient in 1 week Total Time Total Time Spent Total Time Spent (In Minutes): 50 Coding Level of Care Code 76253 INP/OBS DISCH >30 MIN Diagnoses Elevated troponin R79.89 History of venous thromboembolism Z86.718 Paroxysmal A-fib I48.0 Anemia D64.9 Wound of left foot S91.302A Pleural effusion, left J90 Occult blood positive stool R19.5
== END 2024-10-07 15:15 | disposition home health service (06) | DRG 313 ==
LOC: EDINP 02:46 → ED 02:46 → SUATTDRO 05:04 → 2N 05:44 → SUATTDRO 10-04 16:14

== ENCOUNTER 2024-10-15 13:02 | Inpatient (IN) ==
[2024-10-15 13:29] LABS: iSTAT Creatinine 1.1 mg/dl (0.6-1.3); iSTAT Hemoglobin 10.9 g/dl (12.0-16.0); iSTAT Ionized Calcium 1.18 mmol/l (1.12-1.32); iSTAT Potassium 4.2 mmol/L (3.3-5.0)
[2024-10-15 13:37] LABS: Basophils # (auto) 0.07 K/uL (0.00-0.20); Basophils % (auto) 0.6 %; Eosinophils # (auto) 0.17 K/uL (0.00-0.50); Eosinophils % (auto) 1.4 %; Hematocrit (blood only) 32.7 % (37.0-47.0); Hemoglobin 9.9 g/dl (12.0-16.0); Immature Granulocytes # (auto) 0.12 K/uL (0.01-0.20); Lymphocytes # (auto) 1.36 K/uL (1.20-3.40); Lymphocytes % (auto) 11.2 %; Mean Corpuscular Hemoglobin 27.8 pg (25.0-34.0); Mean Corpuscular Hgb Conc 30.3 g/dL (32.0-36.0); Mean Corpuscular Volume 91.9 fL (80.0-100.0); Monocytes # (auto) 1.13 K/uL (0.11-0.59); Monocytes % (auto) 9.3 %; Neutrophils % (auto) 76.5 %; Platelet Count 681 K/uL (130-400); RDW Coefficient of Variation 16.2 % (11.5-14.5); RDW Standard Deviation 54.6 fL (36.4-46.3); Red Blood Count 3.56 M/uL (4.20-5.40); White Blood Count 12.15 K/ul (4.8-10.8)
[2024-10-15] MEDS: SODIUM CHLORIDE 0.9% 1,000 ML IV STA (13:39)
--- NOTE | 2024-10-15 13:41 | Emergency Department Note ---
Impression & Plan Ambulatory dysfunction ADMIT ED Provider Note HPI: History obtained from patient. The patient is a 89-year-old female with history of DVT, currently on Eliquis, presents the emergency department with a chief complaint of rectal bleeding. Per report, patient was seen today by home care provider and noted to have some blood per rectum when they were assisting her. Patient was sent to the ER for evaluation. Patient tells me that she did not notice any blood per rectum. On arrival here to the ED the patient is mildly hypertensive but otherwise hemodynamically stable, she is in no acute distress on my initial evaluation. Patient denies any chest pain or shortness of breath, denies any abdominal pain. ROS: - Per HPI Differential Diagnosis: Lower GI bleed, hemorrhoids, vaginal bleeding, sepsis/infection, amongst other potential pathologies. *Outpatient medications and allergy history reviewed. PE: General: Alert HEENT: Normocephalic, trachea midline, poor dentition Eyes: Extraocular eye movement is intact, no scleral erythema Pulmonary: Clear to auscultation bilaterally, no wheezing Cardio: Regular rate and rhythm GI: Abdomen is soft to palpation, rectal examination performed with female ED underwriting technician at the bedside shows no external hemorrhoids, excoriated skin over the sacral area, bilateral buttocks, and rectum with hard and caked stool surrounding the area, multiple areas of cracked/excoriated skin with minimal active bleeding, there is no crepitus to palpation of the surrounding soft tissues : No suprapubic tenderness MSK: No evidence of trauma or malformation of the extremities, 2+ edema bilateral lower extremities Skin: No evidence of rash Neuro: Alert, no focal deficits Psychiatric: Cooperative INDEPENDENT INTERPRETATIONS: environmental monitoring technician: (As interpreted by myself): - An order was placed for continuous cardiac monitoring - Patient was noted to be in sinus rhythm with rate 90 EKG: (As interpreted by myself): Rate: 95 Rhythm: Normal sinus rhythm Intervals: Within normal limits ST changes: No ST elevation Time: 1321 Interventions provided in ED: -IV fluid bolus Medical Decision Making: IV was established and lab work obtained, patient was placed on cardiac tech. Lab work shows a mild leukocytosis of 12.15, hemoglobin is stable at 9.9 (previous level 7.9), platelet count is elevated at 681, CMP does not show any evidence of any critical findings, no evidence of acute kidney injury, troponin is mildly elevated at 35.5, EKG per my interpretation shows normal sinus rhythm without any evidence of any acute ischemic changes. Patient's abdomen is soft and nontender on my exam. Patient has excoriated skin across her sacrum and buttocks, this appears to have some superficial infection to it, patient tells me that she is not able to get up out of bed at home without significant assistance. She does have people checking on her daily however it seems that she is having issues cleaning herself and having bowel movements. She does live alone. I feel that she should be admitted for further management and likely PT/OT and inpatient placement for PT. blood cultures were drawn and patient was ordered IV cefepime which was canceled by the admitting service and preference for vancomycin. I will defer to the admitting service for further management of the patient's antibiotics. In regards to the patient's reported blood per rectum, I feel this is likely coming from her sacral wounds. She does have some excoriated skin in that area with some minimal active bleeding. I did do a stool occult positive test however it is unclear if this is actually coming from the stool itself or the surrounding area. Her hemoglobin is stable in comparison to previous. I discussed the above findings with the on-call hospitalist, Dr. Sterling, the patient was placed for admission in stable condition. Consultants/Discussions held with other healthcare providers: -Hospitalist, Dr. Sterling Disposition discussion held by myself with: -Patient Diagnosis: 1. Ambulatory dysfunction, acute 2. Sacral area cellulitis/skin excoriation, acute 3. Inability to accomplish activities of daily living 4. Leukocytosis, acute 5. Occult positive stool Disposition: Admission Alfredito Armas DO Emergency Medicine Past Med/Surg History Problem List (Updated 10/15/24 @ 16:19 by Alfredito Armas DO) Ambulatory dysfunction (Acute) Occult blood positive stool Pericardial effusion Abnormal nuclear stress test Elevated troponin (Acute) Pleural effusion, left Shortness of breath (Acute) Chest pain (Acute) History of venous thromboembolism Elevated troponin Fracture of right hip (Acute 07/01/24) Acute comminuted displaced intertrochanteric fracture of the right femur from a fall 2 days prior per the ED report Acute pain of right thigh (Acute) Fall (Acute) Squamous cell skin cancer Decreased exercise tolerance Glaucoma Spinal stenosis Peripheral neuropathy Degenerative joint disease, multiple joints on both sides of body Allergic rhinitis (Acute) Osteoporosis (Acute) Medical History Peptic ulcer SSS (sick sinus syndrome) (04/28/14) Surgical History S/P placement of cardiac pacemaker (~2013) Dual chamber Status post hip surgery (~2013) Left RUTH History of esophagogastroduodenoscopy (~1996) H/O colonoscopy (~1998) Family History Mother Breast cancer Social History Smoking Status: Never smoker Hx Alcohol Use: No Hx Substance Use: No Preferred Language: Belgian Communication Ability: Effective Program Engagement Director Required: No Beliefs That Will Affect Care: None marital status: / Current Living Situation: Alone current occupational status: retired Feels Safe at Home: Yes Assistive Devices: Glasses, Walker and Wheelchair Allergies Allergies Allergy/AdvReac Type Severity Reaction Status Date / Time No Known Drug Allergies Allergy Verified 10/15/24 15:01 Home Meds Home Medications Medication Instructions Recorded Confirmed latanoprost 0.005 % eye drops 1 drops OPB HS 06/15/19 10/15/24 multivitamin (Daily Multi-Vitamin 1 tab PO DAILY 01/31/20 10/15/24 tablet) timolol maleate 0.5 % once daily 1 drp OPB BID 08/14/20 10/15/24 eye drops aspirin 81 mg chewable tablet 40.5 mg PO DAILY 09/06/24 10/15/24 vitamins A,C,R-znds-tbvwgh 4,296 1 cap PO AMPM 09/06/24 10/15/24 mcg-226 mg-90 mg capsule (PreserVision AREDS) apixaban 5 mg tablet (Eliquis) 10 mg PO BID 10/08/24 10/15/24 Previous Rx's Medication Instructions Recorded thyroid (pork) 60 mg tablet 60 mg PO DAILY #90 tabs 08/10/24 ([place] Thyroid) metoprolol succinate 25 mg 25 mg PO DAILY #90 tabs 10/04/24 tablet,extended release 24 hr pantoprazole 40 mg tablet,delayed 40 mg PO BID #60 tabs 10/07/24 release Results & Data (ED) Vital Signs Vital Signs - 24 hr 10/15/24 13:10 10/15/24 13:13 Temperature 36.6 C Temperature Source Oral Pulse Rate 103 H 104 H Respiratory Rate 20 Respiratory Effort / Characteristics Non-Labored Spontaneous Respiratory Depth Normal Respiratory Pattern Regular Blood Pressure 97/67 L Blood Pressure Mean 77 Pulse Oximetry 97 Oxygen Delivery Method Room Air Sepsis Recent Fever Within 48 Hours No Sepsis New/Unexplained Change in Mental Status No Sepsis Action Taken by Nursing No Action Required Laboratory Data 10/15/24 13:09 10/15/24 13:09 Lab Results 10/15/24 10/15/24 10/15/24 Range/Units 13:09 13:15 15:20 WBC 12.15 H (4.8-10.8) K/ul RBC 3.56 L (4.20-5.40) M/uL Hgb 9.9 L (12.0-16.0) g/dl POC Hgb 10.9 L (12.0-16.0) g/dl Hct 32.7 L (37.0-47.0) % POC Hct 32 L (37-47) % MCV 91.9 (80.0-100.0) fL MCH 27.8 (25.0-34.0) pg MCHC 30.3 L (32.0-36.0) g/dL RDW Std Deviation 54.6 H (36.4-46.3) fL RDW Coeff of López 16.2 H (11.5-14.5) % Plt Count 681 H (130-400) K/uL MPV 10.0 (9.4-12.4) fL Immature Gran % (Auto) 1.0 % Neut % (Auto) 76.5 % Lymph % (Auto) 11.2 % Winkler % (Auto) 9.3 % Eos % (Auto) 1.4 % Baso % (Auto) 0.6 % Neut # (Auto) 9.30 H (1.40-6.50) K/uL Lymph # (Auto) 1.36 (1.20-3.40) K/uL Winkler # (Auto) 1.13 H (0.11-0.59) K/uL Eos # (Auto) 0.17 (0.00-0.50) K/uL Baso # (Auto) 0.07 (0.00-0.20) K/uL Immature Gran # (Auto) 0.12 (0.01-0.20) K/uL PT 11.0 (9.0-12.0) Seconds INR 1.0 (0.9-1.1) POC Sodium 139 (135-144) mmol/L Sodium 139 (136-145) mmol/L POC Potassium 4.2 (3.3-5.0) mmol/L Potassium 4.2 (3.5-5.1) mmol/L POC Chloride 100 L (101-112) mmol/L Chloride 99 (98-107) mmol/L Carbon Dioxide 32 (21-32) mmol/L POC Total CO2 31 (24-31) mmol/L Anion Gap 8 (3-11) POC Anion Gap 13.0 L (16-25) mmol/L POC BUN 39 H (7-18) mg/dl BUN 39 H (6-23) mg/dl Creatinine 0.93 (0.6-1.2) mg/dl POC Creatinine 1.1 (0.6-1.3) mg/dl Est Cr Clr Drug Dosing 36.9 ml/min eGFR 58.75 BUN/Creatinine Ratio 41.9 H (10-20) Glucose 100 H (70-99(Fasting)) mg/dl POC Glucose (other) 103 H (70-99) mg/dl Calcium 9.9 (8.6-10.3) mg/dl POC Ioniz Calcium Gina 1.18 (1.12-1.32) mmol/l Total Bilirubin 0.4 (0.2-1.0) mg/dl AST 23 (13-39) U/L ALT 23 (7-52) U/L Alkaline Phosphatase 74 (34-104) U/L Troponin I High Sens 35.5 H 41.5 H (0-14) pg/ml Total Protein 7.3 (6.0-8.3) gm/dl Albumin 3.8 (3.4-5.0) gm/dl Globulin 3.5 (2.5-4.0) gm/dl Albumin/Globulin Ratio 1.1 (0.9-2) Lipase 129 H (11-82) U/L Administered Medications Discontinued Medications Sodium Chloride (Nss) 1,000 mls @ 999 mls/hr IV .Q1H1M STA Stop: 10/15/24 14:25 Last Infusion: 10/15/24 15:15 Dose: Infused Documented By: Admin: 10/15/24 13:39 Dose: 999 mls/hr Documented By: CORKY Discharge Plan Visit Data Chief Complaint: Rectal Bleed Stated Complaint: RECTAL BLEED ED Provider: Alfredito Armas Discharge Problem: Ambulatory dysfunction Forms Stand Alone Forms: [facility] Prescriptions Prescriptions: No Action thyroid (pork) [[place] Thyroid] 60 mg tablet 60 mg PO DAILY Qty: 90 0RF Rx Instructions: Per pharmacy, this was last filled 05/2024 x90 metoprolol succinate 25 mg tablet extended release 24 hr 25 mg PO DAILY Qty: 90 3RF latanoprost 0.005 % drops 1 drops OPB HS timolol maleate 0.5 % drops, once daily 1 drp OPB BID multivitamin [Daily Multi-Vitamin] Tablet 1 tab PO DAILY Eliquis 5 mg tablet 10 mg PO BID aspirin 81 mg Tablet,Chewable 40.5 mg PO DAILY Rx Instructions: Pt unsure if this was taken this morning or not 10/15/24 PreserVision AREDS 4,296 mcg-226 mg-90 mg Capsule 1 cap PO AMPM pantoprazole 40 mg Tablet,Delayed Release (Dr/Ec) 40 mg PO BID Qty: 60 0RF Referrals Referrals: Schuyler Gonzalez MD [Primary Care Provider] -
[2024-10-15 14:00] LABS: Albumin Globulin Ratio 1.1 (0.9-2); Albumin Level 3.8 gm/dl (3.4-5.0); BUN Creatinine Ratio 41.9 (10-20); Bilirubin,Total 0.4 mg/dl (0.2-1.0); Calcium 9.9 mg/dl (8.6-10.3); Creatinine Clr Calc Pharmacy 36.9 ml/min; Globulin 3.5 gm/dl (2.5-4.0); Potassium 4.2 mmol/L (3.5-5.1); Total Protein 7.3 gm/dl (6.0-8.3)
[2024-10-15 14:03] LABS: Troponin I High Sensitivity 35.5 pg/ml (0-14)
[2024-10-15] MEDS ORDERED: VANCOMYCIN HCL 1,250 MG in SODIUM CHLORIDE 0.9% 500 ML IV ONE (15:55)
[2024-10-15] MEDS ORDERED: VANCOMYCIN CONSULT ACTIVE PRN ×2 (15:55→17:33)
--- NOTE | 2024-10-15 16:00 | History & Physical Report ---
Date of Service October 15, 2024 Assessment & Plan (1) Sepsis: (2) Sacral wound: (3) Cellulitis of buttock: (4) Thrombocytosis: (5) Anemia: (6) Elevated troponin: (7) Dysphagia: Plan Patient is an 89-year-old female with past medical history of 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 She is anticoagulated with Eliquis. She presents today due to rectal bleeding from a sacral wound. She is being admitted due to sepsis secondary to sacral wound, IV fluids sepsis bolus ordered, lactate ordered, IV antibiotics started with cefepime and vancomycin, wound care consulted. # sepsis/sacral wound/cellulitis of buttock WBC 12.15, hypotensive (97/67), tachycardic (104), afebrile on admission lactate 3.0 Fluids: Sepsis fluid bolus for ideal body weight = 1704.30 - Sepsis fluid bolus of 1L NSS given in ED - will give additional 1L NSS on admission repeat lactate in 2 hrs (ordered) Continue cefepime; Addition of vancomycin with recent hospitalization Blood cultures pending wound cultures ordered Wound care consulted - eval by wound care during recent hospitalization, recommended Ensure or boost shake; ordered - clean and dry wounds on bilateral feet, legs, and heels. Apply Aquacel Ag, ABD pads, and Kerlix. Change daily and as needed. - To buttocks and ischium apply Aquacel Ag and Optifoam. Change daily and as needed. #Thrombocytosis suspect 2/2 Acute infection versus chronic anemia Platelet count uptrending throughout September platelets 681 on admission trend CBC + peripheral smear ordered #anemia chronic, improved from recent admission Was previously on iron supplement however appears to be discontinue Positive occult stool during recent admission, DC 10/07 GI eval however patient denied invasive testing Was started on Protonix 40 Mg twice daily trend H&H #Elevated troponin 35.5 ->41.5 in ED Chronically elevated, at baseline Defer trending at this time EKG shows NSR Denies chest pain had stress test during recent admission, abnormal, cardiology recommended that patient could be considered for statin therapy in outpatient setting #dysphagia mention of dysphagia during recent hospitalization Will consult speech, may benefit from swallow study Chronic stable diagnoses: 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 She is anticoagulated with Eliquis. She presents today due to rectal bleeding from a sacral wound. She is being admitted due to sepsis secondary to sacral wound, IV fluids sepsis bolus ordered, lactate ordered, IV antibiotics started with cefepime and vancomycin, wound care consulted. Patient seen at bedside. She stated that she was recently hospitalized last week due to an elevated troponin but was found to have a positive occult blood stool and workup for GI bleed. She wanted to hold off on any invasive procedures at this time, received Protonix twice daily, H&H stabilized. On admission today H&H is improved with hemoglobin of 9.9. She stated during this hospitalization she started to develop a sacral wound, when she returned home and just started to worsen. She stated that it believes from her rectum and the wound. She is incontinent of both bowel and bladder; she uses wipes and towels to clean up when she has a bowel movement. She lives at a retiree complex and her friends also help her clean up. She stated it is not painful but does have a raw feeling. She denies any fevers or chills. She does have [facility] for her lower extremity wounds. During her recent hospitalization she was told she can no longer take both Celebrex and Eliquis daily, she has discontinued Celebrex and continue to take Eliquis daily. Patient denies fever, chills, dyspnea, chest pain, abdominal pain, nausea, vomiting. .She has chronic bilateral lower extremity edema, unchanged. She wishes to be full code at this time. Reached out to wound care, off duty for the weekend; will evaluate patient early next week. Allergies Allergy/AdvReac Type Severity Reaction Status Date / Time No Known Drug Allergies Allergy Verified 10/15/24 15:01 Home Medications Medication Instructions Recorded Confirmed Type latanoprost 0.005 % eye drops 1 drops OPB HS 06/15/19 10/15/24 History multivitamin (Daily Multi-Vitamin 1 tab PO DAILY 01/31/20 10/15/24 History tablet) timolol maleate 0.5 % once daily 1 drp OPB BID 08/14/20 10/15/24 History eye drops thyroid (pork) 60 mg tablet 60 mg PO DAILY #90 tabs 08/10/24 10/15/24 Rx ([place] Thyroid) aspirin 81 mg chewable tablet 40.5 mg PO DAILY 09/06/24 10/15/24 History vitamins A,C,G-eqeq-mixgkp 4,296 1 cap PO AMPM 09/06/24 10/15/24 History mcg-226 mg-90 mg capsule (PreserVision AREDS) metoprolol succinate 25 mg 25 mg PO DAILY #90 tabs 10/04/24 10/15/24 Rx tablet,extended release 24 hr pantoprazole 40 mg tablet,delayed 40 mg PO BID #60 tabs 10/07/24 10/15/24 Rx release apixaban 5 mg tablet (Eliquis) 10 mg PO BID 10/08/24 10/15/24 History Past Med/Surg History Problem List (Updated 10/15/24 @ 16:35 by Kylee Nesbitt PA-C) Dysphagia Anemia Thrombocytosis Cellulitis of buttock Sacral wound Sepsis Ambulatory dysfunction (Acute) Occult blood positive stool Pericardial effusion Abnormal nuclear stress test Elevated troponin (Acute) Pleural effusion, left Shortness of breath (Acute) Chest pain (Acute) History of venous thromboembolism Elevated troponin Fracture of right hip (Acute 07/01/24) Acute comminuted displaced intertrochanteric fracture of the right femur from a fall 2 days prior per the ED report Acute pain of right thigh (Acute) Fall (Acute) Squamous cell skin cancer Decreased exercise tolerance Glaucoma Spinal stenosis Peripheral neuropathy Degenerative joint disease, multiple joints on both sides of body Allergic rhinitis (Acute) Osteoporosis (Acute) Medical History Peptic ulcer SSS (sick sinus syndrome) (04/28/14) Surgical History S/P placement of cardiac pacemaker (~2013) Dual chamber Status post hip surgery (~2013) Left RUTH History of esophagogastroduodenoscopy (~1996) H/O colonoscopy (~1998) Family History Mother Breast cancer Social History Smoking Status: Never smoker Do You Dip or Chew Tobacco: No; Hx Alcohol Use: No Hx Substance Use: No Preferred Language: Setswana Communication Ability: Effective Crime Investigator Special Agent Required: No Beliefs That Will Affect Care: None marital status: / Current Living Situation: Alone current occupational status: retired Other Information That Helps Us Care for You: No Feels Safe at Home: Yes Safety Concerns: Feels Safe At This Time Assistive Devices: None Review of Systems 2 Review of Systems: see HPI Physical Exam 2 Physical Exam: The patient is awake, alert and oriented 3, well developed and well nourished, normocephalic and atraumatic, in no acute distress. Non-toxic appearing. HEENT- EOMI, mucous membranes dry. Hearing grossly intact. Heart-normal S1 and S2. No murmurs, rubs or gallops. Lungs-clear bilaterally, no respiratory distress, no accessory muscle use. Abdomen-normal bowel sounds and soft. No ascites noted. Non-tender. Extremities- no clubbing, cyanosis. +3 pitting edema bilaterally. Rheumatologic-normal range of motion. Psychiatric-normal affect. Skin: Erythemic sacral wound, dried blood on blanket however not actively bleeding from wound. Difficult to take photo with patient's fragility. Results & Data Results & Data Vital Signs (Past 12 Hours) Vital Signs Temp Pulse Resp BP Pulse Ox O2 Del Method 10/15/24 13:13 104 H 10/15/24 13:10 36.6 C 103 H 20 97/67 L 97 Room Air Code Status & VTE Plan Code Status full code VTE Prophylaxis Plan VTE Prophylaxis will be ordered: Yes Supervising Physician Co-Signing Physician Notes I personally saw and examined the patient. I independently reviewed the labs, EKG, imaging, problem list, medication list, past medical history and family history. I verified all cornejo points and agree with Kylee Nesbitt PA-C with the following exceptions and/or additions: 89 year old female presents to the ER due to rectal bleeding. While in the ER she was noted to have significant erythema of her back while being hypotensive and tachycardic. O/E A&Ox3, HS RRR, no murmurs, Chest CTAB, Abdo SNT, erythema around entire sacral area A/P Sepsis/cellulitis - vancomycin/cefepime, Sepsis fluid bolus given, follow up blood cultures Peripheral/lumbar neuropathy - much worse symptoms since stopping Celebrex due to bleeding with addition of Eliquis. Never tried gabapentin therefore will start 100mg PO TID and monitor for improvement PG Care Time/CCT Total # of Minutes Spent Total Time Spent with Patient: Total time spent is greater than 50% in coordination of care (as documented) at patient's floor/unit and/or counseling patient: Coding Level of Care Code 53976 INT INP/OBS CARE 3/75MIN Diagnoses Sepsis A41.9 Sacral wound S31.000A Cellulitis of buttock L03.317 Thrombocytosis D75.839 Anemia D64.9 Elevated troponin R79.89 Dysphagia R13.10
[2024-10-15] MEDS: CEFEPIME 1000MG 1,000 MG/10 ML SYR IV STA (16:14)
[2024-10-15] MEDS: SODIUM CHLORIDE 0.9% 1,000 ML IV SCH (16:15)
--- NOTE | 2024-10-15 17:24 | Electrocardiogram Report ---
Test Reason : Blood Pressure : */* mmHG Vent. Rate : 95 BPM Atrial Rate : 95 BPM P-R Int : 162 ms QRS Dur : 68 ms QT Int : 366 ms P-R-T Axes : 37 -12 24 degrees QTcB Int : 459 ms Normal sinus rhythm Low voltage QRS Nonspecific ST and T wave abnormality Abnormal ECG When compared with ECG of 03-Oct-2024 02:54, No significant change was found Confirmed by Rafael Dill ([id number]) on 10/15/2024 5:23:33 PM Referred By: REFERRED SELF Confirmed By: Rafael Dill
[2024-10-15] MEDS: VANCOMYCIN HCL 1,250 MG in SODIUM CHLORIDE 0.9% 250 ML IV ONE (17:38)
--- OUTSIDE RECORDS SUMMARY | 2024-10-15 19:49 | External Medical Summary ---
Author Name UNSPECIFIED Address Unknown Organization [facility] History of Encounters Reason for Assessment: Transferred to an inpatient facility - patient not discharged from agency Inpatient Facility where the patient been admitted: Hospital
[2024-10-15] MEDS: APIXABAN 5 MG TABLET PO SCH (19:57)
[2024-10-15] MEDS: PANTOprazole 40 MG TAB PO SCH (19:57)
[2024-10-15] MEDS: LATANOPROST 0.005% OP SOLN 2.5 ML BTL OPB SCH (21:09)
[2024-10-15] MEDS: TIMOLOL MALEATE 0.5% OP SOLN 5 ML BTL OPB SCH (21:11)
[2024-10-16] MEDS: GABAPENTIN 100 MG CAP PO SCH (00:18)
[2024-10-16 00:40] LABS: Appearance Urine Turbid (Clear); Bacteria Urine Automated 2+ (None Seen); Bilirubin Urine Negative (Negative); Blood Urine 1+ (Negative); Color Urine Yellow; Epithelial Cell Urine Auto 0-2 /hpf (0-2); Glucose Urine UA Negative (Negative); Ketones Urine Trace (Negative); Leukocyte Esterase Urine 3+ (Negative); Nitrite Urine Positive (Negative); Protein Urine 1+ (Negative); RBC Urine Automated >20 /hpf (0-2); Specific Gravity Urine 1.021 (1.000-1.030); Urobilinogen Urine Negative (Negative); WBC Urine Automated >50 /hpf (0-5); pH Urine 7.5 (4.5-7.5)
[2024-10-16] MEDS ORDERED: VANCOMYCIN HCL 1,000 MG in SODIUM CHLORIDE 0.9% 250 ML IV SCH (03:55)
[2024-10-16] MEDS: VANCOMYCIN HCL 1,000 MG/270 ML BAG IV SCH (04:50)
[2024-10-16] MEDS: CEFEPIME 1000MG 1,000 MG/10 ML SYR IV SCH (04:50)
[2024-10-16] MEDS: ARMOUR THYROID 30 MG TAB PO SCH (06:40)
[2024-10-16 07:20] LABS: Basophils # (auto) 0.06 K/uL (0.00-0.20); Basophils % (auto) 0.6 %; Hematocrit (blood only) 24.4 % (37.0-47.0); Hemoglobin 7.4 g/dl (12.0-16.0); Immature Granulocytes # (auto) 0.14 K/uL (0.01-0.20); Immature Granulocytes % (auto) 1.4 %; Lymphocytes # (auto) 1.52 K/uL (1.20-3.40); Lymphocytes % (auto) 15.1 %; Mean Corpuscular Hemoglobin 27.6 pg (25.0-34.0); Mean Corpuscular Hgb Conc 30.3 g/dL (32.0-36.0); Mean Platelet Volume 10.2 fL (9.4-12.4); Monocytes # (auto) 0.98 K/uL (0.11-0.59); Monocytes % (auto) 9.8 %; Neutrophils # (auto) 7.05 K/uL (1.40-6.50); Neutrophils % (auto) 70.1 %; Platelet Count 511 K/uL (130-400); RDW Coefficient of Variation 16.5 % (11.5-14.5); RDW Standard Deviation 55.4 fL (36.4-46.3); Red Blood Count 2.68 M/uL (4.20-5.40); White Blood Count 10.05 K/ul (4.8-10.8)
[2024-10-16 07:31] LABS: BUN Creatinine Ratio 34.3 (10-20); Calcium 8.4 mg/dl (8.6-10.3); Creatinine Clr Calc Pharmacy 31.7 ml/min; Potassium 4.4 mmol/L (3.5-5.1)
[2024-10-16 07:49] LABS: Polychromasia 1+
[2024-10-16] MEDS: METOPROLOL SUCC 25MG EXT REL TAB PO SCH (08:49)
[2024-10-16] MEDS: CEROVITE ADV FORMULA TAB PO SCH (08:50)
[2024-10-16] MEDS: ASPIRIN 81 MG CHEW PO SCH (08:50)
--- NOTE | 2024-10-16 11:14 | Pharmacy Report ---
Pharmacy PK ABX Note - Date of Service October 16, 2024 - Assessment and Plan Assessment * 89 year old F receiving cefepime and vancomycin for treatment of sacral wound/cellulitis. * Pertinent microbiologic data includes: blood, sacrum, and urine cultures pending Plan Vancomycin * Loading dose: 1250 mg IV x 1 * Maintenance dose: 1000 mg IV every 24 hours * Target AUC/JACOB of 400-600 mg/L.hr * Regimen is predicted to acheive an AUC of 571 mg/L.hr in 24-48 hours. May need to reduce dose tomorrow pending level assessment to ensure level doesn't become supratherapeutic * Random level ordered for 10/17 @ 0730 Pharmacy will continue to follow and will adjust dose/frequency as necessary. Thank you. Pharmacy has transitioned to AUC monitoring for vancomycin. AUC/JACOB is the preferred PK/PD target and is associated with decreased risk of nephrotoxicity compared to traditional trough targets.
[2024-10-16] MEDS ORDERED: SODIUM CHLORIDE 0.9% 50 ML IV PRN (12:33)
[2024-10-16] MEDS ORDERED: SODIUM CHLORIDE 0.9% 100 ML IV PRN (12:33)
[2024-10-16 13:48] LABS: Hematocrit (blood only) 27.6 % (37.0-47.0); Hemoglobin 8.4 g/dl (12.0-16.0)
[2024-10-16 14:05] LABS: Iron 22 mcg/dl (35-150); Total Iron Binding Cap Calc 272 mcg/dl (250-450); Transferrin 194 mg/dl (200-360); Transferrin (FE) Percent Satur 8 % (15-50)
[2024-10-16] MEDS: ACETAMINOPHEN 325 MG TAB PO PRN (22:30)
--- NOTE | 2024-10-16 23:10 | Hospitalist Progress Note ---
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 She is anticoagulated with Eliquis. She presents today due to rectal bleeding from a sacral wound. She is being admitted due to sepsis secondary to sacral wound, IV fluids sepsis bolus ordered, lactate ordered, IV antibiotics started with cefepime and vancomycin, wound care consulted. # sepsis/sacral wound/cellulitis of buttock WBC 12.15, hypotensive (97/67), tachycardic (104), afebrile on admission lactate 3.0 improved to 2.1 Fluids: Sepsis fluid bolus for ideal body weight = 1704.30 - Sepsis fluid bolus of 1L NSS given in ED - will give additional 1L NSS on admission Continue cefepime; Addition of vancomycin with recent hospitalization Blood cultures pending wound cultures ordered Wound care consulted - eval by wound care during recent hospitalization, recommended Ensure or boost shake; ordered - clean and dry wounds on bilateral feet, legs, and heels. Apply Aquacel Ag, ABD pads, and Kerlix. Change daily and as needed. - To buttocks and ischium apply Aquacel Ag and Optifoam. Change daily and as needed. will continue current antibiotics #Thrombocytosis suspect 2/2 Acute infection versus chronic anemia Platelet count uptrending throughout September platelets 681 on admission trend CBC + peripheral smear ordered #anemia chronic, improved from recent admission Was previously on iron supplement however appears to be discontinue Positive occult stool during recent admission, DC 10/07 GI eval however patient denied invasive testing Was started on Protonix 40 Mg twice daily concern about GI bleed, ordered hold PRBC units in case her anemia worsens #Elevated troponin 35.5 ->41.5 in ED Chronically elevated, at baseline Defer trending at this time EKG shows NSR Denies chest pain had stress test during recent admission, abnormal, cardiology recommended that patient could be considered for statin therapy in outpatient setting #dysphagia mention of dysphagia during recent hospitalization Will consult speech, may benefit from swallow study Chronic stable diagnoses: 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 Physical Exam Physical Exam: The patient is awake, alert and oriented 3 HEENT- EOMI, mucous membranes dry. Hearing grossly intact. Heart-normal S1 and S2. Lungs-clear bilaterally, no respiratory distress, no accessory muscle use. Abdomen-normal bowel sounds and soft. No ascites noted. Non-tender. Extremities- no clubbing, cyanosis. +3 pitting edema bilaterally. Results & Data Results & Data Vital Signs (Past 12 Hours) Vital Signs Temp Pulse Pulse Resp BP Pulse Ox O2 Del Method 10/16/24 22:25 38.3 C H 101 H 18 91/60 L 93 Room Air 10/16/24 19:46 36.7 C 96 H 18 101/62 93 Room Air 10/16/24 15:28 37.1 C 102 H 18 96/51 L 94 Room Air 10/16/24 15:14 103 H PG Care Time/CCT Total # of Minutes Spent Total Time Spent with Patient: Total time spent is greater than 50% in coordination of care (as documented) at patient's floor/unit and/or counseling patient: Coding Level of Care Code 54110 SUB INP/OBS CARE 2/35MIN Diagnoses Sepsis A41.9 Sacral wound S31.000A Cellulitis of buttock L03.317 Thrombocytosis D75.839 Anemia D64.9 Elevated troponin R79.89 Dysphagia R13.10
[2024-10-17] MEDS: SODIUM CHLORIDE 0.9% 500 ML IV ONE ×2 (01:09→20:11)
[2024-10-17 06:07] LABS: Basophils # (auto) 0.05 K/uL (0.00-0.20); Basophils % (auto) 0.6 %; Eosinophils # (auto) 0.39 K/uL (0.00-0.50); Eosinophils % (auto) 5.1 %; Hematocrit (blood only) 23.5 % (37.0-47.0); Hemoglobin 7.1 g/dl (12.0-16.0); Immature Granulocytes # (auto) 0.15 K/uL (0.01-0.20); Immature Granulocytes % (auto) 1.9 %; Lymphocytes # (auto) 1.36 K/uL (1.20-3.40); Lymphocytes % (auto) 17.6 %; Mean Corpuscular Hemoglobin 27.3 pg (25.0-34.0); Mean Corpuscular Hgb Conc 30.2 g/dL (32.0-36.0); Mean Corpuscular Volume 90.4 fL (80.0-100.0); Mean Platelet Volume 10.2 fL (9.4-12.4); Monocytes # (auto) 0.79 K/uL (0.11-0.59); Monocytes % (auto) 10.2 %; Neutrophils # (auto) 4.98 K/uL (1.40-6.50); Neutrophils % (auto) 64.6 %; Platelet Count 493 K/uL (130-400); RDW Coefficient of Variation 16.3 % (11.5-14.5); RDW Standard Deviation 53.7 fL (36.4-46.3); White Blood Count 7.72 K/ul (4.8-10.8)
[2024-10-17 06:22] LABS: Albumin Level 2.6 gm/dl (3.4-5.0); BUN Creatinine Ratio 32.2 (10-20); Bilirubin,Total 0.3 mg/dl (0.2-1.0); C Reactive Protein 6.6 mg/dl (0-0.5); Calcium 8.2 mg/dl (8.6-10.3); Creatinine Clr Calc Pharmacy 35.5 ml/min; Globulin 2.5 gm/dl (2.5-4.0); Magnesium 2.1 mg/dl (1.7-2.4); Phosphorus 2.5 mg/dl (2.5-4.9); Potassium 4.1 mmol/L (3.5-5.1); Total Protein 5.1 gm/dl (6.0-8.3)
[2024-10-17 06:33] LABS: Polychromasia 1+
[2024-10-17] MEDS: VANCOMYCIN LEVEL ONE (09:01)
--- NOTE | 2024-10-17 10:18 | Pharmacy Report ---
Pharmacy PK ABX Note - Date of Service October 17, 2024 - Assessment and Plan Assessment * 89 year old F receiving cefepime and vancomycin for treatment of sacral wound/cellulitis. * Pertinent microbiologic data includes: * Blood x2 - NGTD * Sacrum - cooper-sensitive Pseudomonas w cefepime JACOB <=2 * Urine - repeat recommended * SCr stable and at/near baseline Plan Vancomycin * Target AUC/JACOB of 400-600 mg/L.hr * Random level of 9.2 mcg/mL this AM associated with a therapeutic AUC of 436 mcg/mL * Continue maintenance dose: 1000 mg IV every 24 hours * Repeat random level in 48-72 hours, or sooner if clinical condition changes significantly Pharmacy will continue to follow and will adjust dose/frequency as necessary. Thank you. Pharmacy has transitioned to AUC monitoring for vancomycin. AUC/JACOB is the preferred PK/PD target and is associated with decreased risk of nephrotoxicity compared to traditional trough targets.
[2024-10-17] MEDS: 4.5GM X1 IV STA (16:00)
[2024-10-17] MEDS: CLINDAMYCIN/D5W 900 MG/50 ML PREMIX BAG IV SCH (16:00)
[2024-10-17] MEDS ORDERED: SODIUM CHLORIDE 0.9% 50 ML IV PRN (19:59)
[2024-10-17] MEDS ORDERED: SODIUM CHLORIDE 0.9% 100 ML IV PRN (19:59)
[2024-10-17 20:44] LABS: Hematocrit (blood only) 25.7 % (37.0-47.0); Hemoglobin 7.7 g/dl (12.0-16.0)
[2024-10-17] MEDS: 4.5GM EXT INFUSION IV SCH (21:42)
--- NOTE | 2024-10-17 22:55 | Hospitalist Progress Note ---
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 She is anticoagulated with Eliquis. She presents today due to rectal bleeding from a sacral wound. She is being admitted due to sepsis secondary to sacral wound, IV fluids sepsis bolus ordered, lactate ordered, IV antibiotics started with cefepime and vancomycin, wound care consulted. # sepsis/sacral wound/cellulitis of buttock WBC 12.15, hypotensive (97/67), tachycardic (104), afebrile on admission lactate 3.0 improved to 2.1 Patient is less tachycardic, blood pressure appears soft. Fluids: Sepsis fluid bolus for ideal body weight = 1704.30 - Sepsis fluid bolus of 1L NSS given in ED - will give additional 1L NSS on admission stopped cefepime; Addition of vancomycin with recent hospitalization added clindamycin/ zosyn. Blood cultures pending Pseudomonas aeruginosa Bacteroides fragilis Clostridium perfringens Wound care consulted - eval by wound care during recent hospitalization, recommended Ensure or boost shake; ordered - clean and dry wounds on bilateral feet, legs, and heels. Apply Aquacel Ag, ABD pads, and Kerlix. Change daily and as needed. - To buttocks and ischium apply Aquacel Ag and Optifoam. Change daily and as needed. will continue current antibiotics will consult infectious disease #Thrombocytosis suspect 2/2 Acute infection versus chronic anemia Platelet count uptrending throughout September platelets 681 on admission trend CBC + peripheral smear ordered #anemia chronic, improved from recent admission Was previously on iron supplement however appears to be discontinue Positive occult stool during recent admission, DC 10/07 GI eval however patient denied invasive testing Was started on Protonix 40 Mg twice daily concern about GI bleed, ordered hold PRBC units in case her anemia worsens. Hemoglobin has been stable today. 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 Physical Exam Physical Exam: The patient is awake, alert and oriented 3 HEENT- EOMI, mucous membranes dry. Hearing grossly intact. Heart-normal S1 and S2. Lungs-clear bilaterally, no respiratory distress, no accessory muscle use. Abdomen-normal bowel sounds and soft. No ascites noted. Non-tender. Extremities- no clubbing, cyanosis. +3 pitting edema bilaterally. Results & Data Results & Data Vital Signs (Past 12 Hours) Vital Signs Temp Pulse Pulse Resp BP BP Pulse Ox 10/17/24 22:35 37.2 C 106 H 18 92/51 L 91 10/17/24 20:45 97/51 L 10/17/24 19:26 81/49 L 10/17/24 19:24 36.8 C 74 20 89/52 L 94 10/17/24 15:09 36.7 C 100 H 18 104/54 L 94 10/17/24 14:53 99 H 10/17/24 11:22 36.8 C 103 H 18 97/54 L 96 O2 Del Method 10/17/24 22:35 Room Air 10/17/24 20:45 10/17/24 19:26 10/17/24 19:24 Room Air 10/17/24 15:09 Room Air 10/17/24 14:53 10/17/24 11:22 Room Air PG Care Time/CCT Total # of Minutes Spent Total Time Spent with Patient: Total time spent is greater than 50% in coordination of care (as documented) at patient's floor/unit and/or counseling patient: Coding Level of Care Code 00510 SUB INP/OBS CARE 3/50MIN Diagnoses Sepsis A41.9 Sacral wound S31.000A Cellulitis of buttock L03.317 Thrombocytosis D75.839 Anemia D64.9 Elevated troponin R79.89 Dysphagia R13.10
[2024-10-18 07:09] LABS: Basophils # (auto) 0.04 K/uL (0.00-0.20); Basophils % (auto) 0.5 %; Eosinophils # (auto) 0.32 K/uL (0.00-0.50); Eosinophils % (auto) 3.7 %; Hematocrit (blood only) 23.3 % (37.0-47.0); Immature Granulocytes # (auto) 0.23 K/uL (0.01-0.20); Immature Granulocytes % (auto) 2.7 %; Lymphocytes # (auto) 1.69 K/uL (1.20-3.40); Lymphocytes % (auto) 19.7 %; Mean Platelet Volume 9.8 fL (9.4-12.4); Monocytes # (auto) 0.75 K/uL (0.11-0.59); Monocytes % (auto) 8.7 %; Neutrophils # (auto) 5.57 K/uL (1.40-6.50); Neutrophils % (auto) 64.7 %; Platelet Count 475 K/uL (130-400); RDW Coefficient of Variation 16.5 % (11.5-14.5); Red Blood Count 2.59 M/uL (4.20-5.40)
[2024-10-18 07:23] LABS: BUN Creatinine Ratio 28.5 (10-20); C Reactive Protein 5.86 mg/dl (0-0.5); Creatinine Clr Calc Pharmacy 30.6 ml/min; Potassium 4.1 mmol/L (3.5-5.1)
[2024-10-18 07:54] LABS: Dohle Bodies 2+; Polychromasia 1+; Stomatocytes 1+
--- NOTE | 2024-10-18 08:56 | Pharmacy Report ---
Pharmacy PK ABX Note - Date of Service October 18, 2024 - Assessment and Plan Assessment 89 yo F receiving Vancomycin, Zosyn, and Clindamycin for sacral ulcer. * Day #4 of antimicrobial therapy (D#4 Vanc, D#2 Zosyn and Clindamycin) * Afebrile x 24 hrs. SCr bumped to 1.23 mg/dL this AM, CrCl 31 mL/min. No leukocytosis. * Procal was 0.10 ng/mL yesterday. Repeat was 0.13 ng/mL this AM. * MRSA nasal swab was negative. Urine culture with > 3 organisms, repeat urine collection recommended. No growth to date in blood cultures. * Sacral wound cx is growing Pseudomonas aeruginosa, Bacteroides fragilis, and Clostridium perfringens. Pseudomonas is pansensitive but no sensitivities to follow on other organisms. Agree with addition of Zosyn and Clindamycin for now. Would recommend an ID consult to determine if Clindamycin is clinically necessary and if so, a duration for abx. At this point, would recommend discontinuation of vancomycin. Plan Vancomycin * Current regimen: 1000 mg IV every 24 hours * This is predicted to achieve target AUC/JACOB of 400-600 mg/L.hr. Predicted AUC at steady state: 444 mg/L.hr * Will order a repeat level for 10/19/24 should vancomycin continue. If renal fxn continues to trend up tomorrow, will order a level sooner. Zosyn * 4.5 g IV every 8 hours Clindamycin * 900 mg IV every 8 hours Pharmacy will continue to follow and will adjust dose/frequency as necessary. Thank you. Pharmacy has transitioned to AUC monitoring for vancomycin. AUC/JACOB is the preferred PK/PD target and is associated with decreased risk of nephrotoxicity compared to traditional trough targets.
--- NOTE | 2024-10-18 13:43 | Infectious Disease Consult ---
Date of Consultation October 18, 2024 Assessment & Plan (1) Thrombocytosis: (2) Cellulitis of buttock: (3) Sacral wound: Plan . This is an 89-year-old female with past medical history of sick sinus syndrome status post pacemaker, left hip RUTH in 2013, PE/DVT, hypothyroidism, right hip fracture status post insertion of trochanteric nail on 07/03/24, admitted and found to be in septic shock requiring pressors with Streptococcus Thermophilus bacteremia and bilateral lower extremity wounds with intramuscular and subcutaneous collections on CT. She was treated with ceftriaxone and was discharged on a 2-week course of high dose amoxicillin. She now returns with bleeding from a sacral wound. She denies any blood per rectum. Denies any abdominal pain, fever, chills, nausea, sweats. Feels that her lower extremity wounds have improved since last admission. In the ED temperature 36.6, pulse 103, RR 20, BP 97/67, O2 sat 97% on room air. Labs WBC 12.15, platelets 681, BUN 39, creatinine 0.93,lactate 3-->2, cp 6.60 Superficial sacral wound cultures were obtained and grew Pseudomonas aeruginosa, Clostridium perfringens and BacteroidesFragiles. She was initially on cefepime and Vanco. She is now on Zosyn and clindamycin. ID consulted for sacral wound infection. She states that her sacral area feels "raw" but otherwise she feels well. # Contaminated sacral wound with cellulitis - no s/o deep infection - likely contaminated with fecal marva # History of Strep thermophilus bacteremia 08/2024 # History of bilateral lower extremity wounds with abscess 08/2024 intramuscular and subcu collections on CT -improved from previous admission per patient report, RN and per review of prior wound pictures. # Thrombocytosis, improving # H/o left RUTH, right hip fracture s/p surgery # h/o SSS s/p PPM Microbiology: Blood culture 10/15 NGTD Wound culture 10/15 Pseudomonas aeruginosa (sensitive to Cipro, Levaquin, cefepime), Bacteroides fragilis, Clostridium perfringens Urine culture 10/16 3 or more organisms. Antibiotics: Cefepime 10/15 - 10/17 Vancomycin 10/15ongoing Clindamycin 10/17ongoing Zosyn 10/17ongoing Discussion: She presented with bleeding from her rectal wound. Wounds are excoratiated with several areas of unroofing and abrasions but there is no other heather signs of infection on exam. Sacral wound is not deep. During exam wounds contaminated with fecal matter. Area with surrounding erythema, +tenderness to palpation. Clostridium and bacteroides from Gi marva. No s/o toxic shock although BP soft Recommendations -Continue Zosyn which will cover Pseudomonas, Bacteroides as well as Clostridium perfringens Discontinued vancomycin Will discontinue clindamycin after 72 hours. No signs of toxic shock syndrome and wound does not appear acutely infected -Continue wound care -Keep sacral area clean of BMs. Thank you for this consult. ID will continue to follow. Cleve Davis MD, MPH Infectious Disease [facility], [facility] Call [phone] with questions Consultation Information Consultation was provided via telemedicine using two-way real-time interactive telecommunication between the patient and the telemedicine provider. For the duration of the visit, the provider was performing the assessment from a different facility than the patient. This includesuse of bluetooth stethoscope forauscultationperformed by the telepresenter that the telemedicine provider can hear if described in the physical exam. Avionics Manager contact information: Please call [facility] Call Center . (Phone Number For Physician Use Only) After establishing a telemedicine visit, patient was: Patient was verified with two unique identifiers Time Spent with Patient: Initial => 75 min History of Present Illness Reason for Consultation: Wound infection Requesting Physician: Shaan Azevedo Attending Physician: Shaan Azevedo History of Present Illness This is an 89-year-old female with past medical history of sick sinus syndrome status post pacemaker, left hip RUTH in 2013, PE/DVT, hypothyroidism, right hip fracture status post insertion of trochanteric nail on 07/03/24, admitted and found to be in septic shock requiring pressors with Streptococcus Thermophilus bacteremia and bilateral lower extremity wounds with intramuscular and subcutaneous collections on CT. She was treated with ceftriaxone and was discharged on a 2-week course of high dose amoxicillin. She now returns with bleeding from a sacral wound. She denies any blood per rectum. Denies any abdominal pain, fever, chills, nausea, sweats. Feels that her lower extremity wounds have improved since last admission. In the ED temperature 36.6, pulse 103, RR 20, BP 97/67, O2 sat 97% on room air. Labs WBC 12.15, platelets 681, BUN 39, creatinine 0.93,lactate 3-->2, cp 6.60 Superficial sacral wound cultures were obtained and grew Pseudomonas aeruginosa, Clostridium perfringens and BacteroidesFragiles. She was initially on cefepime and Vanco. She is now on Zosyn and clindamycin. ID consulted for sacral wound infection. She states that her sacral area feels "raw" but otherwise she feels well. Allergies Allergy/AdvReac Type Severity Reaction Status Date / Time No Known Drug Allergies Allergy Verified 10/15/24 15:01 Home Medications Medication Instructions Recorded Confirmed Type latanoprost 0.005 % eye drops 1 drops OPB HS 06/15/19 10/15/24 History multivitamin (Daily Multi-Vitamin 1 tab PO DAILY 01/31/20 10/15/24 History tablet) timolol maleate 0.5 % once daily 1 drp OPB BID 08/14/20 10/15/24 History eye drops thyroid (pork) 60 mg tablet 60 mg PO DAILY #90 tabs 08/10/24 10/15/24 Rx (Clive Thyroid) aspirin 81 mg chewable tablet 40.5 mg PO DAILY 09/06/24 10/15/24 History vitamins A,C,L-igrj-zrvofx 4,296 1 cap PO AMPM 09/06/24 10/15/24 History mcg-226 mg-90 mg capsule (PreserVision AREDS) metoprolol succinate 25 mg 25 mg PO DAILY #90 tabs 10/04/24 10/15/24 Rx tablet,extended release 24 hr pantoprazole 40 mg tablet,delayed 40 mg PO BID #60 tabs 10/07/24 10/15/24 Rx release apixaban 5 mg tablet (Eliquis) 10 mg PO BID 10/08/24 10/15/24 History Patient History Medical History Peptic ulcer SSS (sick sinus syndrome) (04/28/14) Surgical History S/P placement of cardiac pacemaker (~2013) Dual chamber Status post hip surgery (~2013) Left RUTH History of esophagogastroduodenoscopy (~1996) H/O colonoscopy (~1998) Family History Mother Breast cancer Social History Smoking Status: Never smoker Do You Dip or Chew Tobacco: No; Hx Alcohol Use: No Hx Substance Use: No Preferred Language: British Communication Ability: Effective Bomb Technician Required: No Beliefs That Will Affect Care: None marital status: / Current Living Situation: Alone current occupational status: retired Other Information That Helps Us Care for You: No Feels Safe at Home: Yes Safety Concerns: Feels Safe At This Time Assistive Devices: Glasses and Walker Review of System Pertinent positives as per HPI Physical Exam Physical Exam: General: Awake, alert, NAD HEENT: NC/AT, EOMI, anicteric sclera Neck: supple Lungs: Non labored breathing on RA Abdomen: soft, NT/ND Ext: BL LE edema Skin: Left foot with eschar, R Foot with ulcers with improved appearance. Less necrosis, erythema: minimal ttp Sacral area with multiple areas of cracked and excoriated skin with stool caked around wound. No induration, warmth, edema. Mild erythema. Results & Data Vital Signs (Past 12 Hours) Vital Signs Temp Pulse Pulse Resp BP Pulse Ox O2 Del Method 10/18/24 10:54 36.7 C 99 H 19 91/53 L 94 Room Air 10/18/24 10:22 Room Air 10/18/24 08:42 101 H 10/18/24 07:44 36.9 C 103 H 19 93/54 L 93 Room Air 10/18/24 02:54 36.9 C 106 H 18 98/58 L 94 Room Air Laboratory Results Laboratory Results - last 48 hr 10/15/24 10/16/24 10/16/24 13:18 06:14 12:52 WBC RBC Hgb 8.4 L Hct 27.6 L MCV MCH MCHC RDW Std Deviation RDW Coeff of López Plt Count MPV Immature Gran % (Auto) Neut % (Auto) Lymph % (Auto) [place] % (Auto) Eos % (Auto) Baso % (Auto) Neut # (Auto) Lymph # (Auto) [place] # (Auto) Eos # (Auto) Baso # (Auto) Immature Gran # (Auto) Dohle Bodies Polychromasia Stomatocytes Peripher Smr Path Cons Sodium Potassium Chloride Carbon Dioxide Anion Gap BUN Creatinine Est Cr Clr Drug Dosing eGFR BUN/Creatinine Ratio Glucose Calcium Phosphorus Magnesium Iron TIBC Transferrin Transferrin % Sat Total Bilirubin AST ALT Alkaline Phosphatase C-Reactive Protein Total Protein Albumin Globulin Albumin/Globulin Ratio Procalcitonin Random Vancomycin Crossmatch See Detail 10/16/24 10/17/24 10/17/24 12:57 05:22 20:13 WBC 7.72 RBC 2.60 L Hgb 7.1 L 7.7 L Hct 23.5 L 25.7 L MCV 90.4 MCH 27.3 MCHC 30.2 L RDW Std Deviation 53.7 H RDW Coeff of López 16.3 H Plt Count 493 H MPV 10.2 Immature Gran % (Auto) 1.9 Neut % (Auto) 64.6 Lymph % (Auto) 17.6 [place] % (Auto) 10.2 Eos % (Auto) 5.1 Baso % (Auto) 0.6 Neut # (Auto) 4.98 Lymph # (Auto) 1.36 [place] # (Auto) 0.79 H Eos # (Auto) 0.39 Baso # (Auto) 0.05 Immature Gran # (Auto) 0.15 Dohle Bodies Polychromasia 1+ Stomatocytes Peripher Smr Path Cons Sodium 137 Potassium 4.1 Chloride 104 Carbon Dioxide 28 Anion Gap 5 BUN 29 H Creatinine 0.90 Est Cr Clr Drug Dosing 35.5 eGFR 61.11 BUN/Creatinine Ratio 32.2 H Glucose 91 Calcium 8.2 L Phosphorus 2.5 Magnesium 2.1 Iron 22 L TIBC 272 Transferrin 194 L Transferrin % Sat 8 L Total Bilirubin 0.3 AST 20 ALT 16 Alkaline Phosphatase 54 C-Reactive Protein 6.60 H Total Protein 5.1 L D Albumin 2.6 L Globulin 2.5 Albumin/Globulin Ratio 1.0 Procalcitonin 0.10 Random Vancomycin 9.2 L Crossmatch 10/18/24 06:33 WBC 8.60 RBC 2.59 L Hgb 7.0 L Hct 23.3 L MCV 90.0 MCH 27.0 MCHC 30.0 L RDW Std Deviation 54.0 H RDW Coeff of López 16.5 H Plt Count 475 H MPV 9.8 Immature Gran % (Auto) 2.7 Neut % (Auto) 64.7 Lymph % (Auto) 19.7 [place] % (Auto) 8.7 Eos % (Auto) 3.7 Baso % (Auto) 0.5 Neut # (Auto) 5.57 Lymph # (Auto) 1.69 [place] # (Auto) 0.75 H Eos # (Auto) 0.32 Baso # (Auto) 0.04 Immature Gran # (Auto) 0.23 H Dohle Bodies 2+ Polychromasia 1+ Stomatocytes 1+ Peripher Smr Path Cons Sodium 137 Potassium 4.1 Chloride 104 Carbon Dioxide 28 Anion Gap 5 BUN 35 H Creatinine 1.23 H D Est Cr Clr Drug Dosing 30.6 eGFR 42.01 BUN/Creatinine Ratio 28.5 H Glucose 105 H Calcium 8.0 L Phosphorus Magnesium 2.0 Iron TIBC Transferrin Transferrin % Sat Total Bilirubin AST ALT Alkaline Phosphatase C-Reactive Protein 5.86 H Total Protein Albumin Globulin Albumin/Globulin Ratio Procalcitonin 0.13 Random Vancomycin Crossmatch Diagnostic Findings Microbiology 10/15/24 14:40 Blood Aerobic Blood Culture - Preliminary No growth in Aerobic bottle after 48 hours. 10/15/24 14:40 Blood Anaerobic Blood Culture - Final 10/15/24 14:40 Blood Aerobic Blood Culture - Preliminary No growth in Aerobic bottle after 48 hours. 10/15/24 14:40 Blood Anaerobic Blood Culture - Final 10/15/24 Unknown Sacrum Gram Stain - Final 10/15/24 Unknown Sacrum Aerobic and Anaerobic Culture - Preliminary Pseudomonas aeruginosa Bacteroides fragilis Clostridium perfringens 10/16/24 Unknown Urine,Indwelling Cath Urine Culture - Final Three types of organisms present, all moderate counts. Repeat collection recommended. No further identifications or sensitivities to follow. Medications Administered Home Medications Medication Instructions Recorded Confirmed Last Taken latanoprost 0.005 % eye drops 1 drops OPB HS 06/15/19 10/15/24 10/14/24 multivitamin (Daily Multi-Vitamin 1 tab PO DAILY 01/31/20 10/15/24 09/05/24 tablet) timolol maleate 0.5 % once daily 1 drp OPB BID 08/14/20 10/15/24 10/15/24 eye drops thyroid (pork) 60 mg tablet 60 mg PO DAILY #90 tabs 08/10/24 10/15/24 10/02/24 (Clive Thyroid) aspirin 81 mg chewable tablet 40.5 mg PO DAILY 09/06/24 10/15/24 10/02/24 vitamins A,C,F-awpn-ywtovx 4,296 1 cap PO AMPM 09/06/24 10/15/24 10/15/24 mcg-226 mg-90 mg capsule (PreserVision AREDS) metoprolol succinate 25 mg 25 mg PO DAILY #90 tabs 10/04/24 10/15/24 Unknown tablet,extended release 24 hr pantoprazole 40 mg tablet,delayed 40 mg PO BID #60 tabs 10/07/24 10/15/24 10/15/24 release apixaban 5 mg tablet (Eliquis) 10 mg PO BID 10/08/24 10/15/24 10/15/24 Active Medications Generic Name Dose Route Start Last Admin Trade Name Freq PRN Reason Stop Dose Admin Acetaminophen 650 mg 10/15/24 17:33 10/16/24 22:30 Acetaminophen 325 Mg Tab PO 11/14/24 17:32 650 mg Q4H PRN Administration Pain or Fever Apixaban 5 mg 10/15/24 21:00 10/18/24 08:15 Apixaban 5 Mg Tablet PO 11/14/24 20:59 5 mg BID FAUZIA Administration Aspirin 40.5 mg 10/16/24 09:00 10/18/24 08:18 Aspirin 81 Mg Chew PO 11/15/24 08:59 40.5 mg DAILY FAUZIA Administration Gabapentin 100 mg 10/15/24 21:45 10/18/24 08:14 Gabapentin 100 Mg Cap PO 11/14/24 21:44 100 mg TID FAUZIA Administration Vancomycin HCl 1,000 mg in 270 mls @ 200 mls/hr 10/16/24 05:00 10/18/24 09:49 Vancomycin Hcl IV 10/23/24 04:59 Infused Q24H FAUZIA Infusion Piperacillin Sod/Tazobactam Sod 4.5 gm in 100 mls @ 25 mls/hr 10/17/24 22:00 10/18/24 10:15 Zosyn IV 10/24/24 21:59 Infused Q8H FAUZIA Infusion Protocol Clindamycin Phosphate 900 mg in 50 mls @ 100 mls/hr 10/17/24 15:30 10/18/24 07:13 Cleocin/D5w IV 10/24/24 15:29 Infused Q8 FAUZIA Infusion Latanoprost 1 drops 10/15/24 21:00 10/17/24 20:15 Latanoprost 0.005% Op Soln 2.5 Ml Btl OPB 11/14/24 20:59 1 drops HS FAUZIA Administration Metoprolol Succinate 25 mg 10/16/24 09:00 10/16/24 08:49 Metoprolol Succ 25mg Ext Rel Tab PO 11/15/24 08:59 25 mg DAILY FAUZIA Administration Multivitamins/Minerals 1 tab 10/16/24 09:00 10/18/24 08:15 Cerovite Adv Formula Tab PO 11/15/24 08:59 1 tab DAILY FAUZIA Administration Pantoprazole Sodium 40 mg 10/15/24 21:00 10/18/24 08:15 Pantoprazole 40 Mg Tab PO 11/14/24 20:59 40 mg BID FAUZIA Administration Thyroid 60 mg 10/16/24 06:30 10/18/24 06:10 Clive Thyroid 30 Mg Tab PO 11/15/24 06:29 60 mg DAILYBB FAUZIA Administration Timolol Maleate 1 drops 10/15/24 21:00 10/18/24 08:14 Timolol Maleate 0.5% Op Soln 5 Ml Btl OPB 11/14/24 20:59 1 drops BID FAUZIA Administration
[2024-10-18] MEDS ORDERED: IRON SUCROSE 200 MG in SODIUM CHLORIDE 0.9% 100 ML IV ONE (17:15)
--- NOTE | 2024-10-18 23:01 | Hospitalist Progress Note ---
Date of Service October 18, 2024 Assessment & Plan (1) Sepsis: (2) Sacral wound: (3) Cellulitis of buttock: (4) Thrombocytosis: (5) Anemia: (6) Elevated troponin: (7) Dysphagia: Plan Patient is an 89-year-old female with past medical history of 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 She is anticoagulated with Eliquis. She presents today due to rectal bleeding from a sacral wound. She is being admitted due to sepsis secondary to sacral wound, IV fluids sepsis bolus ordered, lactate ordered, IV antibiotics started with cefepime and vancomycin, wound care consulted. # sepsis/sacral wound/cellulitis of buttock WBC 12.15, hypotensive (97/67), tachycardic (104), afebrile on admission lactate 3.0 improved to 2.1 Patient remains hypotensive and tachycardic. Likely multifactorial. Fluids: Sepsis fluid bolus for ideal body weight = 1704.30 stopped cefepime; addition of vancomycin with recent hospitalization added clindamycin/ zosyn. Blood cultures pending wound cultures grew the following: Pseudomonas aeruginosa Bacteroides fragilis Clostridium perfringens Wound care consulted: reviewe pictures and discussed with wound care nurse, due to extensive wound of feett will consult Podiatry. - eval by wound care during recent hospitalization, recommended Ensure or boost shake; ordered - clean and dry wounds on bilateral feet, legs, and heels. Apply Aquacel Ag, ABD pads, and Kerlix. Change daily and as needed. - To buttocks and ischium apply Aquacel Ag and Optifoam. Change daily and as needed. will continue current antibiotics will consult infectious disease/ podiatry for foot wound #Thrombocytosis suspect 2/2 Acute infection versus chronic anemia Platelet count uptrending throughout September platelets 681 on admission trend CBC + peripheral smear ordered #iron deficiency anemia chronic, improved from recent admission Was previously on iron supplement however appears to be discontinue Positive occult stool during recent admission, DC 10/07 Consult GI eval: patient is open to it. Was started on Protonix 40 Mg twice daily concern about GI bleed, ordered hold PRBC units in case her anemia worsens. Hemoglobin above 8 however hypotensive in the evening, will order one unit. held iron due to infection. 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 Physical Exam Physical Exam: The patient is awake, alert and oriented 3 HEENT- EOMI, mucous membranes dry. Hearing grossly intact. Heart-normal S1 and S2. Lungs-clear bilaterally, no respiratory distress, no accessory muscle use. Abdomen-normal bowel sounds and soft. No ascites noted. Non-tender. Extremities- no clubbing, cyanosis. +3 pitting edema bilaterally. Results & Data Results & Data Vital Signs (Past 12 Hours) Vital Signs Temp Pulse Pulse Resp BP Pulse Ox O2 Del Method 10/18/24 22:57 36.8 C 108 H 16 87/54 L 91 Room Air 10/18/24 19:47 36.9 C 108 H 17 90/53 L 92 Room Air 10/18/24 15:53 37.0 C 103 H 19 100/61 94 Room Air 10/18/24 14:34 103 H PG Care Time/CCT Total # of Minutes Spent Total Time Spent with Patient: Total time spent is greater than 50% in coordination of care (as documented) at patient's floor/unit and/or counseling patient: Coding Level of Care Code 11258 SUB INP/OBS CARE 3/50MIN Diagnoses Sepsis A41.9 Sacral wound S31.000A Cellulitis of buttock L03.317 Thrombocytosis D75.839 Anemia D64.9 Elevated troponin R79.89 Dysphagia R13.10
[2024-10-18] MEDS ORDERED: SODIUM CHLORIDE 0.9% 50 ML IV PRN (23:03)
[2024-10-18] MEDS ORDERED: SODIUM CHLORIDE 0.9% 100 ML IV PRN (23:03)
[2024-10-19 05:56] LABS: Creatinine Clr Calc Pharmacy 29.5 ml/min
[2024-10-19] MEDS: VANCOMYCIN LEVEL ONE (06:29)
--- NOTE | 2024-10-19 07:11 | Pharmacy Report ---
Pharmacy PK ABX Note - Date of Service October 19, 2024 - Assessment and Plan Assessment 10/19: * Day #5 of Vancomycin and Day #3 of Zosyn/Clindamycin for sacral wound. * Awaiting ID recommendations. Sacral cx still preliminary. * Low grade fevers this AM. SCr increased to 1.28 mg/dL this AM. * Vanc level this morning predicted to be subtherapeutic at steady state so will increase dose today. 10/18: 89 yo F receiving Vancomycin, Zosyn, and Clindamycin for sacral ulcer. * Day #4 of antimicrobial therapy (D#4 Vanc, D#2 Zosyn and Clindamycin) * Afebrile x 24 hrs. SCr bumped to 1.23 mg/dL this AM, CrCl 31 mL/min. No leukocytosis. * Procal was 0.10 ng/mL yesterday. Repeat was 0.13 ng/mL this AM. * MRSA nasal swab was negative. Urine culture with > 3 organisms, repeat urine collection recommended. No growth to date in blood cultures. * Sacral wound cx is growing Pseudomonas aeruginosa, Bacteroides fragilis, and Clostridium perfringens. Pseudomonas is pansensitive but no sensitivities to follow on other organisms. Agree with addition of Zosyn and Clindamycin for now. Would recommend an ID consult to determine if Clindamycin is clinically necessary and if so, a duration for abx. At this point, would recommend discontinuation of vancomycin. Plan Vancomycin * Current regimen: 1000 mg IV every 24 hours * Random level obtained 10/19/24 resulted as 10.8 mcg/mL. This is subtherapeutic. * Change to 1250 mg IV every 24 hours. Predicted AUC at steady state: 493 mg/L.hr * Repeat random level ordered for: 10/21/24 Zosyn * 4.5 g IV every 8 hours Clindamycin * 900 mg IV every 8 hours Pharmacy will continue to follow and will adjust dose/frequency as necessary. Thank you. Pharmacy has transitioned to AUC monitoring for vancomycin. AUC/JACOB is the preferred PK/PD target and is associated with decreased risk of nephrotoxicity compared to traditional trough targets.
--- NOTE | 2024-10-19 07:16 | Hospitalist Progress Note ---
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 She is anticoagulated with Eliquis. She presents today due to rectal bleeding from a sacral wound. She is being admitted due to sepsis secondary to sacral wound, IV fluids sepsis bolus ordered, lactate ordered, IV antibiotics started with cefepime and vancomycin, wound care consulted. # sepsis/sacral wound/cellulitis of buttock WBC 12.15, hypotensive (97/67), tachycardic (104), afebrile on admission lactate 3.0 improved to 2.1 Patient remains hypotensive and tachycardic. Likely multifactorial. Fluids: Sepsis fluid bolus for ideal body weight = 1704.30 stopped cefepime; addition of vancomycin with recent hospitalization added clindamycin/ zosyn. Blood cultures pending wound cultures grew the following: Pseudomonas aeruginosa Bacteroides fragilis Clostridium perfringens Wound care consulted: reviewe pictures and discussed with wound care nurse, due to extensive wound of feett will consult Podiatry. - eval by wound care during recent hospitalization, recommended Ensure or boost shake; ordered - clean and dry wounds on bilateral feet, legs, and heels. Apply Aquacel Ag, ABD pads, and Kerlix. Change daily and as needed. - To buttocks and ischium apply Aquacel Ag and Optifoam. Change daily and as needed. will continue current antibiotics will consult infectious disease/ podiatry for foot wound #Thrombocytosis suspect 2/2 Acute infection versus chronic anemia Platelet count uptrending throughout September platelets 681 on admission trend CBC + peripheral smear ordered #iron deficiency anemia chronic, improved from recent admission Was previously on iron supplement however appears to be discontinue Positive occult stool during recent admission, DC 10/07 Consult GI eval: patient is open to it. Was started on Protonix 40 Mg twice daily concern about GI bleed, ordered hold PRBC units in case her anemia worsens. Hemoglobin above 8 however hypotensive in the evening, will order one unit. held iron due to infection. #Elevated troponin/demand ischemia 35.5 ->41.5 in ED Chronically elevated, at baseline Defer trending at this time EKG shows NSR Denies chest pain had stress test during recent admission, abnormal, cardiology recommended that patient could be considered for statin therapy in outpatient setting #dysphagia mention of dysphagia during recent hospitalization Will consult speech, may benefit from swallow study Chronic stable diagnoses: pericardial effusion - chronic of 10+ years, stable Sick sinus syndrome s/p pacer - follows kunal Conteh, continue Eliquis and metoprolol Hx BL DVT and PE - August 2024, 2/2 immobility at home, continue Eliquis, lasix discontinued recent admission VTE ppx: continue Eliquis Diet: heart healthy + boost daily Dispo: pcu with sepsis Admission and Anticipated Discharge Date Admission Date: October 15, 2024 Results & Data Results & Data Vital Signs (Past 12 Hours) Vital Signs Temp Pulse Pulse Resp BP BP BP 10/19/24 07:05 101 H 10/19/24 03:50 36.8 C 102 H 22 116/78 10/19/24 03:08 36.9 C 103 H 21 99/57 L 10/19/24 02:10 37.9 C H 103 H 20 94/62 L 10/19/24 01:38 37 C 107 H 21 81/50 L 10/19/24 01:23 37.6 C H 109 H 21 91/50 L 10/19/24 01:00 108 H 22 80/50 L 10/19/24 00:00 107 H 10/18/24 23:21 88/52 L 10/18/24 22:57 36.8 C 108 H 16 87/54 L 10/18/24 19:47 36.9 C 108 H 17 90/53 L Pulse Ox O2 Del Method O2 Flow Rate 10/19/24 07:05 10/19/24 03:50 98 2 10/19/24 03:08 95 10/19/24 02:10 93 2 10/19/24 01:38 96 2 10/19/24 01:23 96 2 10/19/24 01:00 91 10/19/24 00:00 10/18/24 23:21 10/18/24 22:57 91 Room Air 10/18/24 19:47 92 Room Air PG Care Time/CCT Total # of Minutes Spent Total Time Spent with Patient: Total time spent is greater than 50% in coordination of care (as documented) at patient's floor/unit and/or counseling patient: Coding Level of Care Code None Diagnoses Sepsis A41.9
[2024-10-19] MEDS: VANCOMYCIN HCL 1,250 MG in SODIUM CHLORIDE 0.9% 250 ML IV SCH (07:58)
--- NOTE | 2024-10-19 09:06 | Gastrointestinal Consultation ---
Date of Consultation October 19, 2024 Assessment & Plan (1) Anemia: 89 year old female with history of paroxysmal atrial tachycardia, cardiac pacemaker, dyslipidemia, allergic rhinitis, hypothyroidism. osteoporosis, bilateral DVT and PE August 2024 anticoagulated with Eliquis. She had an episode of rectal bleeding on 10/05/24 and was evaluated by GI at that time. EGD/Colonoscopy were offered but she was not interested in testing at that time. GI was asked to re-evaluate of anemia. She reports soft, brown stools daily. We discussed endoscopic evaluation for evaluation of any mass/lesions, bleeding sources. She is currently not interested in endoscopic evaluation as she notes she has been through a lot of testing medically. She tells me she would reconsider this decision if she developed ongoing gastrointestinal concerns. Continue supportive measures. Trend H&H. Transfuse as needed. Monitor/document GI output. Continue PO PPI twice daily. Check iron and ferritin. If iron deficient, start iron supplementation. Recall GI in the event she develops bleeding or wishes to pursue endoscopy. Thank you for allowing us to participate in the care of this patient. Please call with any acute changes, questions or concerns. Please see addendum below with additional recommendation from my supervising physician. I spent a total of 60 minutes on the date of service in review of patient's record, and previously obtained information in person and appropriate medical visit, discussion and education of plan, with patient and/or caregiver, placing orders for tests/referral/procedures as medically necessary and documentation of pertinent clinical information in patient's medical records for their visit today. Supervising Physician Co-Signing Physician Notes I personally saw and examined the patient. I have reviewed the chart and agree with the documentation provided by the PREDICTIVE MAINTENANCE TECHNICIAN including discussion about the assessment, treatment and plan. Briefly, 89 year old female with history of paroxysmal atrial tachycardia, cardiac pacemaker, dyslipidemia, allergic rhinitis, hypothyroidism. osteoporosis, bilateral DVT and PE August 2024 anticoagulated with Eliquis - GI asked to evaluate for anemia. Pt was seen and evaluated, chart reviewed. Notes she is tired, frustrated and not resting well. Denies abd pain. No nausea/vomiting. Stools are brown, loose. Has not seen and black or bloody stools. Of note she was admitted 10/05/24 w/ anemia and occult blood in stool. She had an episode of painless rectal bleeding x 1. EGD/Colonoscopy were offered and she denies at the time. Bleeding was thought to be diverticular vs hemorrhoidal. She again has stable anemia in the 7.4-8.0 range. No active bleeding again noted this visit. She understands the risks and benefits of a colonoscopy and chooses not to proceed. She states that she has been on some Celebrex for over 30 years in the past and was told that this is chemoprevention for any polyp formation. She does not want to proceed with the procedures currently. If she changes her mind or if she has active bleeding we are happy to help. Please call us back. GI will sign off. History of Present Illness Reason for Consultation: anemia Requesting Physician: Zoe Vergara MD Attending Physician: Zoe Vergara MD History of Present Illness 89 year old female with history of paroxysmal atrial tachycardia, cardiac pacemaker, dyslipidemia, allergic rhinitis, hypothyroidism. osteoporosis, bilateral DVT and PE August 2024 anticoagulated with Eliquis - GI asked to evaluate for anemia. Pt was seen and evaluated, chart reviewed. Notes she is tired, frustrated and not resting well. Denies abd pain. No nausea/vomiting. Stools are brown, loose. Has not seen and black or bloody stools. Of note she was admitted 10/05/24 w/ anemia and occult blood in stool. She had an episode of painless rectal bleeding x 1. EGD/Colonoscopy were offered and she denies at the time. Bleeding was thought to be diverticular vs hemorrhoidal. Last EGD/Colonoscopy were around 1989. She does not recall results. I was not able to find reports for these. HGB 7.4 S/P 1 unit RBC Stools were occult positive 10/05/24 Allergies Allergy/AdvReac Type Severity Reaction Status Date / Time No Known Drug Allergies Allergy Verified 10/15/24 15:01 Home Medications Medication Instructions Recorded Confirmed Type latanoprost 0.005 % eye drops 1 drops OPB HS 06/15/19 10/15/24 History multivitamin (Daily Multi-Vitamin 1 tab PO DAILY 01/31/20 10/15/24 History tablet) timolol maleate 0.5 % once daily 1 drp OPB BID 08/14/20 10/15/24 History eye drops thyroid (pork) 60 mg tablet 60 mg PO DAILY #90 tabs 08/10/24 10/15/24 Rx ([place] Thyroid) aspirin 81 mg chewable tablet 40.5 mg PO DAILY 09/06/24 10/15/24 History vitamins A,C,N-ksby-qklmrx 4,296 1 cap PO AMPM 09/06/24 10/15/24 History mcg-226 mg-90 mg capsule (PreserVision AREDS) metoprolol succinate 25 mg 25 mg PO DAILY #90 tabs 10/04/24 10/15/24 Rx tablet,extended release 24 hr pantoprazole 40 mg tablet,delayed 40 mg PO BID #60 tabs 10/07/24 10/15/24 Rx release apixaban 5 mg tablet (Eliquis) 10 mg PO BID 10/08/24 10/15/24 History Patient History Medical History Peptic ulcer SSS (sick sinus syndrome) (04/28/14) Surgical History S/P placement of cardiac pacemaker (~2013) Dual chamber Status post hip surgery (~2013) Left RUTH History of esophagogastroduodenoscopy (~1996) H/O colonoscopy (~1998) Family History Mother Breast cancer Social History Smoking Status: Never smoker Do You Dip or Chew Tobacco: No; Hx Alcohol Use: No Hx Substance Use: No Preferred Language: Turkish Communication Ability: Effective Justice Court Judge Required: No Beliefs That Will Affect Care: None marital status: / Current Living Situation: Alone current occupational status: retired Feels Safe at Home: Yes Assistive Devices: Glasses and Walker Review of Systems Review of Systems: All other findings negative except as noted in HPI. Physical Exam Constitutional: WD/WN, vitals as above Respiratory: normal respiratory effort, lungs clear to auscultation Cardiovascular: Rate/Rhythm: regular rate Gastrointestinal (Abdomen): normal bowel sounds, soft, nontender, no hepatosplenomegaly Skin: no rashes, warm and dry Results & Data Vital Signs (Past 12 Hours) Vital Signs Temp Pulse Pulse Resp BP BP BP 10/19/24 08:40 10/19/24 07:41 98.2 F 103 H 19 108/62 10/19/24 07:05 101 H 10/19/24 03:50 98.2 F 102 H 22 116/78 10/19/24 03:08 98.4 F 103 H 21 99/57 L 10/19/24 02:10 100.2 F H 103 H 20 94/62 L 10/19/24 01:38 98.6 F 107 H 21 81/50 L 10/19/24 01:23 99.7 F H 109 H 21 91/50 L 10/19/24 01:00 108 H 22 80/50 L 10/19/24 00:00 107 H 10/18/24 23:21 88/52 L 10/18/24 22:57 98.2 F 108 H 16 87/54 L Pulse Ox O2 Del Method O2 Flow Rate 10/19/24 08:40 Room Air 10/19/24 07:41 94 Nasal Cannula 2 10/19/24 07:05 10/19/24 03:50 98 2 10/19/24 03:08 95 10/19/24 02:10 93 2 10/19/24 01:38 96 2 10/19/24 01:23 96 2 10/19/24 01:00 91 10/19/24 00:00 10/18/24 23:21 10/18/24 22:57 91 Room Air Laboratory Results 10/19/24 10/18/24 10/15/24 Range/Units 05:27 17:28 13:18 Hgb 7.4 L (12.0-16.0) g/dl Creatinine 1.28 H (0.6-1.2) mg/dl Est Cr Clr Drug Dosing 29.5 ml/min eGFR 40.04 Random Vancomycin 10.8 (10-20) mcg/ml Blood Type B Positive Antibody Screen NEGATIVE Crossmatch See Detail See Detail PG Care Time/CCT Total # of Minutes Spent Total Time Spent with Patient: Total time spent is greater than 50% in coordination of care (as documented) at patient's floor/unit and/or counseling patient: Coding Level of Care Code 86974 INT INP/OBS CARE 2/55MIN Diagnoses Anemia D64.9
[2024-10-19 09:43] LABS: Hematocrit (blood only) 25.7 % (37.0-47.0); Mean Corpuscular Hemoglobin 27.2 pg (25.0-34.0); Mean Corpuscular Hgb Conc 31.1 g/dL (32.0-36.0); Mean Corpuscular Volume 87.4 fL (80.0-100.0); Mean Platelet Volume 9.5 fL (9.4-12.4); Platelet Count 400 K/uL (130-400); RDW Coefficient of Variation 16.7 % (11.5-14.5); RDW Standard Deviation 52.7 fL (36.4-46.3); Red Blood Count 2.94 M/uL (4.20-5.40); White Blood Count 7.97 K/ul (4.8-10.8)
[2024-10-19 09:53] LABS: BUN Creatinine Ratio 33.3 (10-20); Calcium 7.7 mg/dl (8.6-10.3); Creatinine Clr Calc Pharmacy 34.9 ml/min; Potassium 4.1 mmol/L (3.5-5.1)
--- NOTE | 2024-10-19 12:14 | Hospitalist Progress Note ---
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 She is anticoagulated with Eliquis. She presents today due to rectal bleeding from a sacral wound. She is being admitted due to sepsis secondary to sacral wound, IV fluids sepsis bolus ordered, lactate ordered, IV antibiotics started with cefepime and vancomycin, wound care consulted. # sepsis/sacral wound/cellulitis of buttock WBC 12.15, hypotensive (97/67), tachycardic (104), afebrile on admission lactate 3.0 improved to 2.1 ID and wound care involved ID recommends clindamycin and Zosyn Wound culture grew Pseudomonas, Bacteroides, Clostridium perfringens Patient is doing better clinically overall #Iron deficiency anemia There was some question of GI bleed in the setting of being on Eliquis The patient did present with what sounds like rectal bleed but may have been bleeding from the sacral wound. She is having brown stools now Hemoglobin trickled down yesterday and was given 1 unit of blood GI consulted Patient is declining GI scopes She had a DVT/PE 1 month ago and needs to be on Eliquis Will continue Eliquis while monitoring closely Continue PPI #Foot wound Podiatry involved Continue antibiotics per ID recommendations #Thrombocytosis Secondary to acute infection Resolved #Elevated troponin/demand ischemia 35.5 ->41.5 in ED Chronically elevated, at baseline Defer trending at this time EKG shows NSR Denies chest pain had stress test during recent admission, abnormal, cardiology recommended that patient could be considered for statin therapy in outpatient setting #dysphagia mention of dysphagia during recent hospitalization Will consult speech, may benefit from swallow study Chronic stable diagnoses: 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 She denied any chest pain or shortness of breath. She is having formed brown stools. Per nurse, the patient is not having any active rectal bleeding. She spoke to GI and declined any GI procedures. Review of Systems Review of Systems: All systems reviewed & are unremarkable except as noted in Subjective Physical Exam Physical Exam: General: Awake, conversant. Frail looking elderly woman. Heart: S1, S2/regular rate and rhythm, no murmur rubs or gallops Lungs: Clear to auscultation bilaterally. Normal effort Abdomen: Soft/nontender/nondistended. No hepatosplenomegaly Extremities: No clubbing/cyanosis. No edema Behavior: Appropriate, cooperative Results & Data Results & Data Vital Signs (Past 12 Hours) Vital Signs Temp Pulse Pulse Resp BP BP Pulse Ox 10/19/24 10:36 37.1 C 99 H 19 99/56 L 94 10/19/24 08:40 10/19/24 07:41 36.8 C 103 H 19 108/62 94 10/19/24 07:05 101 H 10/19/24 03:50 36.8 C 102 H 22 116/78 98 10/19/24 03:08 36.9 C 103 H 21 99/57 L 95 10/19/24 02:10 37.9 C H 103 H 20 94/62 L 93 10/19/24 01:38 37 C 107 H 21 81/50 L 96 10/19/24 01:23 37.6 C H 109 H 21 91/50 L 96 10/19/24 01:00 108 H 22 80/50 L 91 O2 Del Method O2 Flow Rate 10/19/24 10:36 Room Air 10/19/24 08:40 Room Air 10/19/24 07:41 Nasal Cannula 2 10/19/24 07:05 10/19/24 03:50 2 10/19/24 03:08 10/19/24 02:10 2 10/19/24 01:38 2 10/19/24 01:23 2 10/19/24 01:00 Laboratory Results Abnormal lab results 10/15/24 10/18/24 10/19/24 Range/Units 13:18 17:28 05:27 RBC (4.20-5.40) M/uL Hgb 7.4 L (12.0-16.0) g/dl Hct (37.0-47.0) % MCHC (32.0-36.0) g/dL RDW Std Deviation (36.4-46.3) fL RDW Coeff of López (11.5-14.5) % BUN (6-23) mg/dl Creatinine 1.28 H (0.6-1.2) mg/dl BUN/Creatinine Ratio (10-20) Glucose (70-99(Fasting)) mg/dl Calcium (8.6-10.3) mg/dl Crossmatch See Detail See Detail 10/19/24 Range/Units 09:14 RBC 2.94 L (4.20-5.40) M/uL Hgb 8.0 L (12.0-16.0) g/dl Hct 25.7 L (37.0-47.0) % MCHC 31.1 L (32.0-36.0) g/dL RDW Std Deviation 52.7 H (36.4-46.3) fL RDW Coeff of López 16.7 H (11.5-14.5) % BUN 36 H (6-23) mg/dl Creatinine (0.6-1.2) mg/dl BUN/Creatinine Ratio 33.3 H (10-20) Glucose 185 H (70-99(Fasting)) mg/dl Calcium 7.7 L (8.6-10.3) mg/dl Crossmatch PG Care Time/CCT Total # of Minutes Spent Total Time Spent with Patient: Total time spent is greater than 50% in coordination of care (as documented) at patient's floor/unit and/or counseling patient: Coding Level of Care Code 47637 SUB INP/OBS CARE 2/35MIN Diagnoses Sepsis A41.9
--- NOTE | 2024-10-19 14:11 | Infectious Disease Progress Nt ---
Date of Service October 19, 2024 Assessment & Plan (1) Thrombocytosis: (2) Cellulitis of buttock: (3) Sacral wound: Plan . This is an 89-year-old female with past medical history of sick sinus syndrome status post pacemaker, left hip RUTH in 2013, PE/DVT, hypothyroidism, right hip fracture status post insertion of trochanteric nail on 07/03/24, admitted and found to be in septic shock requiring pressors with Streptococcus Thermophilus bacteremia and bilateral lower extremity wounds with intramuscular and subcutaneous collections on CT. She was treated with ceftriaxone and was discharged on a 2-week course of high dose amoxicillin. She now returns with bleeding from a sacral wound. She denies any blood per rectum. Denies any abdominal pain, fever, chills, nausea, sweats. Feels that her lower extremity wounds have improved since last admission. In the ED temperature 36.6, pulse 103, RR 20, BP 97/67, O2 sat 97% on room air. Labs WBC 12.15, platelets 681, BUN 39, creatinine 0.93,lactate 3-->2, cp 6.60 Superficial sacral wound cultures were obtained and grew Pseudomonas aeruginosa, Clostridium perfringens and Bacteroides Fragilis. She was initially on cefepime and Vanco. She is now on Zosyn and clindamycin. ID consulted for sacral wound infection. She states that her sacral area feels "raw" but otherwise she feels well. # Contaminated sacral wound with cellulitis - no s/o deep infection - likely contaminated with fecal marva # History of Strep thermophilus bacteremia 08/2024 # History of bilateral lower extremity wounds with abscess 08/2024 intramuscular and subcu collections on CT -improved from previous admission per patient report, RN and per review of prior wound pictures. # Thrombocytosis, improving # H/o left RUTH, right hip fracture s/p surgery # h/o SSS s/p PPM Microbiology: Blood culture 10/15 NGTD ( prelim) Wound culture 10/15 Pseudomonas aeruginosa (sensitive to Cipro, Levaquin, cefepime), Bacteroides fragilis, Clostridium perfringens ( prelim) Urine culture 10/16 3 or more organisms. Antibiotics: Cefepime 10/15 - 10/17 Vancomycin Clindamycin Zosyn 10/17ongoing Discussion: She presented with bleeding from her rectal wound. Wounds are excoriated with several areas of unroofing and abrasions but there is no other heather signs of infection on exam. Sacral wound is not deep. No indurated areas or crepitus or purulent drainage. During exam ,wounds contaminated with fecal matter. Area with surrounding erythema, +tenderness to palpation ( mild) . Clostridium and bacteroides from Gi marva. No s/o toxic shock although BP soft Recommendations -Continue Zosyn which will cover Pseudomonas, Bacteroides as well as Clostridium perfringens Discontinued clindamycin ( Day 3) today. No signs of toxic shock syndrome and wound does not appear deeply infected. Mostly jak wound cellulitis. No evidence of necrotizing infection. -Monitor Bps -Continue wound care -Keep sacral area clean of BMs -If signs of worsening sacral wound, Check CT sacral area. - Follow up BCx and WoundCx to finalization. Can be discharged on Levaquin 750 mg po Q 48 hours ( QTC 459 0n 10/15, Cr cl ~ 34.9) and flagyl 500 mg Po q 8hours to complete a total of 7 days of abx for ?SSTI / sacral cellulitis ( 10/17-10/24). ID will sign off. Call with questions. Cleve Davis MD, MPH Infectious Disease [facility], ID Division Call [phone] with questions Admission and Anticipated Discharge Date Admission Date: October 15, 2024 Subjective This patient recommendation is based on a telemedicine consult request which was completed asynchronously through chart review and information provided by the primary physician. The patient was not seen or examined today. The evaluation is consultative in nature and all patient care and treatment decisions can either be accepted or rejected by the patient's primary hospital-based treating phys ician using their own independent medical judgment for their patient. Time Spent Reviewing Chart: 21 - 30 minutes Afebrile, BC NGTD BP remains soft. Results & Data Vital Signs (Past 12 Hours) Vital Signs Temp Pulse Pulse Resp BP BP Pulse Ox 10/19/24 10:36 37.1 C 99 H 19 99/56 L 94 10/19/24 08:40 10/19/24 07:41 36.8 C 103 H 19 108/62 94 10/19/24 07:05 101 H 10/19/24 03:50 36.8 C 102 H 22 116/78 98 10/19/24 03:08 36.9 C 103 H 21 99/57 L 95 10/19/24 02:10 37.9 C H 103 H 20 94/62 L 93 O2 Del Method O2 Flow Rate 10/19/24 10:36 Room Air 10/19/24 08:40 Room Air 10/19/24 07:41 Nasal Cannula 2 10/19/24 07:05 10/19/24 03:50 2 10/19/24 03:08 10/19/24 02:10 2 Laboratory Results Short CBC 10/18/24 10/19/24 Range/Units 17:28 09:14 WBC 7.97 (4.8-10.8) K/ul Hgb 7.4 L 8.0 L (12.0-16.0) g/dl Hct 25.7 L (37.0-47.0) % Plt Count 400 (130-400) K/uL BMP 10/19/24 10/19/24 05:27 09:14 Sodium 137 Potassium 4.1 Chloride 106 Carbon Dioxide 25 BUN 36 H Creatinine 1.28 H 1.08 Glucose 185 H Calcium 7.7 L Diagnostic Findings Microbiology 10/15/24 14:40 Blood Aerobic Blood Culture - Preliminary No growth in Aerobic bottle after 48 hours. 10/15/24 14:40 Blood Anaerobic Blood Culture - Final 10/15/24 14:40 Blood Aerobic Blood Culture - Preliminary No growth in Aerobic bottle after 48 hours. 10/15/24 14:40 Blood Anaerobic Blood Culture - Final 10/15/24 Unknown Sacrum Gram Stain - Final 10/15/24 Unknown Sacrum Aerobic and Anaerobic Culture - Preliminary Pseudomonas aeruginosa Bacteroides fragilis Clostridium perfringens 10/16/24 Unknown Urine,Indwelling Cath Urine Culture - Final Three types of organisms present, all moderate counts. Repeat collection recommended. No further identifications or sensitivities to follow. Medications Administered Home Medications Medication Instructions Recorded Confirmed Last Taken latanoprost 0.005 % eye drops 1 drops OPB HS 06/15/19 10/15/24 10/14/24 multivitamin (Daily Multi-Vitamin 1 tab PO DAILY 01/31/20 10/15/24 09/05/24 tablet) timolol maleate 0.5 % once daily 1 drp OPB BID 08/14/20 10/15/24 10/15/24 eye drops thyroid (pork) 60 mg tablet 60 mg PO DAILY #90 tabs 08/10/24 10/15/24 10/02/24 ([place] Thyroid) aspirin 81 mg chewable tablet 40.5 mg PO DAILY 09/06/24 10/15/24 10/02/24 vitamins A,C,M-ksuk-qwmjay 4,296 1 cap PO AMPM 09/06/24 10/15/24 10/15/24 mcg-226 mg-90 mg capsule (PreserVision AREDS) metoprolol succinate 25 mg 25 mg PO DAILY #90 tabs 10/04/24 10/15/24 Unknown tablet,extended release 24 hr pantoprazole 40 mg tablet,delayed 40 mg PO BID #60 tabs 10/07/24 10/15/24 10/15/24 release apixaban 5 mg tablet (Eliquis) 10 mg PO BID 10/08/24 10/15/24 10/15/24 Active Medications Generic Name Dose Route Start Last Admin Trade Name Freq PRN Reason Stop Dose Admin Acetaminophen 650 mg 10/15/24 17:33 10/16/24 22:30 Acetaminophen 325 Mg Tab PO 11/14/24 17:32 650 mg Q4H PRN Administration Pain or Fever Apixaban 5 mg 10/15/24 21:00 10/19/24 09:24 Apixaban 5 Mg Tablet PO 11/14/24 20:59 5 mg BID FAUZIA Administration Aspirin 40.5 mg 10/16/24 09:00 10/19/24 07:56 Aspirin 81 Mg Chew PO 11/15/24 08:59 40.5 mg DAILY FAUZIA Administration Gabapentin 100 mg 10/15/24 21:45 10/19/24 07:46 Gabapentin 100 Mg Cap PO 11/14/24 21:44 100 mg TID FAUZIA Administration Piperacillin Sod/Tazobactam Sod 4.5 gm in 100 mls @ 25 mls/hr 10/17/24 22:00 10/19/24 13:10 Zosyn IV 10/24/24 21:59 25 mls/hr Q8H FAUZIA Administration Protocol Latanoprost 1 drops 10/15/24 21:00 10/18/24 21:11 Latanoprost 0.005% Op Soln 2.5 Ml Btl OPB 11/14/24 20:59 1 drops HS FAUZIA Administration Metoprolol Succinate 25 mg 10/16/24 09:00 10/16/24 08:49 Metoprolol Succ 25mg Ext Rel Tab PO 11/15/24 08:59 25 mg DAILY FAUZIA Administration Multivitamins/Minerals 1 tab 10/16/24 09:00 10/19/24 07:46 Cerovite Adv Formula Tab PO 11/15/24 08:59 1 tab DAILY FAUZIA Administration Pantoprazole Sodium 40 mg 10/15/24 21:00 10/19/24 07:47 Pantoprazole 40 Mg Tab PO 11/14/24 20:59 40 mg BID FAUZIA Administration Thyroid 60 mg 10/16/24 06:30 10/19/24 06:01 [place] Thyroid 30 Mg Tab PO 11/15/24 06:29 60 mg DAILYBB FAUZIA Administration Timolol Maleate 1 drops 10/15/24 21:00 10/19/24 07:49 Timolol Maleate 0.5% Op Soln 5 Ml Btl OPB 11/14/24 20:59 1 drops BID FAUZIA Administration
--- NOTE | 2024-10-19 21:25 | Podiatry Consultation ---
Date of Consultation October 19, 2024 Assessment & Plan (1) Peripheral neuropathy: Peripheral neuropathy type: polyneuropathy, unspecified Qualified Code(s): G62.9 - Polyneuropathy, unspecified (2) Chronic ulcer of right foot with fat layer exposed: (3) Chronic ulcer of left foot with fat layer exposed: (4) Other specified peripheral vascular diseases: Plan - Patient examined and evaluated. - Discussed need for more aggressive debridement for all of these wounds. - No suspected deep involvement, but plenty of overlying slough/interposing fibrotic tissue to delay any healing. - Underlying vascular disease will continue to make these difficult to heal, as well. - Discussed enzymatic versus surgical debridement. Currently leaning towards surgery and will schedule for . - Continue aquacel ag daily, IV antibiotics until then. - Will follow History of Present Illness Reason for Consultation: Bilateral foot and heel ulcerations Attending Physician: Zoe Vergara MD History of Present Illness Patient seen at bedside at lunch. States that she is in rough shape with ulcerations to bilateral lower extremities and bleeding ulcer to sacrum. Has had these ulcers for a while, admitting they have been made worse from pressure in blankets and prior dressings rubbing the skin. The heels have ulcerated due to pressure, as well. She has noticed worsening signs of infection to them so sought treatment. Now, on admission with IV antibiotics, she has noticed feeling better in the last few days. Allergies Allergy/AdvReac Type Severity Reaction Status Date / Time No Known Drug Allergies Allergy Verified 10/15/24 15:01 Home Medications Medication Instructions Recorded Confirmed Type latanoprost 0.005 % eye drops 1 drops OPB HS 06/15/19 10/15/24 History multivitamin (Daily Multi-Vitamin 1 tab PO DAILY 01/31/20 10/15/24 History tablet) timolol maleate 0.5 % once daily 1 drp OPB BID 08/14/20 10/15/24 History eye drops thyroid (pork) 60 mg tablet 60 mg PO DAILY #90 tabs 08/10/24 10/15/24 Rx ([place] Thyroid) aspirin 81 mg chewable tablet 40.5 mg PO DAILY 09/06/24 10/15/24 History vitamins A,C,W-pfav-xjawoe 4,296 1 cap PO AMPM 09/06/24 10/15/24 History mcg-226 mg-90 mg capsule (PreserVision AREDS) metoprolol succinate 25 mg 25 mg PO DAILY #90 tabs 10/04/24 10/15/24 Rx tablet,extended release 24 hr pantoprazole 40 mg tablet,delayed 40 mg PO BID #60 tabs 10/07/24 10/15/24 Rx release apixaban 5 mg tablet (Eliquis) 10 mg PO BID 10/08/24 10/15/24 History Patient History Medical History Pulmonary embolism DVT, bilateral lower limbs Hypotension Chronic venous stasis Failure to thrive in adult Hypernatremia Lower extremity ulceration Ambulatory dysfunction Leg edema Wound of right foot Wound of left foot Chest pain Right femoral fracture (07/01/24) Acute comminuted displaced intertrochanteric fracture of the right femur from a fall 2 days prior per the ED report Cardiac pacemaker PAT (paroxysmal atrial tachycardia) Dyslipidemia Hypothyroidism Peptic ulcer SSS (sick sinus syndrome) (04/28/14) Surgical History S/P placement of cardiac pacemaker (~2013) Dual chamber Status post hip surgery (~2013) Left RUTH History of esophagogastroduodenoscopy (~1996) H/O colonoscopy (~1998) Family History Mother Breast cancer Social History Smoking Status: Never smoker Do You Dip or Chew Tobacco: No; Hx Alcohol Use: No Hx Substance Use: No Preferred Language: Mongolian Communication Ability: Effective Outplacement Consultant Required: No Beliefs That Will Affect Care: None marital status: / Current Living Situation: Alone current occupational status: retired Feels Safe at Home: Yes Assistive Devices: Glasses and Walker Review of Systems Review of Systems: All systems reviewed & are unremarkable except as noted in HPI & below Constitutional: + fever; no chills and no fatigue Eyes: no problem reported Ear, Nose, Mouth, Throat: no problem reported Respiratory: no problem reported Cardiovascular: + edema; no problem reported Gastrointestinal: no nausea, no vomiting and no problem reported Genitourinary: no problem reported Musculoskeletal: no problem reported Integumentary: + skin ulcer, + wounds and + erythema Neurologic: + loss of sensation, + numbness and + pa resthesia; no generalized weakness Psychiatric: no problem reported Physical Exam Physical Exam: DP/PT pulses nonpalpable. CFT brisk to digits. Large dorsal foot ulcerations noted overlying midfoot/forefoot. These have overlying eschar formation and fibrous slough, diffusely. Advanced trophic changes noted. Recent MRI/CT did not reveal any deeper extension of these ulcerations or bone involvement. Constitutional: WD/WN, vitals as above + ill appearing and + obese Eyes: PERRL, conjunctivae normal, anicteric sclerae ENMT: external ear and nose normal, oropharynx normal Neck: trachea midline, no thyromegaly normal visual inspection Respiratory: normal respiratory effort; no respiratory distress Cardiovascular: Rate/Rhythm: regular rate and regular rhythm Vessels: + posterior tibial pulses abnormal and + dorsalis pedis pulses abnormal Chest (Breasts): Chest: normal inspection of chest Gastrointestinal (Abdomen): Inspection/Auscultation: abdomen normal to inspection Percussion/Palpation: + abdomen tender and abdomen soft Musculoskeletal: no cyanosis or clubbing, extremities motor strength 5/5 Head/Neck/Chest: normocephalic and head atraumatic Extremities: extremities normal to inspection Skin: + ulcer, + wound, + skin atrophy, + dry skin, + erythema, + eschar, + nails discolored and + nails dystrophic Neurologic: awake; no focal motor deficits Psychiatric: A+Ox3, euthymic affect Results & Data Vital Signs (Past 12 Hours) Vital Signs Temp Pulse Pulse Resp BP Pulse Ox O2 Del Method 10/19/24 20:07 37.3 C 105 H 20 111/64 90 Room Air 10/19/24 16:55 101 H 10/19/24 15:00 37.3 C 102 H 20 106/60 91 Room Air 10/19/24 10:36 37.1 C 99 H 19 99/56 L 94 Room Air
[2024-10-20 06:48] LABS: Hematocrit (blood only) 27.4 % (37.0-47.0); Hemoglobin 8.9 g/dl (12.0-16.0); Mean Corpuscular Hemoglobin 27.8 pg (25.0-34.0); Mean Corpuscular Hgb Conc 32.5 g/dL (32.0-36.0); Mean Corpuscular Volume 85.6 fL (80.0-100.0); Mean Platelet Volume 9.4 fL (9.4-12.4); Platelet Count 440 K/uL (130-400); RDW Coefficient of Variation 16.9 % (11.5-14.5); RDW Standard Deviation 52.8 fL (36.4-46.3); White Blood Count 8.81 K/ul (4.8-10.8)
--- NOTE | 2024-10-20 11:25 | Hospitalist Progress Note ---
Date of Service October 20, 2024 Assessment & Plan (1) Sepsis: Plan Patient is an 89-year-old female with past medical history of 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 She is anticoagulated with Eliquis. She presents today due to rectal bleeding from a sacral wound. She is being admitted due to sepsis secondary to sacral wound, IV fluids sepsis bolus ordered, lactate ordered, IV antibiotics started with cefepime and vancomycin, wound care consulted. # sepsis/sacral wound/cellulitis of buttock WBC 12.15, hypotensive (97/67), tachycardic (104), afebrile on admission lactate 3.0 improved to 2.1 ID and wound care involved ID recommends continuing Zosyn Wound culture grew Pseudomonas, Bacteroides, Clostridium perfringens Patient is doing better clinically overall ID would like to continue IV antibiotics for now until surgical debridement tomorrow and will make further recommendations. They will follow along. #Iron deficiency anemia There was some question of GI bleed in the setting of being on Eliquis The patient did present with what sounds like rectal bleed but may have been bleeding from the sacral wound. She is having brown stools now Hemoglobin trickled down yesterday and was given 1 unit of blood GI consulted Patient is declining GI scopes She had a DVT/PE 1 month ago and needs to be on Eliquis Will continue Eliquis while monitoring closely. Hemoglobin stayed stable. 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 Podiatry saw the patient and decided to take her to the OR tomorrow 10/21. correctional case manager was in the room during my encounter. I spoke to the patient about potentially rehab postdischarge. She is agreeable to getting PT/OT involved but is hesitant about going to rehab. Review of Systems Review of Systems: All systems reviewed & are unremarkable except as noted in Subjective Physical Exam Physical Exam: General: Awake, conversant. Frail looking elderly woman. Heart: S1, S2/regular rate and rhythm, no murmur rubs or gallops Lungs: Clear to auscultation bilaterally. Normal effort Abdomen: Soft/nontender/nondistended. No hepatosplenomegaly Extremities: No clubbing/cyanosis. No edema. Dressing on feet bilaterally. Behavior: Appropriate, cooperative Results & Data Results & Data Vital Signs (Past 12 Hours) Vital Signs Temp Pulse Pulse Resp BP Pulse Ox O2 Del Method 10/20/24 07:45 36.8 C 98 H 20 113/63 93 Room Air 10/20/24 07:19 99 H 10/20/24 04:07 37.2 C 102 H 18 95/59 L 94 Nasal Cannula 10/20/24 00:00 107 H O2 Flow Rate 10/20/24 07:45 10/20/24 07:19 10/20/24 04:07 2 10/20/24 00:00 Laboratory Results Abnormal lab results 10/20/24 Range/Units 06:04 RBC 3.20 L (4.20-5.40) M/uL Hgb 8.9 L (12.0-16.0) g/dl Hct 27.4 L (37.0-47.0) % RDW Std Deviation 52.8 H (36.4-46.3) fL RDW Coeff of López 16.9 H (11.5-14.5) % Plt Count 440 H (130-400) K/uL PG Care Time/CCT Total # of Minutes Spent Total Time Spent with Patient: Total time spent is greater than 50% in coordination of care (as documented) at patient's floor/unit and/or counseling patient: Coding Level of Care Code 32626 SUB INP/OBS CARE 2/35MIN Diagnoses Sepsis A41.9
--- NOTE | 2024-10-20 12:34 | Infectious Disease Progress Nt ---
Date of Service October 20, 2024 Assessment & Plan (1) Thrombocytosis: (2) Cellulitis of buttock: (3) Sacral wound: Plan . This is an 89-year-old female with past medical history of sick sinus syndrome status post pacemaker, left hip RUTH in 2013, PE/DVT, hypothyroidism, right hip fracture status post insertion of trochanteric nail on 07/03/24, admitted and found to be in septic shock requiring pressors with Streptococcus Thermophilus bacteremia and bilateral lower extremity wounds with intramuscular and subcutaneous collections on CT. She was treated with ceftriaxone and was discharged on a 2-week course of high dose amoxicillin. She now returns with bleeding from a sacral wound. She denies any blood per rectum. Denies any abdominal pain, fever, chills, nausea, sweats. Feels that her lower extremity wounds have improved since last admission. In the ED temperature 36.6, pulse 103, RR 20, BP 97/67, O2 sat 97% on room air. Labs WBC 12.15, platelets 681, BUN 39, creatinine 0.93,lactate 3-->2, cp 6.60 Superficial sacral wound cultures were obtained and grew Pseudomonas aeruginosa, Clostridium perfringens and Bacteroides Fragilis. She was initially on cefepime and Vanco. She is now on Zosyn and clindamycin. ID consulted for sacral wound infection. She states that her sacral area feels "raw" but otherwise she feels well. # Contaminated sacral wound with cellulitis - no s/o deep infection - likely contaminated with fecal marva # History of Strep thermophilus bacteremia 08/2024 # History of bilateral lower extremity wounds with abscess 08/2024 intramuscular and subcu collections on CT -improved from previous admission per patient report, RN and per review of prior wound pictures - plan for debridement of LE wounds with podistry # Thrombocytosis, improving # H/o left RUTH, right hip fracture s/p surgery # h/o SSS s/p PPM Microbiology: Blood culture 10/15 NGTD ( -MRSA nares 10/15 negative Wound culture 10/15 Pseudomonas aeruginosa (sensitive to Cipro, Levaquin, cefepime), Bacteroides fragilis, Clostridium perfringens Urine culture 10/16 3 or more organisms. Antibiotics: Cefepime 10/15 - 10/17 Vancomycin Clindamycin Zosyn 10/17ongoing Discussion: She presented with bleeding from her rectal wound. Wounds are excoriated with several areas of unroofing and abrasions but there is no other heather signs of infection on exam. Sacral wound is not deep. No indurated areas or crepitus or purulent drainage. During exam ,wounds contaminated with fecal matter. Area with surrounding erythema, +tenderness to palpation ( mild) . Clostridium and bacteroides from Gi marva. No s/o toxic shock although BP soft .Discontinued clindamycin ( Day 3)on 10/19 as wound does not appear deeply infected. Mostly jak wound cellulitis. No evidence of necrotizing infection. MRSA screen on 09/07/24 and 10/15/24 negative BL LE do not appear acutely infected. Plan for debridement per podiatry Recommendations -Continue Zosyn which will cover Pseudomonas, Bacteroides as well as Clostridium perfringens. Will also cover LE wounds that don' t appear acutely infected -Monitor Bps -Continue wound care -Keep sacral area clean of BMs -If signs of worsening sacral wound, Check CT sacral area. - Follow up LE wound cx if taken by podiatry ( plan for debridement on 10/21) If no concern for deep LE wound infection ( pending OR) and no + LE wound cx, then can likely transition to Levaquin 750 mg po Q 48 hours ( QTC 459 0n 10/15, Cr cl ~ 34.9) and flagyl 500 mg Po q 8hours to complete a total of 7 days of abx for ?SSTI / sacral cellulitis. Final duration and abx choice will depend of LE wound OR findings. ID will continue to follow. Updated hospitalist. Cleve Davis MD, MPH Infectious Disease [facility] Call [phone] with questions Admission and Anticipated Discharge Date Admission Date: October 15, 2024 Subjective Subsequent visit was provided via telemedicine using two-way real-time interactive telecommunication between the patient and the telemedicine provider. For the duration of the visit, the provider was performing the assessment from a different facility than the patient. This includesuse of bluetooth stethoscope forauscultationperformed by the telepresenter that the telemedicine provider can hear if described in the physical exam. Licensed Physical Therapist contact information: Please call [facility] Center . (Phone Number For Physician Use Only) After establishing a telemedicine visit, patient was: Patient was verified with two unique identifiers Time Spent with Patient: Subsequent => 35 min Has less sacral tenderness No LE wound pain Plan of debridement with podiatry Physical Exam Physical Exam: General: Awake, alert, NAD HEENT: NC/AT, EOMI, anicteric sclera Neck: supple Lungs: Non labored breathing on RA Abdomen: soft, NT/ND Ext: BL LE edema Skin: Left foot with eschar, R Foot with ulcers with improved appearance. Less necrosis, erythema: no TTP ( as of 10/18 ) ( reviewed Pics for wounds that were dressed today 10/20) Sacral area with multiple areas of cracked and excoriated skin with stool caked around wound. No induration, warmth, edema. Mild erythema on 10/18-- today 10/20-- sacral dressing not removed. Pics reviewed. No s/o infection. Results & Data Vital Signs (Past 12 Hours) Vital Signs Temp Pulse Pulse Resp BP Pulse Ox O2 Del Method 10/20/24 11:32 37.6 C H 101 H 18 113/70 93 Room Air 10/20/24 07:45 36.8 C 98 H 20 113/63 93 Room Air 10/20/24 07:19 99 H 10/20/24 04:07 37.2 C 102 H 18 95/59 L 94 Nasal Cannula O2 Flow Rate 10/20/24 11:32 10/20/24 07:45 10/20/24 07:19 10/20/24 04:07 2 Laboratory Results Short CBC 10/20/24 Range/Units 06:04 WBC 8.81 (4.8-10.8) K/ul Hgb 8.9 L (12.0-16.0) g/dl Hct 27.4 L (37.0-47.0) % Plt Count 440 H (130-400) K/uL Diagnostic Findings Microbiology 10/15/24 Unknown Sacrum Gram Stain - Final 10/15/24 Unknown Sacrum Aerobic and Anaerobic Culture - Final Pseudomonas aeruginosa Bacteroides fragilis Clostridium perfringens 10/15/24 14:40 Blood Aerobic Blood Culture - Preliminary No growth in Aerobic bottle after 48 hours. 10/15/24 14:40 Blood Anaerobic Blood Culture - Final 10/15/24 14:40 Blood Aerobic Blood Culture - Preliminary No growth in Aerobic bottle after 48 hours. 10/15/24 14:40 Blood Anaerobic Blood Culture - Final 10/16/24 Unknown Urine,Indwelling Cath Urine Culture - Final Three types of organisms present, all moderate counts. Repeat collection recommended. No further identifications or sensitivities to follow. Medications Administered Home Medications Medication Instructions Recorded Confirmed Last Taken latanoprost 0.005 % eye drops 1 drops OPB HS 06/15/19 10/15/24 10/14/24 multivitamin (Daily Multi-Vitamin 1 tab PO DAILY 01/31/20 10/15/24 09/05/24 tablet) timolol maleate 0.5 % once daily 1 drp OPB BID 08/14/20 10/15/24 10/15/24 eye drops thyroid (pork) 60 mg tablet 60 mg PO DAILY #90 tabs 08/10/24 10/15/24 10/02/24 ([place] Thyroid) aspirin 81 mg chewable tablet 40.5 mg PO DAILY 09/06/24 10/15/24 10/02/24 vitamins A,C,E-psde-gbyzef 4,296 1 cap PO AMPM 09/06/24 10/15/24 10/15/24 mcg-226 mg-90 mg capsule (PreserVision AREDS) metoprolol succinate 25 mg 25 mg PO DAILY #90 tabs 10/04/24 10/15/24 Unknown tablet,extended release 24 hr pantoprazole 40 mg tablet,delayed 40 mg PO BID #60 tabs 10/07/24 10/15/24 10/15/24 release apixaban 5 mg tablet (Eliquis) 10 mg PO BID 10/08/24 10/15/24 10/15/24 Active Medications Generic Name Dose Route Start Last Admin Trade Name Freq PRN Reason Stop Dose Admin Acetaminophen 650 mg 10/15/24 17:33 10/20/24 05:35 Acetaminophen 325 Mg Tab PO 11/14/24 17:32 650 mg Q4H PRN Administration Pain or Fever Apixaban 5 mg 10/15/24 21:00 10/19/24 09:24 Apixaban 5 Mg Tablet PO 11/14/24 20:59 5 mg BID FAUZIA Administration Aspirin 40.5 mg 10/16/24 09:00 10/20/24 09:21 Aspirin 81 Mg Chew PO 11/15/24 08:59 40.5 mg DAILY FAUZIA Administration Gabapentin 100 mg 10/15/24 21:45 10/20/24 09:17 Gabapentin 100 Mg Cap PO 11/14/24 21:44 100 mg TID FAUZIA Administration Piperacillin Sod/Tazobactam Sod 4.5 gm in 100 mls @ 25 mls/hr 10/17/24 22:00 10/20/24 11:48 Zosyn IV 10/24/24 21:59 Infused Q8H FAUZIA Infusion Protocol Latanoprost 1 drops 10/15/24 21:00 10/19/24 20:47 Latanoprost 0.005% Op Soln 2.5 Ml Btl OPB 11/14/24 20:59 1 drops HS FAUZIA Administration Metoprolol Succinate 25 mg 10/16/24 09:00 10/16/24 08:49 Metoprolol Succ 25mg Ext Rel Tab PO 11/15/24 08:59 25 mg DAILY FAUZIA Administration Multivitamins/Minerals 1 tab 10/16/24 09:00 10/20/24 09:18 Cerovite Adv Formula Tab PO 11/15/24 08:59 1 tab DAILY FAUZIA Administration Pantoprazole Sodium 40 mg 10/15/24 21:00 10/20/24 09:18 Pantoprazole 40 Mg Tab PO 11/14/24 20:59 40 mg BID FAUZIA Administration Thyroid 60 mg 10/16/24 06:30 10/20/24 05:35 Enloe Thyroid 30 Mg Tab PO 11/15/24 06:29 60 mg DAILYBB FAUZIA Administration Timolol Maleate 1 drops 10/15/24 21:00 10/20/24 09:18 Timolol Maleate 0.5% Op Soln 5 Ml Btl OPB 11/14/24 20:59 1 drops BID FAUZIA Administration
--- NOTE | 2024-10-20 21:04 | Podiatry Progress Note ---
Date of Service October 20, 2024 Assessment & Plan (1) Peripheral neuropathy: (2) Chronic ulcer of right foot with fat layer exposed: (3) Chronic ulcer of left foot with fat layer exposed: (4) Other specified peripheral vascular diseases: Plan - Patient examined and evaluated. - Discussed need for more aggressive debridement for all of these wounds. - Scheduled for surgical/excisional debridement tomorrow afternoon. - NPO after midnight. - Will plan parts counterman wound needs based on surgical results. Admission and Anticipated Discharge Date Admission Date: October 15, 2024 Subjective Pt seen at bedside. Eager for surgical debridement. Feeling better and interested in going home as soon as possible. Denies any new concerns. Has had dressing changes with wound care and continued antibiotics. States she walks extensively around home and her neighborhood and wants to return to this. Review of Systems Constitutional: + fever; no chills and no fatigue Eyes: no problem reported Ear, Nose, Mouth, Throat: no problem reported Respiratory: no problem reported Cardiovascular: + edema; no problem reported Gastrointestinal: no nausea, no vomiting and no problem reported Genitourinary: no problem reported Musculoskeletal: no problem reported Integumentary: + skin ulcer, + wounds and + erythema Neurologic: + loss of sensation, + numbness and + pa resthesia; no generalized weakness Psychiatric: no problem reported Physical Exam Physical Exam: DP/PT pulses nonpalpable. CFT brisk to digits. Large dorsal foot ulcerations noted overlying midfoot/forefoot. These have overlying eschar formation and fibrous slough, diffusely. Advanced trophic changes noted. Recent MRI/CT did not reveal any deeper extension of these ulcerations or bone involvement. Constitutional: WD/WN, vitals as above + ill appearing and + obese Eyes: PERRL, conjunctivae normal, anicteric sclerae ENMT: external ear and nose normal, oropharynx normal Neck: trachea midline, no thyromegaly normal visual inspection Respiratory: normal respiratory effort; no respiratory distress Cardiovascular: Rate/Rhythm: regular rate and regular rhythm Vessels: + posterior tibial pulses abnormal and + dorsalis pedis pulses abnormal Chest (Breasts): Chest: normal inspection of chest Gastrointestinal (Abdomen): Inspection/Auscultation: abdomen normal to in spection Percussion/Palpation: + abdomen tender and abdomen soft Musculoskeletal: no cyanosis or clubbing, extremities motor strength 5/5 Head/Neck/Chest: normocephalic and head atraumatic Extremities: extremities normal to inspection Skin: + ulcer, + wound, + skin atrophy, + dry skin, + erythema, + eschar, + nails discolored and + nails dystrophic Neurologic: awake; no focal motor deficits Psychiatric: A+Ox3, euthymic affect Results & Data Results & Data Vital Signs (Past 12 Hours) Vital Signs Temp Pulse Pulse Resp BP Pulse Ox Pulse Ox 10/20/24 20:15 37.6 C H 10/20/24 19:26 38.1 C H 111 H 16 112/70 93 10/20/24 17:00 94 10/20/24 15:32 37.2 C 105 H 16 110/65 94 10/20/24 14:13 103 H 10/20/24 12:58 36.8 C 10/20/24 11:32 37.6 C H 101 H 18 113/70 93 O2 Del Method O2 Del Method 10/20/24 20:15 10/20/24 19:26 Room Air 10/20/24 17:00 Room Air 10/20/24 15:32 Room Air 10/20/24 14:13 10/20/24 12:58 10/20/24 11:32 Room Air (1) Peripheral neuropathy Peripheral neuropathy type: polyneuropathy, unspecified Qualified Code(s): G62.9 - Polyneuropathy, unspecified
[2024-10-21] MEDS ORDERED: VANCOMYCIN LEVEL ONE (07:00)
[2024-10-21 07:40] LABS: Hematocrit (blood only) 31.8 % (37.0-47.0); Hemoglobin 9.5 g/dl (12.0-16.0); Mean Corpuscular Hemoglobin 27.3 pg (25.0-34.0); Mean Corpuscular Hgb Conc 29.9 g/dL (32.0-36.0); Mean Corpuscular Volume 91.4 fL (80.0-100.0); Mean Platelet Volume 9.8 fL (9.4-12.4); Platelet Count 463 K/uL (130-400); RDW Coefficient of Variation 16.9 % (11.5-14.5); Red Blood Count 3.48 M/uL (4.20-5.40); White Blood Count 8.79 K/ul (4.8-10.8)
--- NOTE | 2024-10-21 11:36 | Hospitalist Progress Note ---
Date of Service October 21, 2024 Assessment & Plan (1) Sepsis: Plan Patient is an 89-year-old female with past medical history of 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 She is anticoagulated with Eliquis. She presents today due to rectal bleeding from a sacral wound. She is being admitted due to sepsis secondary to sacral wound, IV fluids sepsis bolus ordered, lactate ordered, IV antibiotics started with cefepime and vancomycin, wound care consulted. # sepsis/sacral wound/cellulitis of buttock WBC 12.15, hypotensive (97/67), tachycardic (104), afebrile on admission lactate 3.0 improved to 2.1 ID and wound care involved ID recommends continuing Zosyn Wound culture grew Pseudomonas, Bacteroides, Clostridium perfringens Patient is doing better clinically overall ID would like to continue IV antibiotics for now until surgical debridement tomorrow and will make further recommendations. They will follow along. #Iron deficiency anemia There was some question of GI bleed in the setting of being on Eliquis The patient did present with what sounds like rectal bleed but may have been bleeding from the sacral wound. She is having brown stools now Hemoglobin trended down and was given 1 unit of blood 10/19 GI consulted Patient is declining GI scopes She had a DVT/PE 1 month ago and needs to be on Eliquis Will continue Eliquis while monitoring closely. Hemoglobin stayed stable. Continue PPI #Foot wound Podiatry involved Continue antibiotics per ID recommendations Podiatry plans on surgical debridement 10/21 #Thrombocytosis Secondary to acute infection Resolved #Elevated troponin/demand ischemia 35.5 ->41.5 in ED Chronically elevated, at baseline Defer trending at this time EKG shows NSR Denies chest pain had stress test during recent admission, abnormal, cardiology recommended that patient could be considered for statin therapy in outpatient setting #dysphagia Speech therapy was involved Cleared for solid meals #Malnutrition Patient is concerned that she is gaining weight and is building up fluid Her albumin level was 2.4. She was educated that her leg swelling is most likely related to malnutrition, hypoalbuminemia, leaky blood vessels. 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 Plan for OR today. Patient is concerned that her legs are starting to swell up again and that she is gaining weight. Review of Systems Review of Systems: All systems reviewed & are unremarkable except as noted in Subjective Physical Exam Physical Exam: General: Awake, conversant. Frail looking elderly woman. Heart: S1, S2/regular rate and rhythm, no murmur rubs or gallops Lungs: Clear to auscultation bilaterally. Normal effort Abdomen: Soft/nontender/nondistended. No hepatosplenomegaly Extremities: No clubbing/cyanosis. No edema. Dressing on feet bilaterally. Behavior: Appropriate, cooperative Results & Data Results & Data Vital Signs (Past 12 Hours) Vital Signs Temp Pulse Pulse Pulse Resp BP Pulse Ox 10/21/24 11:13 37.2 C 107 H 12 119/71 95 10/21/24 08:00 101 H 10/21/24 03:16 37.4 C 104 H 18 107/65 92 10/21/24 00:00 113 H O2 Del Method 10/21/24 11:13 Room Air 10/21/24 08:00 10/21/24 03:16 Room Air 10/21/24 00:00 Laboratory Results Abnormal lab results 10/21/24 Range/Units 07:04 RBC 3.48 L (4.20-5.40) M/uL Hgb 9.5 L (12.0-16.0) g/dl Hct 31.8 L (37.0-47.0) % MCHC 29.9 L (32.0-36.0) g/dL RDW Std Deviation 56.0 H (36.4-46.3) fL RDW Coeff of López 16.9 H (11.5-14.5) % Plt Count 463 H (130-400) K/uL PG Care Time/CCT Total # of Minutes Spent Total Time Spent with Patient: Total time spent is greater than 50% in coordination of care (as documented) at patient's floor/unit and/or counseling patient: Coding Level of Care Code 21960 SUB INP/OBS CARE MIN Diagnoses Sepsis A41.9
[2024-10-21] MEDS ORDERED: PROPOFOL IV EMULSION 10 MG/ML 20 ML VIAL IV ONE (14:00)
[2024-10-21] MEDS ORDERED: LIDOCAINE 2% 2 ML VIAL/AMP(20MG/ML) INFIL ONE (14:00)
[2024-10-21] MEDS ORDERED: DEXAMETHASONE SOD INJ 4 MG/ML VIAL ONE (14:00)
[2024-10-21] MEDS ORDERED: ONDANSETRON INJ 2 MG/ML 2 ML VIAL ONE (14:00)
[2024-10-21] MEDS ORDERED: GLYCOPYRROLATE 0.2 MG/ML VIAL ONE (14:01)
[2024-10-21] MEDS ORDERED: fentaNYL citrate PF 100 MCG/2 ML VIAL ONE (14:01)
[2024-10-21] MEDS ORDERED: MIDAZOLAM HCL 1 MG/ML 2ML VIAL ONE (14:01)
--- NOTE | 2024-10-21 14:22 | Anesthesiology Consultation ---
Date of Service October 21, 2024 Assessment & Plan Chart Review Chart Review: Acceptable Risk for Surgery and Patient NOT seen in Pre Admission Testing Consults Requested none ASA ASA4 Proposed Anesthesia Anesthesia Type: MAC Risk / Benefits Reviewed With: PT / POA / Parent / Guardian, Accepts Plan and Informed Consent Obtained History Surgery Operation Date: 10/21/24 14:20 Proposed Procedures p Bilateral Feet Excisional Debridement - Aureliano Gomez, RIDGE Height/Weight Height: 5 ft 5 in Weight: 69.2 kg Allergies Allergy/AdvReac Type Severity Reaction Status Date / Time No Known Drug Allergies Allergy Verified 10/15/24 15:01 Medications Home Medications Medication Instructions Recorded Confirmed Last Taken latanoprost 0.005 % eye drops 1 drops OPB HS 06/15/19 10/15/24 10/14/24 multivitamin (Daily Multi-Vitamin 1 tab PO DAILY 01/31/20 10/15/24 09/05/24 tablet) timolol maleate 0.5 % once daily 1 drp OPB BID 08/14/20 10/15/24 10/15/24 eye drops thyroid (pork) 60 mg tablet 60 mg PO DAILY #90 tabs 08/10/24 10/15/24 10/02/24 ([place] Thyroid) aspirin 81 mg chewable tablet 40.5 mg PO DAILY 09/06/24 10/15/24 10/02/24 vitamins A,C,Q-zbhc-uvthkd 4,296 1 cap PO AMPM 09/06/24 10/15/24 10/15/24 mcg-226 mg-90 mg capsule (PreserVision AREDS) metoprolol succinate 25 mg 25 mg PO DAILY #90 tabs 10/04/24 10/15/24 Unknown tablet,extended release 24 hr pantoprazole 40 mg tablet,delayed 40 mg PO BID #60 tabs 10/07/24 10/15/24 10/15/24 release apixaban 5 mg tablet (Eliquis) 10 mg PO BID 10/08/24 10/15/24 10/15/24 Active Medications Generic Name Dose Route Start Last Admin Trade Name Freq PRN Reason Stop Dose Admin Acetaminophen 650 mg 10/15/24 17:33 10/20/24 05:35 Acetaminophen 325 Mg Tab PO 11/14/24 17:32 650 mg Q4H PRN Administration Pain or Fever Apixaban 5 mg 10/15/24 21:00 10/19/24 09:24 Apixaban 5 Mg Tablet PO 11/14/24 20:59 5 mg BID FAUZIA Administration Aspirin 40.5 mg 10/16/24 09:00 10/21/24 08:26 Aspirin 81 Mg Chew PO 11/15/24 08:59 Not Given DAILY FAUZIA Gabapentin 100 mg 10/15/24 21:45 10/21/24 08:26 Gabapentin 100 Mg Cap PO 11/14/24 21:44 Not Given TID FAUZIA Piperacillin Sod/Tazobactam Sod 4.5 gm in 100 mls @ 25 mls/hr 10/17/24 22:00 10/21/24 09:41 Zosyn IV 10/24/24 21:59 Infused Q8H FAUZIA Infusion Protocol Latanoprost 1 drops 10/15/24 21:00 10/20/24 20:17 Latanoprost 0.005% Op Soln 2.5 Ml Btl OPB 11/14/24 20:59 1 drops HS FAUZIA Administration Metoprolol Succinate 25 mg 10/16/24 09:00 10/16/24 08:49 Metoprolol Succ 25mg Ext Rel Tab PO 11/15/24 08:59 25 mg DAILY FAUZIA Administration Multivitamins/Minerals 1 tab 10/16/24 09:00 10/21/24 08:26 Cerovite Adv Formula Tab PO 11/15/24 08:59 Not Given DAILY FAUZIA Pantoprazole Sodium 40 mg 10/15/24 21:00 10/21/24 08:26 Pantoprazole 40 Mg Tab PO 11/14/24 20:59 Not Given BID FAUZIA Thyroid 60 mg 10/16/24 06:30 10/21/24 05:45 [place] Thyroid 30 Mg Tab PO 11/15/24 06:29 Not Given DAILYBB FAUZIA Timolol Maleate 1 drops 10/15/24 21:00 10/21/24 08:26 Timolol Maleate 0.5% Op Soln 5 Ml Btl OPB 11/14/24 20:59 Not Given BID FAUZIA NPO Date Last Intake of Fluids: 10/20/24 Time Last Intake of Fluids: 22:00 Date Last Intake of Solids: 10/20/24 Time Last Intake of Solids: 22:00 Past Medical History Medical History Pulmonary embolism DVT, bilateral lower limbs Hypotension Chronic venous stasis Failure to thrive in adult Hypernatremia Lower extremity ulceration Ambulatory dysfunction Leg edema Wound of right foot Wound of left foot Chest pain Right femoral fracture (07/01/24) Acute comminuted displaced intertrochanteric fracture of the right femur from a fall 2 days prior per the ED report Cardiac pacemaker PAT (paroxysmal atrial tachycardia) Dyslipidemia Hypothyroidism Peptic ulcer SSS (sick sinus syndrome) (04/28/14) Exercise / Class Metabolic Activity IV < 2 Limit ADL/Bedbound Past Family History Family History Mother Breast cancer Past Surgical History Surgical History S/P placement of cardiac pacemaker (~2013) Dual chamber Status post hip surgery (~2013) Left RUTH History of esophagogastroduodenoscopy (~1996) H/O colonoscopy (~1998) Past Anesthesia History No Hx of Anesthesia Complications and No Family Hx of Anesthesia Complications History of PONV No Hx of PONV and No Hx of Motion Sickness Social History Smoking Status: Never smoker Do You Dip or Chew Tobacco: No Hx Alcohol Use: No Hx Substance Use: No Physical Exam Vital Signs Last Vital Signs Temp 36.7 C 10/21/24 13:39 Pulse 91 H 10/21/24 13:39 Resp 18 10/21/24 13:39 BP 128/63 10/21/24 13:39 Pulse Ox 92 10/21/24 13:39 O2 Del Method Room Air 10/21/24 13:39 O2 Flow Rate 2 10/20/24 04:07 Constitutional no acute distress and not obese ENMT Mouth: + dentition abnormality and + poor dentition Thyromental Distance: < 3.5 Finger Breadths Mallampati Class: II Neck normal visual inspection and trachea midline; neck extension not limited Respiratory normal respiratory effort Auscultation: + diminished lung sounds Cardiovascular Rate/Rhythm: regular rate and regular rhythm Heart Sounds: no murmur Vessels: no carotid bruit Chest (Breasts) Chest: + pacemaker (Left subclavian) Musculoskeletal Spine: normal cervical ROM Extremities: extremities normal to inspection Neurologic moves all extremities Motor/Sensory: + sensory deficit Psychiatric Orientation: alert and oriented x 3 Testing Laboratory Results 10/21/24 07:04 10/19/24 09:14 PT 11.0 Seconds (9.0-12.0) 10/15/24 13:09 INR 1.0 (0.9-1.1) 10/15/24 13:09 Urine Color Yellow 10/16/24 Unknown Urine Appearance Turbid (Clear) A 10/16/24 Unknown Urine pH 7.5 (4.5-7.5) 10/16/24 Unknown Ur Specific [place] 1.021 (1.000-1.030) 10/16/24 Unknown Urine Protein 1+ (Negative) H 10/16/24 Unknown Urine Glucose (UA) Negative (Negative) 10/16/24 Unknown Urine Ketones Trace (Negative) H 10/16/24 Unknown Urine Nitrite Positive (Negative) A 10/16/24 Unknown Ur Leukocyte Esterase 3+ (Negative) H 10/16/24 Unknown Urine WBC (Auto) >50 /hpf (0-5) H 10/16/24 Unknown Urine RBC (Auto) >20 /hpf (0-2) H 10/16/24 Unknown U Hyaline Cast (Auto) 3-5 /lpf (0-2) H 10/16/24 Unknown U Epithel Cells (Auto) 0-2 /hpf (0-2) 10/16/24 Unknown Urine Bacteria (Auto) 2+ (None Seen) H 10/16/24 Unknown Blood Type B Positive 10/18/24 17:28 Antibody Screen NEGATIVE 10/18/24 17:28 10/15/24 14:40 Aerobic Blood Culture - Final Blood No growth in Aerobic bottle after 5 days. Anaerobic Blood Culture - Final 10/15/24 14:40 Aerobic Blood Culture - Final Blood No growth in Aerobic bottle after 5 days. Anaerobic Blood Culture - Final 10/15/24 Unknown Gram Stain - Final Sacrum Aerobic and Anaerobic Culture - Final Pseudomonas aeruginosa Bacteroides fragilis Clostridium perfringens 10/16/24 Unknown Urine Culture - Final Urine,Indwelling Cath Three types of organisms present, all moderate counts. Repeat collection recommended. No further identifications or sensitivities to follow. Electrocardiogram Date: 10/15/24 Findings: + NSR @ (@ 95;Low voltage QRS;NS ST T changes abnl) Echocardiogram Date: 10/04/24 EF: > 70% hyperdynamic LV Function: normal RWMA: + none Other Findings: + LVH (mild) small pericardial effusion mild systolic anterior motion of AMVL w/o LVOT obstruction
--- NOTE | 2024-10-21 14:26 | History & Physical Bridge Note ---
Date of Service October 21, 2024 History & Physical Bridge Note I have examined the patient, reviewed the History & Physical and in the interval since the performance of the History & Physical I have noted the following changes of clinical significance: no changes noted. Plan for bilateral wound debridements, to the dorsal foot and posterior/plantar heel. Consent obtained. All questions answered.
[2024-10-21] MEDS: BUPIVACAINE 0.5 % 5 MG/1 ML MPF 30ML VIAL ONE (14:47)
--- NOTE | 2024-10-21 15:08 | Post Operative Brief Note ---
Immediate Post Op Note Date of Surgery October 21, 2024 Pre & Post Diagnosis Operation Date: 10/21/24 14:20 Pre-Op Diagnosis: Sepsis Post-Op Diagnosis: Sepsis I identified the patient and participated in the time-out.: Yes Procedure Operation Date: 10/21/24 14:20 Actual Procedures p Bilateral Feet Excisional Debridement(Bilateral) - Aureliano Gomez DPM Surgeon Aureliano Gomez DPM Prefinish Operator None Estimated Blood Loss 10 Findings Consistent with Post-Op Diagnosis No deep extension of wounds; mostly superficial in nature, though large in size Anesthesia Type MAC Complications none Disposition Accompanied Patient To Recovery: Yes Disposition: Recovery Room
--- NOTE | 2024-10-21 15:31 | Anesthesiology Progress Note ---
Date of Service October 21, 2024 Anesthesia Post Procedure Vital Signs Vital Signs: Temp Pulse Pulse Pulse Resp BP Pulse Ox 10/21/24 15:20 101 H 16 116/80 100 10/21/24 15:12 36.8 C 94 H 13 95/52 L 100 10/21/24 13:39 36.7 C 91 H 18 128/63 92 10/21/24 11:13 37.2 C 107 H 12 119/71 95 10/21/24 08:00 101 H 10/21/24 03:16 37.4 C 104 H 18 107/65 92 10/21/24 00:00 113 H 10/20/24 22:30 37.3 C 108 H 16 106/64 93 10/20/24 20:15 37.6 C H 10/20/24 19:26 38.1 C H 111 H 16 112/70 93 10/20/24 17:00 10/20/24 15:32 37.2 C 105 H 16 110/65 94 Pulse Ox O2 Del Method O2 Del Method O2 Flow Rate 10/21/24 15:20 Oxymask 6 10/21/24 15:12 Oxymask 8 10/21/24 13:39 Room Air 10/21/24 11:13 Room Air 10/21/24 08:00 10/21/24 03:16 Room Air 10/21/24 00:00 10/20/24 22:30 Room Air 10/20/24 20:15 10/20/24 19:26 Room Air 10/20/24 17:00 94 Room Air 10/20/24 15:32 Room Air Pain Intensity Bilateral Leg: Pain Intensity: 8 Transfer of Care Handoff Completed per policy Notes Mental Status: alert / awake / arousable Patient Amnestic to Procedure: Yes Nausea / Vomiting: adequately controlled Pain: adequately controlled Airway Patency, RR, SpO2: stable & adequate BP & HR: stable & adequate Hydration State: stable & adequate Anesthetic Complications: no major complications apparent
--- NOTE | 2024-10-21 15:41 | Infectious Disease Progress Nt ---
Date of Service October 21, 2024 Assessment & Plan (1) Thrombocytosis: (2) Cellulitis of buttock: (3) Sacral wound: Plan This is an 89-year-old female with past medical history of sick sinus syndrome status post pacemaker, left hip RUTH in 2013, PE/DVT, hypothyroidism, right hip fracture status post insertion of trochanteric nail on 07/03/24, admitted and found to be in septic shock requiring pressors with Streptococcus Thermophilus bacteremia and bilateral lower extremity wounds with intramuscular and subcutaneous collections on CT. She was treated with ceftriaxone and was discharged on a 2-week course of high dose amoxicillin. She now returns with bleeding from a sacral wound. She denies any blood per rectum. Denies any abdominal pain, fever, chills, nausea, sweats. Feels that her lower extremity wounds have improved since last admission. In the ED temperature 36.6, pulse 103, RR 20, BP 97/67, O2 sat 97% on room air. Labs WBC 12.15, platelets 681, BUN 39, creatinine 0.93,lactate 3-->2, cp 6.60 Superficial sacral wound cultures were obtained and grew Pseudomonas aeruginosa, Clostridium perfringens and Bacteroides Fragilis. She was initially on cefepime and Vanco. She is now on Zosyn and clindamycin. ID consulted for sacral wound infection. She states that her sacral area feels "raw" but otherwise she feels well. # Contaminated sacral wound with cellulitis - no s/o deep infection - likely contaminated with fecal marva # History of Strep thermophilus bacteremia 08/2024 # History of bilateral lower extremity wounds with abscess 08/2024 intramuscular and subcu collections on CT -improved from previous admission per patient report, RN and per review of prior wound pictures - s/p debridement of LE wounds with podiatry # Thrombocytosis, improving # H/o left RUTH, right hip fracture s/p surgery # h/o SSS s/p PPM Microbiology: Blood culture 10/15 NGTD ( -MRSA nares 10/15 negative Wound culture 10/15 Pseudomonas aeruginosa (sensitive to Cipro, Levaquin, cefepime), Bacteroides fragilis, Clostridium perfringens Urine culture 10/16 3 or more organisms. Antibiotics: Cefepime 10/15 - 10/17 Vancomycin Clindamycin Zosyn 10/17ongoing Discussion: She presented with bleeding from her rectal wound. Wounds are excoriated with several areas of unroofing and abrasions but there is no other heather signs of infection on exam. Sacral wound is not deep. No indurated areas or crepitus or purulent drainage. During exam ,wounds contaminated with fecal matter. Area with surrounding erythema, +tenderness to palpation ( mild) . Clostridium and bacteroides from Gi marva. No s/o toxic shock although BP soft .Discontinued clindamycin ( Day 3)on 10/19 as wound does not appear deeply infected. Mostly jak wound cellulitis. No evidence of necrotizing infection. MRSA screen on 09/07/24 and 10/15/24 negative 10/20 BL LE do not appear acutely infected. Plan for debridement per podiatry 10/21 febrile overnight Tm 38.1. She is s/p Bilateral Feet Excisional Debridement. Per OP report , there is no deep extension of wounds; mostly superficial in nature, though large in size Recommendations -Continue Zosyn which will cover Pseudomonas, Bacteroides as well as Clostridium perfringens. Will also cover LE wounds that don' t appear acutely infected Monitor Bps -monitor temps ( febrile o/n) -Continue wound care to sacrum and lE -Keep sacral area clean of BMs -If signs of worsening sacral wound, Check CT sacral area. Since no concern for deep LE wound infection sp OR and no + LE wound cx obtained, can likely transition to Levaquin 750 mg po Q 48 hours ( QTC 459 0n 10/15, Cr cl ~ 34.9) and Augmentin ( amox/clav) 875/125 mg PO [id number] on discharge to complete a total of 7 days of abx for ?SSTI / sacral cellulitis ( 10/21-10/27) when afebrile for > 24 hours if cr cl same. . ID will follow Cleve Davis MD, MPH Infectious Disease [facility], ID Division Call [phone] with questions Admission and Anticipated Discharge Date Admission Date: October 15, 2024 Subjective This patient recommendation is based on a telemedicine consult request which was completed asynchronously through chart review and information provided by the primary physician. The patient was not seen or examined today. The evaluation is consultative in nature and all patient care and treatment decisions can either be accepted or rejected by the patient's primary hospital-based treating physician using their own independent medical judgment for their patient. Time Spent Reviewing Chart: 31+ minutes Febrile O/N Tm 38.1 -Sp LE wound debridment. Noted to be superficial in nature Results & Data Vital Signs (Past 12 Hours) Vital Signs Temp Pulse Pulse Pulse Resp BP Pulse Ox 10/21/24 15:30 98 H 17 110/60 100 10/21/24 15:20 101 H 16 116/80 100 10/21/24 15:12 36.8 C 94 H 13 95/52 L 100 10/21/24 13:39 36.7 C 91 H 18 128/63 92 10/21/24 11:13 37.2 C 107 H 12 119/71 95 10/21/24 08:00 101 H O2 Del Method O2 Flow Rate 10/21/24 15:30 Room Air 0 10/21/24 15:20 Oxymask 6 10/21/24 15:12 Oxymask 8 10/21/24 13:39 Room Air 10/21/24 11:13 Room Air 10/21/24 08:00 Laboratory Results Short CBC 10/21/24 Range/Units 07:04 WBC 8.79 (4.8-10.8) K/ul Hgb 9.5 L (12.0-16.0) g/dl Hct 31.8 L (37.0-47.0) % Plt Count 463 H (130-400) K/uL Diagnostic Findings Microbiology 10/15/24 14:40 Blood Aerobic Blood Culture - Final No growth in Aerobic bottle after 5 days. 10/15/24 14:40 Blood Anaerobic Blood Culture - Final 10/15/24 14:40 Blood Aerobic Blood Culture - Final No growth in Aerobic bottle after 5 days. 10/15/24 14:40 Blood Anaerobic Blood Culture - Final 10/15/24 Unknown Sacrum Gram Stain - Final 10/15/24 Unknown Sacrum Aerobic and Anaerobic Culture - Final Pseudomonas aeruginosa Bacteroides fragilis Clostridium perfringens 10/16/24 Unknown Urine,Indwelling Cath Urine Culture - Final Three types of organisms present, all moderate counts. Repeat collection recommended. No further identifications or sensitivities to follow. Medications Administered Home Medications Medication Instructions Recorded Confirmed Last Taken latanoprost 0.005 % eye drops 1 drops OPB HS 0910/15/24 10/14/24 multivitamin (Daily Multi-Vitamin 1 tab PO DAILY 01/31/20 10/15/24 09/05/24 tablet) timolol maleate 0.5 % once daily 1 drp OPB BID 08/14/20 10/15/24 10/15/24 eye drops thyroid (pork) 60 mg tablet 60 mg PO DAILY #90 tabs 08/10/24 10/15/24 10/02/24 (Raymond Thyroid) aspirin 81 mg chewable tablet 40.5 mg PO DAILY 09/06/24 10/15/24 10/02/24 vitamins A,C,N-veiw-wlmcpu 4,296 1 cap PO AMPM 09/06/24 10/15/24 10/15/24 mcg-226 mg-90 mg capsule (PreserVision AREDS) metoprolol succinate 25 mg 25 mg PO DAILY #90 tabs 10/04/24 10/15/24 Unknown tablet,extended release 24 hr pantoprazole 40 mg tablet,delayed 40 mg PO BID #60 tabs 10/07/24 10/15/24 10/15/24 release apixaban 5 mg tablet (Eliquis) 10 mg PO BID 10/08/24 10/15/24 10/15/24 Active Medications Generic Name Dose Route Start Last Admin Trade Name Cullenq PRN Reason Stop Dose Admin Acetaminophen 650 mg 10/15/24 17:33 10/20/24 05:35 Acetaminophen 325 Mg Tab PO 11/14/24 17:32 650 mg Q4H PRN Administration Pain or Fever Apixaban 5 mg 10/15/24 21:00 10/19/24 09:24 Apixaban 5 Mg Tablet PO 11/14/24 20:59 5 mg BID FAUZIA Administration Aspirin 40.5 mg 10/16/24 09:00 10/21/24 08:26 Aspirin 81 Mg Chew PO 11/15/24 08:59 Not Given DAILY FAUZIA Gabapentin 100 mg 10/15/24 21:45 10/21/24 08:26 Gabapentin 100 Mg Cap PO 11/14/24 21:44 Not Given TID FAUZIA Piperacillin Sod/Tazobactam Sod 4.5 gm in 100 mls @ 25 mls/hr 10/17/24 22:00 10/21/24 09:41 Zosyn IV 10/24/24 21:59 Infused Q8H FAUZIA Infusion Protocol Latanoprost 1 drops 10/15/24 21:00 10/20/24 20:17 Latanoprost 0.005% Op Soln 2.5 Ml Btl OPB 11/14/24 20:59 1 drops HS FAUZIA Administration Metoprolol Succinate 25 mg 10/16/24 09:00 10/16/24 08:49 Metoprolol Succ 25mg Ext Rel Tab PO 11/15/24 08:59 25 mg DAILY FAUZIA Administration Multivitamins/Minerals 1 tab 10/16/24 09:00 10/21/24 08:26 Cerovite Adv Formula Tab PO 11/15/24 08:59 Not Given DAILY FAUZIA Pantoprazole Sodium 40 mg 10/15/24 21:00 10/21/24 08:26 Pantoprazole 40 Mg Tab PO 11/14/24 20:59 Not Given BID FAUZIA Thyroid 60 mg 10/16/24 06:30 10/21/24 05:45 Raymond Thyroid 30 Mg Tab PO 11/15/24 06:29 Not Given DAILYBB FAUZIA Timolol Maleate 1 drops 10/15/24 21:00 10/21/24 08:26 Timolol Maleate 0.5% Op Soln 5 Ml Btl OPB 11/14/24 20:59 Not Given BID FAUZIA
[2024-10-22 06:45] LABS: Hematocrit (blood only) 28.9 % (37.0-47.0); Mean Corpuscular Hemoglobin 27.6 pg (25.0-34.0); Mean Corpuscular Hgb Conc 31.1 g/dL (32.0-36.0); Mean Corpuscular Volume 88.7 fL (80.0-100.0); Mean Platelet Volume 9.8 fL (9.4-12.4); Platelet Count 458 K/uL (130-400); RDW Coefficient of Variation 16.1 % (11.5-14.5); Red Blood Count 3.26 M/uL (4.20-5.40); White Blood Count 7.19 K/ul (4.8-10.8)
--- NOTE | 2024-10-22 11:59 | Hospitalist Progress Note ---
Date of Service October 22, 2024 Assessment & Plan (1) Sepsis: Plan Patient is an 89-year-old female with past medical history of 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 She is anticoagulated with Eliquis. She presents today due to rectal bleeding from a sacral wound. She is being admitted due to sepsis secondary to sacral wound, IV fluids sepsis bolus ordered, lactate ordered, IV antibiotics started with cefepime and vancomycin, wound care consulted. # sepsis/sacral wound/cellulitis of buttock WBC 12.15, hypotensive (97/67), tachycardic (104), afebrile on admission lactate 3.0 improved to 2.1 ID and wound care involved ID recommends continuing Zosyn Wound culture grew Pseudomonas, Bacteroides, Clostridium perfringens Patient is doing better clinically overall ID recommends continuing IV Zosyn for now and to discharge the patient on Levaquin 750 mg p.o. every 48 hours and Augmentin 875/125 mg p.o. every 12 hours on discharge until 10/27. #Iron deficiency anemia There was some question of GI bleed in the setting of being on Eliquis The patient did present with what sounds like rectal bleed but may have been bleeding from the sacral wound. She is having brown stools now Hemoglobin trended down and was given 1 unit of blood 10/19 GI consulted Patient is declining GI scopes She had a DVT/PE 1 month ago and needs to be on Eliquis Will continue Eliquis while monitoring closely. Hemoglobin stayed stable. Continue PPI #Foot wound Podiatry involved Continue antibiotics per ID recommendations Podiatry completed debridement 10/21. Thankfully no deep wounds found. Superficial wounds were debrided. Podiatry is considering wound VAC placement Wound care involved #Thrombocytosis Secondary to acute infection Resolved #Elevated troponin/demand ischemia 35.5 ->41.5 in ED Chronically elevated, at baseline Defer trending at this time EKG shows NSR Denies chest pain had stress test during recent admission, abnormal, cardiology recommended that patient could be considered for statin therapy in outpatient setting #dysphagia Speech therapy was involved Cleared for solid meals #Malnutrition Patient is concerned that she is gaining weight and is building up fluid Her albumin level was 2.4. She was educated that her leg swelling is most likely related to malnutrition, hypoalbuminemia, leaky blood vessels. 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 Discharge disposition would need to be determined. The patient is resisting rehab placement but in the past, she has gone home after hip fracture came back with DVTs, PEs, sacral ulcers from not being able to ambulate. Admission and Anticipated Discharge Date Admission Date: October 15, 2024 Subjective Patient was seen and examined at 10:45 AM. I had a long conversation with the patient along with the case work aide at the bedside. She was informed that her leg wounds were fairly superficial. She was happy to know that. However she is concerned that her weight is going up and she believes that she is accumulating fluid in her legs. She tells me that when this happened the last time she became weak. She is worried that when she works with physical therapy and Occupational Therapy, they will find her to be weak "but in reality it is happening because of the excessive fluid". She is requesting fluid pills. She expresses that she does not want to go to rehab and has enough support at home. I explained to her that she has low albumin and that is the most likely reason for her swollen legs. She was malnourished, leading to leaking blood vessels. She has been encouraged to drink boost and eat a nourishing diet. Review of Systems Review of Systems: All systems reviewed & are unremarkable except as noted in Subjective Physical Exam Physical Exam: General: Awake, conversant. Frail looking elderly woman. Heart: S1, S2/regular rate and rhythm, no murmur rubs or gallops Lungs: Clear to auscultation bilaterally. Normal effort Abdomen: Soft/nontender/nondistended. No hepatosplenomegaly Extremities: No clubbing/cyanosis. Trace bilateral edema. Dressing on feet bilaterally. Behavior: Appropriate, cooperative Results & Data Results & Data Vital Signs (Past 12 Hours) Vital Signs Temp Pulse Pulse Resp BP BP Pulse Ox 10/22/24 11:45 36.5 C 90 18 106/64 92 10/22/24 08:02 36.3 C L 104 H 18 110/74 96 10/22/24 05:29 93 H 10/22/24 03:06 36.4 C L 85 19 95/60 L 90 10/22/24 00:00 88 O2 Del Method O2 Flow Rate 10/22/24 11:45 Room Air 10/22/24 08:02 Nasal Cannula 1 10/22/24 05:29 10/22/24 03:06 Nasal Cannula 10/22/24 00:00 Laboratory Results Abnormal lab results 10/22/24 Range/Units 05:31 RBC 3.26 L (4.20-5.40) M/uL Hgb 9.0 L (12.0-16.0) g/dl Hct 28.9 L (37.0-47.0) % MCHC 31.1 L (32.0-36.0) g/dL RDW Std Deviation 52.0 H (36.4-46.3) fL RDW Coeff of López 16.1 H (11.5-14.5) % Plt Count 458 H (130-400) K/uL PG Care Time/CCT Total # of Minutes Spent Total Time Spent with Patient: Total time spent is greater than 50% in coordination of care (as documented) at patient's floor/unit and/or counseling patient: Coding Level of Care Code 13195 SUB INP/OBS CARE 2/35MIN Diagnoses Sepsis A41.9
[2024-10-22 12:33] LABS: Calcium 7.9 mg/dl (8.6-10.3); Potassium 4.7 mmol/L (3.5-5.1)
[2024-10-22 12:39] LABS: BUN Creatinine Ratio 37.2 (10-20); Creatinine Clr Calc Pharmacy 40.2 ml/min
[2024-10-22] MEDS: FUROSEMIDE 20 MG TAB PO ONE (15:08)
--- NOTE | 2024-10-22 15:53 | Infectious Disease Progress Nt ---
Date of Service October 22, 2024 Assessment & Plan (1) Thrombocytosis: (2) Cellulitis of buttock: (3) Sacral wound: Plan This is an 89-year-old female with past medical history of sick sinus syndrome status post pacemaker, left hip RUTH in 2013, PE/DVT, hypothyroidism, right hip fracture status post insertion of trochanteric nail on 07/03/24, admitted and found to be in septic shock requiring pressors with Streptococcus Thermophilus bacteremia and bilateral lower extremity wounds with intramuscular and subcutaneous collections on CT. She was treated with ceftriaxone and was discharged on a 2-week course of high dose amoxicillin. She now returns with bleeding from a sacral wound. She denies any blood per rectum. Denies any abdominal pain, fever, chills, nausea, sweats. Feels that her lower extremity wounds have improved since last admission. In the ED, temperature 36.6, pulse 103, RR 20, BP 97/67, O2 sat 97% on room air. Labs WBC 12.15, platelets 681, BUN 39, creatinine 0.93,lactate 3-->2, crp 6.60 Superficial sacral wound cultures were obtained and grew Pseudomonas aeruginosa, Clostridium perfringens and Bacteroides Fragilis. She was initially on cefepime and Vanco. She was then started on Zosyn and clindamycin. ID consulted for sacral wound infection. She states that her sacral area feels "raw" but otherwise she feels well. Microbiology: Blood culture 10/15 NGTD ( -MRSA nares 10/15 negative Wound culture 10/15 Pseudomonas aeruginosa (sensitive to Cipro, Levaquin, cefepime), Bacteroides fragilis, Clostridium perfringens Urine culture 10/16 3 or more organisms. Antibiotics: Cefepime 10/15 - 10/17 Vancomycin Clindamycin Zosyn 10/17ongoing # Contaminated sacral wound with cellulitis - no s/o deep infection - likely contaminated with fecal marva # History of Strep thermophilus bacteremia 08/2024 # History of bilateral lower extremity wounds with abscess 08/2024 intramuscular and subcut collections on CT -improved from previous admission per patient report, RN and per review of prior wound pictures - s/p debridement of LE wounds with podiatry # Thrombocytosis, improving # H/o left RUTH, right hip fracture s/p surgery # h/o SSS s/p PPM Discussion: She presented with bleeding from her rectal wound. Wounds are excoriated with several areas of unroofing and abrasions but there is no heather signs of infection on exam. Sacral wound is not deep. No indurated areas , crepitus or purulent drainage. During initial exam ,wounds contaminated with fecal matter. Area with surrounding erythema, +tenderness to palpation ( mild) . Clostridium and bacteroides is part of Gi marva. No s/o toxic shock although BP soft .Discontinued clindamycin ( Day 3)on 10/19. No evidence of necrotizing infection. MRSA screen on 09/07/24 and 10/15/24 negative 10/20 BL LE do not appear acutely infected. Plan for debridement per podiatry 10/21 febrile overnight Tm 38.1. She is s/p Bilateral Feet Excisional Debridement. Per OP report , there is no deep extension of wounds; mostly s uperficial in nature, though large in size 10/22- Afebrile. No acute events. Recommendations -Continue Zosyn which will cover Pseudomonas, Bacteroides as well as Clostridium perfringens. Will also cover LE wounds that don' t appear acutely infected Monitor Bps -monitor temps -Continue wound care to sacrum and lE -Keep sacral area clean of BMs -If signs of worsening sacral wound, Check CT sacral area. Since no concern for deep sacral infection or LE wound infection sp OR, can likely transition to Levaquin 750 mg po Q 48 hours ( QTC 459 0n 10/15, Cr cl ~ 40) and Augmentin ( amox/clav) 875/125 mg PO [id number] on discharge to complete a total of 7 days of abx for ?SSTI / sacral cellulitis ( 10/21-10/27) . ID will sign off. Please call with questions. Cleve Davis MD, MPH Infectious Disease [facility], [facility] Call [phone] with questions Admission and Anticipated Discharge Date Admission Date: October 15, 2024 Subjective This patient recommendation is based on a telemedicine consult request which was completed asynchronously through chart review and information provided by the primary physician. The patient was not seen or examined today. The evaluation is consultative in nature and all patient care and treatment decisions can either be accepted or rejected by the patient's primary hospital-based treating physician using their own independent medical judgment for their patient. Time Spent Reviewing Chart: 21 - 30 minutes Afebrile, WBC 7.19 creatinine 0.94, creatinine clearance 40.2 Results & Data Vital Signs (Past 12 Hours) Vital Signs Temp Pulse Pulse Resp BP BP Pulse Ox 10/22/24 11:45 36.5 C 90 18 106/64 92 10/22/24 09:00 10/22/24 08:02 36.3 C L 104 H 18 110/74 96 10/22/24 05:29 93 H O2 Del Method O2 Flow Rate 10/22/24 11:45 Room Air 10/22/24 09:00 Room Air 10/22/24 08:02 Nasal Cannula 1 10/22/24 05:29 Laboratory Results Short CBC 10/22/24 Range/Units 05:31 WBC 7.19 (4.8-10.8) K/ul Hgb 9.0 L (12.0-16.0) g/dl Hct 28.9 L (37.0-47.0) % Plt Count 458 H (130-400) K/uL BMP 10/22/24 05:35 Sodium 136 Potassium 4.7 Chloride 106 Carbon Dioxide 23 BUN 35 H Creatinine 0.94 Glucose 139 H Calcium 7.9 L Diagnostic Findings Microbiology 10/15/24 14:40 Blood Aerobic Blood Culture - Final No growth in Aerobic bottle after 5 days. 10/15/24 14:40 Blood Anaerobic Blood Culture - Final 10/15/24 14:40 Blood Aerobic Blood Culture - Final No growth in Aerobic bottle after 5 days. 10/15/24 14:40 Blood Anaerobic Blood Culture - Final 10/15/24 Unknown Sacrum Gram Stain - Final 10/15/24 Unknown Sacrum Aerobic and Anaerobic Culture - Final Pseudomonas aeruginosa Bacteroides fragilis Clostridium perfringens 10/16/24 Unknown Urine,Indwelling Cath Urine Culture - Final Three types of organisms present, all moderate counts. Repeat collection recommended. No further identifications or sensitivities to follow. Medications Administered Home Medications Medication Instructions Recorded Confirmed Last Taken latanoprost 0.005 % eye drops 1 drops OPB HS 06/15/19 10/15/24 10/14/24 multivitamin (Daily Multi-Vitamin 1 tab PO DAILY 01/31/20 10/15/24 09/05/24 tablet) timolol maleate 0.5 % once daily 1 drp OPB BID 08/14/20 10/15/24 10/15/24 eye drops thyroid (pork) 60 mg tablet 60 mg PO DAILY #90 tabs 08/10/24 10/15/24 10/02/24 (Crum Lynne Thyroid) aspirin 81 mg chewable tablet 40.5 mg PO DAILY 09/06/24 10/15/24 10/02/24 vitamins A,C,X-bgew-mbgdwt 4,296 1 cap PO AMPM 09/06/24 10/15/24 10/15/24 mcg-226 mg-90 mg capsule (PreserVision AREDS) metoprolol succinate 25 mg 25 mg PO DAILY #90 tabs 10/04/24 10/15/24 Unknown tablet,extended release 24 hr pantoprazole 40 mg tablet,delayed 40 mg PO BID #60 tabs 10/07/24 10/15/24 10/15/24 release apixaban 5 mg tablet (Eliquis) 10 mg PO BID 10/08/24 10/15/24 10/15/24 Active Medications Generic Name Dose Route Start Last Admin Trade Name Freq PRN Reason Stop Dose Admin Acetaminophen 650 mg 10/15/24 17:33 10/20/24 05:35 Acetaminophen 325 Mg Tab PO 11/14/24 17:32 650 mg Q4H PRN Administration Pain or Fever Apixaban 5 mg 10/15/24 21:00 10/22/24 09:20 Apixaban 5 Mg Tablet PO 11/14/24 20:59 5 mg BID FAUZIA Administration Aspirin 40.5 mg 10/16/24 09:00 10/22/24 09:25 Aspirin 81 Mg Chew PO 11/15/24 08:59 40.5 mg DAILY FAUZIA Administration Gabapentin 100 mg 10/15/24 21:45 10/22/24 15:09 Gabapentin 100 Mg Cap PO 11/14/24 21:44 100 mg TID FAUZIA Administration Piperacillin Sod/Tazobactam Sod 4.5 gm in 100 mls @ 25 mls/hr 10/17/24 22:00 10/22/24 15:09 Zosyn IV 10/24/24 21:59 25 mls/hr Q8H FAUZIA Administration Protocol Latanoprost 1 drops 10/15/24 21:00 10/21/24 21:03 Latanoprost 0.005% Op Soln 2.5 Ml Btl OPB 11/14/24 20:59 1 drops HS FAUZIA Administration Metoprolol Succinate 25 mg 10/16/24 09:00 10/22/24 11:01 Metoprolol Succ 25mg Ext Rel Tab PO 11/15/24 08:59 25 mg DAILY FAUZIA Administration Multivitamins/Minerals 1 tab 10/16/24 09:00 10/22/24 09:20 Cerovite Adv Formula Tab PO 11/15/24 08:59 1 tab DAILY FAUZIA Administration Pantoprazole Sodium 40 mg 10/15/24 21:00 10/22/24 09:20 Pantoprazole 40 Mg Tab PO 11/14/24 20:59 40 mg BID FAUZIA Administration Thyroid 60 mg 10/16/24 06:30 10/22/24 06:23 Crum Lynne Thyroid 30 Mg Tab PO 11/15/24 06:29 60 mg DAILYBB FAUZIA Administration Timolol Maleate 1 drops 10/15/24 21:00 10/22/24 09:21 Timolol Maleate 0.5% Op Soln 5 Ml Btl OPB 11/14/24 20:59 1 drops BID FAUZIA Administration
[2024-10-23 07:00] LABS: Hematocrit (blood only) 29.7 % (37.0-47.0); Hemoglobin 9.1 g/dl (12.0-16.0); Mean Corpuscular Hemoglobin 27.1 pg (25.0-34.0); Mean Corpuscular Hgb Conc 30.6 g/dL (32.0-36.0); Mean Corpuscular Volume 88.4 fL (80.0-100.0); Mean Platelet Volume 9.2 fL (9.4-12.4); Platelet Count 456 K/uL (130-400); RDW Coefficient of Variation 16.4 % (11.5-14.5); RDW Standard Deviation 52.4 fL (36.4-46.3); Red Blood Count 3.36 M/uL (4.20-5.40); White Blood Count 7.52 K/ul (4.8-10.8)
[2024-10-23 07:22] LABS: Calcium 8.4 mg/dl (8.6-10.3); Creatinine Clr Calc Pharmacy 34.3 ml/min; Potassium 4.2 mmol/L (3.5-5.1)
--- NOTE | 2024-10-23 11:36 | Hospitalist Progress Note ---
Date of Service October 23, 2024 Assessment & Plan (1) Sepsis: Plan Patient is an 89-year-old female with past medical history of 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 She is anticoagulated with Eliquis. She presents today due to rectal bleeding from a sacral wound. She is being admitted due to sepsis secondary to sacral wound, IV fluids sepsis bolus ordered, lactate ordered, IV antibiotics started with cefepime and vancomycin, wound care consulted. # sepsis/sacral wound/cellulitis of buttock WBC 12.15, hypotensive (97/67), tachycardic (104), afebrile on admission lactate 3.0 improved to 2.1 ID and wound care involved ID recommends continuing Zosyn Wound culture grew Pseudomonas, Bacteroides, Clostridium perfringens Patient is doing better clinically overall ID recommends continuing IV Zosyn for now and to discharge the patient on Levaquin 750 mg p.o. every 48 hours and Augmentin 875/125 mg p.o. every 12 hours on discharge until 10/27. #Iron deficiency anemia There was some question of GI bleed in the setting of being on Eliquis The patient did present with what sounds like rectal bleed but may have been bleeding from the sacral wound. She is having brown stools now Hemoglobin trended down and was given 1 unit of blood 10/19 GI consulted Patient is declining GI scopes She had a DVT/PE 1 month ago and needs to be on Eliquis Will continue Eliquis while monitoring closely. Hemoglobin stayed stable. Continue PPI #Foot wound Podiatry involved Continue antibiotics per ID recommendations Podiatry completed debridement 10/21. Thankfully no deep wounds found. Superficial wounds were debrided. Podiatry was considering wound VAC placement but did not recommend it Wound care involved #Thrombocytosis Secondary to acute infection Resolved #Elevated troponin/demand ischemia 35.5 ->41.5 in ED Chronically elevated, at baseline Defer trending at this time EKG shows NSR Denies chest pain had stress test during recent admission, abnormal, cardiology recommended that patient could be considered for statin therapy in outpatient setting #dysphagia Speech therapy was involved Cleared for solid meals #Malnutrition Patient is concerned that she is gaining weight and is building up fluid Her albumin level was 2.4. She was educated that her leg swelling is most likely related to malnutrition, hypoalbuminemia, leaky blood vessels. She was encouraged to drink boost as recommended by supervisor education Patient was given small dose of Lasix to help with the lower extremity edema #Deconditioning Patient is extremely weak and deconditioned In the past, she has refused rehab and went home with poor outcomes. She came back with PE/DVT and sacral decubitus ulcers because of not being able to get around. She is being reluctant to go to rehab again PT/OT on board Patient is still very weak Chronic stable diagnoses: pericardial effusion - chronic of 10+ years, stable Sick sinus syndrome s/p pacer - follows kunal Conteh, continue Eliquis and metoprolol Hx BL DVT and PE - August 2024, 2/2 immobility at home, continue Eliquis, lasix discontinued recent admission *Pressure ulcer of right heel, stage 3, POA *Pressure ulcer of left lower posterior leg, stage 3, POA *Pressure ulcer of right ankle, unstageable, POA *Pressure ulcer of sacral region, unstageable, POA VTE ppx: continue Eliquis Diet: heart healthy + boost daily Wound care, PT/OT and case management pending. Discharge disposition would need to be determined. The patient is resisting rehab placement but in the past, she has gone home after hip fracture came back with DVTs, PEs, sacral ulcers from not being able to ambulate. Admission and Anticipated Discharge Date Admission Date: October 15, 2024 Subjective Patient was seen and examined at 11 AM. She is fixated with her leg swelling being the reason for why she is not able to ambulate. Spoke to the nurse, patient is not able to turn in bed because of weakness. She needed to be manually disimpacted as she was not able to use her abdominal muscles to bear down. She remains unrealistic and is resisting rehab placement, wishing to go home. She was given a small dose of Lasix with good diuretic response. However her blood pressure has been running on the low side. Review of Systems Review of Systems: All systems reviewed & are unremarkable except as noted in Subjective Physical Exam Physical Exam: General: Awake, conversant. Frail looking elderly woman. Heart: S1, S2/regular rate and rhythm, no murmur rubs or gallops Lungs: Clear to auscultation bilaterally. Normal effort Abdomen: Soft/nontender/nondistended. No hepatosplenomegaly Extremities: No clubbing/cyanosis. Trace bilateral edema. Dressing on feet bilaterally. Behavior: Appropriate, cooperative Results & Data Results & Data Vital Signs (Past 12 Hours) Vital Signs Temp Pulse Pulse Resp BP Pulse Ox O2 Del Method 10/23/24 07:54 36.8 C 89 22 117/71 94 Room Air 10/23/24 07:32 81 10/23/24 02:32 36.3 C L 89 20 89/53 L 90 Room Air 10/23/24 00:26 86 Laboratory Results Abnormal lab results 10/22/24 10/23/24 Range/Units 05:35 06:26 RBC 3.36 L (4.20-5.40) M/uL Hgb 9.1 L (12.0-16.0) g/dl Hct 29.7 L (37.0-47.0) % MCHC 30.6 L (32.0-36.0) g/dL RDW Std Deviation 52.4 H (36.4-46.3) fL RDW Coeff of López 16.4 H (11.5-14.5) % Plt Count 456 H (130-400) K/uL MPV 9.2 L (9.4-12.4) fL BUN 35 H 47 H (6-23) mg/dl BUN/Creatinine Ratio 37.2 H 47.0 H (10-20) Glucose 139 H 117 H (70-99(Fasting)) mg/dl Calcium 7.9 L 8.4 L (8.6-10.3) mg/dl PG Care Time/CCT Total # of Minutes Spent Total Time Spent with Patient: Total time spent is greater than 50% in coordination of care (as documented) at patient's floor/unit and/or counseling patient: Coding Level of Care Code 68787 SUB INP/OBS CARE 2/35MIN Diagnoses Sepsis A41.9
[2024-10-24 07:04] LABS: Hematocrit (blood only) 29.3 % (37.0-47.0); Hemoglobin 9.1 g/dl (12.0-16.0); Mean Corpuscular Hemoglobin 27.8 pg (25.0-34.0); Mean Corpuscular Hgb Conc 31.1 g/dL (32.0-36.0); Mean Corpuscular Volume 89.6 fL (80.0-100.0); Mean Platelet Volume 9.3 fL (9.4-12.4); Platelet Count 453 K/uL (130-400); RDW Coefficient of Variation 16.3 % (11.5-14.5); RDW Standard Deviation 53.1 fL (36.4-46.3); Red Blood Count 3.27 M/uL (4.20-5.40); White Blood Count 7.23 K/ul (4.8-10.8)
--- NOTE | 2024-10-24 12:14 | Hospitalist Progress Note ---
Date of Service October 24, 2024 Assessment & Plan (1) Sepsis: Plan Patient is an 89-year-old female with past medical history of 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 She is anticoagulated with Eliquis. She presents today due to rectal bleeding from a sacral wound. She is being admitted due to sepsis secondary to sacral wound, IV fluids sepsis bolus ordered, lactate ordered, IV antibiotics started with cefepime and vancomycin, wound care consulted. # sepsis/sacral wound/cellulitis of buttock WBC 12.15, hypotensive (97/67), tachycardic (104), afebrile on admission lactate 3.0 improved to 2.1 ID and wound care involved ID recommends continuing Zosyn Wound culture grew Pseudomonas, Bacteroides, Clostridium perfringens Patient is doing better clinically overall ID recommends continuing IV Zosyn for now and to discharge the patient on Levaquin 750 mg p.o. every 48 hours and Augmentin 875/125 mg p.o. every 12 hours on discharge until 10/27. I decided to switch from IV to p.o. today 10/24 in order to minimize IV fluid intake #Iron deficiency anemia There was some question of GI bleed in the setting of being on Eliquis The patient did present with what sounds like rectal bleed but may have been bleeding from the sacral wound. She is having brown stools now Hemoglobin trended down and was given 1 unit of blood 10/19 GI consulted Patient is declining GI scopes She had a DVT/PE 1 month ago and needs to be on Eliquis Will continue Eliquis while monitoring closely. Hemoglobin stayed stable. Continue PPI #Foot wound Podiatry involved Continue antibiotics per ID recommendations Podiatry completed debridement 10/21. Thankfully no deep wounds found. Superficial wounds were debrided. Podiatry was considering wound VAC placement but ultimately did not recommend it Wound care involved #Thrombocytosis Secondary to acute infection Resolved #Elevated troponin/demand ischemia 35.5 ->41.5 in ED Chronically elevated, at baseline Defer trending at this time EKG shows NSR Denies chest pain had stress test during recent admission, abnormal, cardiology recommended that patient could be considered for statin therapy in outpatient setting #dysphagia Speech therapy was involved Cleared for solid meals #Malnutrition Patient is concerned that she is gaining weight and is building up fluid Her albumin level was 2.4. She was educated that her leg swelling is most likely related to malnutrition, hypoalbuminemia, leaky blood vessels. She was encouraged to drink boost as recommended by ship's surveyor Patient was given small dose of Lasix to help with the lower extremity edema #Deconditioning Patient is extremely weak and deconditioned In the past, she has refused rehab and went home with poor outcomes. She came back with PE/DVT and sacral decubitus ulcers because of not being able to get around. 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 Discharge disposition would need to be determined. The patient is resisting rehab placement but in the past, she has gone home after hip fracture came back with DVTs, PEs, sacral ulcers from not being able to ambulate. Admission and Anticipated Discharge Date Admission Date: October 15, 2024 Subjective Pt keeps wanting to go home. PT/OT notes from 10/22 documented her level of weakness. She gives me a detailed history about how she felt neglected at the previous rehab facility she was in. She denies chest pain or shortness of breath. Review of Systems Review of Systems: All systems reviewed & are unremarkable except as noted in Subjective Physical Exam Physical Exam: General: Awake, conversant. Frail looking elderly woman. Heart: S1, S2/regular rate and rhythm, no murmur rubs or gallops Lungs: Clear to auscultation bilaterally. Normal effort Abdomen: Soft/nontender/nondistended. No hepatosplenomegaly Extremities: No clubbing/cyanosis. Trace bilateral edema. Dressing on feet bilaterally. Behavior: Appropriate, cooperative Results & Data Results & Data Vital Signs (Past 12 Hours) Vital Signs Temp Pulse Pulse Pulse Resp BP Pulse Ox 10/24/24 11:46 36.8 C 85 18 120/72 91 10/24/24 08:22 36.6 C 89 18 107/64 95 10/24/24 08:09 84 132/72 10/24/24 07:55 10/24/24 07:29 66 10/24/24 03:27 36.4 C L 90 16 113/69 92 O2 Del Method 10/24/24 11:46 Room Air 10/24/24 08:22 Room Air 10/24/24 08:09 10/24/24 07:55 Room Air 10/24/24 07:29 10/24/24 03:27 Room Air Laboratory Results Abnormal lab results 10/24/24 Range/Units 06:13 RBC 3.27 L (4.20-5.40) M/uL Hgb 9.1 L (12.0-16.0) g/dl Hct 29.3 L (37.0-47.0) % MCHC 31.1 L (32.0-36.0) g/dL RDW Std Deviation 53.1 H (36.4-46.3) fL RDW Coeff of López 16.3 H (11.5-14.5) % Plt Count 453 H (130-400) K/uL MPV 9.3 L (9.4-12.4) fL PG Care Time/CCT Total # of Minutes Spent Total Time Spent with Patient: Total time spent is greater than 50% in coordination of care (as documented) at patient's floor/unit and/or counseling patient: Coding Level of Care Code 17596 SUB INP/OBS CARE 2/35MIN Diagnoses Sepsis A41.9
[2024-10-24] MEDS: levoFLOXacin 750 MG TAB PO SCH (13:41)
[2024-10-24] MEDS: AMOXICILLIN/CLAVULANATE 875 MG TAB PO SCH (16:31)
[2024-10-25 06:54] LABS: Hematocrit (blood only) 30.7 % (37.0-47.0); Hemoglobin 9.5 g/dl (12.0-16.0); Mean Corpuscular Hemoglobin 27.7 pg (25.0-34.0); Mean Corpuscular Hgb Conc 30.9 g/dL (32.0-36.0); Mean Corpuscular Volume 89.5 fL (80.0-100.0); Mean Platelet Volume 9.3 fL (9.4-12.4); Platelet Count 456 K/uL (130-400); RDW Coefficient of Variation 16.2 % (11.5-14.5); RDW Standard Deviation 52.6 fL (36.4-46.3); Red Blood Count 3.43 M/uL (4.20-5.40); White Blood Count 7.02 K/ul (4.8-10.8)
--- NOTE | 2024-10-25 22:36 | Podiatry Progress Note ---
Date of Service October 25, 2024 Assessment & Plan (1) Peripheral neuropathy: (2) Chronic ulcer of right foot with fat layer exposed: (3) Chronic ulcer of left foot with fat layer exposed: (4) Other specified peripheral vascular diseases: Plan - Patient examined and evaluated. - Discussed need for continued wound care for these extensive wounds; can be home health but also will need follow-up at wound care center and our office - Her mobility is severely limited with her weakness. Would benefit from inpatient rehab but is adamant about going home. - Can d/c with home wound care when stable, care is coordinated. Admission and Anticipated Discharge Date Admission Date: October 15, 2024 Subjective Pt seen at bedside POD#4. Has had regular wound care since surgery. Ambulating with therapy in surgical shoes. Review of Systems Constitutional: + fever; no chills and no fatigue Eyes: no problem reported Ear, Nose, Mouth, Throat: no problem reported Respiratory: no problem reported Cardiovascular: + edema; no problem reported Gastrointestinal: no nausea, no vomiting and no problem reported Genitourinary: no problem reported Musculoskeletal: no problem reported Integumentary: + skin ulcer, + wounds and + erythema Neurologic: + loss of sensation, + numbness and + pa resthesia; no generalized weakness Psychiatric: no problem reported Physical Exam Physical Exam: DP/PT pulses nonpalpable. CFT brisk to digits. Large dorsal foot ulcerations noted overlying midfoot/forefoot. Wounds are more granular and mostly superficial. No new infection noted.. Advanced trophic changes noted. Recent MRI/CT did not reveal any deeper extension of these ulcerations or bone involve ment. Constitutional: WD/WN, vitals as above + ill appearing and + obese Eyes: PERRL, conjunctivae normal, anicteric sclerae ENMT: external ear and nose normal, oropharynx normal Neck: trachea midline, no thyromegaly normal visual inspection Respiratory: normal respiratory effort; no respiratory distress Cardiovascular: Rate/Rhythm: regular rate and regular rhythm Vessels: + posterior tibial pulses abnormal and + dorsalis pedis pulses abnormal Chest (Breasts): Chest: normal inspection of chest Gastrointestinal (Abdomen): Inspection/Auscultation: abdomen normal to inspection Percussion/Palpation: + abdomen tender and abdomen soft Musculoskeletal: no cyanosis or clubbing, extremities motor strength 5/5 Head/Neck/Chest: normocephalic and head atraumatic Extremities: extremities normal to inspection Skin: + ulcer, + wound, + skin atrophy, + dry skin, + erythema, + eschar, + nails discolored and + nails dystrophic Neurologic: awake; no focal motor deficits Psychiatric: A+Ox3, euthymic affect Results & Data Results & Data Vital Signs (Past 12 Hours) Vital Signs Temp Pulse Pulse Resp BP BP Pulse Ox 10/25/24 20:50 10/25/24 19:36 36.7 C 91 H 18 106/64 92 10/25/24 17:00 10/25/24 15:26 36.4 C L 90 17 110/64 94 10/25/24 13:00 78 10/25/24 11:33 36.3 C L 93 H 18 116/72 91 Pulse Ox O2 Del Method O2 Del Method 10/25/24 20:50 Room Air 10/25/24 19:36 Room Air 10/25/24 17:00 94 Room Air 10/25/24 15:26 Room Air 10/25/24 13:00 10/25/24 11:33 Room Air (1) Peripheral neuropathy Peripheral neuropathy type: polyneuropathy, unspecified Qualified Code(s): G62.9 - Polyneuropathy, unspecified
--- NOTE | 2024-10-25 22:44 | Hospitalist Progress Note ---
Date of Service October 25, 2024 Assessment & Plan (1) Sepsis: Plan Patient is an 89-year-old female with past medical history of 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 She is anticoagulated with Eliquis. She presents today due to rectal bleeding from a sacral wound. She is being admitted due to sepsis secondary to sacral wound, IV fluids sepsis bolus ordered, lactate ordered, IV antibiotics started with cefepime and vancomycin, wound care consulted. # sepsis/sacral wound/cellulitis of buttock WBC 12.15, hypotensive (97/67), tachycardic (104), afebrile on admission lactate 3.0 improved to 2.1 ID and wound care involved ID recommends continuing Zosyn Wound culture grew Pseudomonas, Bacteroides, Clostridium perfringens Patient is doing better clinically overall ID recommends continuing IV Zosyn for now and to discharge the patient on Levaquin 750 mg p.o. every 48 hours and Augmentin 875/125 mg p.o. every 12 hours on discharge until 10/27. #Iron deficiency anemia There was some question of GI bleed in the setting of being on Eliquis The patient did present with what sounds like rectal bleed but may have been bleeding from the sacral wound. She is having brown stools now Hemoglobin trended down and was given 1 unit of blood 10/19 GI consulted Patient is declining GI scopes She had a DVT/PE 1 month ago and needs to be on Eliquis Will continue Eliquis while monitoring closely. Hemoglobin stayed stable. Continue PPI Hemoglobin is stable. #Foot wound Podiatry involved Continue antibiotics per ID recommendations Podiatry completed debridement 10/21. Thankfully no deep wounds found. Superficial wounds were debrided. Podiatry was considering wound VAC placement but ultimately did not recommend it Wound care involved #Thrombocytosis Secondary to acute infection Resolved #Elevated troponin/demand ischemia 35.5 ->41.5 in ED Chronically elevated, at baseline Defer trending at this time EKG shows NSR Denies chest pain had stress test during recent admission, abnormal, cardiology recommended that patient could be considered for statin therapy in outpatient setting #dysphagia Speech therapy was involved Cleared for solid meals #Malnutrition Patient is concerned that she is gaining weight and is building up fluid Her albumin level was 2.4. She was educated that her leg swelling is most likely related to malnutrition, hypoalbuminemia, leaky blood vessels. She was encouraged to drink boost as recommended by transplant coordinator Patient was given small dose of Lasix to help with the lower extremity edema #Deconditioning Patient is extremely weak and deconditioned In the past, she has refused rehab and went home with poor outcomes. She came back with PE/DVT and sacral decubitus ulcers because of not being able to get around. She is being reluctant to go to rehab again PT/OT on board Patient more active. but still not safe to go home. Patient is still very weak Chronic stable diagnoses: pericardial effusion - chronic of 10+ years, stable Sick sinus syndrome s/p pacer - follows kunal Conteh, continue Eliquis and metoprolol Hx BL DVT and PE - August 2024, 2/2 immobility at home, continue Eliquis, lasix discontinued recent admission *Pressure ulcer of right heel, stage 3, POA *Pressure ulcer of left lower posterior leg, stage 3, POA *Pressure ulcer of right ankle, unstageable, POA *Pressure ulcer of sacral region, unstageable, POA VTE ppx: continue Eliquis Diet: heart healthy + boost daily Wound care, PT/OT and case management pending. Discharge disposition would need to be determined. The patient is resisting rehab placement but in the past, she has gone home after hip fracture came back with DVTs, PEs, sacral ulcers from not being able to ambulate. chart review sign out from previous hospitalist. reviewed labs Admission and Anticipated Discharge Date Admission Date: October 15, 2024 Subjective 89 yo female reports no new symptoms. Review of Systems Review of Systems: All systems reviewed & are unremarkable except as noted in HPI & below Physical Exam Physical Exam: The patient is awake, alert and oriented 3 HEENT- EOMI, mucous membranes dry. Hearing grossly intact. Heart-normal S1 and S2. Lungs-clear bilaterally, no respiratory distress, no accessory muscle use. Abdomen-normal bowel sounds and soft. No ascites noted. Non-tender. Extremities- no clubbing, cyanosis. +3 pitting edema bilaterally. Results & Data Results & Data Vital Signs (Past 12 Hours) Vital Signs Temp Pulse Pulse Resp BP BP Pulse Ox 10/25/24 20:50 10/25/24 19:36 36.7 C 91 H 18 106/64 92 10/25/24 17:00 10/25/24 15:26 36.4 C L 90 17 110/64 94 10/25/24 13:00 78 10/25/24 11:33 36.3 C L 93 H 18 116/72 91 Pulse Ox O2 Del Method O2 Del Method 10/25/24 20:50 Room Air 10/25/24 19:36 Room Air 10/25/24 17:00 94 Room Air 10/25/24 15:26 Room Air 10/25/24 13:00 10/25/24 11:33 Room Air PG Care Time/CCT Total # of Minutes Spent Total Time Spent with Patient: Total time spent is greater than 50% in coordination of care (as documented) at patient's floor/unit and/or counseling patient: Coding Level of Care Code 72321 SUB INP/OBS CARE 3/50MIN Diagnoses Sepsis A41.9
[2024-10-26 04:22] LABS: Hemoglobin 9.9 g/dl (12.0-16.0); Mean Corpuscular Hgb Conc 30.9 g/dL (32.0-36.0); Mean Corpuscular Volume 90.4 fL (80.0-100.0); Mean Platelet Volume 9.4 fL (9.4-12.4); Platelet Count 449 K/uL (130-400); RDW Coefficient of Variation 16.4 % (11.5-14.5); RDW Standard Deviation 53.8 fL (36.4-46.3); Red Blood Count 3.54 M/uL (4.20-5.40); White Blood Count 6.98 K/ul (4.8-10.8)
[2024-10-26 04:33] LABS: BUN Creatinine Ratio 45.6 (10-20); Calcium 8.9 mg/dl (8.6-10.3); Creatinine Clr Calc Pharmacy 38.1 ml/min; Potassium 4.9 mmol/L (3.5-5.1)
--- NOTE | 2024-10-26 11:17 | Hospitalist Progress Note ---
Date of Service October 26, 2024 Assessment & Plan (1) Sepsis: Plan Patient is an 89-year-old female with past medical history of 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 She is anticoagulated with Eliquis. She presents today due to rectal bleeding from a sacral wound. She is being admitted due to sepsis secondary to sacral wound, IV fluids sepsis bolus ordered, lactate ordered, IV antibiotics started with cefepime and vancomycin, wound care consulted. # sepsis/sacral wound/cellulitis of buttock WBC 12.15, hypotensive (97/67), tachycardic (104), afebrile on admission lactate 3.0 improved to 2.1 ID and wound care involved ID recommends continuing Zosyn Wound culture grew Pseudomonas, Bacteroides, Clostridium perfringens Patient is doing better clinically overall ID recommends continuing IV Zosyn for now and to discharge the patient on Levaquin 750 mg p.o. every 48 hours and Augmentin 875/125 mg p.o. every 12 hours on discharge until 10/27. This was transitioned on 10/25 No signs of SIRS curently on 10/26 #Iron deficiency anemia There was some question of GI bleed in the setting of being on Eliquis The patient did present with what sounds like rectal bleed but may have been bleeding from the sacral wound. She is having brown stools now Hemoglobin trended down and was given 1 unit of blood 10/19 GI consulted Patient is declining GI scopes She had a DVT/PE 1 month ago and needs to be on Eliquis Will continue Eliquis while monitoring closely. Hemoglobin stayed stable. Continue PPI Hemoglobin is stable. #Foot wound Podiatry involved Continue antibiotics per ID recommendations Podiatry completed debridement 10/21. Thankfully no deep wounds found. Superficial wounds were debrided. Podiatry was considering wound VAC placement but ultimately did not recommend it Wound care involved. #Thrombocytosis Secondary to acute infection Resolved #Elevated troponin/demand ischemia 35.5 ->41.5 in ED Chronically elevated, at baseline Defer trending at this time EKG shows NSR Denies chest pain had stress test during recent admission, abnormal, cardiology recommended that patient could be considered for statin therapy in outpatient setting #dysphagia Speech therapy was involved Cleared for solid meals #Malnutrition Patient is concerned that she is gaining weight and is building up fluid Her albumin level was 2.4. She was educated that her leg swelling is most likely related to malnutrition, hypoalbuminemia, leaky blood vessels. She was encouraged to drink boost as recommended by certified ophthalmic surgical assistant Patient was given small dose of Lasix to help with the lower extremity edema #Deconditioning Patient is extremely weak and deconditioned In the past, she has refused rehab and went home with poor outcomes. She came back with PE/DVT and sacral decubitus ulcers because of not being able to get ar ound. PT/OT on board Patient more active. but still not safe to go home. 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 Discharge disposition would need to be determined. The patient is resisting rehab placement but in the past, she has gone home after hip fracture came back with DVTs, PEs, sacral ulcers from not being able to ambulate. Discussed with returned case inspector. Admission and Anticipated Discharge Date Admission Date: October 15, 2024 Subjective Patient reports no new symptoms Physical Exam Physical Exam: The patient is awake, alert and oriented 3 HEENT- EOMI, mucous membranes dry. Hearing grossly intact. Heart-normal S1 and S2. Lungs-clear bilaterally, no respiratory distress, no accessory muscle use. Abdomen-normal bowel sounds and soft. No ascites noted. Non-tender. Extremities- no clubbing, cyanosis. +3 pitting edema bilaterally. Results & Data Results & Data Vital Signs (Past 12 Hours) Vital Signs Temp Pulse Pulse Resp BP BP Pulse Ox 10/26/24 07:43 36.5 C 93 H 18 118/73 93 10/26/24 07:35 10/26/24 05:44 91 H 10/26/24 03:15 36.7 C 89 17 114/67 94 10/25/24 23:16 36.6 C 89 17 105/62 94 O2 Del Method 10/26/24 07:43 Room Air 10/26/24 07:35 Room Air 10/26/24 05:44 10/26/24 03:15 Room Air 10/25/24 23:16 Room Air PG Care Time/CCT Total # of Minutes Spent Total Time Spent with Patient: Total time spent is greater than 50% in coordination of care (as documented) at patient's floor/unit and/or counseling patient: Coding Level of Care Code 38784 SUB INP/OBS CARE 2/35MIN Diagnoses Sepsis A41.9
[2024-10-27 04:12] LABS: Hematocrit (blood only) 29.4 % (37.0-47.0); Mean Corpuscular Hemoglobin 27.3 pg (25.0-34.0); Mean Corpuscular Hgb Conc 30.6 g/dL (32.0-36.0); Mean Corpuscular Volume 89.1 fL (80.0-100.0); Mean Platelet Volume 9.3 fL (9.4-12.4); Platelet Count 413 K/uL (130-400); RDW Coefficient of Variation 16.2 % (11.5-14.5); RDW Standard Deviation 52.8 fL (36.4-46.3); White Blood Count 7.13 K/ul (4.8-10.8)
[2024-10-27 04:27] LABS: BUN Creatinine Ratio 55.6 (10-20); C Reactive Protein 2.15 mg/dl (0-0.5); Calcium 8.5 mg/dl (8.6-10.3); Creatinine Clr Calc Pharmacy 45.9 ml/min; Potassium 4.1 mmol/L (3.5-5.1)
--- NOTE | 2024-10-27 22:36 | Hospitalist Progress Note ---
Date of Service October 27, 2024 Assessment & Plan (1) Sepsis: Plan Patient is an 89-year-old female with past medical history of 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 She is anticoagulated with Eliquis. She presents today due to rectal bleeding from a sacral wound. She is being admitted due to sepsis secondary to sacral wound, IV fluids sepsis bolus ordered, lactate ordered, IV antibiotics started with cefepime and vancomycin, wound care consulted. # sepsis/sacral wound/cellulitis of buttock WBC 12.15, hypotensive (97/67), tachycardic (104), afebrile on admission lactate 3.0 improved to 2.1 ID and wound care involved ID recommends continuing Zosyn Wound culture grew Pseudomonas, Bacteroides, Clostridium perfringens Patient is doing better clinically overall ID recommends continuing IV Zosyn for now and to discharge the patient on Levaquin 750 mg p.o. every 48 hours and Augmentin 875/125 mg p.o. every 12 hours on discharge until 10/27. This was transitioned on 10/25 No signs of SIRS curently on 10/26. discussed with nurse removal of ca catheter/ and placement of purewick. will transfer patient to medical #Iron deficiency anemia There was some question of GI bleed in the setting of being on Eliquis The patient did present with what sounds like rectal bleed but may have been bleeding from the sacral wound. She is having brown stools now Hemoglobin trended down and was given 1 unit of blood 10/19 GI consulted Patient is declining GI scopes She had a DVT/PE 1 month ago and needs to be on Eliquis Will continue Eliquis while monitoring closely. Hemoglobin stayed stable. Continue PPI Hemoglobin is stable at 9 #Foot wound Podiatry involved Continue antibiotics per ID recommendations Podiatry completed debridement 10/21. Thankfully no deep wounds found. Superficial wounds were debrided. Podiatry was considering wound VAC placement but ultimately did not recommend it Wound care involved. #Thrombocytosis Secondary to acute infection Resolved #Elevated troponin/demand ischemia 35.5 ->41.5 in ED Chronically elevated, at baseline Defer trending at this time EKG shows NSR Denies chest pain had stress test during recent admission, abnormal, cardiology recommended that patient could be considered for statin therapy in outpatient setting #dysphagia Speech therapy was involved Cleared for solid meals #Malnutrition Patient is concerned that she is gaining weight and is building up fluid Her albumin level was 2.4. She was educated that her leg swelling is most likely related to malnutrition, hypoalbuminemia, leaky blood vessels. She was encouraged to drink boost as recommended by etl analyst Patient was given small dose of Lasix to help with the lower extremity edema #Deconditioning Patient is extremely weak and deconditioned In the past, she has refused rehab and went home with poor outcomes. She came back with PE/DVT and sacral decubitus ulcers because of not being able to get around. PT/OT on board Patient more active. but still not safe to go home. 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 Discharge disposition would need to be determined. The patient is resisting rehab placement but in the past, she has gone home after hip fracture came back with DVTs, PEs, sacral ulcers from not being able to ambulate. Discussed with case aide. Admission and Anticipated Discharge Date Admission Date: October 15, 2024 Subjective 89 yo female reports no new symptoms. Physical Exam Physical Exam: The patient is awake, alert and oriented 3 HEENT- EOMI, mucous membranes dry. Hearing grossly intact. Heart-normal S1 and S2. Lungs-clear bilaterally, no respiratory distress, no accessory muscle use. Abdomen-normal bowel sounds and soft. No ascites noted. Non-tender. Extremities- no clubbing, cyanosis. +3 pitting edema bilaterally. Results & Data Results & Data Vital Signs (Past 12 Hours) Vital Signs Temp Pulse Resp BP Pulse Ox O2 Del Method 10/27/24 21:54 36.7 C 92 H 16 138/58 L 94 Room Air 02/05/25 21:31 36.7 C 97 H 18 102/59 L 93 Room Air 10/27/24 14:30 36.6 C 94 H 18 108/63 97 Room Air 10/27/24 10:44 37.1 C 95 H 19 100/60 94 Room Air PG Care Time/CCT Total # of Minutes Spent Total Time Spent with Patient: Total time spent is greater than 50% in coordination of care (as documented) at patient's floor/unit and/or counseling patient: Coding Level of Care Code 86366 SUB INP/OBS CARE 3/50MIN Diagnoses Sepsis A41.9
[2024-10-28 07:44] LABS: Hematocrit (blood only) 31.8 % (37.0-47.0); Hemoglobin 9.7 g/dl (12.0-16.0); Mean Corpuscular Hemoglobin 27.4 pg (25.0-34.0); Mean Corpuscular Hgb Conc 30.5 g/dL (32.0-36.0); Mean Corpuscular Volume 89.8 fL (80.0-100.0); Mean Platelet Volume 9.5 fL (9.4-12.4); Platelet Count 433 K/uL (130-400); RDW Coefficient of Variation 16.1 % (11.5-14.5); RDW Standard Deviation 53.5 fL (36.4-46.3); Red Blood Count 3.54 M/uL (4.20-5.40); White Blood Count 6.64 K/ul (4.8-10.8)
[2024-10-28 08:06] LABS: BUN Creatinine Ratio 46.7 (10-20); Calcium 8.8 mg/dl (8.6-10.3); Creatinine Clr Calc Pharmacy 45.8 ml/min
--- NOTE | 2024-10-28 22:45 | Hospitalist Progress Note ---
Date of Service October 28, 2024 Assessment & Plan (1) Sepsis: Plan Patient is an 89-year-old female with past medical history of 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 She is anticoagulated with Eliquis. She presents today due to rectal bleeding from a sacral wound. She is being admitted due to sepsis secondary to sacral wound, IV fluids sepsis bolus ordered, lactate ordered, IV antibiotics started with cefepime and vancomycin, wound care consulted. # sepsis/sacral wound/cellulitis of buttock WBC 12.15, hypotensive (97/67), tachycardic (104), afebrile on admission lactate 3.0 improved to 2.1 ID and wound care involved ID recommends continuing Zosyn Wound culture grew Pseudomonas, Bacteroides, Clostridium perfringens Patient is doing better clinically overall ID on case: completed antibiotics: zosyn/transitioned to levaquin/augmentin This was transitioned on 10/25 No signs of SIRS curently on 10/26. removed ca will transfer patient to medical #Iron deficiency anemia There was some question of GI bleed in the setting of being on Eliquis The patient did present with what sounds like rectal bleed but may have been bleeding from the sacral wound. She is having brown stools now Hemoglobin trended down and was given 1 unit of blood 10/19 GI consulted Patient is declining GI scopes She had a DVT/PE 1 month ago and needs to be on Eliquis Will continue Eliquis while monitoring closely. Hemoglobin stayed stable. Continue PPI Hemoglobin is stable at 9 #Foot wound Podiatry involved Continue antibiotics per ID recommendations Podiatry completed debridement 10/21. Thankfully no deep wounds found. Superficial wounds were debrided. Podiatry was considering wound VAC placement but ultimately did not recommend it Wound care involved. #Thrombocytosis Secondary to acute infection Resolved #Elevated troponin/demand ischemia 35.5 ->41.5 in ED Chronically elevated, at baseline Defer trending at this time EKG shows NSR Denies chest pain had stress test during recent admission, abnormal, cardiology recommended that patient could be considered for statin therapy in outpatient setting #dysphagia Speech therapy was involved Cleared for solid meals #Malnutrition Patient is concerned that she is gaining weight and is building up fluid Her albumin level was 2.4. She was educated that her leg swelling is most likely related to malnutrition, hypoalbuminemia, leaky blood vessels. She was encouraged to drink boost as recommended by tree trimming supervisor Patient was given small dose of Lasix to help with the lower extremity edema #Deconditioning Patient is extremely weak and deconditioned In the past, she has refused rehab and went home with poor outcomes. She came back with PE/DVT and sacral decubitus ulcers because of not being able to get around. PT/OT on board Patient more active. but still not safe to go home. 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 Discharge disposition would need to be determined. The patient is resisting rehab placement but in the past, she has gone home after hip fracture came back with DVTs, PEs, sacral ulcers from not being able to ambulate. Discussed with keycase assembler. Admission and Anticipated Discharge Date Admission Date: October 15, 2024 Subjective 89 yo female reports no new symptoms. Physical Exam Physical Exam: The patient is awake, alert and oriented 3 HEENT- EOMI, mucous membranes dry. Hearing grossly intact. Heart-normal S1 and S2. Lungs-clear bilaterally, no respiratory distress, no accessory muscle use. Abdomen-normal bowel sounds and soft. No ascites noted. Non-tender. Extremities- no clubbing, cyanosis. +3 pitting edema bilaterally. Results & Data Results & Data Vital Signs (Past 12 Hours) Vital Signs Temp Pulse Resp BP Pulse Ox O2 Del Method 10/28/24 20:06 36.7 C 91 H 18 100/62 92 Room Air 10/28/24 15:46 36.8 C 87 20 118/66 96 Room Air PG Care Time/CCT Total # of Minutes Spent Total Time Spent with Patient: Total time spent is greater than 50% in coordination of care (as documented) at patient's floor/unit and/or counseling patient: Coding Level of Care Code 58931 SUB INP/OBS CARE 2/35MIN Diagnoses Sepsis A41.9
[2024-10-29 06:55] VITALS: RESP 16; TEMP 97.9; O2SAT 97
--- NOTE | 2024-10-29 11:58 | Discharge Summary ---
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 She is anticoagulated with Eliquis. She presents today due to rectal bleeding from a sacral wound. She is being admitted due to sepsis secondary to sacral wound, IV fluids sepsis bolus ordered, lactate ordered, IV antibiotics started with cefepime and vancomycin, wound care consulted. # sepsis/sacral wound/cellulitis of buttock WBC 12.15, hypotensive (97/67), tachycardic (104), afebrile on admission lactate 3.0 improved to 2.1 Wound culture grew Pseudomonas, Bacteroides, Clostridium perfringens Patient is doing better clinically overall ID on case: completed antibiotics: zosyn/transitioned to levaquin/augmentin #Iron deficiency anemia There was some question of GI bleed in the setting of being on Eliquis The patient did present with what sounds like rectal bleed but may have been bleeding from the sacral wound. She is having brown stools now Hemoglobin trended down and was given 1 unit of blood 10/19 GI consulted Patient is declining GI scopes She had a DVT/PE 1 month ago and needs to be on Eliquis Will continue Eliquis while monitoring closely. Hemoglobin stayed stable above 9 Continue PPI #Foot wound Podiatry involved Continue antibiotics per ID recommendations Podiatry completed debridement 10/21. Thankfully no deep wounds found. Superficial wounds were debrided. Podiatry was considering wound VAC placement but ultimately did not recommend it Wound care involved. #Thrombocytosis Secondary to acute infection Resolved #Elevated troponin/demand ischemia 35.5 ->41.5 in ED Chronically elevated, at baseline Defer trending at this time EKG shows NSR Denies chest pain had stress test during recent admission, abnormal, cardiology recommended that patient could be considered for statin therapy in outpatient setting #dysphagia Speech therapy was involved Cleared for solid meals #Malnutrition Patient is concerned that she is gaining weight and is building up fluid Her albumin level was 2.4. She was educated that her leg swelling is most likely related to malnutrition, hypoalbuminemia, leaky blood vessels. She was encouraged to drink boost as recommended by car refinisher Patient was given small dose of Lasix to help with the lower extremity edema #Deconditioning Patient is extremely weak and deconditioned In the past, she has refused rehab and went home with poor outcomes. She came back with PE/DVT and sacral decubitus ulcers because of not being able to get around. PT/OT on board Patient more active. but still not safe to go home. Patient finally agreeable to rehab Patient is still very weak Chronic stable diagnoses: pericardial effusion - chronic of 10+ years, stable Sick sinus syndrome s/p pacer - follows kunal Conteh, continue Eliquis and metoprolol Hx BL DVT and PE - August 2024, 2/2 immobility at home, continue Eliquis, lasix discontinued recent admission *Pressure ulcer of right heel, stage 3, POA *Pressure ulcer of left lower posterior leg, stage 3, POA *Pressure ulcer of right ankle, unstageable, POA *Pressure ulcer of sacral region, unstageable, POA Admission HPI Per Admitting Provider Patient is an 89-year-old female with past medical history of 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 She is anticoagulated with Eliquis. She presents today due to rectal bleeding from a sacral wound. She is being admitted due to sepsis s econdary to sacral wound, IV fluids sepsis bolus ordered, lactate ordered, IV antibiotics started with cefepime and vancomycin, wound care consulted. Patient seen at bedside. She stated that she was recently hospitalized last week due to an elevated troponin but was found to have a positive occult blood stool and workup for GI bleed. She wanted to hold off on any invasive procedures at this time, received Protonix twice daily, H&H stabilized. On admission today H&H is improved with hemoglobin of 9.9. She stated during this hospitalization she started to develop a sacral wound, when she returned home and just started to worsen. She stated that it believes from her rectum and the wound. She is incontinent of both bowel and bladder; she uses wipes and towels to clean up when she has a bowel movement. She lives at a retiree complex and her friends also help her clean up. She stated it is not painful but does have a raw feeling. She denies any fevers or chills. She does have wound assisted health for her lower extremity wounds. During her recent hospitalization she was told she can no longer take both Celebrex and Eliquis daily, she has discontinued Celebrex and continue to take Eliquis daily. Patient denies fever, chills, dyspnea, chest pain, abdominal pain, nausea, vomiting. .She has chronic bilateral lower extremity edema, unchanged. She wishes to be full code at this time. Reached out to wound care, off duty for the weekend; will evaluate patient early next week. Discharge Exam The patient is awake, alert and oriented 3 HEENT- EOMI, mucous membranes dry. Hearing grossly intact. Heart-normal S1 and S2. Lungs-clear bilaterally, no respiratory distress, no accessory muscle use. Abdomen-normal bowel sounds and soft. No ascites noted. Non-tender. Extremities- no clubbing, cyanosis. +3 pitting edema bilaterally. Discharge Plan Discharge Items Patient Disposition: Transfer [facility] Reason For Visit: SACRAL WOUND, SEPSIS Discharge Diagnosis: sacral wound, sepsis Activity: Per Instructions section Activity Comment: per physical therapy Non-emergency contact: Primary Care Provider Call non-emergency contact if: you have any medication questions Follow-up/Referrals: Schuyler Gonzalez MD [Primary Care Provider] - Diet: Heart Healthy Addtl Attending Provider Instructions: Discussed need for continued wound care for these extensive wounds; can be home health but also will need follow-up at wound care center and our office: Dr. Gomez -Continue wound care to sacrum and lE -Keep sacral area clean of Bowel Movements and urine Pending Studies at Discharge: No Stand-Alone Forms: [employer], Smoking Cessation Medications and DC Order Prescriptions: New gabapentin 100 mg Capsule 100 mg PO TID Qty: 90 0RF Continued aspirin 81 mg Tablet,Chewable 40.5 mg PO DAILY Rx Instructions: Pt unsure if this was taken this morning or not 10/15/24 multivitamin [Daily Multi-Vitamin] Tablet 1 tab PO DAILY Qty: 30 0RF latanoprost 0.005 % drops 1 drops OPB HS Qty: 2.5 0RF metoprolol succinate 25 mg tablet extended release 24 hr 25 mg PO DAILY Qty: 90 3RF pantoprazole 40 mg Tablet,Delayed Release (Dr/Ec) 40 mg PO BID Qty: 60 0RF timolol maleate 0.5 % drops, once daily 1 drp OPB BID Qty: 2.5 0RF PreserVision AREDS 4,296 mcg-226 mg-90 mg Capsule 1 cap PO AMPM Qty: 60 0RF thyroid (pork) [[place] Thyroid] 60 mg tablet 60 mg PO DAILY Qty: 90 0RF Rx Instructions: Per pharmacy, this was last filled 05/2024 x90 Changed Eliquis 5 mg tablet 5 mg PO BID Qty: 60 0RF Discharge Orders: Discharge Order (Routine); Ordered 10/29/24 Ordered By: Shaan Azevedo Admission Data Admit Date/Time: 10/15/24 16:11 Attending Provider: Shaan Azevedo Admit Provider: Timo Sterling Primary Care Provider: Schuyler Gonzalez Other Providers: [facility]; [facility]; [facility]; Clint Cisneros; Aureliano Gomez; Cleve Davis Other Interventions: Discharge Summary Assessment (RN) Last Done: 10/29/24 12:14 Hospital Stay Data Consultations 10/15/24 14:36 ED Decision to Admit Stat 10/18/24 17:17 Consult Gastroenterology Routine 10/18/24 17:22 Consult Podiatry Routine Procedures Performed Operation Date: 10/21/24 14:20 Actual Procedures p Bilateral Feet Excisional Debridement(Bilateral) - Aureliano Gomez DPM Pending Results Patient Have Any Pending Studies at Discharge: No Discharge Instructions Given to Patient (Per Discharging Provider) Discussed need for continued wound care for these extensive wounds; can be home health but also will need follow-up at wound care center and our office: Dr. Gomez -Continue wound care to sacrum and lE -Keep sacral area clean of Bowel Movements and urine Total Time Total Time Spent Total Time Spent (In Minutes): 32 Coding Level of Care Code 78126 INP/OBS DISCH >30 MIN Diagnoses Sepsis A41.9
[2024-10-29 12:14] VITALS: BP 114/67; PULSE 90
--- NOTE | 2024-11-08 22:03 | Operative Report ---
Post Operative Report Pre & Post Diagnosis Operation Date: 10/21/24 14:20 Pre-Op Diagnosis: Sepsis; Bilateral foot and heel ulcerations Post-Op Diagnosis: Sepsis; Bilateral foot and heel ulcerations I identified the patient and participated in the time-out.: Yes Procedure Operation Date: 10/21/24 14:20 Actual Procedures p Bilateral Feet Excisional Debridement(Bilateral) - Aureliano Gomez DPM Surgeon Aureliano Gomez DPM Station Manager None Estimated Blood Loss 10 Findings Consistent with Post-Op Diagnosis No deep extension to any ulceration; all were more superficial than expected. The largest/deepest ulcer was to the dorsal left foot, where minimal tendon exposure was noted. No bone involvement throughout any of the four ulcers. Specimens None; no deep bony involvement suspected Anesthesia Type MAC Disposition Accompanied Patient To Recovery: Yes Disposition: Recovery Room Description of Procedure Patient was brought to the operating room and left on her inpatient bed for the duration of the procedure. After induction of IV sedation, local analgesia was obtained utilizing 20 cc of 0.5% marcaine plain in local blocks to the bilateral heel and forefoot ulcerations. The bilateral lower extemities were scrubbed, prepped, and draped in the usual aseptic manner. No tourniquet was utilized during the duration of the case, given her relatively avascular state. Attention was directed to the dorsal aspect of the right foot where a large, 5x4 cm ulceration was noted. The wound bed was largely fibrotic/slough, with almost no granulation tissue noted. The wound bed was sharply debrided with a 15 blade and curette, with no extension noted to the tendons or muscle belly. Ulcer extends to the subcutaneous fat. No abscess noted. No drainable fluid or extension along nearby tendon sheaths. Sharp debridement did allow for conversion to 100% granular tissue. Wound margins are well adhered without undermining or rolling of the edges. Attention was directed to the plantar medial aspect of the right calcaneus where a smaller pressure ulceraion was noted, measuring 3x2 cm . The wound bed was largely fibrotic/slough with thicker overlying eschar, with almost no granulation tissue noted. The wound bed was sharply debrided with a 15 blade and curette, with no extension noted to the plantar calcaneus. Ulcer extends to the subcutaneous fat. No abscess noted. No drainable fluid or tunneling throughout the subcutaneous tissue or fascia. Sharp debridement did allow for conversion to 100% granular tissue. Wound margins are well adhered without undermining or rolling of the edges. Attention was directed to the dorsal aspect of the left foot where a large, 5x5 cm ulceration was noted. The wound bed was largely fibrotic/slough, with almost no granulation tissue noted. The wound bed was sharply debrided with a 15 blade and curette, with extension noted to the extensor digitorum longus tendons locally. Ulcer extends to the subcutaneous fat/exposed tendons. No abscess noted. No drainable fluid or proximal extension along nearby tendon sheaths. Sharp debridement did allow for conversion to 100% granular tissue. Wound margins are well adhered without undermining or rolling of the edges. Attention was directed to the plantar medial aspect of the right calcaneus where a smaller pressure ulceraion was noted, measuring 3x2 cm . The wound bed was largely fibrotic/slough with thicker overlying eschar, with almost no granulation tissue noted. The wound bed was sharply debrided with a 15 blade and curette, with no extension noted to the plantar calcaneus. Ulcer extends to the subcutaneous fat. No abscess noted. No drainable fluid or tunneling throughout the subcutaneous tissue or fascia. Sharp debridement did allow for conversion to 100% granular tissue. Wound margins are well adhered without undermining or rolling of the edges. After all of these extensive excisional debridements were performed, the wounds were dressed with Aquacel Ag, 4x4 gauze, ABD pads, kerlix, and a lightly applied Carlos wrap. The patient tolerated the procedure well and was transferred to the recovery room with vital signs stable and vascular status intact to the feet. Following postoperative monitoring, she will be given instructions which were discussed prior to surgery and transferred back to the floor for further examination and testing, with likely discharge in the next few days. I attest to the content of the Intraoperative Record and any orders documented therein. Any exceptions are noted below.
== END 2024-10-29 13:10 | DRG 853 ==
LOC: ED 13:02 → SUATTDRO 16:11 → 2E 16:11 → 3W 10-27 14:17

== ENCOUNTER 2024-11-23 13:49 | Inpatient (IN) ==
--- NOTE | 2024-11-23 14:14 | Emergency Department Note ---
Impression & Plan Ambulatory dysfunction Admission ED Provider Note HPI: History obtained from patient. The patient is a 89-year-old female with history of peripheral vascular disease with multiple lower extremity ulcerations, presents the emergency department today after being evaluated by a home nursing agency at her house. Patient states "they did not think I should be living alone". Patient states she was just sent back home on after a prolonged stay at an inpatient nursing facility for similar issues of not being able to care for herself at home. On arrival here to the ED the patient is hemodynamically stable, she is malodorous and disheveled appearing, she otherwise appears to be in no acute physical distress. ROS: - Per HPI Differential Diagnosis: Inability to care for self, sepsis, cellulitis, amongst other potential pathologies. *Outpatient medications and allergy history reviewed. PE: General: Alert, disheveled appearing, malodorous HEENT: Normocephalic, trachea midline Eyes: Extraocular eye movement is intact, no scleral erythema Pulmonary: Clear to auscultation bilaterally, no wheezing Cardio: Regular rate and rhythm GI: Abdomen is soft to palpation : No suprapubic tenderness MSK: No evidence of trauma or malformation of the extremities, no edema Skin: There is skin irritation and excoriation around the sacrum and buttocks bilaterally with evidence of urinary incontinence, multiple superficial ulcerations without purulent drainage, there are multiple venous stasis ulcerations of the bilateral lower extremities without purulent drainage, there is no crepitus to palpation of the surrounding soft tissues in the bilateral lower extremities, otherwise no evidence of rash Neuro: Alert, no focal deficits Psychiatric: Cooperative 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 Patient was placed on medart operator. Lab work shows no leukocytosis, hemoglobin stable 11.5, platelet count is normal, CMP does not show any evidence of any critical findings. On exam the patient does have evidence of skin excoriation around the sacrum and buttocks with multiple superficial ulcerations as well as more chronic appearing venous stasis ulcers to the bilateral lower extremities. She tells me she is not able to get out of bed to urinate, she states that she has bowel movements using a bedpan at home. Overall she does not appear to be fit to be living alone. She is in agreement to this. Patient will require placement as she is only made it several days at home by herself after being discharged from her inpatient facility. I discussed the patient's presentation with the on-call hospitalist for [facility], Dr. Ravi, and the patient was placed for admission in stable condition. Consultants/Discussions held with other healthcare providers: -Hospitalist, Dr. Ravi Disposition discussion held by myself with: -Patient Diagnosis: 1. Inability to care for self, acute 2. Ambulatory dysfunction, acute on chronic 3. Excoriated skin of the sacrum/perineum, acute Disposition: Admission Alfredito Armas DO Emergency Medicine Past Med/Surg History Problem List (Updated 11/23/24 @ 17:22 by Alfredito Armas DO) Ambulatory dysfunction (Acute) Bilateral cellulitis of lower leg Malnutrition Unable to care for self Other specified peripheral vascular diseases Chronic ulcer of left foot with fat layer exposed Chronic ulcer of right foot with fat layer exposed Dysphagia Anemia Thrombocytosis Cellulitis of buttock Sacral wound Sepsis Ambulatory dysfunction (Acute) Occult blood positive stool Pericardial effusion Abnormal nuclear stress test Elevated troponin (Acute) Pleural effusion, left Shortness of breath (Acute) Chest pain (Acute) History of venous thromboembolism Elevated troponin Fracture of right hip (Acute 07/01/24) Acute comminuted displaced intertrochanteric fracture of the right femur from a fall 2 days prior per the ED report Acute pain of right thigh (Acute) Fall (Acute) Squamous cell skin cancer Decreased exercise tolerance Glaucoma Spinal stenosis Peripheral neuropathy Degenerative joint disease, multiple joints on both sides of body Allergic rhinitis (Acute) Osteoporosis (Acute) Medical History Pulmonary embolism DVT, bilateral lower limbs Hypotension Chronic venous stasis Failure to thrive in adult Hypernatremia Lower extremity ulceration Ambulatory dysfunction Leg edema Wound of right foot Wound of left foot Chest pain Right femoral fracture (07/01/24) Acute comminuted displaced intertrochanteric fracture of the right femur from a fall 2 days prior per the ED report Cardiac pacemaker PAT (paroxysmal atrial tachycardia) Dyslipidemia Hypothyroidism Peptic ulcer SSS (sick sinus syndrome) (04/28/14) Surgical History S/P placement of cardiac pacemaker (~2013) Dual chamber Status post hip surgery (~2013) Left RUTH History of esophagogastroduodenoscopy (~1996) H/O colonoscopy (~1998) Family History Mother Breast cancer Social History Smoking Status: Never smoker Do You Dip or Chew Tobacco: No; Hx Alcohol Use: No Hx Substance Use: No Preferred Language: Khmer Communication Ability: Effective Spinner Cap Frame Required: No Beliefs That Will Affect Care: None marital status: / Current Living Situation: Alone current occupational status: retired Feels Safe at Home: Yes Assistive Devices: Glasses and Walker Allergies Allergies Allergy/AdvReac Type Severity Reaction Status Date / Time No Known Drug Allergies Allergy Verified 10/15/24 15:01 Home Meds Home Medications Medication Instructions Recorded Confirmed aspirin 81 mg chewable tablet 40.5 mg PO UD 09/06/24 11/23/24 acetaminophen 325 mg tablet 325 mg PO QID PRN Pain 11/19/24 11/23/24 (Tylenol) apixaban 5 mg tablet (Eliquis) 5 mg PO UD 11/23/24 11/23/24 latanoprost 0.005 % eye drops 1 drops OPB UD 11/23/24 11/23/24 metoprolol succinate 25 mg 25 mg PO UD 11/23/24 11/23/24 tablet,extended release 24 hr timolol maleate 0.5 % once daily 1 drp OPB UD 11/23/24 11/23/24 eye drops Previous Rx's Medication Instructions Recorded multivitamin (Daily Multi-Vitamin 1 tab PO DAILY #30 tabs 10/29/24 tablet) vitamins A,C,R-fwyd-ijaheb 4,296 1 cap PO AMPM #60 caps 10/29/24 mcg-226 mg-90 mg capsule (PreserVision AREDS) gabapentin 100 mg capsule 100 mg PO TID #300 caps 11/19/24 pantoprazole 40 mg tablet,delayed 40 mg PO BID #90 tabs 11/19/24 release thyroid (pork) 60 mg tablet 60 mg PO DAILY #90 tabs 11/19/24 ([place] Thyroid) Results & Data (ED) Vital Signs Vital Signs - 24 hr 03/04/25 14:00 11/23/24 14:05 11/23/24 14:40 Temperature 36.8 C Temperature Source Oral Pulse Rate 88 87 90 Pulse Rate [Apical] Pulse Rhythm Regular Regular Pulse Strength Normal Respiratory Rate 20 18 Respiratory Effort / Characteristics Non-Labored Spontaneous Respiratory Depth Normal Respiratory Pattern Regular Blood Pressure 101/62 Blood Pressure [Left Arm] Blood Pressure Mean 75 Blood Pressure Mean [Left Arm] Blood Pressure Position Sitting Pulse Oximetry 96 98 Oxygen Delivery Method Room Air Room Air Sepsis Recent Fever Within 48 Hours No Sepsis New/Unexplained Change in Mental Status No Sepsis Action Taken by Nursing No Action Required 11/23/24 15:25 Temperature Temperature Source Pulse Rate Pulse Rate [Apical] 96 H Pulse Rhythm Pulse Strength Respiratory Rate 12 Respiratory Effort / Characteristics Respiratory Depth Respiratory Pattern Blood Pressure Blood Pressure [Left Arm] 100/68 Blood Pressure Mean Blood Pressure Mean [Left Arm] 78 Blood Pressure Position Pulse Oximetry 95 Oxygen Delivery Method Room Air Sepsis Recent Fever Within 48 Hours Sepsis New/Unexplained Change in Mental Status Sepsis Action Taken by Nursing Laboratory Data 11/23/24 14:37 11/23/24 14:37 Lab Results 11/23/24 Range/Units 14:37 WBC 9.61 (4.8-10.8) K/ul RBC 4.36 (4.20-5.40) M/uL Hgb 11.5 L (12.0-16.0) g/dl Hct 38.5 (37.0-47.0) % MCV 88.3 (80.0-100.0) fL MCH 26.4 (25.0-34.0) pg MCHC 29.9 L (32.0-36.0) g/dL RDW Std Deviation 48.6 H (36.4-46.3) fL RDW Coeff of López 15.0 H (11.5-14.5) % Plt Count 337 (130-400) K/uL MPV 10.5 (9.4-12.4) fL Immature Gran % (Auto) 0.4 % Neut % (Auto) 73.8 % Lymph % (Auto) 15.7 % [place] % (Auto) 8.4 % Eos % (Auto) 1.0 % Baso % (Auto) 0.7 % Neut # (Auto) 7.08 H (1.40-6.50) K/uL Lymph # (Auto) 1.51 (1.20-3.40) K/uL [place] # (Auto) 0.81 H (0.11-0.59) K/uL Eos # (Auto) 0.10 (0.00-0.50) K/uL Baso # (Auto) 0.07 (0.00-0.20) K/uL Immature Gran # (Auto) 0.04 (0.01-0.20) K/uL Sodium 141 (136-145) mmol/L Potassium 4.3 (3.5-5.1) mmol/L Chloride 102 (98-107) mmol/L Carbon Dioxide 32 (21-32) mmol/L Anion Gap 7 (3-11) BUN 38 H (6-23) mg/dl Creatinine 0.85 (0.6-1.2) mg/dl Est Cr Clr Drug Dosing 40.4 ml/min eGFR 65.45 BUN/Creatinine Ratio 44.7 H (10-20) Glucose 123 H (70-99(Fasting)) mg/dl Calcium 10.3 (8.6-10.3) mg/dl Total Bilirubin 0.4 (0.2-1.0) mg/dl AST 21 (13-39) U/L ALT 15 (7-52) U/L Alkaline Phosphatase 73 (34-104) U/L Total Protein 7.2 (6.0-8.3) gm/dl Albumin 3.8 (3.4-5.0) gm/dl Globulin 3.4 (2.5-4.0) gm/dl Albumin/Globulin Ratio 1.1 (0.9-2) Administered Medications Lactated Ringer's (Lr) 1,000 mls @ 80 mls/hr IV .[id number] Stop: 11/24/24 04:14 Last Admin: 11/23/24 17:09 Dose: 80 mls/hr Documented By: VENTURA Discharge Plan Visit Data Chief Complaint: Swelling/Edema to Extremity ED Provider: Alfredito Armas Discharge Problem: Ambulatory dysfunction Patient Disposition: Admitted As Inpatient Discharge Instructions Interventions: ED Discharge Assessment Last Done: 11/23/24 16:58
[2024-11-23 14:55] LABS: Basophils # (auto) 0.07 K/uL (0.00-0.20); Basophils % (auto) 0.7 %; Hematocrit (blood only) 38.5 % (37.0-47.0); Hemoglobin 11.5 g/dl (12.0-16.0); Immature Granulocytes # (auto) 0.04 K/uL (0.01-0.20); Immature Granulocytes % (auto) 0.4 %; Lymphocytes # (auto) 1.51 K/uL (1.20-3.40); Lymphocytes % (auto) 15.7 %; Mean Corpuscular Hemoglobin 26.4 pg (25.0-34.0); Mean Corpuscular Hgb Conc 29.9 g/dL (32.0-36.0); Mean Corpuscular Volume 88.3 fL (80.0-100.0); Mean Platelet Volume 10.5 fL (9.4-12.4); Monocytes # (auto) 0.81 K/uL (0.11-0.59); Monocytes % (auto) 8.4 %; Neutrophils # (auto) 7.08 K/uL (1.40-6.50); Neutrophils % (auto) 73.8 %; Platelet Count 337 K/uL (130-400); RDW Standard Deviation 48.6 fL (36.4-46.3); Red Blood Count 4.36 M/uL (4.20-5.40); White Blood Count 9.61 K/ul (4.8-10.8)
[2024-11-23 15:09] LABS: Albumin Level 3.8 gm/dl (3.4-5.0); Bilirubin,Total 0.4 mg/dl (0.2-1.0); Calcium 10.3 mg/dl (8.6-10.3); Potassium 4.3 mmol/L (3.5-5.1)
[2024-11-23 15:15] LABS: Albumin Globulin Ratio 1.1 (0.9-2); BUN Creatinine Ratio 44.7 (10-20); Creatinine Clr Calc Pharmacy 40.4 ml/min; Globulin 3.4 gm/dl (2.5-4.0); Total Protein 7.2 gm/dl (6.0-8.3)
--- NOTE | 2024-11-23 15:27 | History & Physical Report ---
Date of Service November 23, 2024 Assessment & Plan (1) Unable to care for self: (2) Ambulatory dysfunction: (3) Bilateral cellulitis of lower leg: (4) Chronic ulcer of right foot with fat layer exposed: (5) Chronic ulcer of left foot with fat layer exposed: (6) Cellulitis of buttock: (7) Sacral wound: (8) Malnutrition: Plan Patient is an 89-year-old female with a past medical history of bilateral DVT and PE August 2024, paroxysmal A-fib s/p pacer, anemia, hyperlipidemia, hypothyroidism, ongoing bilateral extremity wounds and sacral wounds. She is anticoagulated with Eliquis. Patient was recently hospitalized from 10/15/2024 to 10/29/2024 for sepsis secondary to sacral and bilateral lower extremity wounds. Patient was evaluated by infectious disease, podiatry, and wound care. After a course of Zosyn transition to Levaquin and Augmentin, [facility] appears patient left A[facility] 11/18. Patient returns to the ED for inpatient stay for placement as she is unable to care for herself at home. Also found to have worsening lower extremity cellulitis, now hospital-acquired. #Ambulatory dysfunction/unable to care for self/ deconditioned frequent hospitalizations over the past few months Patient has declined rehab in the past however agreed to rehab on recent discharge and [facility], left AMA 11/18 Home health nurse called EMS 11/23 as patient has been unable to walk for several days and is unable to care for herself at home Admitted for placement, patient requesting [facility] PT/OT ordered fall and aspiration precautions case management consulted #Hypotension BP 100/68 on admission Suspect 2/2 acute dehydration BUN/CR elevated to 44.7, BUN 38 Patient with difficulty caring for self at home, suspect poor p.o. intake LR ordered at 80 mL/hour x 1 bag continue metoprolol with holding precautions #Bilateral lower extremity wounds/ Cellulitis Previously followed by podiatry, patient to have follow-up next week, s/p debridement 10/21 - completed course of Zosyn followed by Levaquin and Augmentin Appears to have cellulitis on admission 3/4 nonseptic on admission, no leukocytosis, VSS cultures 10/15/24 grew pansensitive Pseudomonas aeruginosa, bacteroides fragilis, clostridium perfringens previous cultures have grown Klebsiella pneumoniae and Streptococcus Will treat cellulitis of both lower extremity and sacrum with Zosyn plus vancomycin as hospital-acquired with placement at recent facility new wound cultures ordered Wound care consult placed Daily dressing changes Continue waffle boots Boost ordered to promote healing as per nutrition recommendations from previous admission consider consulting patient's clinical transformation specialist Dr. Gomez trend CBC to monitor for sepsis with recent history of #sacral wound/cellulitis See IV antibiotic treatment above Sacral wound precautions #LE edema Ongoing since DVT in August 2024 Determined during recent admission that likely related to malnutrition, hypoalbuminemia, and leaky vessels Could consider trying Tubigrip stockings, communication order placed #malnutrition/dysphagia eval by speech during recent admission, cleared for solid meals aspiration precautions Eval by nutrition during recent admission- Determined that lower extremity edema most likely related to malnutrition, hypoalbuminemia, and leaky vessels albumin improved to 3.8 Boost twice daily Patient no longer on Lasix as frequently volume depleted #Iron deficiency anemia Questionable GI bleed during recent admission as patient had rectal bleeding, however determined to be likely from sacral wound GI eval 10/19 patient however patient declined scope Hemoglobin stable Essential that patient remains on Eliquis as recent DVT/PE and August 2024 Continue PPI #poor dentition Noted on admitting exam Oral hygiene q shift ordered Pacer interrogation ordered - 13 months battery life remaining, minimal pacing (3%), no arrhythmias Chronic stable diagnoses: pericardial effusion - chronic of 10+ years, stable Sick sinus syndrome s/p pacer - follows kunal Conteh, continue Eliquis and metoprolol Hx BL DVT and PE - August 2024, 2/2 immobility at home, continue Eliquis VTE ppx: continue Eliquis Diet: regular, easy to chew, twice daily boost shakes Dispo: Med/telemetry with hypotension, can likely downgrade once BP improves Case management consulted for placement planning, patient is agreeable to placement and understands that she is unable to care for herself at home. She would like [facility] if possible. Admission and Anticipated Discharge Date Admission Date: 11/23/24 History of Present Illness Chief Complaint: swelling/edema to extremity Primary Care Provider: Schuyler Gonzalez MD Patient is an 89-year-old female with a past medical history of bilateral DVT and PE August 2024, paroxysmal A-fib s/p pacer, anemia, hyperlipidemia, hypothyroidism, ongoing bilateral extremity wounds and sacral wounds. She is anticoagulated with Eliquis. Patient was recently hospitalized from 10/15/2024 to 10/29/2024 for sepsis secondary to sacral and bilateral lower extremity wounds. Patient was evaluated by infectious disease, podiatry, and wound care. After a course of Zosyn transition to Levaquin and Augmentin, [facility] however appears patient left A[facility] 11/18. Patient returns to the ED for inpatient stay for placement as she is unable to care for herself at home. Patient seen at bedside. She is alert and oriented. She stated that she returned because she has been home for a few days and just cannot care for herself. She is unable to walk due to the sores on her feet have now made her sacral wound worse. Prior to her DVT in August, she ambulated with a cane at baseline, now she cannot ambulate on her own. She stated at [facility] she was able to go 16 steps with a walker but has been unable to do so on her own. She has been trying to do her leg exercises while sitting down in her house. She stated she left [facility] because her insurance would not pay for it anymore, however paperwork notes that she left AMA; see scanned in report. she stated that her wounds of her feet have been much improving and she changed her own dressings on Friday. She stated her sacral wound is improved from previous admission, is no longer bleeding. She denies any recent diarrhea. She has been drinking boost shakes twice daily, drinking orange juice to promote healing. She took her home medications this morning. Patient denies fever, chills, headache, dizziness, lightheadedness, rhinorrhea, sore throat, cough, dyspnea, dyspnea on exertion, chest pain, abdominal pain, nausea, vomiting, diarrhea. Her neuropathy is greatly improved since starting gabapentin during recent admission. She stated her bilateral lower extremity is getting worse. She wishes to be full code. Allergies Allergy/AdvReac Type Severity Reaction Status Date / Time No Known Drug Allergies Allergy Verified 10/15/24 15:01 Home Medications Medication Instructions Recorded Confirmed Type aspirin 81 mg chewable tablet 40.5 mg PO UD 09/06/24 11/23/24 History multivitamin (Daily Multi-Vitamin 1 tab PO DAILY #30 tabs 10/29/24 11/23/24 Rx tablet) vitamins A,C,H-imax-ojtiis 4,296 1 cap PO AMPM #60 caps 10/29/24 11/23/24 Rx mcg-226 mg-90 mg capsule (PreserVision AREDS) acetaminophen 325 mg tablet 325 mg PO QID PRN Pain 11/19/24 11/23/24 History (Tylenol) gabapentin 100 mg capsule 100 mg PO TID #300 caps 11/19/24 11/23/24 Rx pantoprazole 40 mg tablet,delayed 40 mg PO BID #90 tabs 11/19/24 11/23/24 Rx release thyroid (pork) 60 mg tablet 60 mg PO DAILY #90 tabs 11/19/24 11/23/24 Rx ([place] Thyroid) apixaban 5 mg tablet (Eliquis) 5 mg PO UD 11/23/24 11/23/24 History latanoprost 0.005 % eye drops 1 drops OPB UD 11/23/24 11/23/24 History metoprolol succinate 25 mg 25 mg PO UD 11/23/24 11/23/24 History tablet,extended release 24 hr timolol maleate 0.5 % once daily 1 drp OPB UD 11/23/24 11/23/24 History eye drops Past Med/Surg History Problem List (Updated 11/23/24 @ 17:22 by Alfredito Armas DO) Ambulatory dysfunction (Acute) Bilateral cellulitis of lower leg Malnutrition Unable to care for self Other specified peripheral vascular diseases Chronic ulcer of left foot with fat layer exposed Chronic ulcer of right foot with fat layer exposed Dysphagia Anemia Thrombocytosis Cellulitis of buttock Sacral wound Sepsis Ambulatory dysfunction (Acute) Occult blood positive stool Pericardial effusion Abnormal nuclear stress test Elevated troponin (Acute) Pleural effusion, left Shortness of breath (Acute) Chest pain (Acute) History of venous thromboembolism Elevated troponin Fracture of right hip (Acute 07/01/24) Acute comminuted displaced intertrochanteric fracture of the right femur from a fall 2 days prior per the ED report Acute pain of right thigh (Acute) Fall (Acute) Squamous cell skin cancer Decreased exercise tolerance Glaucoma Spinal stenosis Peripheral neuropathy Degenerative joint disease, multiple joints on both sides of body Allergic rhinitis (Acute) Osteoporosis (Acute) Medical History Pulmonary embolism DVT, bilateral lower limbs Hypotension Chronic venous stasis Failure to thrive in adult Hypernatremia Lower extremity ulceration Ambulatory dysfunction Leg edema Wound of right foot Wound of left foot Chest pain Right femoral fracture (07/01/24) Acute comminuted displaced intertrochanteric fracture of the right femur from a fall 2 days prior per the ED report Cardiac pacemaker PAT (paroxysmal atrial tachycardia) Dyslipidemia Hypothyroidism Peptic ulcer SSS (sick sinus syndrome) (04/28/14) Surgical History S/P placement of cardiac pacemaker (~2013) Dual chamber Status post hip surgery (~2013) Left RUTH History of esophagogastroduodenoscopy (~1996) H/O colonoscopy (~1998) Family History Mother Breast cancer Social History Smoking Status: Never smoker Second Hand Exposure: No; Do You Dip or Chew Tobacco: No; Hx Alcohol Use: No Hx Substance Use: No Preferred Language: Guyanese Communication Ability: Effective Scroll Saw Operator Required: No Beliefs That Will Affect Care: None marital status: / Current Living Situation: Alone current occupational status: retired Other Information That Helps Us Care for You: No Feels Safe at Home: Yes Safety Concerns: Feels Safe At This Time Assistive Devices: None Review of Systems 2 Review of Systems: see HPI Physical Exam 2 Physical Exam: The patient is awake, alert and oriented 3, Frail, disheveled appearing. HEENT- EOMI, mucous membranes dry. Hearing grossly intact. Heart-normal S1 and S2. No murmurs, rubs or gallops. Lungs-clear bilaterally, no respiratory distress, no accessory muscle use. Abdomen-normal bowel sounds and soft. No ascites noted. Non-tender. Extremities- Bilateral lower extremities with healing wounds, 3+ pitting edema bilaterally. See attached pictures below. Rheumatologic-normal range of motion. Psychiatric-normal affect. Skin: Sacral wound erythematous and dry, no deep tissue exposure. Results & Data Results & Data Vital Signs (Past 12 Hours) Vital Signs Temp Pulse Resp BP Pulse Ox O2 Del Method 11/23/24 14:40 90 18 98 Room Air 11/23/24 14:05 87 11/23/24 14:00 36.8 C 88 20 101/62 96 Room Air Laboratory Results reviewed cbc and cmp ECG Additional Comments: ordered Code Status & VTE Plan Code Status full code VTE Prophylaxis Plan VTE Prophylaxis will be ordered: Yes Supervising Physician Co-Signing Physician Notes Attending Attestation & Admission Note: Pt seen/examined, chart reviewed, care plan d/w PA Kylee Delicia. I agree w/ the cornejo components of her admission documentation. 89yo female with h/o bilateral DVT and PE August 2024, paroxysmal A-fib s/p pacer, anemia, hyperlipidemia, hypothyroidism, ongoing bilateral extremity wounds and sacral wounds along with chronic LE edema. Recent several week stay at [facility] in 10/2024. Checked herself out of [facility] 11/18 - by report this was against medical advice (AMA). Returned to her home where she lives alone. By report home health went to check on her today and they advised immediate transfer to the ER due to concerns she could NOT care for herself and live independently. Apparently she has had little ability to ambulate within her home or perform basic ADLs. During my assessment she expressed disenchantment over prior hospitalizations, her stay at [facility], etc. She said "my wounds are doing much better." She feels that her edema has worsened in the last 3 days. However, documentation from her early October hospitalization mentions 3+ pitting edema b/l legs. Ms Nesbitt also states that her legs were quite edematous the last time she personally saw her as well. PMH/PSH/allergies/meds/sochx/famhx - reviewed VSS, afebrile gen - looks disheveled, but awake/alert mouth - MM dry, poor dentition neck - no JVD heart - RRR, s1 s2 lungs - CTA b/l, no rales abd - soft NT ND BS+ ext - 2-3+ pitting edema from feet to just below the knees; pulses b/l feet 2+ skin - irregular shaped wound dorsum of distal right foot; circular wound dorsum of distal left foot; both covered with serous fluid/mild purulence but no foul odor; there is mild surrounding erythema of both feet extending onto the distal shins with warmth to touch b/l; dystrophic toenails x 10; no wounds on plantar feet; stasis changes b/l shins labs reviewed A/P: 1. failure to thrive 2. inability to care for oneself / ambulatory dysfunction 3. b/l foot wounds with probable cellulitis of b/l feet/distal legs 4. h/o sacral decubitus ulcer 5. pacemaker status - interrogation tonight wnl 6. h/o DVTs b/l legs and PEs - 2023 - cont Eliquis 7. volume depletion due to inability to ambulate, get to kitchen, etc - agree with IV fluids 8. LE edema - likely due to venous disease from prior extensive LE DVTs; albumin 3.8 today; TSH wnl in 08/2024; no advanced kidney disease; no evidence of decompensated CHF consider Tubigrips once cellulitis has improved although arterial duplex study of both legs showed monophasic waveforms - may be contraindicated ABIs would be necessary before applying Tubigrips will need PT/OT evals case management for assistance with placement Timo Ravi MD PG Care Time/CCT Total # of Minutes Spent Total Time Spent with Patient: Total time spent is greater than 50% in coordination of care (as documented) at patient's floor/unit and/or counseling patient: Coding Level of Care Code 38417 INT INP/OBS CARE 3/75MIN Diagnoses Unable to care for self Z78.9 Ambulatory dysfunction R26.2 Bilateral cellulitis of lower leg L03.116; L03.115 Chronic ulcer of right foot with fat layer exposed L97.512 Chronic ulcer of left foot with fat layer exposed L97.522 Cellulitis of buttock L03.317 Sacral wound S31.000A Malnutrition E46
[2024-11-23] MEDS ORDERED: VANCOMYCIN CONSULT ACTIVE PRN (16:32)
[2024-11-23] MEDS ORDERED: ONDANSETRON INJ 2 MG/ML 2 ML VIAL IV PRN (16:57)
[2024-11-23] MEDS ORDERED: NON-FORMULARY MEDICATION (Vitamins A,C,E-Zinc-Copper [Preservision Areds] 4,296 mcg-226 mg PO SCH (16:57)
[2024-11-23] MEDS ORDERED: MELATONIN 3 MG TAB PO PRN (16:57)
[2024-11-23] MEDS ORDERED: DOCUSATE SODIUM 100 MG CAP PO PRN (16:57)
[2024-11-23] MEDS: LACTATED RINGER'S 1,000 ML IV SCH (17:09)
[2024-11-23 17:36] LABS: Appearance Urine Clear (Clear); Bacteria Urine Automated 4+ (None Seen); Bilirubin Urine Negative (Negative); Blood Urine Negative (Negative); Cast Urine Automated 0-2 /lpf (0-2); Color Urine Yellow; Epithelial Cell Urine Auto 0-2 /hpf (0-2); Glucose Urine UA Negative (Negative); Ketones Urine Negative (Negative); Leukocyte Esterase Urine Trace (Negative); Nitrite Urine Negative (Negative); Protein Urine Negative (Negative); RBC Urine Automated 0-2 /hpf (0-2); Specific Gravity Urine 1.013 (1.000-1.030); Urobilinogen Urine Negative (Negative)
[2024-11-23] MEDS: VANCOMYCIN HCL 1,250 MG in SODIUM CHLORIDE 0.9% 500 ML IV ONE (18:32)
[2024-11-23] MEDS: PIPERACILLIN/TAZOBACTAM 4.5 GM/100 ML BAG IV ONE (21:09)
[2024-11-23] MEDS: LATANOPROST 0.005% OP SOLN 2.5 ML BTL OPB SCH (21:19)
[2024-11-23] MEDS: TIMOLOL MALEATE 0.5% OP SOLN 5 ML BTL OPB SCH (21:19)
[2024-11-23] MEDS: PANTOprazole 40 MG TAB PO SCH (21:20)
[2024-11-23] MEDS: APIXABAN 5 MG TABLET PO SCH (21:21)
[2024-11-23] MEDS: GABAPENTIN 100 MG CAP PO SCH (21:21)
[2024-11-23] MEDS: PIPERACILLIN/TAZOBACTAM 4.5 GM/100 ML BAG IV SCH (23:15)
[2024-11-24] MEDS: VANCOMYCIN HCL 1,000 MG in SODIUM CHLORIDE 0.9% 250 ML IV SCH ×2 (03:12→20:50)
[2024-11-24] MEDS: ARMOUR THYROID 30 MG TAB PO SCH (09:14)
[2024-11-24] MEDS: METOPROLOL SUCC 25MG EXT REL TAB PO SCH (09:15)
[2024-11-24] MEDS: MULTIVITAMIN TAB PO SCH (09:15)
[2024-11-24] MEDS: ASPIRIN 81 MG CHEW PO SCH (09:16)
[2024-11-24] MEDS ORDERED: Nursing to Pharmacy Communication SCH (10:15)
[2024-11-24 10:20] LABS: Basophils # (auto) 0.08 K/uL (0.00-0.20); Eosinophils # (auto) 0.16 K/uL (0.00-0.50); Eosinophils % (auto) 1.9 %; Hematocrit (blood only) 34.3 % (37.0-47.0); Hemoglobin 10.3 g/dl (12.0-16.0); Immature Granulocytes # (auto) 0.04 K/uL (0.01-0.20); Immature Granulocytes % (auto) 0.5 %; Lymphocytes # (auto) 1.65 K/uL (1.20-3.40); Lymphocytes % (auto) 20.1 %; Mean Corpuscular Hemoglobin 26.8 pg (25.0-34.0); Mean Corpuscular Volume 89.1 fL (80.0-100.0); Mean Platelet Volume 11.3 fL (9.4-12.4); Monocytes # (auto) 0.62 K/uL (0.11-0.59); Monocytes % (auto) 7.5 %; Neutrophils # (auto) 5.67 K/uL (1.40-6.50); Platelet Count 301 K/uL (130-400); RDW Coefficient of Variation 15.2 % (11.5-14.5); RDW Standard Deviation 49.9 fL (36.4-46.3); Red Blood Count 3.85 M/uL (4.20-5.40); White Blood Count 8.22 K/ul (4.8-10.8)
[2024-11-24 10:31] LABS: Calcium 9.1 mg/dl (8.6-10.3); Magnesium 1.9 mg/dl (1.7-2.4)
[2024-11-24 10:36] LABS: BUN Creatinine Ratio 35.9 (10-20)
[2024-11-24 11:07] LABS: T4 Free Thyroxine 0.76 ng/dl (0.61-1.60)
--- NOTE | 2024-11-24 11:28 | Pharmacy Report ---
Pharmacy PK ABX Note - Date of Service November 24, 2024 - Assessment and Plan Assessment 89 year old F receiving empiric vancomycin and Zosyn for treatment of bilateral lower extremity/sacrum cellulitis. Patient recently discharged to [facility] in October (patient subsequently left AMA). Patient was treated with IV Zosyn and transitioned to Augmentin/Levaquin for 7 day course. Pertinent microbiologic data includes: sacrum culture (10/15/24) grew Pseudomonas aeruginosa, Bacteroides fragilis, and Clostridium perfringens. Urine culture (11/23) growing E.coli, right/left foot cultures pending. Day # 2 of antimicrobial therapy. Plan Vancomycin * Loading dose: 1250 mg IV x 1 * Maintenance dose: 1000 mg IV every 18 hours * Regimen is predicted to achieve target AUC/JACOB of 400-600 mg/L.hr * Random level ordered for: 11/25/24 Pharmacy will continue to follow and will adjust dose/frequency as necessary. Thank you. Pharmacy has transitioned to AUC monitoring for vancomycin. AUC/JACOB is the preferred PK/PD target and is associated with decreased risk of nephrotoxicity compared to traditional trough targets.
--- NOTE | 2024-11-24 13:14 | Hospitalist Progress Note ---
Date of Service November 24, 2024 Assessment & Plan (1) Unable to care for self: Plan: Adult failure to thrive. OT and PT assessments requested. Most likely she will need to return to SNF setting at the time of this discharge (2) Ambulatory dysfunction: Plan: OT and PT assessments requested. Will treat peripheral edema (3) Bilateral cellulitis of lower leg: Plan: She is currently on intravenous Zosyn and vancomycin. Will consult podiatry and wound care to evaluate both feet and chronic lesions. Cultures are pending. (4) Chronic ulcer of right foot with fat layer exposed: Plan: Similar process involving left foot. She sees outpatient podiatry on a regular basis. Consult ordered and pending (5) Cellulitis of buttock: Plan: Local care. Continue intravenous antibiotics. (6) Sacral wound: Plan: Local care. Wound care nurse consultation requested. Continue intravenous antibiotics Plan Patient is an 89-year-old female with a past medical history of bilateral DVT and PE August 2024, paroxysmal A-fib s/p pacer, anemia, hyperlipidemia, hypothyroidism, ongoing bilateral extremity wounds and sacral wounds. She is anticoagulated with Eliquis. Patient was recently hospitalized from 10/15/2024 to 10/29/2024 for sepsis secondary to sacral and bilateral lower extremity wounds. Patient was evaluated by infectious disease, podiatry, and wound care. After a course of Zosyn transition to Levaquin and Augmentin, patient was discharged to [facility] however appears patient left A 11/18. Patient returns to the ED for inpatient stay for placement as she is unable to care for herself at home. Also found to have worsening lower extremity cellulitis, now hospital-acquired. Await OT and PT assessments. Wound care consultation and podiatry consultation requested for chronic bilateral foot wounds. She probably will need to return to SNF setting at the time of discharge Admission and Anticipated Discharge Date Admission Date: November 23, 2024 Subjective Alert and oriented. No distress. Primary complaint is persistent bilateral lower extremity peripheral edema. IV fluids have been discontinued. She has been started on an oral diuretic. She sees podiatry on an outpatient basis for her chronic foot wounds. Podiatry will be consulted while the patient is here. OT and PT assessments requested. She apparently left [facility] AGAINST MEDICAL ADVICE on November 18 but most likely will need to return to SNF at the time of this discharge. Review of Systems 2 Review of Systems: Constitutionalno fever or chills ENTno blurred vision, no double vision, no epistaxis, no sore throat Respiratoryno cough, no wheezing, no shortness of breath Cardiacno palpitations, no chest pain, no syncope Benjamin nausea, vomiting, diarrhea, melena, hematochezia GUno urinary retention, no urinary incontinence, no dysuria, no hematuria Musculoskeletalno joint pain, no muscle tenderness. Recent onset of bilateral lower extremity edema Skinno bruising, no rashes, no pruritus Neurono isolated weakness, no paresthesia. Generalized weakness with ambulatory dysfunction Psychno depression, no anxiety Physical Exam 2 Physical Exam: General-alert and oriented x3, no fever, no chills HEENT-head atraumatic and normocephalic, pupils equal and reactive to light, extraocular muscles intact Neck-no lymphadenopathy or thyromegaly, trachea midline Chest-clear to auscultation. No rales, wheezing or rhonchi Cardiac-regular rate and rhythm, normal S1 and S2 Abdomen-normal bowel sounds, no hepatosplenomegaly Extremities-2+ pitting bilateral lower extremity edema below the knees Neuro-cranial nerves II through XII intact, motor and sensory function within normal limits, strength symmetrical, no focal deficits Psych-normal affect, normal mood Results & Data Results & Data Vital Signs (Past 12 Hours) Vital Signs Temp Pulse Pulse Resp BP Pulse Ox O2 Del Method 11/24/24 11:07 36.8 C 98 H 18 106/66 92 Room Air 11/24/24 07:42 105 H 98/64 L 11/24/24 07:30 36.5 C 105 H 18 90/56 L 94 Room Air 11/24/24 07:09 80 11/24/24 03:57 36.5 C 61 20 103/63 94 Room Air Laboratory Results 11/24/24 09:12 11/24/24 09:12 PG Care Time/CCT Total # of Minutes Spent Total Time Spent with Patient: Total time spent is greater than 50% in coordination of care (as documented) at patient's floor/unit and/or counseling patient: Coding Level of Care Code 85903 SUB INP/OBS CARE 3/50MIN Diagnoses Unable to care for self Z78.9 Ambulatory dysfunction R26.2 Bilateral cellulitis of lower leg L03.116; L03.115 Chronic ulcer of right foot with fat layer exposed L97.512 Cellulitis of buttock L03.317 Sacral wound S31.000A
[2024-11-24] MEDS: TRIAMTERENE/HCTZ 37.5/25MG TAB PO SCH (13:33)
--- NOTE | 2024-11-24 18:21 | XRay Report ---
EXAM: Radiograph of the Chest 1 View INDICATION: Lower extremity edema TECHNIQUE: Frontal view of the chest. COMPARISON: 10/03/2024 FINDINGS: Lungs and pleural spaces: No consolidation or pulmonary edema. No pleural effusion or pneumothorax. Heart: Stable mild cardiomegaly and pacing device. Mediastinum: Normal contour. Bones/joints: No fracture, erosion or dislocation. Soft tissues: No abnormality noted. No radiopaque foreign body noted. Upper abdomen: No abnormality noted. Other findings: Stable mild coarse linear scarring. IMPRESSION: Stable chronic changes. No acute disease. ACT 112: N/A Electronically signed by Penelope Valderrama 11-24-2024 6:21 PM
[2024-11-25 06:52] LABS: Basophils # (auto) 0.07 K/uL (0.00-0.20); Basophils % (auto) 0.9 %; Eosinophils # (auto) 0.16 K/uL (0.00-0.50); Eosinophils % (auto) 2.1 %; Hematocrit (blood only) 31.2 % (37.0-47.0); Hemoglobin 9.7 g/dl (12.0-16.0); Immature Granulocytes # (auto) 0.04 K/uL (0.01-0.20); Immature Granulocytes % (auto) 0.5 %; Lymphocytes # (auto) 1.71 K/uL (1.20-3.40); Lymphocytes % (auto) 22.5 %; Mean Corpuscular Hgb Conc 31.1 g/dL (32.0-36.0); Mean Corpuscular Volume 86.9 fL (80.0-100.0); Mean Platelet Volume 10.3 fL (9.4-12.4); Monocytes # (auto) 0.68 K/uL (0.11-0.59); Monocytes % (auto) 8.9 %; Neutrophils # (auto) 4.95 K/uL (1.40-6.50); Neutrophils % (auto) 65.1 %; Platelet Count 334 K/uL (130-400); Red Blood Count 3.59 M/uL (4.20-5.40); White Blood Count 7.61 K/ul (4.8-10.8)
[2024-11-25 07:21] LABS: BUN Creatinine Ratio 36.5 (10-20); Calcium 8.6 mg/dl (8.6-10.3); Creatinine Clr Calc Pharmacy 35.7 ml/min; Potassium 4.2 mmol/L (3.5-5.1)
--- NOTE | 2024-11-25 07:37 | Electrocardiogram Report ---
Test Reason : Blood Pressure : */* mmHG Vent. Rate : 96 BPM Atrial Rate : 96 BPM P-R Int : 182 ms QRS Dur : 72 ms QT Int : 364 ms P-R-T Axes : 65 -20 1 degrees QTcB Int : 459 ms Normal sinus rhythm Low voltage QRS Poor R wave progression, consider anterior NC vs. lead placement vs. LVH Diffuse Minor Nonspecific T wave abnormality Abnormal ECG When compared with ECG of 15-Oct-2024 13:21, No significant change Confirmed by Jamie Don ([id number]) on 11/25/2024 7:37:35 AM Referred By: Schuyler Gonzalez Confirmed By: Jamie Don
--- NOTE | 2024-11-25 11:13 | Pharmacy Report ---
Pharmacy PK ABX Note - Date of Service November 25, 2024 - Assessment and Plan Assessment 89 year old F receiving empiric vancomycin and Zosyn for treatment of bilateral lower extremity/sacrum cellulitis. Patient recently discharged to [facility] in October (patient subsequently left AMA). Patient was treated with IV Zosyn and transitioned to Augmentin/Levaquin for 7 day course. Pertinent microbiologic data includes: sacrum culture (10/15/24) grew Pseudomonas aeruginosa, Bacteroides fragilis, and Clostridium perfringens. Urine culture (11/23) growing E.coli, right/left foot cultures with pin-point growth present. Day # 3 of antimicrobial therapy. Plan Vancomycin * Current regimen: 1000 mg IV every 18 hours * Random level obtained 11/25/24 resulted as 11.3 mcg/mL. This is predicted to achieve target AUC/JACOB of 400-600 mg/L.hr * Predicted AUC at steady state: 500 mg/L.hr * Continue 1000 mg IV every 18 hours * Will repeat level in the next 48-72 hours if therapy is continued and/or change in patient clinical status Pharmacy will continue to follow and will adjust dose/frequency as necessary. Thank you. Pharmacy has transitioned to AUC monitoring for vancomycin. AUC/JACOB is the preferred PK/PD target and is associated with decreased risk of nephrotoxicity compared to traditional trough targets.
--- NOTE | 2024-11-25 15:28 | Hospitalist Progress Note ---
Date of Service November 25, 2024 Assessment & Plan (1) Unable to care for self: Plan: Adult failure to thrive. OT and PT assessments noted. She will need to return to SNF setting at the time of this discharge (2) Ambulatory dysfunction: Plan: Continue OT and PT while hospitalized. Continue treatment of peripheral edema (3) Bilateral cellulitis of lower leg: Plan: She is currently on intravenous Zosyn and vancomycin. Podiatry consultation and recommendations appreciated. Culture results are pending. (4) Chronic ulcer of right foot with fat layer exposed: Plan: Similar process involving left foot. She sees outpatient podiatry on a regular basis. Podiatry consultation and recommendations appreciated (5) Cellulitis of buttock: Plan: Local care. Continue intravenous antibiotics. (6) Sacral wound: Plan: Local care. Continue wound care nurse involvement. Continue intravenous antibiotics Plan Anticipate eventual return to SNF setting sometime early next week. Admission and Anticipated Discharge Date Admission Date: November 23, 2024 Subjective Alert and oriented. Pleasant. She has been seen by podiatry this morning, November 25. Consultation and recommendations appreciated. She remains on intravenous Zosyn and vancomycin, day 3. Potassium is normal at 4.2. Maxide was started yesterday, November 24. Thyroid status is normal. Urine culture is growing E. coli which is covered by Zosyn. Review of Systems 2 Review of Systems: Constitutionalno fever or chills ENTno blurred vision, no double vision, no epistaxis, no sore throat Respiratoryno cough, no wheezing, no shortness of breath Cardiacno palpitations, no chest pain, no syncope Benjamin nausea, vomiting, diarrhea, melena, hematochezia GUno urinary retention, no urinary incontinence, no dysuria, no hematuria Musculoskeletalno joint pain, no muscle tenderness. Recent onset of bilateral lower extremity edema Skinno bruising, no rashes, no pruritus Neurono isolated weakness, no paresthesia. Generalized weakness with ambulatory dysfunction Psychno depression, no anxiety Physical Exam 2 Physical Exam: General-alert and oriented x3, no fever, no chills HEENT-head atraumatic and normocephalic, pupils equal and reactive to light, extraocular muscles intact Neck-no lymphadenopathy or thyromegaly, trachea midline Chest-clear to auscultation. No rales, wheezing or rhonchi Cardiac-regular rate and rhythm, normal S1 and S2 Abdomen-normal bowel sounds, no hepatosplenomegaly Extremities-2+ pitting bilateral lower extremity edema below the knees Neuro-cranial nerves II through XII intact, motor and sensory function within normal limits, strength symmetrical, no focal deficits Psych-normal affect, normal mood Results & Data Results & Data Vital Signs (Past 12 Hours) Vital Signs Temp Pulse Pulse Resp BP BP Pulse Ox 11/25/24 11:07 36.4 C L 91 H 18 105/64 95 11/25/24 08:12 36.7 C 91 H 18 100/63 94 11/25/24 07:00 91 H O2 Del Method 11/25/24 11:07 Room Air 11/25/24 08:12 Room Air 11/25/24 07:00 Laboratory Results 11/25/24 06:12 11/25/24 06:12 PG Care Time/CCT Total # of Minutes Spent Total Time Spent with Patient: Total time spent is greater than 50% in coordination of care (as documented) at patient's floor/unit and/or counseling patient: Coding Level of Care Code 60368 SUB INP/OBS CARE 2/35MIN Diagnoses Unable to care for self Z78.9 Ambulatory dysfunction R26.2 Bilateral cellulitis of lower leg L03.116; L03.115 Chronic ulcer of right foot with fat layer exposed L97.512 Cellulitis of buttock L03.317 Sacral wound S31.000A
--- NOTE | 2024-11-25 21:05 | Podiatry Consultation ---
Date of Consultation November 25, 2024 Assessment & Plan (1) Bilateral cellulitis of lower leg: (2) Chronic ulcer of left foot with fat layer exposed: (3) Chronic ulcer of right foot with fat layer exposed: Plan Patient examined and evaluated. These wounds are continuing to improve since her recent d/c and do not appear to be contributing much to her current concerns. - Would rec continued wound care with Aquacel Ag and optifoam gauze or similar. - Dressed with betadine wet to dry dressing today. Wound care referral noted, appreciated. - No surgical intervention planned. Can d/c to inpatient living facility when stable per other specialties. - I will be out of town until Friday, but reachable through [facility] as needed. Do not hesitate to reach out if needed. - Will check back on her then, if still admitted. History of Present Illness Reason for Consultation: Bilateral foot and heel ulcerations Attending Physician: Tay Lo MD History of Present Illness Patient seen at bedside this morning. She is in good spirits and admits to "checking herself in" with her increased swelling causing decreased mobility at home. She had been in inpatient rehab after her recent discharge, but had been discharged home. We last saw her outpatient a few weeks ago and the wounds were improving to the LE, with drastic improvement to the left and the right lagging behind. She believes her swelling has caused her to be too weak to take care of herself. She denies any new foot/ankle concerns and has been compliant with home health and wound care. She had been adamant, even on her last admission, that she wanted to be home. Now, she is more agreeable with joint terminal attack controller placement, it seems. Has discussed this with case management, as well. Allergies Allergy/AdvReac Type Severity Reaction Status Date / Time No Known Drug Allergies Allergy Verified 10/15/24 15:01 Home Medications Medication Instructions Recorded Confirmed Type aspirin 81 mg chewable tablet 40.5 mg PO UD 09/06/24 11/23/24 History multivitamin (Daily Multi-Vitamin 1 tab PO DAILY #30 tabs 10/29/24 11/23/24 Rx tablet) vitamins A,C,H-lzau-dgeldo 4,296 1 cap PO AMPM #60 caps 10/29/24 11/23/24 Rx mcg-226 mg-90 mg capsule (PreserVision AREDS) acetaminophen 325 mg tablet 325 mg PO QID PRN Pain 11/19/24 11/23/24 History (Tylenol) gabapentin 100 mg capsule 100 mg PO TID #300 caps 11/19/24 11/23/24 Rx pantoprazole 40 mg tablet,delayed 40 mg PO BID #90 tabs 11/19/24 11/23/24 Rx release thyroid (pork) 60 mg tablet 60 mg PO DAILY #90 tabs 11/19/24 11/23/24 Rx ([place] Thyroid) apixaban 5 mg tablet (Eliquis) 5 mg PO UD 11/23/24 11/23/24 History latanoprost 0.005 % eye drops 1 drops OPB UD 11/23/24 11/23/24 History metoprolol succinate 25 mg 25 mg PO UD 11/23/24 11/23/24 History tablet,extended release 24 hr timolol maleate 0.5 % once daily 1 drp OPB UD 11/23/24 11/23/24 History eye drops Patient History Medical History Pulmonary embolism DVT, bilateral lower limbs Hypotension Chronic venous stasis Failure to thrive in adult Hypernatremia Lower extremity ulceration Ambulatory dysfunction Leg edema Wound of right foot Wound of left foot Chest pain Right femoral fracture (07/01/24) Acute comminuted displaced intertrochanteric fracture of the right femur from a fall 2 days prior per the ED report Cardiac pacemaker PAT (paroxysmal atrial tachycardia) Dyslipidemia Hypothyroidism Peptic ulcer SSS (sick sinus syndrome) (04/28/14) Surgical History S/P placement of cardiac pacemaker (~2013) Dual chamber Status post hip surgery (~2013) Left RUTH History of esophagogastroduodenoscopy (~1996) H/O colonoscopy (~1998) Family History Mother Breast cancer Social History Smoking Status: Never smoker Second Hand Exposure: No; Do You Dip or Chew Tobacco: No; Hx Alcohol Use: No Hx Substance Use: No Preferred Language: Ghanaian Communication Ability: Effective [employer] Furniture Required: No Beliefs That Will Affect Care: None marital status: / Current Living Situation: Alone current occupational status: retired Other Information That Helps Us Care for You: No Feels Safe at Home: Yes Safety Concerns: Feels Safe At This Time Assistive Devices: Walker and Wheelchair Review of Systems Constitutional: + fever and + weakness; no chills and no fatigue Eyes: no problem reported Ear, Nose, Mouth, Throat: no problem reported Respiratory: no problem reported Cardiovascular: + edema; no problem reported Gastrointestinal: no nausea, no vomiting and no problem reported Genitourinary: no problem reported Musculoskeletal: no problem reported Integumentary: + skin ulcer, + wounds and + erythema Neurologic: + loss of sensation, + numbness and + pa resthesia; no generalized weakness Psychiatric: no problem reported Physical Exam Physical Exam: DP/PT pulses nonpalpable. CFT brisk to digits. Dorsal foot ulcerations continue to improve, now 100% more granular and mostly superficial. There is superficial eschar noted to the left heel ulcer, though this is improved even since prior visit 3 weeks ago in office. No new infection noted. Advanced trophic changes noted. Recent MRI/CT did not reveal any deeper extension of these ulcerations or bone involvement. Constitutional: WD/WN, vitals as above + ill appearing and + obese Eyes: PERRL, conjunctivae normal, anicteric sclerae ENMT: external ear and nose normal, oropharynx normal Neck: trachea midline, no thyromegaly normal visual inspection Respiratory: normal respiratory effort; no respiratory distress Cardiovascular: Rate/Rhythm: regular rate and regular rhythm Vessels: + posterior tibial pulses abnormal and + dorsalis pedis pulses abnormal Chest (Breasts): Chest: normal inspection of chest Gastrointestinal (Abdomen): Inspection/Auscultation: abdomen normal to inspection Percussion/Palpation: + abdomen tender and abdomen soft Musculoskeletal: no cyanosis or clubbing, extremities motor strength 5/5 Head/Neck/Chest: normocephalic and head atraumatic Extremities: extremities normal to inspection Skin: + ulcer, + wound, + skin atrophy, + dry skin, + erythema, + eschar, + nails discolored and + nails dystrophic Neurologic: awake; no focal motor deficits Psychiatric: A+Ox3, euthymic affect Results & Data Vital Signs (Past 12 Hours) Vital Signs Temp Pulse Pulse Resp BP BP Pulse Ox 11/25/24 19:35 36.6 C 89 18 106/66 95 11/25/24 17:00 11/25/24 16:34 36.7 C 105 H 16 124/70 95 11/25/24 14:00 88 11/25/24 11:07 36.4 C L 91 H 18 105/64 95 Pulse Ox O2 Del Method O2 Del Method 11/25/24 19:35 Room Air 11/25/24 17:00 96 Room Air 11/25/24 16:34 Room Air 11/25/24 14:00 11/25/24 11:07 Room Air
[2024-11-26 06:31] LABS: Basophils # (auto) 0.06 K/uL (0.00-0.20); Eosinophils # (auto) 0.19 K/uL (0.00-0.50); Hematocrit (blood only) 32.1 % (37.0-47.0); Immature Granulocytes # (auto) 0.03 K/uL (0.01-0.20); Immature Granulocytes % (auto) 0.5 %; Mean Corpuscular Hemoglobin 26.9 pg (25.0-34.0); Mean Corpuscular Hgb Conc 31.2 g/dL (32.0-36.0); Mean Corpuscular Volume 86.3 fL (80.0-100.0); Mean Platelet Volume 10.2 fL (9.4-12.4); Monocytes # (auto) 0.69 K/uL (0.11-0.59); Neutrophils # (auto) 3.79 K/uL (1.40-6.50); Neutrophils % (auto) 60.5 %; Platelet Count 333 K/uL (130-400); RDW Coefficient of Variation 14.7 % (11.5-14.5); Red Blood Count 3.72 M/uL (4.20-5.40); White Blood Count 6.26 K/ul (4.8-10.8)
[2024-11-26 06:56] LABS: Calcium 8.7 mg/dl (8.6-10.3); Creatinine Clr Calc Pharmacy 33.3 ml/min; Potassium 4.1 mmol/L (3.5-5.1)
[2024-11-26] MEDS: CEFEPIME 2000MG 2,000 MG/20 ML SYR IV SCH (10:45)
[2024-11-26] MEDS: CLINDAMYCIN/D5W 600 MG/50 ML BAG IV SCH (10:45)
--- NOTE | 2024-11-26 14:50 | Hospitalist Progress Note ---
Date of Service November 26, 2024 Assessment & Plan (1) Unable to care for self: Plan: Adult failure to thrive. OT and PT assessments noted. She will need to return to SNF setting at the time of this discharge (2) Ambulatory dysfunction: Plan: Continue OT and PT while hospitalized. Continue treatment of peripheral edema. She is now on daily Maxide (3) Bilateral cellulitis of lower leg: Plan: Clostridium isolated from one of the foot wounds. Antibiotics have been switched over to clindamycin and cefepime. Podiatry consultation and recommendations appreciated. (4) Chronic ulcer of right foot with fat layer exposed: Plan: Similar process involving left foot. She sees outpatient podiatry on a regular basis. Podiatry consultation and recommendations appreciated (5) Cellulitis of buttock: Plan: Local care. Continue intravenous antibiotics. (6) Sacral wound: Plan: Local care. Continue wound care nurse involvement. Continue intravenous antibiotics Plan Anticipate eventual return to SNF setting sometime early next week. Admission and Anticipated Discharge Date Admission Date: November 23, 2024 Subjective Alert and oriented. No distress. Cultures reviewed. Clostridium isolated. Antibiotics have been switched over to clindamycin and cefepime. Vancomycin and Zosyn have been discontinued. Potassium is stable at 4.1. SNF placement is pending. Review of Systems 2 Review of Systems: Constitutionalno fever or chills ENTno blurred vision, no double vision, no epistaxis, no sore throat Respiratoryno cough, no wheezing, no shortness of breath Cardiacno palpitations, no chest pain, no syncope Benjamin nausea, vomiting, diarrhea, melena, hematochezia GUno urinary retention, no urinary incontinence, no dysuria, no hematuria Musculoskeletalno joint pain, no muscle tenderness. Recent onset of bilateral lower extremity edema Skinno bruising, no rashes, no pruritus Neurono isolated weakness, no paresthesia. Generalized weakness with ambulatory dysfunction Psychno depression, no anxiety Physical Exam 2 Physical Exam: General-alert and oriented x3, no fever, no chills HEENT-head atraumatic and normocephalic, pupils equal and reactive to light, extraocular muscles intact Neck-no lymphadenopathy or thyromegaly, trachea midline Chest-clear to auscultation. No rales, wheezing or rhonchi Cardiac-regular rate and rhythm, normal S1 and S2 Abdomen-normal bowel sounds, no hepatosplenomegaly Extremities-2+ pitting bilateral lower extremity edema below the knees Neuro-cranial nerves II through XII intact, motor and sensory function within normal limits, strength symmetrical, no focal deficits Psych-normal affect, normal mood Results & Data Results & Data Vital Signs (Past 12 Hours) Vital Signs Temp Pulse Pulse Resp BP BP Pulse Ox 11/26/24 11:14 36.8 C 93 H 16 102/58 L 92 11/26/24 07:35 11/26/24 07:31 36.4 C L 91 H 18 99/60 L 94 11/26/24 07:00 89 O2 Del Method 11/26/24 11:14 Room Air 11/26/24 07:35 Room Air 11/26/24 07:31 Room Air 11/26/24 07:00 Laboratory Results 11/26/24 05:48 11/26/24 05:48 PG Care Time/CCT Total # of Minutes Spent Total Time Spent with Patient: Total time spent is greater than 50% in coordination of care (as documented) at patient's floor/unit and/or counseling patient: Coding Level of Care Code 46254 SUB INP/OBS CARE 3/50MIN Diagnoses Unable to care for self Z78.9 Ambulatory dysfunction R26.2 Bilateral cellulitis of lower leg L03.116; L03.115 Chronic ulcer of right foot with fat layer exposed L97.512 Cellulitis of buttock L03.317 Sacral wound S31.000A
[2024-11-27 07:31] LABS: Basophils # (auto) 0.05 K/uL (0.00-0.20); Basophils % (auto) 0.8 %; Eosinophils % (auto) 3.2 %; Hematocrit (blood only) 31.5 % (37.0-47.0); Hemoglobin 9.7 g/dl (12.0-16.0); Immature Granulocytes # (auto) 0.04 K/uL (0.01-0.20); Immature Granulocytes % (auto) 0.6 %; Lymphocytes # (auto) 1.28 K/uL (1.20-3.40); Lymphocytes % (auto) 20.7 %; Mean Corpuscular Hemoglobin 26.6 pg (25.0-34.0); Mean Corpuscular Hgb Conc 30.8 g/dL (32.0-36.0); Mean Corpuscular Volume 86.3 fL (80.0-100.0); Mean Platelet Volume 10.2 fL (9.4-12.4); Monocytes # (auto) 0.61 K/uL (0.11-0.59); Monocytes % (auto) 9.9 %; Neutrophils # (auto) 4.01 K/uL (1.40-6.50); Neutrophils % (auto) 64.8 %; Platelet Count 349 K/uL (130-400); RDW Coefficient of Variation 14.8 % (11.5-14.5); RDW Standard Deviation 47.2 fL (36.4-46.3); Red Blood Count 3.65 M/uL (4.20-5.40); White Blood Count 6.19 K/ul (4.8-10.8)
[2024-11-27 07:45] LABS: BUN Creatinine Ratio 44.4 (10-20); Calcium 8.8 mg/dl (8.6-10.3); Creatinine Clr Calc Pharmacy 42.4 ml/min; Potassium 4.3 mmol/L (3.5-5.1)
--- NOTE | 2024-11-27 11:19 | Hospitalist Progress Note ---
Date of Service November 27, 2024 Assessment & Plan (1) Unable to care for self: Plan: Adult failure to thrive. OT and PT assessments noted. She will need to return to SNF setting at the time of this discharge (2) Ambulatory dysfunction: Plan: Continue OT and PT while hospitalized. Continue treatment of peripheral edema. She is now on daily Maxide which seems to have helped (3) Bilateral cellulitis of lower leg: Plan: Clostridium isolated from one of the foot wounds. Antibiotics have been switched over to clindamycin and cefepime. Podiatry consultation and recommendations appreciated. (4) Chronic ulcer of right foot with fat layer exposed: Plan: Similar process involving left foot. She sees outpatient podiatry on a regular basis. Podiatry consultation and recommendations appreciated (5) Cellulitis of buttock: Plan: Local care. Continue intravenous antibiotics. (6) Sacral wound: Plan: Local care. Continue wound care nurse involvement. Continue intravenous antibiotics (7) Urinary tract infection: Plan: E. coli isolated. Currently being treated with intravenous cefepime. Plan Anticipate eventual return to SNF setting sometime early next week. Admission and Anticipated Discharge Date Admission Date: November 23, 2024 Subjective Alert and oriented. No distress. She is now on intravenous Cleocin and cefepime to cover the Clostridium isolated from foot culture and also E. coli in the urine. Appreciate podiatry consultation and management. Maxide seems to be helping somewhat with peripheral edema in both lower extremities. Placement is pending. Review of Systems 2 Review of Systems: Constitutionalno fever or chills ENTno blurred vision, no double vision, no epistaxis, no sore throat Respiratoryno cough, no wheezing, no shortness of breath Cardiacno palpitations, no chest pain, no syncope Benjamin nausea, vomiting, diarrhea, melena, hematochezia GUno urinary retention, no urinary incontinence, no dysuria, no hematuria Musculoskeletalno joint pain, no muscle tenderness. Recent onset of bilateral lower extremity edema Skinno bruising, no rashes, no pruritus Neurono isolated weakness, no paresthesia. Generalized weakness with ambulatory dysfunction Psychno depression, no anxiety Physical Exam 2 Physical Exam: General-alert and oriented x3, no fever, no chills HEENT-head atraumatic and normocephalic, pupils equal and reactive to light, extraocular muscles intact Neck-no lymphadenopathy or thyromegaly, trachea midline Chest-clear to auscultation. No rales, wheezing or rhonchi Cardiac-regular rate and rhythm, normal S1 and S2 Abdomen-normal bowel sounds, no hepatosplenomegaly Extremities-2+ pitting bilateral lower extremity edema below the knees Neuro-cranial nerves II through XII intact, motor and sensory function within normal limits, strength symmetrical, no focal deficits Psych-normal affect, normal mood Results & Data Results & Data Vital Signs (Past 12 Hours) Vital Signs Temp Pulse Resp BP Pulse Ox O2 Del Method 11/27/24 07:02 36.4 C L 91 H 18 100/62 95 Room Air 11/27/24 03:01 36.3 C L 85 20 94/59 L 97 Room Air Laboratory Results 11/27/24 06:26 11/27/24 06:26 PG Care Time/CCT Total # of Minutes Spent Total Time Spent with Patient: Total time spent is greater than 50% in coordination of care (as documented) at patient's floor/unit and/or counseling patient: Coding Level of Care Code 40876 SUB INP/OBS CARE 2/35MIN Diagnoses Unable to care for self Z78.9 Ambulatory dysfunction R26.2 Bilateral cellulitis of lower leg L03.116; L03.115 Chronic ulcer of right foot with fat layer exposed L97.512 Cellulitis of buttock L03.317 Sacral wound S31.000A Urinary tract infection N39.0
[2024-11-28] MEDS: ACETAMINOPHEN 325 MG TAB PO PRN (00:37)
[2024-11-28] MEDS: GABAPENTIN 300 MG CAP PO STA (04:25)
--- NOTE | 2024-11-28 18:50 | Hospitalist Progress Note ---
Date of Service November 28, 2024 Assessment & Plan (1) Unable to care for self: Plan: Adult failure to thrive. OT and PT assessments noted. Patient will need to return to SNF setting at the time of this discharge. In the patient's own words: "I am now waiting for placement. The Psychopaedic Nurse told me on Friday (11/26/2024) that she is looking for a place for me, but has not found a place yet." (cf., referral sent out to [facility] with no response received yet; patient left [facility] ([place] in October 2024 as her skilled Medicare days had run out and patient would have needed to pay out of pocket to remain in [facility] ([place]). (2) Ambulatory dysfunction: Plan: Continue OT and PT while hospitalized. Continue treatment (e.g., triamterene 37.5mg / HCTZ 25mg PO qam, start date/time, 11/24/2024, 1:33pm) of CHRONIC, 2+ pitting pedal edema with extension to the bilateral lower shins, sparing the mid shins, upper shins, knees, hips, thighs. (3) Bilateral cellulitis of lower leg: Plan: cf., right foot wound culture (11/23/2024, 5:13pm) with Clostridium perfringens and Corynebacterium striatum group. Patient's right foot and right leg are not erythematous, indurated, warm, or tender. Moreover, there is no discharge (sanguineous, serous, or suppurative), crepitus, fluctuance, malodor, or lymphangitic streaking present to suggest acute/ongoing infection. Patient remains afebrile with normal WBC since admission date (11/23/2024, 2:37pm) with WBC 9.61, N74 L16 M8 E1 B1 to current date (11/27/2024, 6:26am) with WBC 6.19, N65 L21 M10 E3 B1. There is no evidence of myonecrosis on physical exam; CK level is pending (11/28/2024, 7:17pm). Patient has already been evaluated by her Door Slinger Dr. Aureliano Gomez (2024, 8:56pm) and who recommends no surgical intervention at this time. Continue empiric clindamycin 600mg IV q8 (day #1 on 11/26/2024, 10:45am) and cefepime 2g IV q8 (day #1 on 11/26/2024, 10:45am) with anticipated transition to monotherapy utilizing clindamycin PO at the time of hospital discharge to (cf., "I am now waiting for placement. The Psychopaedic Nurse told me on Friday (11/26/2024) that she is looking for a place for me, but has not found a place yet." (cf., referral sent out to [facility] with no response received yet; patient left [facility] ([place] in October 2024 as her skilled Medicare days had run out and patient would have needed to pay out of pocket to remain in [facility] ([place]). (4) Chronic ulcer of right foot with fat layer exposed: Plan: Similar process involving left foot. She sees outpatient podiatry on a regular basis. Podiatry consultation and recommendations appreciated (5) Cellulitis of buttock: Plan: Local care. Continue intravenous antibiotics. (6) Sacral wound: Plan: Local care. Continue wound care nurse involvement. Continue intravenous antibiotics. (7) Urinary tract infection: Plan: cf., urine culture (11/23/2024, 5:02pm): ampicillin-resistant, unasyn-resistant, cefepime-sensitive E. coli. 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 Hence, I have increased gabapentin dosing to 300mg PO tid on 11/28/2024, 6:45pm, at patient's request. Admission and Anticipated Discharge Date Admission Date: November 23, 2024 Subjective "I have neuropathy in my legs. I do not have diabetes. It's a sharp pain; it is not burning or numb or tingly, just sharp. I take gabapentin 100mg three times a day. It is not working. I need a higher dose. Can you give me a higher dose?" "Also, my legs are swollen with 20 pounds of excess weight. They have been swollen since July 01, 2024, when I had my right hip (e.g., right subtrochanteric hip fracture) repaired with a nail with Dr. Maycol Cruz. I asked for a water pill since June 30, 2024, and no one gave me a water pill to get the swelling down. Then Dr. Tay Lo came and started me on the water pill (e.g., triamterene 37.5mg / HCTZ 25mg PO qam) on November 24, 2024. Finally, my legs are getting a water pill, but they are still swollen, so I need to keep getting the water pill, ok?" "I am now waiting for placement. The Psychopaedic Nurse told me on Friday (11/27/19) that she is looking for a place for me, but has not found a place yet." (cf., referral sent out to [facility] already with no response received yet; patient left [facility] in October 2024 as her skilled Medicare days had run out and patient would have needed to pay out of pocket to remain in [facility] ([place]). Review of Systems Constitutional: Positive for chronic sharp, 6/10 pains in bilateral legs due to non-diabetic n europathy. Positive for chronic edema in bilateral shins since June 30, 2024. Negative for antecedent/coincident fevers, chills, diaphoresis, shortness of breath, dyspnea on exertion, cough, wheeze, sore throat, hemoptysis, chest pains, palpitations, pleurisy, nausea, vomiting, diarrhea, abdominal pain, pelvic pain, hematemesis, hematochezia, melena, hematuria, dysuria, frequency, urgency, headaches, dizziness, lightheadedness, visual changes, hearing changes, weakness, falls, syncope, trauma, travel history, sick contacts, or food/drug ingestions novel or new. All other review of systems are reported as negative by the patient on 11/28/2024. Physical Exam Constitutional: General: Comfortable, coherent, cooperative. Wide awake and alert. Not confused, lethargic, or obtunded. Patient speaks in complete, fluent, and articulate sentences without pause, interruption, cough, or wheeze. HEENT: Normocephalic, atraumatic. Pupils equally round and reactive to light. Extra-ocular muscles intact. No nystagmus, gaze paresis, anisocoria, miosis, mydriasis, hyphema, scleral injection, conjunctivitis, or pterygium. No rhinorrhea or otorrhea. No pharyngeal discharge or erythema. Neck: Supple, no stridor, bruit, goiter, hepatojugular reflux. Jugular venous pressure is estimated to be 8 cm above the sternal angle of Adam, which is estimated to be 5 cm above the level of the right atrium. Lymph: No anterior/posterior cervical, supraclavicular/infraclavicular, axillary, epitrochlear, or inguinal adenopathy. Chest: Symmetric rise and fall with respirations. Lungs: Clear to auscultation and percussion. No audible expiratory wheeze, egophony, pectoriloquy, increase in tactile fremitus, or flatness/dullness to percussion at the bases. Heart: RRR, S1 and S2 noted. No S3 or S4 summation gallop noted. No tripartite friction rub. Grade II/ early systolic murmur @ LLSB without radiation to the carotids, axilla, or back, and which remains invariant in regards to the respiratory cycle. Abdomen: Soft, non-tender, non-distended. No rebound, guarding, Whitmore's sign, or organomegaly. Bowel sounds sounds auscultated in all 4 quadrants. Extremities: No clubbing, cyanosis. 2+ pitting pedal edema with extension to the bilateral lower shins, sparing the mid shins, upper shins, knees, hips, thighs. 2+ pedal pulses bilaterally. Skin: No enanthem or exanthem. Skin: Right dorsal foot with 6 cm long x 0.5 cm wide, linear scab proximal to right toes 2-3-4-5, well-formed. No discharge (sanguineous, serous, or suppurative), no erythema, edema, induration, warmth, crepitus, fluctuance, tenderness, malodor, or lymphangitic streaking present. Skin: Left dorsal foot with 3 cm long x 1 cm wide, rectangular scab proximal to left toes 3-4-5, well-formed. No discharge (sanguineous, serous, or sup purative), no erythema, edema, induration, warmth, crepitus, fluctuance, tenderness, malodor, or lymphangitic streaking present. Skin: Right heel decubiti x 2 (present on admission date 11/23/2024), contiguous, circular, each ~3cm diameter denuded with underlying epidermis, but no discharge (sanguineous, serous, or suppurative), no erythema, edema, induration, warmth, crepitus, fluctuance, tenderness, malodor, or lymphangitic streaking present. Skin: Left heel decubitus x 1 (present on admission date 11/23/2024), circular, 2cm diameter, denuded with underlying epidermis and slight/scant sanguineous discharge (e.g., few droplets of blood), no serous/suppurative discharge, no erythema, edema, induration, warmth, crepitus, fluctuance, tenderness, malodor, or lymphangitic streaking present. Neurology: Alert and oriented to person, place, time, and situation. DTR+ and symmetric. 5/5 motor strength in all 4 extremities, both proximally and distally. No pronator drift. No facial droop. No tremors, tics, or myoclonus. Urology: No ca. No urethral discharge. Psychiatry: No suicidal ideation. No homicidal ideation. Results & Data Results & Data Vital Signs (Past 12 Hours) Vital Signs Temp Pulse Pulse Resp BP Pulse Ox O2 Del Method 11/28/24 15:37 85 11/28/24 15:24 36.6 C 86 20 105/66 94 Room Air 11/28/24 11:24 37.0 C 85 20 112/72 96 Room Air 11/28/24 08:15 36.6 C 86 20 114/73 94 Room Air 11/28/24 08:00 Room Air 11/28/24 07:29 64 Laboratory Results 11/23/24 17:13 Gram Stain - Final Foot,Right Aerobic and Anaerobic Culture - Final Clostridium perfringens Corynebacterium striatum group 11/23/24 17:13 Gram Stain - Final Foot,Left Aerobic and Anaerobic Culture - Final Corynebacterium striatum PG Care Time/CCT Total # of Minutes Spent Total Time Spent with Patient: Total time spent is greater than 50% in coordination of care (as documented) at patient's floor/unit and/or counseling patient: Coding Level of Care Code 81153 SUB INP/OBS CARE 2/35MIN Diagnoses Unable to care for self Z78.9 Ambulatory dysfunction R26.2 Bilateral cellulitis of lower leg L03.116; L03.115 Chronic ulcer of right foot with fat layer exposed L97.512 Cellulitis of buttock L03.317 Sacral wound S31.000A Urinary tract infection N39.0
[2024-11-28] MEDS: GABAPENTIN 300 MG CAP PO SCH (20:00)
[2024-11-29 08:15] LABS: Hematocrit (blood only) 34.6 % (37.0-47.0); Hemoglobin 10.6 g/dl (12.0-16.0); Mean Corpuscular Hemoglobin 26.4 pg (25.0-34.0); Mean Corpuscular Hgb Conc 30.6 g/dL (32.0-36.0); Mean Corpuscular Volume 86.1 fL (80.0-100.0); Platelet Count 350 K/uL (130-400); RDW Coefficient of Variation 14.8 % (11.5-14.5); RDW Standard Deviation 46.8 fL (36.4-46.3); Red Blood Count 4.02 M/uL (4.20-5.40); White Blood Count 6.74 K/ul (4.8-10.8)
[2024-11-29 08:44] LABS: BUN Creatinine Ratio 56.3 (10-20); Calcium 9.2 mg/dl (8.6-10.3); Creatinine Clr Calc Pharmacy 39.4 ml/min; Potassium 4.2 mmol/L (3.5-5.1)
--- NOTE | 2024-11-29 16:05 | Hospitalist Progress Note ---
Date of Service November 29, 2024 Assessment & Plan (1) Unable to care for self: Plan: Adult failure to thrive. OT and PT assessments noted. Patient will need to return to SNF setting at the time of this discharge. (2) Ambulatory dysfunction: Plan: Continue OT and PT while hospitalized. (3) Bilateral cellulitis of lower leg: Plan: cf., right foot wound culture (11/23/2024, 5:13pm) with Clostridium perfringens and Corynebacterium striatum group. Patient's right foot and right leg are not erythematous, indurated, warm, or tender. Moreover, there is no discharge (sanguineous, serous, or suppurative), crepitus, fluctuance, malodor, or lymphangitic streaking present to suggest acute/ongoing infection. Patient remains afebrile with normal WBC Patient has already been evaluated by her Cargo Operations Agent Dr. Aureliano Gomez (11/25/2024, 8:56pm) and who recommends no surgical intervention at this time. completed a course of antibiotics (4) Chronic ulcer of right foot with fat layer exposed: Plan: Similar process involving left foot. She sees outpatient podiatry on a regular basis. Podiatry consultation and recommend no surgery (5) Cellulitis of buttock: Plan: Local care. (6) Sacral wound: Plan: Local care. Continue wound care nurse involvement. (7) Urinary tract infection: Plan: Cultures grew E. coli Completed a course of antibiotics Plan Disposition: SNF Admission and Anticipated Discharge Date Admission Date: November 23, 2024 Subjective Patient seen and examined, she is happy with her progress so far, she states her wound is healing nicely but want to be in the hospital till the wound heals completely Review of Systems Review of Systems: All systems reviewed are negative, apart from the ones contained in the history. Physical Exam Physical Exam: The patient is awake, alert and oriented 3, well developed and well nourished, normocephalic and atraumatic, lying in bed and in no acute distress. HEENT--PERRL, EOMI, mucous membranes and oropharynx mildly dry Neck--supple. No JVD. No bruits. Thyroid normal, trachea midline, no adenopathy. Heart--normal S1 and S2. No murmurs, rubs or gallops. Lungs--clear bilaterally, no respiratory distress, no accessory muscle use. Abdomen--normal bowel sounds and soft. Extremities--no cyanosis or clubbing. No edema. Dermatologic--normal skin turgor, normal color, no abnormal lymph nodes, no rash. Neurologic--cranial nerves II through XII grossly intact. Rheumatologic--normal range of motion. Psychiatric--normal affect. Results & Data Results & Data Vital Signs (Past 12 Hours) Vital Signs Temp Pulse Pulse Resp BP Pulse Ox O2 Del Method 11/29/24 15:15 98.4 F 60 18 102/67 92 Room Air 11/29/24 14:18 94 H 11/29/24 11:07 97.9 F 58 L 18 106/67 92 Room Air 11/29/24 10:18 Room Air 11/29/24 07:34 98.4 F 91 H 18 96/60 L 93 Room Air 11/29/24 05:02 81 PG Care Time/CCT Total # of Minutes Spent Total Time Spent with Patient: Total time spent is greater than 50% in coordination of care (as documented) at patient's floor/unit and/or counseling patient: Coding Level of Care Code 28580 SUB INP/OBS CARE 2/35MIN Diagnoses Unable to care for self Z78.9 Ambulatory dysfunction R26.2 Bilateral cellulitis of lower leg L03.116; L03.115 Chronic ulcer of right foot with fat layer exposed L97.512 Cellulitis of buttock L03.317 Sacral wound S31.000A Urinary tract infection N39.0 Time Spent (min) 35
--- NOTE | 2024-11-29 20:46 | Podiatry Progress Note ---
Date of Service November 29, 2024 Assessment & Plan (1) Bilateral cellulitis of lower leg: (2) Chronic ulcer of left foot with fat layer exposed: (3) Chronic ulcer of right foot with fat layer exposed: Plan Patient examined and evaluated. These wounds are continuing to improve since her recent d/c and do not appear to be contributing much to her current concerns. - Would rec continued wound care with Aquacel Ag and optifoam gauze or similar. - Keeping wounds covered would prevent further exposure to nosocomial pathogens. - Dressed with dry Optifoam border dressings today. - No surgical intervention planned. Can d/c to inpatient living facility when stable per other specialties. - There is no indication for "hospitalization until her wounds heal" and she has not verbalized this to me. She may be having difficulty coming to terms with her living situation. - Will continue to follow this week, though no new plans for now. Admission and Anticipated Discharge Date Admission Date: November 23, 2024 Subjective Patient seen at bedside at lunch. Doing well. States weekend MD instructed her to be out of dressings due to continued healing of the wounds. Now out of dressings and not in offloading boots. Denies any new symptoms. Is feeling well. States she is still pending d/c to [facility]. Review of Systems Constitutional: + weakness; no fever, no chills and no f atigue Eyes: no problem reported Ear, Nose, Mouth, Throat: no problem reported Respiratory: no problem reported Cardiovascular: + edema; no problem reported Gastrointestinal: no nausea, no vomiting and no problem reported Genitourinary: no problem reported Musculoskeletal: no problem reported Integumentary: + skin ulcer, + wounds and + erythema Neurologic: + loss of sensation, + numbness and + pa resthesia; no generalized weakness Psychiatric: no problem reported Physical Exam Physical Exam: DP/PT pulses nonpalpable. CFT brisk to digits. Dorsal foot ulcerations continue to improve, now 100% more granular and mostly superficial. There is superficial eschar noted to the left heel ulcer, though this is improved even since prior visit 3 weeks ago in office. No new infection noted. Advanced trophic changes noted. Recent MRI/CT did not reveal any deeper extension of these ulcerations or bone involvement. Constitutional: WD/WN, vitals as above + ill appearing and + obese Eyes: PERRL, conjunctivae normal, anicteric sclerae ENMT: external ear and nose normal, oropharynx normal Neck: trachea midline, no thyromegaly normal visual inspection Respiratory: normal respiratory effort; no respiratory distress Cardiovascular: Rate/Rhythm: regular rate and regular rhythm Vessels: + posterior tibial pulses abnormal and + dorsalis pedis pulses abnormal Chest (Breasts): Chest: normal inspection of chest Gastrointestinal (Abdomen): Inspection/Auscultation: abdomen normal to inspection Percussion/Palpation: + abdomen tender and abdomen soft Musculoskeletal: no cyanosis or clubbing, extremities motor strength 5/5 Head/Neck/Chest: normocephalic and head atraumatic Extremities: extremities normal to inspection Skin: + ulcer, + wound, + skin atrophy, + dry skin, + erythema, + eschar, + nails discolored and + nails dystrophic Neurologic: awake; no focal motor deficits Psychiatric: A+Ox3, euthymic affect Results & Data Results & Data Vital Signs (Past 12 Hours) Vital Signs Temp Pulse Pulse Resp BP Pulse Ox O2 Del Method 11/29/24 19:34 36.5 C 88 18 108/65 93 Room Air 11/29/24 18:05 11/29/24 15:15 36.9 C 60 18 102/67 92 Room Air 11/29/24 14:18 94 H 11/29/24 11:07 36.6 C 58 L 18 106/67 92 Room Air 11/29/24 10:18 Room Air O2 Del Method 11/29/24 19:34 11/29/24 18:05 Room Air 11/29/24 15:15 11/29/24 14:18 11/29/24 11:07 11/29/24 10:18
--- NOTE | 2024-11-30 14:01 | Hospitalist Progress Note ---
Date of Service November 30, 2024 Assessment & Plan (1) Unable to care for self: Plan: Adult failure to thrive. OT and PT assessments noted. She is awaiting placement (2) Bilateral cellulitis of lower leg: Plan: Right foot wound culture (11/23/2024, 5:13pm) with Clostridium perfringens and Corynebacterium striatum group. Patient's right foot and right leg are not erythematous, indurated, warm, or tender. no discharge to suggest acute/ongoing infection. Patient remains afebrile with normal WBC Patient has already been evaluated by her Records Management Specialist Dr. Aureliano Gomez and who recommends no surgical intervention at this time. MRI did not suggest bone involvement completed a course of antibiotics continue wound care (3) Ambulatory dysfunction: Plan: Continue OT and PT while hospitalized. (4) Chronic ulcer of right foot with fat layer exposed: Plan: Similar process involving left foot. She sees outpatient podiatry on a regular basis. Podiatry consultation and recommend no surgery (5) Cellulitis of buttock: Plan: Local care. (6) Sacral wound: Plan: Local care. Continue wound care nurse involvement. (7) Urinary tract infection: Plan: Cultures grew E. coli Completed a course of antibiotics Plan Disposition: SNF when accepted, she is medically stable for discharge Admission and Anticipated Discharge Date Admission Date: November 23, 2024 Subjective Patient seen and examined she is awaiting placement Review of Systems Review of Systems: All systems reviewed are negative, apart from the ones contained in the history. Physical Exam Physical Exam: The patient is awake, alert and oriented 3, well developed and well nourished, normocephalic and atraumatic, lying in bed and in no acute distress. HEENT--PERRL, EOMI, mucous membranes and oropharynx mildly dry Neck--supple. No JVD. No bruits. Thyroid normal, trachea midline, no adenopathy. Heart--normal S1 and S2. No murmurs, rubs or gallops. Lungs--clear bilaterally, no respiratory distress, no accessory muscle use. Abdomen--normal bowel sounds and soft. Extremities--no cyanosis or clubbing. No edema. Dermatologic--normal skin turgor, normal color, no abnormal lymph nodes, no rash. Neurologic--cranial nerves II through XII grossly intact. Rheumatologic--normal range of motion. Psychiatric--normal affect. Results & Data Results & Data Vital Signs (Past 12 Hours) Vital Signs Temp Pulse Pulse Resp BP BP Pulse Ox 11/30/24 11:42 98.6 F 89 20 102/63 93 11/30/24 07:46 97.9 F 92 H 20 108/66 95 11/30/24 07:00 83 11/30/24 02:15 97.3 F L 82 16 99/56 L 97 O2 Del Method 11/30/24 11:42 Room Air 11/30/24 07:46 Room Air 11/30/24 07:00 11/30/24 02:15 Room Air PG Care Time/CCT Total # of Minutes Spent Total Time Spent with Patient: Total time spent is greater than 50% in coordination of care (as documented) at patient's floor/unit and/or counseling patient: Coding Level of Care Code 49611 SUB INP/OBS CARE 2/35MIN Diagnoses Unable to care for self Z78.9 Bilateral cellulitis of lower leg L03.116; L03.115 Ambulatory dysfunction R26.2 Chronic ulcer of right foot with fat layer exposed L97.512 Cellulitis of buttock L03.317 Sacral wound S31.000A Urinary tract infection N39.0 Time Spent (min) 35
--- NOTE | 2024-12-01 13:23 | Hospitalist Progress Note ---
Date of Service December 01, 2024 Assessment & Plan (1) Unable to care for self: Plan: Adult failure to thrive. Unable to take care of herself at home OT and PT assessments noted. She is awaiting placement (2) Bilateral cellulitis of lower leg: Plan: Right foot wound culture (11/23/2024) with Clostridium perfringens and Corynebacterium striatum group. Patient's right foot and right leg are not erythematous, indurated, warm, or tender. no discharge to suggest acute/ongoing infection. Patient remains afebrile with normal WBC Patient has already been evaluated by her Vending Machine Attendant Dr. Aureliano Gomez and who recommends no surgical intervention at this time. MRI did not suggest bone involvement completed a course of antibiotics continue wound care (3) Chronic ulcer of right foot with fat layer exposed: Plan: Similar process involving left foot. She sees outpatient podiatry on a regular basis. Podiatry consultation and recommend no surgery (4) Ambulatory dysfunction: Plan: Continue OT and PT while hospitalized. (5) Cellulitis of buttock: Plan: Local care. (6) Sacral wound: Plan: Local care. Continue wound care nurse involvement. (7) Urinary tract infection: Plan: Cultures grew E. coli Completed a course of antibiotics Plan Disposition: SNF when accepted, she is medically stable for discharge Admission and Anticipated Discharge Date Admission Date: November 23, 2024 Subjective Patient seen and examined she is awaiting placement Review of Systems Review of Systems: All systems reviewed are negative, apart from the ones contained in the history. Physical Exam Physical Exam: The patient is awake, alert and oriented 3, well developed and well nourished, normocephalic and atraumatic, lying in bed and in no acute distress. HEENT--PERRL, EOMI, mucous membranes and oropharynx mildly dry Neck--supple. No JVD. No bruits. Thyroid normal, trachea midline, no adenopathy. Heart--normal S1 and S2. No murmurs, rubs or gallops. Lungs--clear bilaterally, no respiratory distress, no accessory muscle use. Abdomen--normal bowel sounds and soft. Extremities--no cyanosis or clubbing. No edema. Dermatologic--normal skin turgor, normal color, no abnormal lymph nodes, no rash. Neurologic--cranial nerves II through XII grossly intact. Rheumatologic--normal range of motion. Psychiatric--normal affect. Results & Data Results & Data Vital Signs (Past 12 Hours) Vital Signs Temp Pulse Pulse Pulse Resp BP BP 12/01/24 12:04 98.6 F 61 15 110/60 12/01/24 07:40 97.9 F 78 16 114/68 12/01/24 06:19 79 12/01/24 03:54 98.2 F 83 20 98/64 L Pulse Ox O2 Del Method 12/01/24 12:04 94 Room Air 12/01/24 07:40 94 Room Air 12/01/24 06:19 12/01/24 03:54 93 Room Air PG Care Time/CCT Total # of Minutes Spent Total Time Spent with Patient: Total time spent is greater than 50% in coordination of care (as documented) at patient's floor/unit and/or counseling patient: Coding Level of Care Code 92405 SUB INP/OBS CARE 2/35MIN Diagnoses Unable to care for self Z78.9 Bilateral cellulitis of lower leg L03.116; L03.115 Chronic ulcer of right foot with fat layer exposed L97.512 Ambulatory dysfunction R26.2 Cellulitis of buttock L03.317 Sacral wound S31.000A Urinary tract infection N39.0 Time Spent (min) 35
--- NOTE | 2024-12-01 20:55 | Podiatry Progress Note ---
Date of Service December 01, 2024 Assessment & Plan (1) Bilateral cellulitis of lower leg: (2) Chronic ulcer of left foot with fat layer exposed: (3) Chronic ulcer of right foot with fat layer exposed: Plan Patient examined and evaluated. These wounds are continuing to improve since her recent d/c and do not appear to be contributing much to her current concerns. - Would rec continued wound care with Aquacel Ag and optifoam gauze or similar. - Keeping wounds covered would prevent further exposure to nosocomial pathogens. - Dressed with dry Optifoam border dressings today. - No surgical intervention planned. Can d/c to inpatient living facility when stable per other specialties. - Again discussed that staing in [facility] [place] until her wounds heal is not in the range of outcomes. There is no indication for "hospitalization until her wounds heal" and she has not verbalized this to me. - Will sign off for now with no podiatric concerns. Please reconsult if anything changes. Admission and Anticipated Discharge Date Admission Date: November 23, 2024 Subjective Patient seen at bedside at lunch. No new concerns. Feeling strong enough to go h ome, she states. Can "do 30 situps". Believes her feet are fully healed but also can't walk without swelling and feels her swelling is then limiting her walking, despite her increased strength. Review of Systems Constitutional: + weakness; no fever, no chills and no f atigue Eyes: no problem reported Ear, Nose, Mouth, Throat: no problem reported Respiratory: no problem reported Cardiovascular: + edema; no problem reported Gastrointestinal: no nausea, no vomiting and no problem reported Genitourinary: no problem reported Musculoskeletal: no problem reported Integumentary: + skin ulcer, + wounds and + erythema Neurologic: + loss of sensation, + numbness and + pa resthesia; no generalized weakness Psychiatric: no problem reported Physical Exam Physical Exam: DP/PT pulses nonpalpable. CFT brisk to digits. Dorsal foot ulcerations continue to improve, now 100% more granular and mostly superficial. There is superficial eschar noted to the left heel ulcer, though this is improved even since prior visit 3 weeks ago in office. No new infection noted. Advanced trophic changes noted. Recent MRI/CT did not reveal any deeper extension of these ulcerations or bone involvement. Constitutional: WD/WN, vitals as above + ill appearing and + obese Eyes: PERRL, conjunctivae normal, anicteric sclerae ENMT: external ear and nose normal, oropharynx normal Neck: trachea midline, no thyromegaly normal visual inspection Respiratory: normal respiratory effort; no respiratory distress Cardiovascular: Rate/Rhythm: regular rate and regular rhythm Vessels: + posterior tibial pulses abnormal and + dorsalis pedis pulses abnormal Chest (Breasts): Chest: normal inspection of chest Gastrointestinal (Abdomen): Inspection/Auscultation: abdomen normal to inspection Percussion/Palpation: + abdomen tender and abdomen soft Musculoskeletal: no cyanosis or clubbing, extremities motor strength 5/5 Head/Neck/Chest: normocephalic and head atraumatic Extremities: extremities normal to inspection Skin: + ulcer, + wound, + skin atrophy, + dry skin, + erythema, + eschar, + nails discolored and + nails dystrophic Neurologic: awake; no focal motor deficits Psychiatric: A+Ox3, euthymic affect Results & Data Results & Data Vital Signs (Past 12 Hours) Vital Signs Temp Pulse Pulse Pulse Resp BP Pulse Ox 12/01/24 19:57 36.6 C 87 20 107/67 94 12/01/24 15:41 36.7 C 87 18 103/66 94 12/01/24 13:31 88 12/01/24 12:04 37.0 C 61 15 110/60 94 O2 Del Method 12/01/24 19:57 Room Air 12/01/24 15:41 Room Air 12/01/24 13:31 12/01/24 12:04 Room Air
--- NOTE | 2024-12-02 12:17 | Hospitalist Progress Note ---
Date of Service December 02, 2024 Assessment & Plan (1) Unable to care for self: Plan: Adult failure to thrive. Unable to take care of herself at home OT and PT assessments noted. She is awaiting placement (2) Bilateral cellulitis of lower leg: Plan: Right foot wound culture (11/23/2024) with Clostridium perfringens and Corynebacterium striatum group. Patient's right foot and right leg are not erythematous, indurated, warm, or tender. no discharge to suggest acute/ongoing infection. Patient remains afebrile with normal WBC Patient has already been evaluated by her Virtualization Engineer Dr. Aureliano Gomez and who recommends no surgical intervention at this time. MRI did not suggest bone involvement completed a course of antibiotics continue wound care (3) Chronic ulcer of right foot with fat layer exposed: Plan: Similar process involving left foot. She sees outpatient podiatry on a regular basis. Podiatry consultation and recommend no surgery (4) Ambulatory dysfunction: Plan: Continue OT and PT while hospitalized. (5) Cellulitis of buttock: Plan: Local care. (6) Sacral wound: Plan: Local care. Continue wound care nurse involvement. (7) Urinary tract infection: Plan: Cultures grew E. coli Completed a course of antibiotics Plan Disposition: SNF when accepted, she is medically stable for discharge Admission and Anticipated Discharge Date Admission Date: November 23, 2024 Subjective Patient seen and examined today, says she does not want to put weight on feet, thats why she does not want to walk around Review of Systems Review of Systems: All systems reviewed are negative, apart from the ones contained in the history. Physical Exam 2 Physical Exam: The patient is awake, alert and oriented 3, well developed and well nourished, normocephalic and atraumatic, lying in bed and in no acute distress. HEENT--PERRL, EOMI, mucous membranes and oropharynx mildly dry Neck--supple. No JVD. No bruits. Thyroid normal, trachea midline, no adenopathy. Heart--normal S1 and S2. No murmurs, rubs or gallops. Lungs--clear bilaterally, no respiratory distress, no accessory muscle use. Abdomen--normal bowel sounds and soft. Extremities--no cyanosis or clubbing. No edema. Dermatologic--normal skin turgor, normal color, no abnormal lymph nodes, no rash. Neurologic--cranial nerves II through XII grossly intact. Rheumatologic--normal range of motion. Psychiatric--normal affect. Results & Data Results & Data Vital Signs (Past 12 Hours) Vital Signs Temp Pulse Resp BP Pulse Ox O2 Del Method 12/02/24 11:28 98.1 F 85 18 99/60 L 93 Room Air 12/02/24 08:19 98.4 F 87 20 117/67 94 Room Air 12/02/24 04:00 98.2 F 84 20 100/63 92 Room Air PG Care Time/CCT Total # of Minutes Spent Total Time Spent with Patient: Total time spent is greater than 50% in coordination of care (as documented) at patient's floor/unit and/or counseling patient: Coding Level of Care Code 61312 SUB INP/OBS CARE 2/35MIN Diagnoses Unable to care for self Z78.9 Bilateral cellulitis of lower leg L03.116; L03.115 Chronic ulcer of right foot with fat layer exposed L97.512 Ambulatory dysfunction R26.2 Cellulitis of buttock L03.317 Sacral wound S31.000A Urinary tract infection N39.0 Time Spent (min) 35
[2024-12-02 19:54] VITALS: RESP 20
[2024-12-03 11:06] VITALS: TEMP 98.6; O2SAT 94
[2024-12-03 11:29] VITALS: BP 114/68
--- NOTE | 2024-12-03 11:39 | Discharge Summary ---
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 She is anticoagulated with Eliquis. Patient was recently hospitalized from 10/15/2024 to 10/29/2024 for sepsis secondary to sacral and bilateral lower extremity wounds. Patient was evaluated by infectious disease, podiatry, and wound care. After a course of Zosyn transition to Levaquin and Augmentin, [facility] however appears patient left AMA 11/18. Patient returns to the ED for inpatient stay for placement as she is unable to care for herself at home. Patient seen at bedside. She is alert and oriented. She stated that she returned because she has been home for a few days and just cannot care for herself. She is unable to walk due to the sores on her feet have now made her sacral wound worse. Prior to her DVT in August, she ambulated with a cane at baseline, now she cannot ambulate on her own. She stated at [facility] she was able to go 16 steps with a walker but has been unable to do so on her own. She has been trying to do her leg exercises while sitting down in her house. She stated she left [facility] because her insurance would not pay for it anymore, however paperwork notes that she left AMA; see scanned in report. she stated t hat her wounds of her feet have been much improving and she changed her own dressings on Friday. She stated her sacral wound is improved from previous admission, is no longer bleeding. She denies any recent diarrhea. She has been drinking boost shakes twice daily, drinking orange juice to promote healing. She took her home medications this morning. Patient denies fever, chills, headache, dizziness, lightheadedness, rhinorrhea, sore throat, cough, dyspnea, dyspnea on exertion, chest pain, abdominal pain, nausea, vomiting, diarrhea. Her neuropathy is greatly improved since starting gabapentin during recent admission. She stated her bilateral lower extremity is getting worse. She wishes to be full code. Admission Exam (Per Admitting) Constitutional The patient is awake, alert and oriented 3, well developed and well nourished, normocephalic and atraumatic, lying in bed and in no acute distress. HEENT--PERRL, EOMI, mucous membranes and oropharynx mildly dry Neck--supple. No JVD. No bruits. Thyroid normal, trachea midline, no adenopathy. Heart--normal S1 and S2. No murmurs, rubs or gallops. Lungs--clear bilaterally, no respiratory distress, no accessory muscle use. Abdomen--normal bowel sounds and soft. Extremities--no cyanosis or clubbing. No edema. Dermatologic--normal skin turgor, normal color, no abnormal lymph nodes, no rash. Neurologic--cranial nerves II through XII grossly intact. Rheumatologic--normal range of motion. Psychiatric--normal affect. Discharge Data Consultations 11/23/24 15:18 ED Decision to Admit Stat 11/24/24 12:38 Consult Podiatry Routine Hospital Course (1) Unable to care for self: Adult failure to thrive. Unable to take care of herself at home OT and PT assessments noted. She is awaiting placement (2) Bilateral cellulitis of lower leg: Right foot wound culture (11/23/2024) with Clostridium perfringens and Corynebacterium striatum group. Patient's right foot and right leg are not erythematous, indurated, warm, or tender. no discharge to suggest acute/ongoing infection. Patient remains afebrile with normal WBC Patient has already been evaluated by her District Wildlife Manager Dr. Aureliano Gomez and who recommends no surgical intervention at this time. MRI did not suggest bone involvement completed a course of antibiotics continue wound care (3) Chronic ulcer of right foot with fat layer exposed: Similar process involving left foot. She sees outpatient podiatry on a regular basis. Podiatry consultation and recommend no surgery (4) Ambulatory dysfunction: Continue OT and PT while hospitalized. (5) Cellulitis of buttock: Local care. (6) Sacral wound: Local care. Continue wound care nurse involvement. (7) Urinary tract infection: Cultures grew E. coli Completed a course of antibiotics Plan Disposition: SNF when accepted, she is medically stable for discharge Coding Level of Care Code 60928 INP/OBS DISCH >30 MIN Diagnoses Unable to care for self Z78.9 Bilateral cellulitis of lower leg L03.116; L03.115 Chronic ulcer of right foot with fat layer exposed L97.512 Ambulatory dysfunction R26.2 Cellulitis of buttock L03.317 Sacral wound S31.000A Urinary tract infection N39.0 Time Spent (min) 35
[2024-12-03 14:26] VITALS: PULSE 87
== END 2024-12-03 15:29 | DRG 603 ==
LOC: ED 13:49 → EDINP 15:56 → SUATTDRO 15:56 → 2N 16:58

== ENCOUNTER 2025-05-29 15:26 | Inpatient (IN) ==
--- NOTE | 2025-05-29 15:39 | Emergency Department Note ---
Impression & Plan Hip fracture, Fall, Anemia, Acute UTI ED Provider Note NAME: JUAN JOHNSON AGE: 89 SEX: F : 1935 ARRIVES VIA: Ambulance INFORMANT: Patient ED PROVIDER(S): Johan Chahal DO CHIEF COMPLAINT: Left hip pain HPI: Patient is an 89-year-old female with a past medical history of CAD, recurrent pleural effusions, sepsis, malnutrition and amatory dysfunction who presents to the ER following a fall yesterday. She notes that she was walking with her walker and reached out to get something and she fell onto her left side. She does not believe that she hit her head or neck. A friend to help her get into a chair and she has been sitting there since that she has been unable to get up. She admits to pain in the entirety of her left hip tracking down to the left mid femur. She notes she is unable to lift it. ADDITIONAL HISTORY OBTAINED: Per HPI Chronic Medical/Social Conditions Affecting Care: Per HPI PAST MEDICAL HISTORY:See Below PAST SURGICAL HISTORY:See Below FAMILY HISTORY:See Below SOCIAL HISTORY:See Below HOME MEDICATIONS:See Below ALLERGIES:See Below VITALS:See Below PHYSICAL EXAMINATION: GENERAL: alert, covered in stool, disheveled HEAD: normal cephalic, atraumatic EYE EXAM: normal conjunctiva, PERRL and EOM's grossly intact OROPHARYNX:mucous membranes are moist EARS: TMs clear b/l NECK: supple, no nuchal rigidity, no adenopathy, non-tender CHEST: stable to compression anteriorly and posteriorly LUNGS: clear to auscultation. Normal chest wall mechanics HEART: no murmurs, S1 normal and S2 normal ABDOMEN: abdomen soft, non-tender, normo-active bowel sounds, no masses, no rebound or guarding. PELVIS: stable to compression anteriorly and posteriorly BACK: Back is symmetrical on inspection and there is no deformity, no midline tenderness, no CVA tenderness. UPPER EXTREMITIES: full active and passive range of motion of all joints without tenderness to palpation LOWER EXTREMITIES: Left leg is externally rotated and tender on palpation of the left hip tracking down to the mid femur. No tenderness throughout the knee tib- fib ankle or foot. DPs 2 out of 4. Gross station intact. NEURO EXAM: Normal sensorium, cranial nerves II-XII grossly intact, normal speech, no gross weakness of arms, no gross weakness of legs. GCS: 15. MEDICAL DECISION MAKING: Patient is an 89-year-old female who presents ER for left hip pain. IV was established and blood work was obtained. Labs showed no significant leukocytosis. Mild anemia at 9.2. BMP along with LFTs bilirubin was unremarkable. Lipase is normal. CK mildly elevated to 80. UA was obtained later after admission and does appear to show some signs of infection although she had no complaints. X-rays of the hip and femur do show a left periprosthetic fracture. Patient was given IV narcotics. Updated bedside. Discussed case with the hospitalist for further evaluation management treatment. CT head and cervical spine was negative per radiology. Consults/Care Managements Discussions: Per [facility] Triage Nursing notes reviewed. Limited review of prior medical records performed Vital Signs: reviewed and remarkable for no significant abnormalities Differential diagnosis: Differential diagnoses include major intracranial, cervical, spinal, thoracic, abdominal, pelvic and neurologic injury. Fracture, contusion, sprain, strain, laceration, abrasions included as well. ER treatment provided: See below Diagnostics interpreted by me include EKG and cardiac monitoring as listed below: -Cardiac Monitoring: An order was placed for continuous cardiac monitoring. The monitor shows a rate of 80 with sinus rhythm. -ECG: Sinus rhythm rate of 90 Normal axis No PVCs QTc 469 -Laboratory studies:Interpreted by me as stated above in MDM and shown below. Imaging studies: Xrays: As interpreted by me: X-ray of the left hip and femur show periprosthetic fracture. CTs show: CT head and cervical spine was negative per radiology Procedures:none Critical Care: None Past Med/Surg History Problem List (Updated 05/29/25 @ 21:53 by Johan Chahla DO) Acute UTI (Acute) Anemia (Acute) Fall (Acute) Hip fracture (Acute) Chronic anticoagulation Closed left femoral fracture Ambulatory dysfunction (Acute) Bilateral cellulitis of lower leg Malnutrition Unable to care for self Other specified peripheral vascular diseases Chronic ulcer of left foot with fat layer exposed Chronic ulcer of right foot with fat layer exposed Dysphagia Anemia Thrombocytosis Cellulitis of buttock Sacral wound Sepsis Ambulatory dysfunction (Acute) Occult blood positive stool Pericardial effusion Abnormal nuclear stress test Elevated troponin (Acute) Pleural effusion, left Shortness of breath (Acute) Chest pain (Acute) History of venous thromboembolism Elevated troponin Fracture of right hip (Acute 07/01/24) Acute comminuted displaced intertrochanteric fracture of the right femur from a fall 2 days prior per the ED report Acute pain of right thigh (Acute) Fall (Acute) Squamous cell skin cancer Decreased exercise tolerance Glaucoma Spinal stenosis Peripheral neuropathy Degenerative joint disease, multiple joints on both sides of body Allergic rhinitis (Acute) Osteoporosis (Acute) Medical History Pulmonary embolism DVT, bilateral lower limbs Hypotension Chronic venous stasis Failure to thrive in adult Hypernatremia Lower extremity ulceration Ambulatory dysfunction Leg edema Wound of right foot Wound of left foot Chest pain Right femoral fracture (07/01/24) Acute comminuted displaced intertrochanteric fracture of the right femur from a fall 2 days prior per the ED report Cardiac pacemaker PAT (paroxysmal atrial tachycardia) Dyslipidemia Hypothyroidism Peptic ulcer SSS (sick sinus syndrome) (04/28/14) Surgical History S/P placement of cardiac pacemaker (~2013) Dual chamber Status post hip surgery (~2013) Left RUTH History of esophagogastroduodenoscopy (~1996) H/O colonoscopy (~1998) Family History Mother Breast cancer Social History Smoking Status: Never smoker Second Hand Exposure: No; Do You Dip or Chew Tobacco: No; Hx Alcohol Use: No Hx Substance Use: No Preferred Language: Bengali Communication Ability: Effective Button Puncher Required: No Beliefs That Will Affect Care: None marital status: / Current Living Situation: Alone current occupational status: retired Feels Safe at Home: Yes Assistive Devices: Walker and Wheelchair Allergies Allergies Allergy/AdvReac Type Severity Reaction Status Date / Time No Known Drug Allergies Allergy Verified 05/29/25 18:55 Home Meds Home Medications Medication Instructions Recorded Confirmed acetaminophen 325 mg tablet 325 mg PO QID PRN Pain 11/19/24 05/29/25 (Tylenol) latanoprost 0.005 % eye drops 1 drops OPB QPM 11/23/24 05/29/25 timolol maleate 0.5 % once daily 1 drp OPB BID 11/23/24 05/29/25 eye drops doxycycline hyclate 50 mg capsule 50 mg PO BIDWMEAL 05/29/25 05/29/25 Previous Rx's Medication Instructions Recorded multivitamin (Daily Multi-Vitamin 1 tab PO DAILY #30 tabs 10/29/24 tablet) vitamins A,C,U-[id number]-ihttpg 4,296 1 cap PO AMPM #60 caps 10/29/24 mcg-226 mg-90 mg capsule (PreserVision AREDS) apixaban 5 mg tablet (Eliquis) 5 mg PO BID #60 tabs 12/30/24 thyroid (pork) 60 mg tablet 60 mg PO DAILY #30 tabs 12/30/24 (Kane Thyroid) triamterene 37.5 1 tab PO QAM 30 days #30 tabs 12/30/24 mg-hydrochlorothiazide 25 mg tablet Results & Data (ED) Vital Signs Vital Signs - 24 hr 05/29/25 15:44 05/29/25 15:44 05/29/25 15:44 Temperature 36.6 C Temperature Source Oral Pulse Rate 86 Pulse Rate [Apical] 86 Respiratory Rate 26 H 26 H Respiratory Effort / Characteristics Non-Labored Spontaneous Non-Labored Spontaneous Respiratory Depth Normal Normal Respiratory Pattern Blood Pressure 133/75 Blood Pressure [Right Arm] 133/75 Blood Pressure Mean 94 Blood Pressure Mean [Right Arm] 94 Blood Pressure Position Semi-fowlers Blood Pressure Position [Right Arm] Semi-fowlers Pulse Oximetry 98 98 98 Oxygen Delivery Method Room Air Room Air Room Air Oxygen Flow Rate Sepsis Recent Fever Within 48 Hours No Sepsis New/Unexplained Change in Mental Status N/A Sepsis Action Taken by Nursing No Action Required 05/29/25 16:00 05/29/25 16:19 05/29/25 16:56 Temperature 36.6 C Temperature Source Pulse Rate 84 Pulse Rate [Apical] 84 84 Respiratory Rate 19 19 15 Respiratory Effort / Characteristics Non-Labored Spontaneous Non-Labored Spontaneous Respiratory Depth Normal Normal Respiratory Pattern Blood Pressure 133/75 Blood Pressure [Right Arm] 135/82 Blood Pressure Mean Blood Pressure Mean [Right Arm] 99 Blood Pressure Position Blood Pressure Position [Right Arm] Semi-fowlers Pulse Oximetry 90 97 99 Oxygen Delivery Method Room Air Room Air Room Air Oxygen Flow Rate 0 Sepsis Recent Fever Within 48 Hours Sepsis New/Unexplained Change in Mental Status Sepsis Action Taken by Nursing 05/29/25 16:57 05/29/25 17:00 05/29/25 17:06 Temperature Temperature Source Pulse Rate 88 Pulse Rate [Apical] 82 Respiratory Rate 28 H Respiratory Effort / Characteristics Non-Labored Spontaneous Respiratory Depth Normal Respiratory Pattern Blood Pressure Blood Pressure [Right Arm] 142/75 H Blood Pressure Mean Blood Pressure Mean [Right Arm] 97 Blood Pressure Position Blood Pressure Position [Right Arm] Semi-fowlers Pulse Oximetry 99 99 Oxygen Delivery Method Room Air Room Air Oxygen Flow Rate Sepsis Recent Fever Within 48 Hours Sepsis New/Unexplained Change in Mental Status Sepsis Action Taken by Nursing 05/29/25 18:00 05/29/25 19:00 05/29/25 20:00 Temperature Temperature Source Pulse Rate Pulse Rate [Apical] 88 79 85 Respiratory Rate 17 18 16 Respiratory Effort / Characteristics Non-Labored Spontaneous Non-Labored Non-Labored Respiratory Depth Normal Normal Normal Respiratory Pattern Regular Regular Blood Pressure Blood Pressure [Right Arm] 147/85 H 129/65 105/60 Blood Pressure Mean Blood Pressure Mean [Right Arm] 105 86 75 Blood Pressure Position Blood Pressure Position [Right Arm] Semi-fowlers Lying Lying Pulse Oximetry 95 96 95 Oxygen Delivery Method Room Air Room Air Room Air Oxygen Flow Rate Sepsis Recent Fever Within 48 Hours Sepsis New/Unexplained Change in Mental Status Sepsis Action Taken by Nursing 05/29/25 20:10 05/29/25 21:00 05/29/25 21:29 Temperature Temperature Source Pulse Rate 93 H 84 Pulse Rate [Apical] 84 Respiratory Rate 17 18 Respiratory Effort / Characteristics Non-Labored Respiratory Depth Normal Respiratory Pattern Regular Blood Pressure 112/77 Blood Pressure [Right Arm] 109/60 Blood Pressure Mean Blood Pressure Mean [Right Arm] 76 Blood Pressure Position Blood Pressure Position [Right Arm] Lying Pulse Oximetry 96 94 Oxygen Delivery Method Room Air Room Air Oxygen Flow Rate Sepsis Recent Fever Within 48 Hours Sepsis New/Unexplained Change in Mental Status Sepsis Action Taken by Nursing Laboratory Data 05/29/25 17:22 05/29/25 17:22 Lab Results 05/29/25 05/29/25 Range/Units 17:22 20:11 WBC 10.30 (4.8-10.8) K/ul RBC 2.95 L (4.20-5.40) M/uL Hgb 9.2 L (12.0-16.0) g/dl Hct 27.4 L (37.0-47.0) % MCV 92.9 (80.0-100.0) fL MCH 31.2 (25.0-34.0) pg MCHC 33.6 (32.0-36.0) g/dL RDW Std Deviation 47.8 H (36.4-46.3) fL RDW Coeff of López 14.1 (11.5-14.5) % Plt Count 374 (130-400) K/uL MPV 10.2 (9.4-12.4) fL Immature Gran % (Auto) 1.1 % Neut % (Auto) 73.2 % Lymph % (Auto) 14.7 % [place] % (Auto) 10.2 % Eos % (Auto) 0.4 % Baso % (Auto) 0.4 % Neut # (Auto) 7.55 H (1.40-6.50) K/uL Lymph # (Auto) 1.51 (1.20-3.40) K/uL [place] # (Auto) 1.05 H (0.11-0.59) K/uL Eos # (Auto) 0.04 (0.00-0.50) K/uL Baso # (Auto) 0.04 (0.00-0.20) K/uL Immature Gran # (Auto) 0.11 (0.01-0.20) K/uL Sodium 139 (136-145) mmol/L Potassium 4.0 (3.5-5.1) mmol/L Chloride 98 (98-107) mmol/L Carbon Dioxide 30 (21-32) mmol/L Anion Gap 11 (3-11) BUN 66 H (6-23) mg/dl Creatinine 1.00 (0.6-1.2) mg/dl Est Cr Clr Drug Dosing 34.3 ml/min eGFR 53.85 BUN/Creatinine Ratio 66.0 H (10-20) Glucose 124 H (70-99(Fasting)) mg/dl Calcium 9.4 (8.6-10.3) mg/dl Total Bilirubin 1.0 (0.2-1.0) mg/dl AST 23 (13-39) U/L ALT 16 (7-52) U/L Alkaline Phosphatase 57 (34-104) U/L Total Creatine Kinase 283 H (26-192) U/L Total Protein 7.5 (6.0-8.3) gm/dl Albumin 3.9 (3.4-5.0) gm/dl Globulin 3.6 (2.5-4.0) gm/dl Albumin/Globulin Ratio 1.1 (0.9-2) Lipase 91 H (11-82) U/L Urine Color Yellow Urine Appearance Clear (Clear) Urine pH 6.5 (4.5-7.5) Ur Specific Lead 1.023 (1.000-1.030) Urine Protein Trace H (Negative) Urine Glucose (UA) Negative (Negative) Urine Ketones Negative (Negative) Urine Blood Negative (Negative) Urine Nitrite Positive A (Negative) Urine Bilirubin Negative (Negative) Urine Urobilinogen Negative (Negative) Ur Leukocyte Esterase 1+ H (Negative) Urine WBC (Auto) 11-20 H (0-5) /hpf Urine RBC (Auto) 0-2 (0-2) /hpf U Hyaline Cast (Auto) 0-2 (0-2) /lpf U Epithel Cells (Auto) 0-2 (0-2) /hpf Urine Bacteria (Auto) 1+ H (None Seen) Urine Comment Administered Medications Acetaminophen (Acetaminophen 325 Mg Tab) 650 mg PO Q6 FAUZIA Stop: 06/28/25 18:59 Last Admin: 05/29/25 19:57 Dose: 650 mg Documented By: MUKESH Morphine Sulfate (Morphine Sulfate 4 Mg/Ml 1 Ml Carp\Vial) 4 mg IV Q1H PRN PRN Reason: Severe Pain (Rating 7,8,9,10) Stop: 06/12/25 16:38 Last Admin: 05/29/25 17:37 Dose: 4 mg Documented By: [facility] [place] Imaging Data Radiologist's Impression: Cervical Spine CT 05/29/25 15:33 CT cervical spine without IV contrast History: Trauma Comparison: None Technique: Using multidetector thin collimation helical acquisition technique, axial, coronal and sagittal CT images through the cervical spine were obtained without intravenous contrast. Dose reduction techniques were achieved by using automatic exposure control and/or adjustment of mA and/or kV according to patient size and/or use of iterative reconstruction technique. Findings: The cervical vertebrae are normally aligned. Straightened cervical lordosis. No acute fracture or subluxation. No prevertebral edema. Multilevel prominent degenerative facet changes. Moderate to severe discogenic degenerative change at C5-6 and C6-7. Degenerative related 3 mm anterolisthesis of C4. No abnormality of the paraspinous soft tissues. Impression: No acute fracture or traumatic subluxation. Electronically signed by Rafael Barraza 05-29-2025 6:11 PM Femur X-Ray 05/29/25 15:33 Exam: Left femur routine 2 views Reason for exam: Left hip pain. Previous studies: None FINDINGS: Total hip arthroplasty is in place. There is a comminuted fracture in the proximal left femur. Age of this is uncertain but may be acute. Distal femur is intact in appearance. IMPRESSION: Comminuted mildly angulated acute fracture of the proximal left femur, with total hip arthroplasty in place. This fracture appears acute although no history of trauma is given. Correlation with the timing of the hip arthroplasty as well as any history of trauma recommended. Orthopedic referral is recommended for this patient. Electronically signed by Beka Grant 05-29-2025 6:[address] 05/29/25 15:33 CT head without contrast History: Trauma Comparison: None Technique: Using multidetector thin collimation helical acquisition technique, axial, coronal and sagittal CT images from the skull base to the vertex were obtained without intravenous contrast. Dose reduction techniques were achieved by using automatic exposure control and/or adjustment of mA and/or kV according to patient size and/or use of iterative reconstruction technique. Findings: No intracranial hemorrhage, mass-effect, or midline shift. The ventricles are proportionate to the cerebral sulci. The petersen to white matter differentiation of the cerebral hemispheres is preserved. The basal cisterns are patent. The visualized paranasal sinuses are clear. Mastoid air cells are clear. Impression: No acute intracranial pathology. Electronically signed by Rafael Barraza 05-29-2025 6:11 PM Pelvis X-Ray 05/29/25 15:33 Exam: Pelvis one to 2 views routine. Previous studies: 07/01/2024 Reason for exam: Pain in the left hip. FINDINGS: Left total hip arthroplasty is present. There is an acute fracture with comminution in the proximal left femur which appears acute. Intertrochanteric gamma nail seen in the right hip occurring since the previous study of 07/01/2024. Alignment of the fragments about the fracture site are somewhat atypical without clear evidence of healing at this time. IMPRESSION: 1. Acute comminuted fractured proximal left femur. 2. Old fracture with internal fixation right proximal femur. Correlation with recent radiographs to evaluate the possibility of refracture due to the atypical alignment of the bone fragments is recommended. Electronically signed by Beka Grant 05-29-2025 6:08 PM Discharge Plan Visit Data Chief Complaint: Trauma ED Provider: Johan Chahal Discharge Problem: Hip fracture, Fall, Anemia, Acute UTI Condition: Fair Discharge Instructions Interventions: ED Discharge Assessment Last Done: 05/29/25 21:29 Prescriptions Prescriptions: No Action Eliquis 5 mg tablet 5 mg PO BID Qty: 60 5RF thyroid (pork) [Kane Thyroid] 60 mg tablet 60 mg PO DAILY Qty: 30 5RF triamterene-hydrochlorothiazid 37.5-25 mg tablet 1 tab PO QAM 30 Days Qty: 30 5RF acetaminophen [Tylenol] 325 mg tablet 325 mg PO QID PRN (Reason: Pain) multivitamin [Daily Multi-Vitamin] Tablet 1 tab PO DAILY Qty: 30 0RF PreserVision AREDS 4,296 mcg-226 mg-90 mg Capsule 1 cap PO AMPM Qty: 60 0RF latanoprost 0.005 % drops 1 drops OPB QPM Rx Instructions: 1 drops opb hs. last filled 05/03 100 day supply timolol maleate 0.5 % drops, once daily 1 drp OPB BID Rx Instructions: 1 drp opb bid. filled 08/11 75 day supply doxycycline hyclate 50 mg capsule 50 mg PO BIDWMEAL Rx Instructions: TAKES FOR ROSACEA; BEEN MONTHS SINCE USED Discharge Problem: Hip fracture Qualifiers: Encounter type: initial encounter Fracture type: closed Laterality: unspecified laterality Qualified Code(s): S72.009A - Fracture of unspecified part of neck of unspecified femur, initial encounter for closed fracture Fall Qualifiers: Encounter type: initial encounter Qualified Code(s): W19.XXXA - Unspecified fall, initial encounter Anemia Qualifiers: Anemia type: unspecified type Qualified Code(s): D64.9 - Anemia, unspecified
[2025-05-29] MEDS ORDERED: MoRPHine SULFATE 2 MG/ML CARP IV PRN (16:39)
[2025-05-29] MEDS: MoRPHine SULFATE 4 MG/ML 1 ML CARP\\VIAL IV PRN (17:37)
[2025-05-29 17:39] LABS: Hematocrit (blood only) 27.4 % (37.0-47.0); Hemoglobin 9.2 g/dl (12.0-16.0); Immature Granulocytes # (auto) 0.11 K/uL (0.01-0.20); Immature Granulocytes % (auto) 1.1 %; Mean Corpuscular Hemoglobin 31.2 pg (25.0-34.0); Mean Corpuscular Volume 92.9 fL (80.0-100.0); Platelet Count 374 K/uL (130-400); RDW Standard Deviation 47.8 fL (36.4-46.3); Red Blood Count 2.95 M/uL (4.20-5.40); White Blood Count 10.30 K/ul (4.8-10.8)
[2025-05-29 17:56] LABS: Alanine Aminotransferase 16.0 U/L (7-52); Albumin Globulin Ratio 1.1 (0.9-2); Alkaline Phosphatase 57.0 U/L (34-104); Anion Gap 11.0 (3-11); Bilirubin,Total 1.0 mg/dl (0.2-1.0); Blood Urea Nitrogen 66.0 mg/dl (6-23); Calcium 9.4 mg/dl (8.6-10.3); Carbon Dioxide 30.0 mmol/L (21-32); Chloride 98.0 mmol/L (98-107); Creatine Kinase 283.0 U/L (26-192); Creatinine Clr Calc Pharmacy 34.3 ml/min; Globulin 3.6 gm/dl (2.5-4.0); Glucose 124.0 mg/dl (70-99(Fasting)); Lipase 91.0 U/L (11-82); Potassium 4.0 mmol/L (3.5-5.1); Sodium 139.0 mmol/L (136-145); Total Protein 7.5 gm/dl (6.0-8.3)
--- NOTE | 2025-05-29 18:05 | XRay Report ---
Exam: Left femur routine 2 views Reason for exam: Left hip pain. Previous studies: None FINDINGS: Total hip arthroplasty is in place. There is a comminuted fracture in the proximal left femur. Age of this is uncertain but may be acute. Distal femur is intact in appearance. IMPRESSION: Comminuted mildly angulated acute fracture of the proximal left femur, with total hip arthroplasty in place. This fracture appears acute although no history of trauma is given. Correlation with the timing of the hip arthroplasty as well as any history of trauma recommended. Orthopedic referral is recommended for this patient. Electronically signed by Beka Grant 05-29-2025 6:05 PM
--- NOTE | 2025-05-29 18:09 | XRay Report ---
Exam: Pelvis one to 2 views routine. Previous studies: 07/01/2024 Reason for exam: Pain in the left hip. FINDINGS: Left total hip arthroplasty is present. There is an acute fracture with comminution in the proximal left femur which appears acute. Intertrochanteric gamma nail seen in the right hip occurring since the previous study of 07/01/2024. Alignment of the fragments about the fracture site are somewhat atypical without clear evidence of healing at this time. IMPRESSION: 1. Acute comminuted fractured proximal left femur. 2. Old fracture with internal fixation right proximal femur. Correlation with recent radiographs to evaluate the possibility of refracture due to the atypical alignment of the bone fragments is recommended. Electronically signed by Beka Grant 05-29-2025 6:08 PM
--- NOTE | 2025-05-29 18:13 | CT Scan Report ---
CT head without contrast History: Trauma Comparison: None Technique: Using multidetector thin collimation helical acquisition technique, axial, coronal and sagittal CT images from the skull base to the vertex were obtained without intravenous contrast. Dose reduction techniques were achieved by using automatic exposure control and/or adjustment of mA and/or kV according to patient size and/or use of iterative reconstruction technique. Findings: No intracranial hemorrhage, mass-effect, or midline shift. The ventricles are proportionate to the cerebral sulci. The petersen to white matter differentiation of the cerebral hemispheres is preserved. The basal cisterns are patent. The visualized paranasal sinuses are clear. Mastoid air cells are clear. Impression: No acute intracranial pathology. Electronically signed by Rafael Barraza 05-29-2025 6:11 PM
--- NOTE | 2025-05-29 18:18 | CT Scan Report ---
CT cervical spine without IV contrast History: Trauma Comparison: None Technique: Using multidetector thin collimation helical acquisition technique, axial, coronal and sagittal CT images through the cervical spine were obtained without intravenous contrast. Dose reduction techniques were achieved by using automatic exposure control and/or adjustment of mA and/or kV according to patient size and/or use of iterative reconstruction technique. Findings: The cervical vertebrae are normally aligned. Straightened cervical lordosis. No acute fracture or subluxation. No prevertebral edema. Multilevel prominent degenerative facet changes. Moderate to severe discogenic degenerative change at C5-6 and C6-7. Degenerative related 3 mm anterolisthesis of C4. No abnormality of the paraspinous soft tissues. Impression: No acute fracture or traumatic subluxation. Electronically signed by Rafael Barraza 05-29-2025 6:11 PM
--- NOTE | 2025-05-29 19:20 | History & Physical Report ---
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 She's had pain of left hip and thigh for past two months but this acute pain was much worse and she was unable to stand and walk # Pathologic osteoporotic fracture of left femur, periprosthetic fracture -consult [facility] in AM. discussed briefly with ortho water resource consultant -NWB LLE -pain control with IV morphine, scheduled APAP Perioperative evaluation - she states she is walking 2-3 miles a day with walker without dyspnea or chest pain and if true that is very good exercise tolerance for her age. She had Echo Sep 2024 which I reviewed - normal LV side and hyperdynamic function EF>70%, no rwma's, mild conc LVH, small pericardial effusion unchanged. She also had nondiagnostic stress test 10/04/2024 which showed normal EF and "possible inferior/inferolateral ischemia, but significant intestinal uptake in the area may affect interpretation." Previous records suggest chronically elevated troponin. I ordered EKG which is pending. Has dual chamber pacemaker and reviewed recent report from Dr. Conteh - only brief atrial arrhythmias noted - PAT and possible very brief episodes of aflutter. Paces infrequently. Overall she is probably standard operative risk for her age, the LE edema related to venous stasis rather than heart failure. No evidence of ACS or active CHF and I see no medical contraindications to proceeding with urgent surgery to repair hip. She is chronically anticoagulated on apixaban for DVT/PE in Aug 2024. Last dose was 05/29 AM and continue holding apixaban. This will be reversed at 48h kye which is AM of 05/31. # normocytic anemia - Hg 9.2 - baseline looks variable but was 11-12 in November. Probably acute blood loss anemia from fracture in setting of anticoagulation -AM Hg and Type and Screen -iron studies # SSS s/p dual chamber pacemaker followed by Dr. 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 -apixaban held -bridging with prophylaxis dose SQ heparin night of 05/30 -resume apixaban postop when safe per surgeon # Venous stasis and associated edema -cont triamterene-HCTZ but may benefit from stronger diuretic postop if edema increasing # L heel wound and red spots, R heel dark area, hx sacral decubitus -consult [facility] # Hypothyroidism - cont [place] thyroid #CKD-3 -Cr is 1, near baseline, monitor and avoid nephrotoxins Hx malnutrition - serum albumin normal at this time and she's virtually healed her previous wounds History of Present Illness Chief Complaint: left hip and thigh pain Primary Care Provider: Marjan Ramirez PA-C 89 y/o with remote L RUTH, falls/ambulatory dysfunction, 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 She has noticed left hip pain radiating down left lateral thigh for past two months. Yesterday was using walker in house and bent down to pick something up off floor and fell over, landing on left side. She feels it was a fairly gentle fall and she has thick carpet. A neighbor helped her get into a chair and she could not get up because of pain so she stayed there. She [place] [facility] [place] try and schedule appt and they recommended she be evaluated in ED. Her L hip was replaced some years ago by Dr. Small and has had other care at [facility]. Last fall she fell and fractured R hip, repaired by Dr. Cruz because of expediency. She had some morphine in ED and currently no pain in L leg as long as she lies still. She lives independently [place] community. She uses her walker but says she walks 2-3 miles every day. No dyspnea or chest pain. This winter she had wounds on feet, sacrum and she says they healed. I do see a tiny wound still present left heel with no evidence of infection. She denies F/C, cough, abd pain, N/V/D, dysuria. She has urinary incontience. Leg edema is currently worse than her baseline and she takes triamterene. Last dose of apixaban was this morning. Meds: she only takes three armour thyroid apixaban triamterene-HCTZ Allergies Allergy/AdvReac Type Severity Reaction Status Date / Time No Known Drug Allergies Allergy Verified 05/29/25 18:55 Home Medications Medication Instructions Recorded Confirmed Type multivitamin (Daily Multi-Vitamin 1 tab PO DAILY #30 tabs 10/29/24 05/29/25 Rx tablet) vitamins A,C,H-jovi-kyxtka 4,296 1 cap PO AMPM #60 caps 10/29/24 05/29/25 Rx mcg-226 mg-90 mg capsule (PreserVision AREDS) acetaminophen 325 mg tablet 325 mg PO QID PRN Pain 11/19/24 05/29/25 History (Tylenol) latanoprost 0.005 % eye drops 1 drops OPB QPM 11/23/24 05/29/25 History timolol maleate 0.5 % once daily 1 drp OPB BID 11/23/24 05/29/25 History eye drops apixaban 5 mg tablet (Eliquis) 5 mg PO BID #60 tabs 12/30/24 05/29/25 Rx thyroid (pork) 60 mg tablet 60 mg PO DAILY #30 tabs 12/30/24 05/29/25 Rx ([place] Thyroid) triamterene 37.5 1 tab PO QAM 30 days #30 tabs 12/30/24 05/29/25 Rx mg-hydrochlorothiazide 25 mg tablet doxycycline hyclate 50 mg capsule 50 mg PO BIDWMEAL 05/29/25 05/29/25 History Past Med/Surg History Problem List (Updated 05/29/25 @ 19:02 by Evette Pollack MD) Chronic anticoagulation Closed left femoral fracture Ambulatory dysfunction (Acute) Bilateral cellulitis of lower leg Malnutrition Unable to care for self Other specified peripheral vascular diseases Chronic ulcer of left foot with fat layer exposed Chronic ulcer of right foot with fat layer exposed Dysphagia Anemia Thrombocytosis Cellulitis of buttock Sacral wound Sepsis Ambulatory dysfunction (Acute) Occult blood positive stool Pericardial effusion Abnormal nuclear stress test Elevated troponin (Acute) Pleural effusion, left Shortness of breath (Acute) Chest pain (Acute) History of venous thromboembolism Elevated troponin Fracture of right hip (Acute 07/01/24) Acute comminuted displaced intertrochanteric fracture of the right femur from a fall 2 days prior per the ED report Acute pain of right thigh (Acute) Fall (Acute) Squamous cell skin cancer Decreased exercise tolerance Glaucoma Spinal stenosis Peripheral neuropathy Degenerative joint disease, multiple joints on both sides of body Allergic rhinitis (Acute) Osteoporosis (Acute) Medical History Pulmonary embolism DVT, bilateral lower limbs Hypotension Chronic venous stasis Failure to thrive in adult Hypernatremia Lower extremity ulceration Ambulatory dysfunction Leg edema Wound of right foot Wound of left foot Chest pain Right femoral fracture (07/01/24) Acute comminuted displaced intertrochanteric fracture of the right femur from a fall 2 days prior per the ED report Cardiac pacemaker PAT (paroxysmal atrial tachycardia) Dyslipidemia Hypothyroidism Peptic ulcer SSS (sick sinus syndrome) (04/28/14) Surgical History S/P placement of cardiac pacemaker (~2013) Dual chamber Status post hip surgery (~2013) Left RUTH History of esophagogastroduodenoscopy (~1996) H/O colonoscopy (~1998) Family History Mother Breast cancer Social History Smoking Status: Never smoker Second Hand Exposure: No; Do You Dip or Chew Tobacco: No; Hx Alcohol Use: No Hx Substance Use: No Preferred Language: Ivorian Communication Ability: Effective Campaign Management Senior Manager Required: No Beliefs That Will Affect Care: None marital status: / Current Living Situation: Alone current occupational status: retired Feels Safe at Home: Yes Assistive Devices: Walker and Wheelchair Review of Systems 2 Review of Systems: All systems reviewed & are unremarkable except as noted in HPI & below Physical Exam 2 Physical Exam: Last 24h vitals reviewed GEN: no acute distress, lying flat on stretcher in ED HEENT: pupils equal, sclerae anicteric, moist MM. Mild abrasion L anterior scalp RESP: normal WOB, CTAB CV: reg no mrg ABD: soft/nt/nd +BT : no ca SKIN: warm and dry, no generalized rashes. R heel with small dark spot skin intact. L heel with 0.5 cm shallow wound medial side. L lateral foot with red spots. EXT: LE are cool but well perfused, 2-3+ bilateral LE pitting edema to above knees, LLE externally rotated, good cap refill. NEURO: AOx person, place, and situation. Face symmetric, speech normal, moves 4 ext spontaneously and equally Results & Data Results & Data Vital Signs (Past 12 Hours) Vital Signs Temp Pulse Pulse Resp BP BP Pulse Ox 05/29/25 18:00 88 17 147/85 H 95 05/29/25 17:06 99 05/29/25 17:00 82 28 H 142/75 H 99 05/29/25 16:57 88 05/29/25 16:56 84 15 135/82 99 05/29/25 16:19 36.6 C 84 19 133/75 97 05/29/25 16:00 84 19 90 05/29/25 15:44 98 05/29/25 15:44 86 26 H 133/75 98 05/29/25 15:44 36.6 C 86 26 H 133/75 98 O2 Del Method O2 Flow Rate 05/29/25 18:00 Room Air 05/29/25 17:06 Room Air 05/29/25 17:00 Room Air 05/29/25 16:57 05/29/25 16:56 Room Air 05/29/25 16:19 Room Air 0 05/29/25 16:00 Room Air 05/29/25 15:44 Room Air 05/29/25 15:44 Room Air 05/29/25 15:44 Room Air Laboratory Results 05/29/25 17:22 05/29/25 17:22 Diagnostic Findings 05/29/25 17:22 05/29/25 17:22 GFR 53 CK 283 LFT nl albumin nl lipase 91 - minimal elevation without abd pain UA pending EKG ordered - pending Radiology L pelvis xray, L femur xray - comminuted mildly angulated femur fracture and L RUTH head CT - no acute findings CT cspine - no fracture or subluxation. Mod severe DDD at C5-6 and C6-7, degenerative anterolisthesis at C4 Code Status & VTE Plan VTE Prophylaxis Plan VTE Prophylaxis will be ordered: Yes PG Care Time/CCT Total # of Minutes Spent Total Time Spent with Patient: Total time spent is greater than 50% in coordination of care (as documented) at patient's floor/unit and/or counseling patient: Coding Level of Care Code 04058 INT INP/OBS CARE 3/75MIN Diagnoses Closed left femoral fracture S72.92XA Chronic anticoagulation Z79.01 Osteoporosis M81.0 PAT (paroxysmal atrial tachycardia) I47.1 Anemia D64.9
[2025-05-29] MEDS: ACETAMINOPHEN 325 MG TAB PO SCH (19:57)
[2025-05-29 20:41] LABS: Appearance Urine Clear (Clear); Bacteria Urine Automated 1+ (None Seen); Cast Urine Automated 0-2 /lpf (0-2); Epithelial Cell Urine Auto 0-2 /hpf (0-2); Glucose Urine UA Negative (Negative); RBC Urine Automated 0-2 /hpf (0-2)
[2025-05-29] MEDS ORDERED: MELATONIN 3 MG TAB PO PRN (22:17)
[2025-05-29] MEDS ORDERED: POLYETHYLENE (MIRALAX) 17 GM PACK PO PRN (22:17)
[2025-05-29] MEDS ORDERED: ONDANSETRON INJ 2 MG/ML 2 ML VIAL IV PRN (22:17)
[2025-05-29] MEDS ORDERED: MAGNESIUM HYDROXIDE SUSP 30 ML UDC PO PRN (22:17)
[2025-05-29] MEDS ORDERED: ALUMINUM/MAGNESIUM SUSP 30 ML UDC PO PRN (22:17)
[2025-05-29] MEDS: LATANOPROST 0.005% OP SOLN 2.5 ML BTL OPB SCH (23:22)
[2025-05-29] MEDS: TIMOLOL MALEATE 0.5% OP SOLN 5 ML BTL OPB SCH (23:22)
[2025-05-30 07:04] LABS: Hematocrit (blood only) 25.8 % (37.0-47.0); Hemoglobin 8.6 g/dl (12.0-16.0); Mean Corpuscular Hemoglobin 31.2 pg (25.0-34.0); Mean Corpuscular Volume 93.5 fL (80.0-100.0); Platelet Count 345 K/uL (130-400); RDW Standard Deviation 48.6 fL (36.4-46.3); Red Blood Count 2.76 M/uL (4.20-5.40); White Blood Count 7.08 K/ul (4.8-10.8)
[2025-05-30 07:22] LABS: Anion Gap 7.0 (3-11); Blood Urea Nitrogen 58.0 mg/dl (6-23); Calcium 8.9 mg/dl (8.6-10.3); Carbon Dioxide 30.0 mmol/L (21-32); Chloride 101.0 mmol/L (98-107); Creatinine Clr Calc Pharmacy 39.4 ml/min; Glucose 123.0 mg/dl (70-99(Fasting)); Potassium 3.6 mmol/L (3.5-5.1); Sodium 138.0 mmol/L (136-145)
[2025-05-30 07:36] VITALS: RESP 18
[2025-05-30] MEDS: ARMOUR THYROID 30 MG TAB PO SCH (09:31)
[2025-05-30] MEDS: cefTRIAXone SODIUM 1,000 MG/50 ML BAG IV SCH (09:32)
[2025-05-30] MEDS: TRIAMTERENE/HCTZ 37.5/25MG TAB PO SCH (09:50)
--- NOTE | 2025-05-30 12:38 | Electrocardiogram Report ---
Test Reason : Blood Pressure : */* mmHG Vent. Rate : 90 BPM Atrial Rate : 90 BPM P-R Int : 172 ms QRS Dur : 70 ms QT Int : 384 ms P-R-T Axes : 72 -13 4 degrees QTcB Int : 469 ms Sinus rhythm with marked sinus arrhythmia Low voltage QRS Septal infarct (cited on or before 24-Nov-2024) Abnormal ECG When compared with ECG of 24-Nov-2024 18:07, Criteria for Inferior infarct are no longer Present Questionable change in initial forces of Anteroseptal leads Confirmed by Schuyler Reis ([id number]) on 05/30/2025 12:38:24 PM Referred By: REFERRED SELF Confirmed By: Schuyler Reis
[2025-05-30 15:57] VITALS: BP 105/62; PULSE 93; TEMP 98.6; O2SAT 97
--- NOTE | 2025-05-30 16:01 | Discharge Summary ---
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 She's had pain of left hip and thigh for past two months but this acute pain was much worse and she was unable to stand and walk. She doesn't think she had a hard impact from the fall, really slid down, denies hitting head/neck. CT head and neck were negative for acute issues or fractures in ED. No abdominal or chest wall pain, deformity, or tenderness. # Pathologic osteoporotic fracture of left femur, periprosthetic fracture -discussed with multiple orthopedic surgeons today from all groups - complex fracture and anticipated to require RUTH revision which cannot be done right now at [facility] -transferring to [facility] for tertiary care orthopedics consult -last dose of apixaban was AM of 05/29 -NWB LLE / bedrest currently, has ca placed 05/29 -pain control with IV morphine, scheduled APAP Perioperative evaluation - she states she is walking 2-3 miles a day with walker without dyspnea or chest pain and if true that is very good exercise tolerance for her age. She had Echo Sep 2024 which I reviewed - normal LV size and hyperdynamic function EF>70%, no rwma's, mild conc LVH, small pericardial effusion unchanged. She also had nondiagnostic stress test 10/04/2024 which showed normal EF and "possible inferior/inferolateral ischemia, but significant intestinal uptake in the area may affect interpretation." Previous records suggest chronically elevated HS-troponin in 30-40 range. EKG reassuring - sinus with sinus arrhythmia, low voltage qrs, old septal infarct present on previous EKGs in our system. Has dual chamber pacemaker and reviewed recent report from Dr. Conteh - only brief atrial arrhythmias noted - PAT and possible very brief episodes of aflutter. Paces infrequently. Overall she is probably standard operative risk for her age, the LE edema related to venous stasis rather than heart failure. No evidence of ACS or active CHF and I see no medical contraindications to proceeding with urgent surgery to repair hip. She is chronically anticoagulated on apixaban for DVT/PE in Aug 2024. Last dose was 05/29 AM and continue holding apixaban. This will be reversed at 48h kye which is AM of 05/31. # normocytic anemia - Hg 9.2--> 8.6 overnight after IV fluids - baseline looks variable but was 11-12 in November. Probably acute blood loss anemia from fracture in setting of anticoagulation -monitor type and screen -iron studies - did not order today since transferring # SSS s/p dual chamber pacemaker followed by Dr. 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 which was provoked by acute illness -apixaban held -consider bridging with single dose of prophylaxis dose SQ heparin night of 05/30 -resume apixaban postop when safe per surgeon # Venous stasis and associated edema -improved today -cont triamterene-HCTZ but may benefit from stronger diuretic postop if edema increasing. Hold diuretic AM of surgery, resume when good po # L heel wound and red spots, R heel dark area, hx sacral decubitus -consult WON - L heel wound is tiny - few mm, covered by scab. R heel is blanchable. Recommend waffle boots. Scratch on forehead from her dog, superficial/scabbed. Unfortunately she refused rolling secondary to pain, so unable to examine sacral area. 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 She has noticed left hip pain radiating down left lateral thigh for past two months. Yesterday was using walker in house and bent down to pick something up off floor and fell over, landing on left side. She feels it was a fairly gentle fall and she has thick carpet. A neighbor helped her get into a chair and she could not get up because of pain so she stayed there. She called the [facility] office to try and schedule appt and they recommended she be evaluated in ED. Her L hip was replaced some years ago by Dr. Small and has had other care at [facility]. Last fall she fell and fractured R hip, repaired by Dr. Cruz because of expediency. She had some morphine in ED and currently no pain in L leg as long as she lies still. She lives independently [place] [facility] [place]. She uses her walker but says she walks 2-3 miles every day. No dyspnea or chest pain. This winter she had wounds on feet, sacrum and she says they healed. I do see a tiny wound still present left heel with no evidence of infection. She denies F/C, cough, abd pain, N/V/D, dysuria. She has urinary incontience. Leg edema is currently worse than her baseline and she takes triamterene. Last dose of apixaban was this morning. Meds: she only takes three armour thyroid apixaban triamterene-HCTZ Discharge Exam Last 24h vitals reviewed GEN: no acute distress, lying in bed HEENT: pupils equal, sclerae anicteric, moist MM. Mild abrasion L anterior scalp, R forehead RESP: normal WOB, CTAB CV: reg no mrg ABD: soft/nt/nd +BT : ca catheter yellow urine SKIN: warm and dry, no generalized rashes. R heel blanchable skin intact. L heel with few mm shallow wound medial side covered by scab. EXT: LE are cool but well perfused, 2+ bilateral LE pitting edema to shins, LLE externally rotated, good cap refill, pulses intact. NEURO: AOx person, place, and situation. Face symmetric, speech normal, moving RUE LUE and RLE purposefully Discharge Plan Discharge Items Patient Disposition: Transfer Acute Care Hospital Reason For Visit: L HIP FRACTURE Discharge Diagnosis: Left hip fracture Condition on Discharge: Fair Activity: As commented below Non-emergency contact: Primary Care Provider Call non-emergency contact if: you have any medication questions and your symptoms worsen Follow-up/Referrals: Marjan Ramirez PA-C [Primary Care Provider] - Diet: Other - See Diet Comment Diet Comment: NPO after midnight 05/30 except for meds Addtl Attending Provider Instructions: Currently regular diet, make NPO after midnight except for meds Last dose of apixaban was AM of 97 Pending Studies at Discharge: Yes (urine culture >100K E. coli, sensis pending) Stand-Alone Forms: My [facility] Skilled Items Patient informed of condition?: Yes DNR: No Discharge Level of Care: Other Communicable Disease: No Discharge Prognosis: Stable Lines: Peripheral IV Urinary Catheter: Yes Medications and DC Order Prescriptions: Continued Eliquis 5 mg tablet 5 mg PO BID Qty: 60 5RF thyroid (pork) [[place] Thyroid] 60 mg tablet 60 mg PO DAILY Qty: 30 5RF triamterene-hydrochlorothiazid 37.5-25 mg tablet 1 tab PO QAM 30 Days Qty: 30 5RF acetaminophen [Tylenol] 325 mg tablet 325 mg PO QID PRN (Reason: Pain) multivitamin [Daily Multi-Vitamin] Tablet 1 tab PO DAILY Qty: 30 0RF PreserVision AREDS 4,296 mcg-226 mg-90 mg Capsule 1 cap PO AMPM Qty: 60 0RF latanoprost 0.005 % drops 1 drops OPB QPM Rx Instructions: 1 drops opb hs. last filled 05/03 100 day supply timolol maleate 0.5 % drops, once daily 1 drp OPB BID Rx Instructions: 1 drp opb bid. filled 08/11 75 day supply doxycycline hyclate 50 mg capsule 50 mg PO BIDWMEAL Rx Instructions: TAKES FOR ROSACEA; BEEN MONTHS SINCE USED Discharge Orders: Discharge Order (Routine); Ordered 05/30/25 Ordered By: Evette Pollack Admission Data Admit Date/Time: 05/29/25 18:48 Attending Provider: Evette Pollack Admit Provider: Evette Pollack Primary Care Provider: Marjan Ramirez Other Providers: Shaan Azevedo Hospital Stay Data Consultations 05/29/25 17:50 ED Decision to Admit Stat Diagnostic Imagining Performed 05/29/25 15:33 CT cervical spine wo con Stat CT head/brain wo con Stat Cervical Spine CT 05/29/25 15:33 CT cervical spine without IV contrast History: Trauma Comparison: None Technique: Using multidetector thin collimation helical acquisition technique, axial, coronal and sagittal CT images through the cervical spine were obtained without intravenous contrast. Dose reduction techniques were achieved by using automatic exposure control and/or adjustment of mA and/or kV according to patient size and/or use of iterative reconstruction technique. Findings: The cervical vertebrae are normally aligned. Straightened cervical lordosis. No acute fracture or subluxation. No prevertebral edema. Multilevel prominent degenerative facet changes. Moderate to severe discogenic degenerative change at C5-6 and C6-7. Degenerative related 3 mm anterolisthesis of C4. No abnormality of the paraspinous soft tissues. Impression: No acute fracture or traumatic subluxation. Electronically signed by Rafael Barraza 05-29-2025 6:11 PM Femur X-Ray 05/29/25 15:33 Exam: Left femur routine 2 views Reason for exam: Left hip pain. Previous studies: None FINDINGS: Total hip arthroplasty is in place. There is a comminuted fracture in the proximal left femur. Age of this is uncertain but may be acute. Distal femur is intact in appearance. IMPRESSION: Comminuted mildly angulated acute fracture of the proximal left femur, with total hip arthroplasty in place. This fracture appears acute although no history of trauma is given. Correlation with the timing of the hip arthroplasty as well as any history of trauma recommended. Orthopedic referral is recommended for this patient. Electronically signed by Beka Grant 05-29-2025 6:[address] 05/29/25 15:33 CT head without contrast History: Trauma Comparison: None Technique: Using multidetector thin collimation helical acquisition technique, axial, coronal and sagittal CT images from the skull base to the vertex were obtained without intravenous contrast. Dose reduction techniques were achieved by using automatic exposure control and/or adjustment of mA and/or kV according to patient size and/or use of iterative reconstruction technique. Findings: No intracranial hemorrhage, mass-effect, or midline shift. The ventricles are proportionate to the cerebral sulci. The petersen to white matter differentiation of the cerebral hemispheres is preserved. The basal cisterns are patent. The visualized paranasal sinuses are clear. Mastoid air cells are clear. Impression: No acute intracranial pathology. Electronically signed by Rafael Barraza 05-29-2025 6:11 PM Pelvis X-Ray 05/29/25 15:33 Exam: Pelvis one to 2 views routine. Previous studies: 07/01/2024 Reason for exam: Pain in the left hip. FINDINGS: Left total hip arthroplasty is present. There is an acute fracture with comminution in the proximal left femur which appears acute. Intertrochanteric gamma nail seen in the right hip occurring since the previous study of 07/01/2024. Alignment of the fragments about the fracture site are somewhat atypical without clear evidence of healing at this time. IMPRESSION: 1. Acute comminuted fractured proximal left femur. 2. Old fracture with internal fixation right proximal femur. Correlation with recent radiographs to evaluate the possibility of refracture due to the atypical alignment of the bone fragments is recommended. Electronically signed by Beka Grant 05-29-2025 6:08 PM 05/30/25 05/29/25 05/29/25 Range/Units 06:37 20:11 17:22 WBC 7.08 10.30 (4.8-10.8) K/ul RBC 2.76 L 2.95 L (4.20-5.40) M/uL Hgb 8.6 L 9.2 L (12.0-16.0) g/dl Hct 25.8 L 27.4 L (37.0-47.0) % MCV 93.5 92.9 (80.0-100.0) fL MCH 31.2 31.2 (25.0-34.0) pg MCHC 33.3 33.6 (32.0-36.0) g/dL RDW Std Deviation 48.6 H 47.8 H (36.4-46.3) fL RDW Coeff of López 14.4 14.1 (11.5-14.5) % Plt Count 345 374 (130-400) K/uL MPV 10.1 10.2 (9.4-12.4) fL Immature Gran % (Auto) 1.1 % Neut % (Auto) 73.2 % Lymph % (Auto) 14.7 % [place] % (Auto) 10.2 % Eos % (Auto) 0.4 % Baso % (Auto) 0.4 % Neut # (Auto) 7.55 H (1.40-6.50) K/uL Lymph # (Auto) 1.51 (1.20-3.40) K/uL [place] # (Auto) 1.05 H (0.11-0.59) K/uL Eos # (Auto) 0.04 (0.00-0.50) K/uL Baso # (Auto) 0.04 (0.00-0.20) K/uL Immature Gran # (Auto) 0.11 (0.01-0.20) K/uL Sodium 138 139 (136-145) mmol/L Potassium 3.6 4.0 (3.5-5.1) mmol/L Chloride 101 98 (98-107) mmol/L Carbon Dioxide 30 30 (21-32) mmol/L Anion Gap 7 11 (3-11) BUN 58 H 66 H (6-23) mg/dl Creatinine 0.87 1.00 (0.6-1.2) mg/dl Est Cr Clr Drug Dosing 39.4 34.3 ml/min eGFR 63.65 53.85 BUN/Creatinine Ratio 66.7 H 66.0 H (10-20) Glucose 123 H 124 H (70-99(Fasting)) mg/dl Calcium 8.9 9.4 (8.6-10.3) mg/dl Total Bilirubin 1.0 (0.2-1.0) mg/dl AST 23 (13-39) U/L ALT 16 (7-52) U/L Alkaline Phosphatase 57 (34-104) U/L Total Creatine Kinase 283 H (26-192) U/L Total Protein 7.5 (6.0-8.3) gm/dl Albumin 3.9 (3.4-5.0) gm/dl Globulin 3.6 (2.5-4.0) gm/dl Albumin/Globulin Ratio 1.1 (0.9-2) Lipase 91 H (11-82) U/L Urine Color Yellow Urine Appearance Clear (Clear) Urine pH 6.5 (4.5-7.5) Ur Specific [place] 1.023 (1.000-1.030) Urine Protein Trace H (Negative) Urine Glucose (UA) Negative (Negative) Urine Ketones Negative (Negative) Urine Blood Negative (Negative) Urine Nitrite Positive A (Negative) Urine Bilirubin Negative (Negative) Urine Urobilinogen Negative (Negative) Ur Leukocyte Esterase 1+ H (Negative) Urine WBC (Auto) 11-20 H (0-5) /hpf Urine RBC (Auto) 0-2 (0-2) /hpf U Hyaline Cast (Auto) 0-2 (0-2) /lpf U Epithel Cells (Auto) 0-2 (0-2) /hpf Urine Bacteria (Auto) 1+ H (None Seen) Urine Comment Blood Type B Positive Antibody Screen NEGATIVE Current Inpatient Medications Acetaminophen (Acetaminophen 325 Mg Tab) 650 mg PO Q6 FAUZIA Stop: 06/28/25 18:59 Last Admin: 05/30/25 12:49 Dose: 650 mg Al Hydrox/Mg Hydrox/Simethicone (Aluminum/Magnesium Susp 30 Ml Udc) 30 ml PO Q6H PRN PRN Reason: Dyspepsia Stop: 06/28/25 22:16 Ceftriaxone Sodium (Rocephin) 1,000 mg in 50 mls @ 100 mls/hr IV Q24H FAUZIA Stop: 06/04/25 08:29 Last Infusion: 05/30/25 10:02 Dose: Infused Latanoprost (Latanoprost 0.005% Op Soln 2.5 Ml Btl) 1 drops OPB HS FAUZIA Stop: 06/28/25 22:16 Last Admin: 05/29/25 23:22 Dose: 1 drops Magnesium Hydroxide (Magnesium Hydroxide Susp 30 Ml Udc) 30 ml PO Q6H PRN PRN Reason: Constipation Stop: 06/28/25 22:16 Melatonin (Melatonin 3 Mg Tab) 3 mg PO HS PRN PRN Reason: Insomnia Stop: 06/28/25 22:16 Morphine Sulfate (Morphine Sulfate 2 Mg/Ml Carp) 2 mg IV Q1H PRN PRN Reason: Moderate Pain (Rating 3,4,5,6) Stop: 06/12/25 16:38 Morphine Sulfate (Morphine Sulfate 4 Mg/Ml 1 Ml Carp\\Vial) 4 mg IV Q1H PRN PRN Reason: Severe Pain (Rating 7,8,9,10) Stop: 06/12/25 16:38 Last Admin: 05/29/25 17:37 Dose: 4 mg Ondansetron HCl (Ondansetron Inj 2 Mg/Ml 2 Ml Vial) 4 mg IV Q6H PRN PRN Reason: Nausea Stop: 06/28/25 22:16 Polyethylene Glycol (Polyethylene (Miralax) 17 Gm Pack) 17 gm PO DAILY PRN PRN Reason: Constipation Stop: 06/28/25 22:16 Thyroid ([place] Thyroid 30 Mg Tab) 60 mg PO DAILY FAUZIA Stop: 06/29/25 08:59 Last Admin: 05/30/25 09:31 Dose: 60 mg Timolol Maleate (Timolol Maleate 0.5% Op Soln 5 Ml Btl) 1 drops OPB BID [facility] Stop: 06/28/25 22:29 Last Admin: 05/30/25 08:52 Dose: 1 drops Triamterene/Hydrochlorothiazide (Triamterene/Hctz 37.5/25mg Tab) 1 tab PO QAM [facility] Stop: 06/29/25 08:59 Last Admin: 05/30/25 09:50 Dose: 1 tab Pending Results Patient Have Any Pending Studies at Discharge: Yes (urine culture >100K E. coli, sensis pending) Discharge Instructions Given to Patient (Per Discharging Provider) Currently regular diet, make NPO after midnight except for meds Last dose of apixaban was AM of 7 Total Time Total Time Spent Total Time Spent (In Minutes): I personally spent: 55 minutes today on clinical care activities including: reviewing chart notes and vital signs reviewing labs discussion with internal control consultant(s) - orthopedics discussion with care worker examining and counseling the patient arranging hospital transfer and speaking with transferring facility writing orders documentation Coding Level of Care Code 72828 INP/OBS DISCH >30 MIN Diagnoses Closed left femoral fracture S72.92XA Chronic anticoagulation Z79.01 Osteoporosis M81.0 PAT (paroxysmal atrial tachycardia) I47.1 Anemia D64.9
== END 2025-05-30 21:49 | disposition short-term general hospital (02) | DRG 543 ==
LOC: SUATTDRO → ED 15:26 → 3N 18:48